=== PATIENT | female | born 1995 | race Caucasian/White ===

== ENCOUNTER 2017-08-22 16:34 | Emergency (ER) | payer BC, MEDICAID, SELFPAY ==
[2017-08-22 16:35] VITALS: BP 136/75; PULSE 138; RESP 18; TEMP 36.4; O2SAT 97; BMI 27.9
[2017-08-22] MEDS: Acetaminophen 500 MG Tablet 1000 MG PO (17:24)
[2017-08-22] MEDS: Lactated Ringers 1,000 ML 1000 ML IV (17:24)
--- NOTE | 2017-08-22 17:31 | EKG12_ITS ---
Test Reason : PALPS Blood Pressure : / mmHG Vent. Rate : 097 BPM Atrial Rate : 097 BPM P-R Int : 162 ms QRS Dur : 092 ms QT Int : 328 ms P-R-T Axes : 045 071 028 degrees QTc Int : 416 ms Normal sinus rhythm Normal ECG Confirmed by MARCO ANTONIO NAJERA, TEX ([id number]), film editor JENNIFER SAINI ([id number]) on 08/25/2017 1:36:16 PM Referred By: ERIK Confirmed By:TEX BERNARD MD
[2017-08-22 17:33] LABS: Absolute Lymphocyte Count 0.89 X10^3/ul (0.83-4.51); Absolute Neutrophil Count 11.8 X10^3/uL (2.0-7.7); Basophil# 0.03 X10^3/uL; Basophil% 0.2 % (0-1); Eosinophil# 0.26 X10^3/uL; Eosinophils% 1.9 % (0-5); Hematocrit 27.9 % (37-47); Hemoglobin 9.3 g/dl (12.0-15.0); Lymphocyte # 0.89 X10^3/ul (4.0); Lymphocyte % 6.4 % (19-41); Mean Corp Hgb Conc 33.3 g/gl (32-36); Mean Corpuscular Hgb 29.7 pg (27.0-32.0); Mean Corpuscular Volume 89.1 fL (81-99); Monocyte# 0.89 X10^3/uL; Monocyte% 6.4 % (0-10); Neutrophil # 11.78 X10^3/uL (2.7-7.7); Neutrophil % 84.5 % (47-70); Platelet Count 205 K/mm3 (150-450); RBC Distribution Width CV 12.6 % (11.6-14.6); RBC Distribution Width SD 39.5 fl (35.1-43.9); Red Blood Count 3.13 M/mm3 (4.2-5.4); White Blood Count 13.9 K/mm3 (4.4-11.0)
[2017-08-22 17:49] LABS: POSITIVE COUNT NO; POSITIVE DIFFERENTIAL NO; POSITIVE MORPHOLOGY NO
[2017-08-22 17:52] LABS: Anion Gap 9 (5-15); BUN 9 mg/dL (7-18); BUN/Creat Ratio 14.3 RATIO (10-20); Calcium,Total 8.5 mg/dL (8.5-10.1); Chloride 107 mmol/L (98-107); Creatinine, Serum 0.63 mg/dL (0.55-1.02); EST Glomerular Filtration Rate 127 mL/min (>60); Est Glom Filt Rate - Afr Amer 154 mL/min (>60); Estimated Creatinine Clearance 128.17 ml/min; Glucose 93 mg/dL (74-106); Potassium 3.5 mmol/L (3.5-5.1); Sodium Level 137 mmol/L (136-145)
--- NOTE | 2017-08-22 18:43 | ED.VISSUMM ---
- ER Visit Summary Date of Service: 08/22/17 Chief Complaint: Shortness of breath History of Present Illness: The patient is a 21 F presenting for evaluation secondary shortness of breath. Patient is 35 weeks , . Patient states that since yesterday she has been having some shortness of breath associated with fevers as high as 102 cough and generalized myalgias. Patient states that she was seen at urgent care yesterday was told she had an upper respiratory infection but then went today and was told that she was dehydrated. Patient states that she has not had any sort of nausea vomiting diarrhea denies any headache neck stiffness or skin rashes. She denies any vaginal bleeding or loss of fluid or decreased movement. Patient has not taken anything for fever. Physical Examination: Vital signs notable for triage tachycardia heart rate of 138 temperature 99.5. Well-nourished female no acute distress. Head normocephalic. Moist mucous membranes. Neck supple. Heart was tachycardic and regular no murmurs. Lungs sounds showed evidence of mild decreased sounds at the left base, but no rhonchi rales or wheezes. Abdomen was gravid and nontender. No skin rashes. Test Results: EKG shows a sinus rate of [address] segments normal T waves. No evidence of right ventricular strain. Normal intervals. CBC shows leukocytosis of 13.9 and anemia of 9.3. Chemistry within normal limits, normal anion gap. Flu swab was negative Emergency Department Course and Treatment: Patient presented secondary to a fever and shortness of breath. Lung sounds are clear although somewhat diminished at the left base likely secondary to the patient's . Patient was given Tylenol and a liter normal saline and had some symptomatic improvement. Patient's laboratory workup is unremarkable, she has normal oxygenation I do not believe that she requires a chest x-ray at this point. Repeat evaluation at 1920 showed the patient to have symptomatic improvement in improvement of her heart rate. At this point patient likely has a febrile illness. I did consider the possibility of pulmonary embolism, but the patient has normal oxygenation and is not complaining of any sort of chest pain so I do not believe the workup for that is indicated at this point. Also the patient is febrile and has more of an infectious etiology which I believe points more away from PE and more towards infection. Patient likely does not have pneumonia she has clear lung sounds. This point patient will be discharged with conservative management with Tylenol and fluids and rest. She will follow-up with her CLERK TO JUSTICE as needed. Disposition: Discharge Impression: 1. Febrile illness 2. 35 week This note was generated with kidthing dictation software. It may contain incorrect words, spelling, and punctuation that were not noted in review of the chart prior to signing ED Disposition - Plan for ED Patient: Disposition: Home or Assisted Living Chief Complaint: Palpitations Diagnosis: Viral illness Instructions: ED Viral Syndrome Additional Instructions: Followup with your OB as needed
--- NOTE | 2017-08-22 18:46 | ED.DCSUM_ITS ---
- ER Visit Summary Date of Service: 08/22/17 Chief Complaint: Shortness of breath History of Present Illness: The patient is a 21 F presenting for evaluation secondary shortness of breath. Patient is 35 weeks , . Patient states that since yesterday she has been having some shortness of breath associated with fevers as high as 102 cough and generalized myalgias. Patient states that she was seen at urgent care yesterday was told she had an upper respiratory infection but then went today and was told that she was dehydrated. Patient states that she has not had any sort of nausea vomiting diarrhea denies any headache neck stiffness or skin rashes. She denies any vaginal bleeding or loss of fluid or decreased movement. Patient has not taken anything for fever. Physical Examination: Vital signs notable for triage tachycardia heart rate of 138 temperature 99.5. Well-nourished female no acute distress. Head normocephalic. Moist mucous membranes. Neck supple. Heart was tachycardic and regular no murmurs. Lungs sounds showed evidence of mild decreased sounds at the left base, but no rhonchi rales or wheezes. Abdomen was gravid and nontender. No skin rashes. Test Results: EKG shows a sinus rate of [address] segments normal T waves. No evidence of right ventricular strain. Normal intervals. CBC shows leukocytosis of 13.9 and anemia of 9.3. Chemistry within normal limits, normal anion gap. Flu swab was negative Emergency Department Course and Treatment: Patient presented secondary to a fever and shortness of breath. Lung sounds are clear although somewhat diminished at the left base likely secondary to the patient's . Patient was given Tylenol and a liter normal saline and had some symptomatic improvement. Patient's laboratory workup is unremarkable, she has normal oxygenation I do not believe that she requires a chest x-ray at this point. Repeat evaluation at 1920 showed the patient to have symptomatic improvement in improvement of her heart rate. At this point patient likely has a febrile illness. I did consider the possibility of pulmonary embolism, but the patient has normal oxygenation and is not complaining of any sort of chest pain so I do not believe the workup for that is indicated at this point. Also the patient is febrile and has more of an infectious etiology which I believe points more away from PE and more towards infection. Patient likely does not have pneumonia she has clear lung sounds. This point patient will be discharged with conservative management with Tylenol and fluids and rest. She will follow- up with her ENAMEL BURNER as needed. Disposition: Discharge Impression: 1. Febrile illness 2. 35 week This note was generated with Feed[employer] dictation software. It may contain incorrect words, spelling, and punctuation that were not noted in review of the chart prior to signing ED Disposition - Plan for ED Patient: Disposition: Home or Assisted Living Chief Complaint: Palpitations Diagnosis: Viral illness Instructions: ED Viral Syndrome Additional Instructions: Followup with your OB as needed
[2017-08-22 18:57] VITALS: PULSE 107
[2017-08-22 19:31] VITALS: BP 122/60; PULSE 102; RESP 20; O2SAT 95
== END 2017-08-22 19:32 | disposition home or self-care (01) ==
PROVIDERS: Emergency Provider Emergency Medicine
DX: O99.89 Other specified diseases and conditions complicating pregnancy, childbirth and the puerperium (principal); R50.9 Fever, unspecified; R06.02 Shortness of breath; Z3A.35 35 weeks gestation of pregnancy
CPT/HCPCS: 80048; 85025; 87804; 93005; 99284; J7120; A4216

== ENCOUNTER 2017-09-30 09:50 | Inpatient (IN) | payer BC, MEDICAID, SELFPAY ==
[2017-09-30] VITALS (12 sets, daily range): BP systolic 105–138; BP diastolic 46–71; PULSE 63–83; RESP 16–17; TEMP 36.1–37.2; O2SAT 99–100; BMI 29.9
[2017-09-30] MEDS: Lactated Ringers 1,000 ML 50 ML IV (10:45)
[2017-09-30 10:56] LABS: Hematocrit 32.5 % (37-47); Hemoglobin 10.8 g/dl (12.0-15.0); Mean Corp Hgb Conc 33.2 g/gl (32-36); Mean Corpuscular Hgb 29.3 pg (27.0-32.0); Mean Corpuscular Volume 88.1 fL (81-99); Mean Platelet Vol. 10.2 fl (6.2-12.0); Platelet Count 224 K/mm3 (150-450); RBC Distribution Width CV 13.2 % (11.6-14.6); RBC Distribution Width SD 42.5 fl (35.1-43.9); Red Blood Count 3.69 M/mm3 (4.2-5.4); Scan Indicated on CBC? Y/N NO; White Blood Count 15.3 K/mm3 (4.4-11.0)
--- NOTE | 2017-09-30 11:22 | PCM.HP.OB ---
History Date of Admission: 09/30/17 Final SHANNON: 09/25/17 Final SHANNON Source: US <20 weeks Gestational age: 40 Weeks and 5 Days History of this : 22yo @ 40.5 wks in early labor. pt was monitored made cervical change from 1cm to 3cm. pt requesting epidural for pain mgmt. pt is dated by her First trimester u/s not c/w LMP. Allergies No Known Allergies Allergy (Verified 09/30/17 04:57) Current Medications Acetaminophen (Tylenol) 325 - 650 mg PO Q4H PRN PRN PRN Reason: PAIN OR FEVER >100.4F Al Hydroxide/Mg Hydroxide (Mylanta Ii) 15 - 30 ml PO Q4H PRN PRN PRN Reason: INDIGESTION Citric Acid/Sodium Citrate (Bicitra) 30 ml PO UD PRN Lactated Ringer's () 1,000 mls @ 50 mls/hr IV .Q20H BECKY Oxytocin/Sodium Chloride () 30 units in 500 mls @ 1 mls/hr IV .Q500H BECKY Nalbuphine HCl (Nubain) 5 - 10 mg IV Q3H PRN PRN PRN Reason: PAIN (4-10/10) Ondansetron HCl (Zofran) 4 mg IV Q8H PRN PRN PRN Reason: NAUSEA Promethazine HCl (Phenergan) 6.25 - 12.5 mg IV Q4H PRN PRN; Protocol PRN Reason: IF NAUSEA PERSISTS Sodium Chloride () 5 - 15 ml IV UD BECKY Smoking Status: Former smoker - quit 12/2016 Alcohol: None Drug Use: none Number of Fetus(es): 1 Review of Systems Gastrointestinal: Reports: Abdominal Pain - from contractions Physical Exam General: Alert, Oriented x3 Abdomen: Soft, Non Tender, Gravid Extremities:: No clubbing Estimated gestational size: Appropriate for gestational size Presentation: Cephalic Cervix Dilation (cm): 3 Station: -1 Effacement (%): 80 Assessment/Plan 22yo @ 40.5 wks in early labor 1) admit to L&D 2) monitor fhr/toco 3) AROM clear fluid IUPC and IFM placed. pt reports negative HEPC prior to placement. 4) Pitocin for augmentation 5) Epidural for pain mgmt 6) PNL labs reviewed- A+, HIV neg, RPR NR, Rub imm, GBS neg, HEP C pending
[2017-09-30] MEDS: Oxytocin 30 units/NS 500 ml 30 UNITS/500 ML IV.SOLN IV (12:00)
[2017-09-30] MEDS: Oxytocin 30 units/NS 500 ml 30 UNITS/500 ML IV.SOLN 167 UNITS IV (14:37)
--- NOTE | 2017-09-30 14:52 | CASEMGMT ---
Social Work Note Patient/mother of baby (MOB) taken back to the OR quickly due to change in heart tones. MOB's maternal grandmother and MOB's 19 year old sister in the room. Both tearful. Introduced self and updated family as able. Supportive listening and encouragement offered. MOB's mother, Gillian, arrived to the unit and wanting an update. Updated given and after calling back to OR for such. Supportive listening offered. Nursing came out to get Gillian as decision made to perform Caesarian section. Family calm and appropriate. location worker remains available as needed or indicated. -SONIA Chapin, BURR GRINDER
[2017-09-30] MEDS: Lactated Ringers 1,000 ML 100 ML IV ×2 (15:00→22:55)
--- NOTE | 2017-09-30 15:11 | OP.PCM_ITS ---
Delivery Classification: Stat Final SHANNON: 09/25/17 Gestational age: 40 Weeks and 5 Days Indications: in active labor with recurrent decelerations and prolonged decelerations- Category 2 FHR remote from delivery. Indications for : Nonreassuring Status Description of Procedure: Surgeon: Dr. Anayeli Ashraf Wax Pourer: JIM Cook after school program assistant: Krystal Redd MS3 Preoperative diagnosis: non reassuring status, Category 2 FHR tracing in active phase of labor Postoperative diagnosis: same Findings:Live female infant born without complication- Apgars 8/9, delayed cord clamping performed as baby was vigorous at time of delivery. Anesthesia: Epidural Complications: None Estimated blood loss:800 Implantable devices: None Drains: park Operative note: After informed consent was obtained the patient was taken the operating room she was given spinal anesthesia. She was then placed in the supine position. She was prepped and draped in the normal sterile fashion. Anesthesia was found to be adequate. At this time a Pfannenstiel skin incision was made with a knife was carried down to the underlying layer of the fascia. The fascial incision was then extended laterally using curved Munoz scissor. Tensions was then turned to the superior aspect of the fascial edge was grasped with 2 straight Krzysztof clamps tented up and the rectus muscle dissected off sharply using curved Munoz scissor. Attention was then turned to the inferior aspect where again [place] clamps were placed in the rectus muscles were tented up and the fascia was dissected off sharply using the curved Munoz scissor. Rectus muscles were then in the midline bluntly and peritoneum was entered bluntly. Gentle opposing traction was placed. At this time the vesicouterine peritoneum was identified. Scalpel was used to make a uterine incision in a low transverse fashion. The uterus was then entered bluntly gentle opposing traction was placed to extend this incision. Membranes were ruptured clear. Infant's head was brought to the uterine incision was delivered atraumatically. Cord was clamped and cut infant was handed to the waiting nursery team. The Placenta was removed from the uterus. The uterus was then removed from the abdominal cavity. The uterus was cleared of all clots and debris using a lap. At this time the uterine incision was reapproximated using #1 Vicryl in a running locked fashion followed by a second imbricating layer with #1 vicryl. Hemostasis was appreciated. Posterior cul-de-sac was then cleared of all clots and debris. Uterus was placed back in the abdominal cavity. Gutters were cleared of all clots and debris. Uterine incision was reevaluated and noted to be of excellent hemostasis. At this time the peritoneum was grasped with Kellys reapproximated using #2 Vicryl suture in a running fashion. Muscles then reapproximated using #2 Vicryl in a interrupted mattress suture fashion. Fascia was then reapproximated using #1 Vicryl in a running fashion. Subcu layer was reapproximated with #2 0 plain gut suture in an interrupted fashion. Subcu layer was closed using 4-0 Monocryl in a subcutaneous fashion. Dry sterile dressing was applied. Instrument lap needle count correct ?2. Anticipated normal postoperative course. Amniotic Membrane Rupture Type: Artificial Amniotic Fluid Description: Clear Placenta Disposition: [facility] Drain: Park to straight drain Cord Entanglement: None Cord Vessel Description: 3 Vessels Esitmated Blood Loss (ml): 800 Infant Gender: Female (1 minute): 8 (5 minute): 9 Delayed cord clamping: Yes Pre-op Antibiotic Given: - - zithromax 500mg Pt instructed on risks of surgery: Bleeding, Anesthesia Risks, Infection, Injury to surrounding structure(s) including bowel and bladder Complications: None - Admit VTE Documentation VTE Present on Admission: Yes VTE Mechan Device Prophylaxis: SCD's VTE Pharm Prophylaxis ordered?: No
[2017-09-30] MEDS: Ketorolac 30 MG/ML Syringe IV ×2 (17:23→22:53)
[2017-09-30] MEDS: oxyCODONE 5 MG Tablet PO (20:07)
[2017-10-01] VITALS: BP 111/46; PULSE 77; RESP 17; TEMP 36.7
[2017-10-01 04:00] VITALS: BP 111/57; PULSE 78; RESP 15; TEMP 37.2
[2017-10-01] MEDS: oxyCODONE 5 MG Tablet PO ×3 (04:46→16:29)
[2017-10-01] MEDS: Ketorolac 30 MG/ML Syringe IV ×2 (04:46→12:21)
[2017-10-01] MEDS: 0.9% Saline Lock 10 ML Syringe IV ×2 (04:46→12:21)
[2017-10-01 05:17] LABS: Hematocrit 26.7 % (37-47); Hemoglobin 8.8 g/dl (12.0-15.0); Mean Corpuscular Hgb 29.4 pg (27.0-32.0); Mean Corpuscular Volume 89.3 fL (81-99); Platelet Count 178 K/mm3 (150-450); RBC Distribution Width SD 40.5 fl (35.1-43.9); Red Blood Count 2.99 M/mm3 (4.2-5.4); White Blood Count 12.9 K/mm3 (4.4-11.0)
[2017-10-01 05:18] LABS: Scan Indicated on CBC? Y/N NO
--- NOTE | 2017-10-01 07:58 | PCM.PN.OB ---
Subjective: pt seen at bedside, doing well .pt reports good pain control. lochia mild. Voiding w/o difficulty. breast feeding. - Physical Exam General: Alert, Oriented x3 Abdomen: Soft, Non-Distended, - - incision site dry and intact. fundus firm Extremities: No Calf Tenderness Vital Signs Temp Pulse Resp BP Pulse Ox 98.9 F 78 15 111/57 L 100 10/01/17 04:00 10/01/17 04:00 10/01/17 04:00 10/01/17 04:00 09/30/17 20:00 Oxygen Delivery Method Room Air Weight: 81.8 kg Body Mass Index (BMI) 29.9 Intake and Output for Last 24 Hours 09/29/17 09/30/17 10/01/17 23:59 23:59 23:59 Intake Total 1600 / 1600 Output Total 1400 / 1400 800 / 800 Balance 200 / 200 -800 / -800 Laboratory Tests Past 24 Hrs 09/30/17 09/30/17 09/30/17 10:45 10:45 10:45 WBC 15.3 H RBC 3.69 L Hgb 10.8 L Hct 32.5 L MCV 88.1 MCH 29.3 MCHC 33.2 RDW 13.2 RDW Differential 42.5 Plt Count 224 MPV 10.2 Hepatitis C Ab (EIA) Pending Hepatitis C Comment Pending Blood Type A POSITIVE Antibody Screen NEGATIVE 10/01/17 05:00 WBC 12.9 H RBC 2.99 L Hgb 8.8 L Hct 26.7 L MCV 89.3 MCH 29.4 MCHC 33.0 RDW 13.0 RDW Differential 40.5 Plt Count 178 MPV 10.0 Hepatitis C Ab (EIA) Hepatitis C Comment Blood Type Antibody Screen Medical Necessity - Tobacco Use Smoking Status: Current every day smoker Assessment/Plan POD#1, doing well routine care pain mgmt ambulation
--- NOTE | 2017-10-01 08:05 | DCINST_ITS ---
Discharge Diet: No Restrictions Discharge Activity: Return to Normal Activity, May Not Drive - for 2 weeks, May not drive while taking narcotic pain medications., May Shower, May Take a Tub Bath - in 7 days. May resume sexual activity in: 4-6 weeks Lifting Restrictions: 20 pounds Additional Activity Instructions:: Nothing in the vagina for 4-6 weeks. You may return to work/school in 6 weeks. Call your doctor if your incision/area has: Continuous Slow Oozing, Sudden Increased Bleeding, Increased Pain/ Swelling, Increased Redness, Foul Smelling Discharge Call your doctor if you observe: Fever of 101 or Higher, Using more than one pad per hour - for 2 hours Suture Line Care: Avoid Pulling/Pushing, Avoid Pinching/Bending Cleanse incision/area with: Keep Dressing Clean & Dry Additional Instructions: If you experience any of the following, contact your healthcare provider. * Bleeding that soaks a pad every hour for 2 hours * Fever 100.4 or higher * Unrelieved incision or abdominal pain * Swelling, redness, discharge or bleeding from your incision or episiotomy site * Your incision begins to separate * Problems urinating (including inability to urinate or burning while urinating) . * Visual changes * Severe headache * Flu-like symptoms * Pain or redness in one of both of your breasts * Pain, warmth, tenderness or swelling in your legs, especially the calf area * Frequent nausea and vomiting * Symptoms of depression or anxiety If you experience any of the following, call 911 or go to the nearest Emergency Room. * Chest pain * Problems breathing * Seizure activity * Partial or complete paralysis of a body part, slurred speech, weakness or drooping of the face, or a sudden inability to walk or hold your balance Allergies/Adverse Reactions: Allergies No Known Allergies Allergy (Verified 09/30/17 04:57) Medications to take at Discharge Vit No.130/Iron/FA [ Vitamins] 1 each PO DAILY 02/11/17 Naproxen [Naprosyn] 250 - 500 mg PO Q8H PRN PRN #30 tab 10/01/17 Oxycodone HCl/Acetaminophen [Percocet 5/325] 1 tablet PO Q6H PRN PRN 7 Days #28 tablet 10/01/17 Senna/Docusate Sodium [Senokot-S] 1 - 2 tab PO DAILY PRN #30 tab 10/01/17 SimETHICONE [Mylicon] 80 mg PO PCHS PRN #30 tab 10/01/17 The following prescriptions were given: Oxycodone HCl/Acetaminophen [Percocet 5/325] 1 tablet PO Q6H PRN PRN 7 Days #28 tablet PRN Reason: Pain Naproxen [Naprosyn] 250 - 500 mg PO Q8H PRN PRN #30 tab PRN Reason: Mild Pain (-08/02) Senna/Docusate Sodium [Senokot-S] 1 - 2 tab PO DAILY PRN #30 tab PRN Reason: Constipation SimETHICONE [Mylicon] 80 mg PO PCHS PRN #30 tab PRN Reason: Indigestion/stomach pain Follow-Up: Call to make an appointment with your doctor for an incision check in 1-2 weeks. You will also need a 6 week post- follow up appointment. Please Follow Up With: Anayeli Ashraf MD - Call to make an appointment for an incision check in 1-2 [phone] When: You will need a post- check in 6 weeks. Primary Care Physician: Care Physician,No Primary [Primary Care Provider] -
[2017-10-01 08:08] VITALS: BP 105/59; PULSE 63; RESP 16; TEMP 36.7; O2SAT 97
[2017-10-01] MEDS: Senna/Docusate Sodium 1 Tablet PO (10:02)
[2017-10-01 12:00] VITALS: BP 109/54; PULSE 88; RESP 18; TEMP 36.6; O2SAT 98
[2017-10-01 16:04] VITALS: BP 95/51; PULSE 75; RESP 16; TEMP 36.5; O2SAT 98
[2017-10-01] MEDS: Naproxen 250 MG Tablet PO (19:44)
[2017-10-01 20:00] VITALS: BP 110/53; PULSE 92; RESP 17; TEMP 37
[2017-10-02] VITALS: PULSE 95; RESP 17; TEMP 37.2
[2017-10-02] MEDS: Naproxen 250 MG Tablet PO (05:52)
--- NOTE | 2017-10-02 07:21 | PCM.PN.OB ---
Subjective: Patient sitting up in bed at this time. Reports is going well, baby latching well. Patient denies no issues overnight, reports that she was able to get more restful sleep than her first night . Patient denies TOBIN, scotoma or dizziness. Patient reports no issues with urination or ambulation. Incisional pain well-controlled. Patient reports slight itching and a possible rash above incisional dressing. Objective: Nipples without cracks or blisters Abdomen NT x 4 quadrants, incisional dressing dry and intact Scant rubra lochia noted - Physical Exam General: Alert, Oriented x3, Cooperative HEENT: Atraumatic, Normocephalic Neck: Supple Lungs: Clear to auscultation, Normal air movement Cardiovascular: Regular rate, Regular Rhythm, No murmurs Abdomen: Soft, Non Tender, Passing Flatus Extremities: No edema, Capillary Refill Less than 3 Seconds, No Calf Tenderness Skin: No rashes, No breakdown Musculoskeletal: No Tenderness to Palpation of Joints or Extremities Neurological: Cranial nerves II-XII grossly intact, Coordination normal Psych/Mental Status: Normal Affect, Appropriate, Alert and oriented to time, place, person, mood and affect Vital Signs Temp Pulse Resp BP Pulse Ox 98.9 F 95 17 110/53 L 98 10/02/17 00:00 10/02/17 00:00 10/02/17 00:00 10/01/17 20:00 10/01/17 16:04 Oxygen Delivery Method Room Air Weight: 180 lb 5.41 oz Body Mass Index (BMI) 29.9 Intake and Output for Last 24 Hours 09/30/17 10/01/17 10/02/17 23:59 23:59 23:59 Intake Total 1600 / 1600 Output Total 1400 / 1400 800 / 800 Balance 200 / 200 -800 / -800 Laboratory Tests Past 24 Hrs 09/30/17 10:45 Hepatitis C Ab (EIA) TNP Hepatitis C Comment Not Reportable Medical Necessity - Tobacco Use Smoking Status: Current every day smoker Assessment/Plan A: 22 y/o s/p LTCS, POD #2, Normal Course P: 1) Continue PP orders, continue 2) Anticipate discharge to home tomrrow pending discharge 3) Follow-up in office for incision check at 2 weeks PP Elena Luque CNM
[2017-10-02 08:15] VITALS: BP 111/58; PULSE 76; RESP 16; TEMP 36.9
[2017-10-02 13:49] VITALS: BP 110/54; PULSE 77; RESP 18; TEMP 36.8; O2SAT 97
--- NOTE | 2017-10-02 15:31 | CASEMGMT ---
Social Work Note Labor and Delivery Unit. Consult received from oil paint shader due to maternal history of substance use, probation and living situation. Chart reviewed. Attempted to meet with mother of baby (MOB) today. First attempt MOB was just getting lunch and was about to eat. Second attempt there were many visitors in the room. Introduced to self and role, that often sees first time mothers (not getting into details of other reasons for consult with so many visitors present). Offered to do consult now and have visitors leave or to come back in the morning. MOB preferred to meet tomorrow morning if okay with high school social studies teacher. Agreed to come back. Plan: Will meet with MOB on 10-03-17 in the morning. -SONIA Chapin, AIRCRAFT MAINTENANCE TECHNICIAN
[2017-10-02 20:20] VITALS: BP 132/72; PULSE 99; RESP 16; TEMP 36.8
[2017-10-03 02:20] VITALS: BP 100/48; PULSE 60; RESP 16; TEMP 36.6
--- NOTE | 2017-10-03 07:15 | PCM.PN.OB ---
Subjective: pt seen at bedside, doing well. pt reports good pain control. lochia mild. passing flatus- tolerating regular diet. Breast feeding. - Physical Exam General: Alert, Oriented x3 Abdomen: Soft, Non-Distended, - - funuds firm. incision site dry and intact. Extremities: No Calf Tenderness Vital Signs Temp Pulse Resp BP Pulse Ox 97.8 F 60 16 100/48 L 97 10/03/17 02:20 10/03/17 02:20 10/03/17 02:20 10/03/17 02:20 10/02/17 13:49 Oxygen Delivery Method Room Air Weight: 81.8 kg Body Mass Index (BMI) 29.9 Intake and Output for Last 24 Hours 10/01/17 10/02/17 10/03/17 23:59 23:59 23:59 Output Total 800 / 800 Balance -800 / -800 Medical Necessity - Tobacco Use Smoking Status: Current every day smoker Assessment/Plan POD#3, doing well routine care pain mgmt dc home today
--- NOTE | 2017-10-03 07:17 | PCM.DC.BLA ---
Discharge Summary Date of Admission: 09/30/17 Date of Discharge: 10/03/17 Summary: pt admitted for labor- pt progressed but was having recurrent decelerations and prolonged decelerations- decision for c/s was performed as she was remote from delivery. pt underwent primary low transverse cs without complications. Pt discharged home on POD#3 in stable condition.
[2017-10-03 08:11] VITALS: BP 120/69; PULSE 75; RESP 16; TEMP 36.6
--- NOTE | 2017-10-03 09:45 | CASEMGMT ---
Social Work Note Labor and Delivery Unit Social Work Assessment completed after referral from the veneer sawyer. Refer to documentation below for further details. Date of Referral: 09/30/2017 Time of Referral: 1842 Referred By: Dr. Lezama Date of Intervention: 10/03/2017 Time of Intervention: 944 Reason for Referral: substance abuse, living situation and probation in mother of baby (MOB) History obtained from: medical record, patient/MOB Polly Jimenez Household composition: MOB currently lives with paternal grandmother Princess Jimenez. MOB reports home situation is safe and adequate, reports has lived with Princess for most of MOBs life. MOB reports moved back in with Princess during this , just to be able to give MOB more support with baby and also save money for own place eventually. Patient's parent/guardian status: MOB (age 22) and reported father of baby (FOB) are not currently together. FOB is identified as Cody Wolfe (age 27). FOB is reported to have several other children. MOB reports MOB and FOB broke up around the time of finding out about . MOB denies any safety concerns from FOB. MOB reports currently in relationship with a man named Timoteo for the last 7 months. MOB denies any form of abuse, control, or intimidation by Timoteo. MOB reports Timoteo is more supportive of the and the baby than biological father has been. Medical History: MOB is G1, P0 to 1 after delivering baby girl Amarii. MOB with care starting at 8 weeks gestation. Baby born via STAT caesarian section. Amariis weight is 7 pounds 1 ounce, Apgars 8 and 9. Educational Status: MOB reports ability to read and write, denies any issues with learning or comprehension. Financial Status: MOB does not currently work, has been working two jobs at one point. MOB reports Princess is willing to help out financially as is Timoteo, until MOB is able to get back to work. Supplies: MOB reports to have needed baby supplies including bassinet, car seat, crib, breast pump, clothing, diapers, wipes, bottles. Childcare/Caregiver(s): MOB. Transportation: MBO reports to have own car and a drivers license. Programs/Agencies Involved: MOB reports to have medical and food assistance through S. MOB reports plan to apply for WIC. MOB reports agreement for a [facility] referral. MOB reports to be on probation with [facility]; no new or pending charges for this MOB. Behavioral Health Issues: Mental Health: MOB reports history of Bipolar disorder, PTSD, and anger management as a teenager. MOB reportedly diagnosed at the age of 14. MOB reports as a teen had a couple of psychiatric hospitalization, suicidal ideation at that time, but none since the age of 15. MOB denies any thoughts, plans, intent for suicide since adulthood or in the . MOB denies thoughts of harm to others. MOB reports history of counseling with Edel at [facility]. Substance Use History: MOB reports history of marijuana use early in , but denies continued use once knew of . Denies alcohol use during or outside of. Denies other illicit drug use. Endorses tobacco smoking in . Drug Screens: No testing identified for MOB. Baby with negative urine drug screen and meconium pending at this time. Family/Social Stressors: MOB is a first time single mother, FOB is not currently involved. MOB with history of mental health, on probation, and admits to some marijuana use early in . MOB had change in living situation, was living on own and now back with family, though MOB reports the move with family is a positive change as will give MOB added support. Support Systems: MOBs paternal grandmother Princess, MOBs mother Estuardo are MOBs identified primary supports. MOB reports to have other family and friends who are supportive however. MOB reports Timoteo would be the person to provide emotional support to MOB. Depression/Shaken Baby/Safe Sleeping: MOB educated to depression, anxiety, and shaken baby. MOB able to give appropriate responses to topics discuss. MOB reports thought that may call and get self-back into [facility], just for added support in the period. MOB also verbally agrees to let the doctor know if mood or anxiety disorders arise. ASSESSMENT: MOB pleasant, cooperative, appropriate eye contact and speech. MOB with bright affect and level appearing mood. MOBs affect brighter when talking about Amarii, looked at Amarii and smiled. MOB reported to feel a positive jay with the baby, and desire to keep and parent baby. MOB reports to have support from family, to have needed supplies, and reports understanding that may be at risk for depression. MOB reports understanding of need to call for help and to let support system know if symptoms arise. MOB reports to feel happy at this time, denies significant anxiety, and denies any thoughts of harm to self or others. MOB educated to marijuana passing through breast milk and encouraged cessation of this substance, especially while . Educated MOB to need for children services referral should babys drug screen come back positive. MOB expressed understanding and denies questions about this. MOB reports early use only. MOB reports agreement to a [facility] referral. Provided MOB with list of [facility] resources, [facility] pamphlet, MOMs support group, shaken baby/tips to soothe baby, and safe sleeping handouts. Provided [facility] applications and educated to weekly walk in hours at the clinic. Provided packet on mood and anxiety disorders, including supports locally and online. PLAN: MOB and baby to home. Resources in place, and [facility] referral being made. Will monitor for babys meconium drug screen results, otherwise no additional services requested or indicated. -KALYANI Chapin, SUPERVISOR [employer]
--- NOTE | 2017-10-06 11:04 | CASEMGMT ---
Social Work [facility] referral submitted today via the [facility]'s secure web based referral system. Meconium drug screen is back and negative for any substances. No further referrals are indicated. -SONIA Chapin, SERVICE DESK DIRECTOR
== END 2017-10-03 10:55 | disposition home or self-care (01) | DRG 766 ==
LOC: WPOUT 09:58
PROVIDERS: Admitting Provider Obstetrics & Gynecology; Visit Provider Obstetrics & Gynecology
DX: O76 Abnormality in fetal heart rate and rhythm complicating labor and delivery (principal); O99.333 Smoking (tobacco) complicating pregnancy, third trimester; Z3A.40 40 weeks gestation of pregnancy; Z37.0 Single live birth
CPT/HCPCS: 59025; 59050; 85027; 86803; 86850; 86900; 99218; J7120; A4216; G0378

== ENCOUNTER 2017-10-04 11:49 | Emergency (ER) | payer BC, MEDICAID, SELFPAY ==
[2017-10-04 11:50] VITALS: BP 136/73; PULSE 106; RESP 14; TEMP 36.9; O2SAT 98; BMI 26.6
[2017-10-04 12:18] VITALS: BP 126/86; PULSE 88; RESP 16; O2SAT 98
--- NOTE | 2017-10-04 13:31 | ED.VISSUMM ---
- ER Visit Summary Date of Service: 10/04/17 Chief Complaint: Allergic reaction History of Present Illness: The patient is a 22 F presenting with concern for allergic reaction. Patient had a 4 days ago. She was discharged from the hospital yesterday. She was sent home with Percocet. She was also sent home with stool softeners but states the only medication she was sent home with that she has taken has been Percocet. She has a rash to her forehead, upper extremities and trunk. She complains of diffuse itching. She denies fever. No difficulty swallowing or breathing. She is breast-feeding. No other complaints. Physical Examination: Vitals are stable. Patient is afebrile. Alert no acute distress. HEENT exam is unremarkable. No mucous membrane involvement Neck is supple. Lungs are clear and equal bilaterally. Heart is regular rate and rhythm. Abdomen is soft nontender nondistended. Incision clean dry and intact Extremities are unremarkable. Skin is maculopapular rash forehead, upper extremities, trunk. No areas of fluctuance or signs of infection. No petechia or purpura. No focal neurologic deficit. Remainder of exam is unremarkable. Emergency Department Course and Treatment: Discussed with on-call for Dr. Shirley. Patient will be given Benadryl and prednisone. She is given a prescription for [place] and advised to discontinue Percocet. She states she has had [place] in the past without difficulty. Advised to follow-up with TELEGRAPH INSTALLER. Advised return ED if worsening complaints. Disposition: Discharge home Impression: Allergic reaction This note was generated with [employer] dictation software. It may contain incorrect words, spelling, and punctuation that were not noted in review of the chart prior to signing ED Disposition - Plan for ED Patient: Chief Complaint: Allergic Reaction Referrals: Care Physician,No Primary [Primary Care Provider] -
--- NOTE | 2017-10-04 13:34 | ED.DCSUM_ITS ---
- ER Visit Summary Date of Service: 10/04/17 Chief Complaint: Allergic reaction History of Present Illness: The patient is a 22 F presenting with concern for allergic reaction. Patient had a 4 days ago. She was discharged from the hospital yesterday. She was sent home with Percocet. She was also sent home with stool softeners but states the only medication she was sent home with that she has taken has been Percocet. She has a rash to her forehead, upper extremities and trunk. She complains of diffuse itching. She denies fever. No difficulty swallowing or breathing. She is breast-feeding. No other complaints. Physical Examination: Vitals are stable. Patient is afebrile. Alert no acute distress. HEENT exam is unremarkable. No mucous membrane involvement Neck is supple. Lungs are clear and equal bilaterally. Heart is regular rate and rhythm. Abdomen is soft nontender nondistended. Incision clean dry and intact Extremities are unremarkable. Skin is maculopapular rash forehead, upper extremities, trunk. No areas of fluctuance or signs of infection. No petechia or purpura. No focal neurologic deficit. Remainder of exam is unremarkable. Emergency Department Course and Treatment: Discussed with on-call for Dr. Shirley. Patient will be given Benadryl and prednisone. She is given a prescription for [place] and advised to discontinue Percocet. She states she has had [place] in the past without difficulty. Advised to follow-up with APPRENTICE PHOTOGRAPHER. Advised return ED if worsening complaints. Disposition: Discharge home Impression: Allergic reaction This note was generated with [employer] dictation software. It may contain incorrect words, spelling, and punctuation that were not noted in review of the chart prior to signing ED Disposition - Plan for ED Patient: Chief Complaint: Allergic Reaction Referrals: Care Physician,No Primary [Primary Care Provider] -
--- NOTE | 2017-10-04 13:34 | ED.DEP ---
ED Disposition - Plan for ED Patient: Chief Complaint: Allergic Reaction Instructions: ED Drug React Allergic Prescriptions: Hydrocodone Bitart/Apap 5-325 [[place] 5MG-325MG] 1 tablet PO Q6H PRN PRN 2 Days #8 tablet PRN Reason: Pain Prednisone [Deltasone] 20 mg PO DAILY #4 tablet Referrals: Care Physician,No Primary [Primary Care Provider] - Joellen Dietrich [STAFF PHYSICIAN] -
--- NOTE | 2017-10-04 13:36 | DCINST.ED_ITS ---
ED Disposition - Plan for ED Patient: Chief Complaint: Allergic Reaction Instructions: ED Drug React Allergic Prescriptions: Hydrocodone Bitart/Apap 5-325 [[place] 5MG-325MG] 1 tablet PO Q6H PRN PRN 2 Days # 8 tablet PRN Reason: Pain Prednisone [Deltasone] 20 mg PO DAILY #4 tablet Referrals: Care Physician,No Primary [Primary Care Provider] - Joellen Dietrich [STAFF PHYSICIAN] -
[2017-10-04] MEDS: predniSONE 20 MG Tablet 40 MG PO (13:44)
[2017-10-04] MEDS: DiphenhydrAMINE 12.5 MG/5 ML UDC 25 MG PO (13:44)
[2017-10-04 13:47] VITALS: BP 125/72; PULSE 77; RESP 16; O2SAT 98
== END 2017-10-04 13:45 | disposition home or self-care (01) ==
PROVIDERS: Emergency Provider Emergency Medicine
DX: L27.1 Localized skin eruption due to drugs and medicaments taken internally (principal); L29.9 Pruritus, unspecified; T40.2X5A Adverse effect of other opioids, initial encounter; Z72.0 Tobacco use
CPT/HCPCS: 99283

== ENCOUNTER 2018-10-31 07:16 | Emergency (ER) | payer BC, MEDICAID, SELFPAY ==
[2018-10-31 07:17] VITALS: BP 145/84; PULSE 114; RESP 18; TEMP 36.2; O2SAT 100; BMI 26.6
--- NOTE | 2018-10-31 07:30 | ED.DCSUM_ITS ---
- ER Visit Summary Date of Service: 10/31/18 Chief Complaint: Cough and congestion History of Present Illness: The patient is a 23 F with cough and congestion for the past 2+ weeks. She had symptoms of fever and chills. She reports white, yellow, and green sputum. She has rare occasional wheezing. She states that head congestion is worse in any chest congestion. Physical Examination: Vital signs significant only for heart rate of 114. Pulse ox is 100% on room air. Patient sitting upright in bed no acute distress. Head and neck examination was TMs to be clear bilaterally. She has mild posterior pharyngeal drainage. Uvula midline. She has mild tenderness of the frontal and maxillary sinuses bilaterally. Heart is regular rate and rhythm. Lung sounds are clear. Abdomen is soft and nontender. Test Results: [] Emergency Department Course and Treatment: The patient has had 2+ weeks of congestion and sinus symptoms. She will be given a course of Augmentin, first dose given here. I do not feel chest x-ray imaging is warranted as it would not change our treatment. This was discussed with the patient and she is in agreement. Treatment Plan: [] Disposition: Discharge Impression: Sinusitis This note was generated with [employer] dictation software. It may contain incorrect words, spelling, and punctuation that were not noted in review of the chart prior to signing ED Disposition - Plan for ED Patient: Disposition: Home or Assisted Living Instructions: ED Sinusitis Abx Tx Prescriptions: Amox/Clavulanate Tablet [Augmentin Tablet] 875 mg PO Q12H #20 tablet Referrals: Everardo Abarca DO [STAFF PHYSICIAN] - As Needed
[2018-10-31] MEDS: Amox/Clavulanate 875 MG Tablet PO (07:38)
[2018-10-31 07:41] VITALS: RESP 20
== END 2018-10-31 07:41 | disposition home or self-care (01) ==
LOC: ED 07:37
PROVIDERS: Emergency Provider Emergency Medicine; Family Provider Family Medicine; PCP Family Medicine
DX: J32.9 Chronic sinusitis, unspecified (principal); Z72.0 Tobacco use
CPT/HCPCS: 99283

== ENCOUNTER 2019-05-28 22:28 | Emergency (ER) | payer BC, MEDICAID, SELFPAY ==
[2019-05-28 22:29] VITALS: BP 123/74; PULSE 110; RESP 15; TEMP 36.8; O2SAT 98; BMI 23.5
[2019-05-28 23:02] LABS: Absolute Lymphocyte Count 1.78 X10^3/uL (0.83-4.51); Absolute Neutrophil Count 9.4 X10^3/uL (2.0-7.7); Basophil# 0.07 X10^3/uL; Basophil% 0.6 % (0-1); Eosinophil# 0.27 X10^3/uL; Eosinophils% 2.2 % (0-5); Hematocrit 40.1 % (37-47); Hemoglobin 12.9 g/dL (12.0-15.0); Lymphocyte # 1.78 X10^3/ul (4.0); Lymphocyte % 14.3 % (19-41); Mean Corp Hgb Conc 32.2 g/dL (32-36); Mean Corpuscular Hgb 28.5 pg (27.0-32.0); Mean Corpuscular Volume 88.5 fL (81-99); Mean Platelet Vol. 10.4 fl (6.2-12.0); Monocyte# 0.81 X10^3/uL; Monocyte% 6.5 % (0-10); NRBC Flagged by Analyzer 0 % (0-5); Neutrophil # 9.44 X10^3/uL (2.7-7.7); Neutrophil % 76.1 % (47-70); Platelet Count 259 K/mm3 (150-450); RBC Distribution Width CV 14.2 % (11.6-14.6); RBC Distribution Width SD 45.6 fl (35.1-43.9); Red Blood Count 4.53 M/mm3 (4.2-5.4); White Blood Count 12.4 K/mm3 (4.4-11.0)
[2019-05-28 23:11] LABS: Color, Urine Yellow (Yellow); Glucose, Dipstick Normal (Normal); Ketone-Dipstick 50 mg/dl (Negative); Leukocyte Esterase-Dipstick 500 /ul (Negative); Nitrite-Dipstick Negative (Negative); Occult Blood-Urine 10 /ul (Negative); Protein-Dipstick Negative (Negative); Specific Gravity, Urine 1.015 (1.002-1.030); Urine Bilirubin Dipstick Negative (Negative); Urine Clarity Cloudy (Clear); Urine Urobilinogen 1 mg/dl (Normal)
[2019-05-28 23:13] LABS: Mucous, Urine 2+ /hpf (<or=2+); White Blood Cells 50-100 SEEN /hpf (0-5)
[2019-05-28 23:14] LABS: Anion Gap 5 (5-15); BUN 13 mg/dL (7-18); BUN/Creat Ratio 13.7 RATIO (10-20); Calcium,Total 9.6 mg/dL (8.5-10.1); Chloride 108 mmol/L (98-107); Creatinine, Serum 0.95 mg/dL (0.55-1.02); EST Glomerular Filtration Rate 78 mL/min (>60); Est Glom Filt Rate - Afr Amer 94 mL/min (>60); Estimated Creatinine Clearance 83.58 ml/min; Glucose 96 mg/dL (74-106); Sodium Level 139 mmol/L (136-145)
[2019-05-28 23:14] LABS: Squamous Epithelial Cells - UA 0-5 SEEN /hpf (5-10)
[2019-05-28 23:15] LABS: Red Blood Cells-Urine 0-5 SEEN /hpf (0-5)
[2019-05-28 23:16] LABS: Bacteria RARE /hpf (None Seen)
[2019-05-28 23:18] LABS: Internal QC Validated? YES +Cl - CLEAR BKGD; Pregnancy, Serum, hCG Quali. NEGATIVE Negative
--- NOTE | 2019-05-28 23:45 | ED.DCSUM_ITS ---
- ER Visit Summary Date of Service: 05/28/19 Chief Complaint: Dehydration History of Present Illness: The patient is a 23 F who presents with possible dehydration. Patient states she began feeling lightheaded today. Patient states she has not been able to eat or drink anything for the past several days. Patient admits to nausea and vomiting. Patient does admit to some dysuria. Patient admits to a fever of 102 at home today. Patient admits to pain in her neck and back. Patient admits to a 35 pound weight loss over the past 2 months. Patient states she also feels like her glands are swollen. Physical Examination: Vital signs are stable except for mild tachycardia of 110. Patient is afebrile here. Patient is in no acute distress. Oral mucosa is pink and moist. Neck is supple. Trachea is midline. There is some mild anterior cervical lymphadenopathy noted. Heart was regular rate and rhythm. Lungs are clear and equal bilaterally. Abdomen is soft. Bowel sounds are normal. There is mild diffuse tenderness. There is no rebound or guarding noted. Cranial nerves II through XII are intact. There are no focal motor or sensory deficits noted. Test Results: CBC shows a mild leukocytosis of 12.4. Basic metabolic profile was within normal limits. Serum hCG was negative. Urinalysis shows evidence of urinary tract infection with leukocyte esterase of 550-100 white blood cells. Emergency Department Course and Treatment: Patient was given IV fluids here. Patient was given Zofran and Bactrim. Patient was instructed to drink plenty of fluids. Patient was instructed to follow-up with her primary care physician for further evaluation. Patient was given prescriptions for Zofran and Bactrim. Patient understood and was agreeable with the plan. All questions were answered. Disposition: Discharge home Impression: 1. Urinary tract infection This note was generated with [employer] dictation software. It may contain incorrect words, spelling, and punctuation that were not noted in review of the chart prior to signing ED Disposition - Plan for ED Patient: Disposition: Home or Assisted Living Diagnosis: Urinary tract infection Instructions: Bladder Infection, Female (Adult) Prescriptions: Smz/Tmp Ds [Bactrim Ds] 1 tab PO BID #6 tab Prescription Printed Ondansetron [Zofran Odt] 4 mg PO Q8H PRN PRN #10 tab PRN Reason: Nausea Prescription Printed Referrals: Aldo Aponte III, MD [Primary Care Provider] - 3-5 Days
[2019-05-29] MEDS: 0.9% Normal Saline 1,000 ML 1000 ML IV
[2019-05-29] MEDS: Ondansetron 4 MG/2 ML Vial IV
[2019-05-29] MEDS: Smz/Tmp Ds Tablet 1 TABLET PO
[2019-05-29 00:58] VITALS: RESP 14
== END 2019-05-29 00:58 | disposition home or self-care (01) ==
PROVIDERS: Emergency Provider Emergency Medicine; Family Provider Family Medicine; PCP Family Medicine
DX: N39.0 Urinary tract infection, site not specified (principal); R11.2 Nausea with vomiting, unspecified; R63.4 Abnormal weight loss; M54.2 Cervicalgia; M54.9 Dorsalgia, unspecified; Z72.0 Tobacco use
CPT/HCPCS: 80048; 81001; 84703; 85025; 96361; 96374; 99284; J7030; A4216; J2405

== ENCOUNTER 2020-01-09 12:00 | Emergency (ER) | payer BC, MEDICAID, SELFPAY ==
[2020-01-09 12:01] VITALS: BP 132/90; PULSE 92; RESP 17; TEMP 36.8; O2SAT 98; BMI 23.8
[2020-01-09 12:08] VITALS: BP 132/90; PULSE 94; RESP 16; TEMP 36.8; O2SAT 99
--- NOTE | 2020-01-09 12:16 | RAD_ITS ---
STUDY: X-RAY CHEST REASON FOR EXAM: Female, 24 years old. fever last night, nausea x 1 week -- cough, nasal congestion -- exposure to COVID-19 TECHNIQUE: AP COMPARISON: 04/16/2013 FINDINGS: EKG leads project over the chest. The lungs are clear and expanded. There is no demonstrated pleural abnormality. Normal size heart. Normal mediastinum and rito. Normal visualized pulmonary arteries. Normal visualized aortic arch and descending thoracic aorta. Normal visualized thoracic spine. Normal visualized ribs, clavicles, and shoulders. There is no demonstrated abnormality of the visualized soft tissue structures of the upper abdomen. RAD/Chest 1 View (Portable) IMPRESSION: Stable, nonacute portable x-ray examination of the chest. Electronically Signed: Rajiv Barboza MD ([place]) at 14:08 EDT , Service support ,
--- NOTE | 2020-01-09 12:17 | ED.VIS.GEN ---
History of Present Illness Chief Complaint: General Illness Detail of Chief Complaint: Respiratory symptoms with loss of taste Onset: Days - Has had respiratory symptoms for a couple of days. She lost her ability to taste last evening. Context: Sudden Onset Timing: Continuous Quality: Upper respiratory infectious symptoms Location: Upper respiratory Current Severity: Mild Maximum Severity: Mild Worsened by: Nothing Relieved by: Nothing Associated Symptoms: Upper respiratory and loss of taste Narrative: Patient is a 24-year-old female who does smoke. She presents with upper respiratory symptoms started several days ago. She had exposure to person who tested positive for Kopit 1 week ago. Exposure time approximate 30 minutes. Neither person was wearing a mask. She states she lives with her elderly grandmother who has pulmonary disease had her daughter. She does report subjective fever with sweats. She denies ocular, visual or auditory symptoms. She denies trouble swallowing or change in voice. Cough is nonproductive. She denies chest discomfort. She does report nausea and vomiting yesterday and diarrhea today. She denies rash. She denies myalgias arthralgias. Denies joint swelling. She denies orthostatic symptoms. Prior similar symptoms: No Recent Illness/Hospitalization: No - Past Medical History (1) No significant past medical history Status: Acute Past Medical History - Allergies and Home Meds Allergies/Adverse Reactions: Allergies oxycodone [From Percocet] Allergy (Verified 01/09/20 12:01) Rash Primary Care Physician: Aldo Aponte III, MD [Primary Care Provider] - Prior records reviewed: Yes Past Medical History: None Surgical History: noncontributory Lives: With Family Smoking Status: Heavy Smoker (>10/day) Alcohol: Rare Drugs: None Review of Systems General: Reports: Chills, Fever, Malaise, Subjective. Denies: Sweats, Weight loss Eyes: Denies: Visual changes - bilaterally, Blurred Vision - bilaterally ENT: Reports: Rhinorrhea. Denies: Bilateral ear pain, Sore throat Cardiovascular: Denies: Chest pain, Palpitations Respiratory: Reports: Dyspnea, Cough. Denies: Sputum, Dyspnea on exertion, Orthopnea, Paroxysmal nocturnal dyspnea Gastrointestinal: Reports: Abdominal pain, Nausea, Vomiting, Diarrhea. Denies: Constipation, Melena, Hematochezia Genitourinary: Denies: Dysuria, Hematuria, Frequency Musculoskeletal: Denies: Myalgias, Arthralgias, Neck pain, Back pain, Swelling, Extremity Pain Skin: Denies: Rash, Wounds Neurological: Reports: Headache. Denies: Weakness, Parasthesia Endocrine: Denies: Polyuria, Polydipsia Hematologic: Denies: Easy bruising, Easy bleeding Allergy: Denies: Uticaria, Swelling of the mouth Physical Exam Vital Signs/Narrative: Vital Signs Temp Pulse Resp BP Pulse Ox 01/09/20 12:08 98.2 F 94 16 132/90 H 99 01/09/20 12:01 98.2 F 92 17 132/90 H 98 Inital Vital Signs reviewed: Yes General: Well nourished, Well developed, No Acute Distress Head: Normocephalic, Atraumatic Eyes: Perrl, EOMI ENT: Nasal congestion Neck: Supple, Nontender Cardiovascular: Regular rate, Regular rhythm, No murmurs, Normal S1, Normal S2 Respiratory: No distress, CTA bilaterally, Chest nontender Abdomen: Soft, Nontender, Nondistended, Normal bowel sounds Back: Nontender, Normal Inspection Extremities: Nontender, No edema Skin: Normal color, No rash, No Trauma. Negative for: Cyanosis, Diaphoresis, Jaundice Neurological: Alert, Oriented x3, Cranial nerves II-XII grossly intact, Normal Strength, Normal Sensation Psychological: Normal affect, Normal Mood Diagnostic/Tx/Re-eval Chest X-Ray - ED: 1 View, Read by ED Physician, Normal, Heart, Lungs, Mediastinum, Bony Structures, No Acute Disease 01/09/20 12:16 Chest 1 View (Portable) [RAD] Stat Laboratory Results 01/09/20 01/09/20 01/09/20 12:30 12:30 12:30 WBC 5.9 RBC 4.27 Hgb 12.4 Hct 38.5 MCV 90.2 MCH 29.0 MCHC 32.2 RDW Std Deviation 42.8 RDW Coeff of Ever 13.1 Plt Count 243 MPV 10.5 Immature Gran % (Auto) 0.200 Neut % (Auto) 53.8 Lymph % (Auto) 31.5 [place] % (Auto) 7.0 Eos % (Auto) 6.8 H Baso % (Auto) 0.7 Absolute Neuts (auto) 3.2 Absolute Lymphs (auto) 1.85 Nucleated RBC % 0 Sodium 140 Potassium 4.0 Chloride 109 H Carbon Dioxide 25.0 Anion Gap 6 BUN 12 Creatinine 0.83 Estim Creat Clear Calc 94.86 Est GFR (MDRD) Af Amer 109 Est GFR (MDRD) Non-Af 90 BUN/Creatinine Ratio 14.4 Glucose 84 Lactic Acid 0.7 Calcium 8.9 Total Bilirubin 0.40 AST 9 L ALT 13 Alkaline Phosphatase 56 Total Protein 7.3 Albumin 3.9 Globulin 3.4 Albumin/Globulin Ratio 1.1 blood work is normal. Kopit test is pending. Patient was informed that based on her constellation of symptoms and exposure she does have COVID. She needs to self quarantine. - Medical Decision Making Diagnosis includes viral upper respiratory infection, COVID-19 infection, pneumonia. Appropriate blood work including swab for Kopit test and chest x-ray were ordered. With respiratory and GI symptoms and loss of taste patient was told that she has COVID. ED Disposition - Plan for ED Patient: Disposition: Home or Assisted Living Diagnosis: COVID-19 virus infection Instructions: ED Upper Resp Infec No Abx Tx Referrals: Aldo Aponte III, MD [Primary Care Provider] - Additional Instructions: Need to self quarantine. You should not be in the same room with your grandmother who has pulmonary disease. You should wear a mask at all times. If you develop difficulty breathing do not hesitate to return to the emergency department.
[2020-01-09 12:43] LABS: Absolute Lymphocyte Count 1.85 X10^3/uL (0.83-4.51); Absolute Neutrophil Count 3.2 X10^3/uL (2.0-7.7); Basophil# 0.04 X10^3/uL; Basophil% 0.7 % (0-1); Eosinophils% 6.8 % (0-5); Hematocrit 38.5 % (37-47); Hemoglobin 12.4 g/dL (12.0-15.0); Lymphocyte # 1.85 X10^3/ul (4.0); Lymphocyte % 31.5 % (19-41); Mean Corp Hgb Conc 32.2 g/dL (32-36); Mean Corpuscular Volume 90.2 fL (81-99); Mean Platelet Vol. 10.5 fl (6.2-12.0); Monocyte# 0.41 X10^3/uL; NRBC Flagged by Analyzer 0 % (0-5); Neutrophil # 3.16 X10^3/uL (2.7-7.7); Neutrophil % 53.8 % (47-70); Platelet Count 243 K/mm3 (150-450); RBC Distribution Width CV 13.1 % (11.6-14.6); RBC Distribution Width SD 42.8 fl (35.1-43.9); Red Blood Count 4.27 M/mm3 (4.2-5.4); White Blood Count 5.9 K/mm3 (4.4-11.0)
[2020-01-09 12:58] LABS: ALB/GLOB Ratio 1.1 RATIO (0.9-2.4); AST(SGOT) 9 U/L (15-37); Alanine Aminotransfer ALT/SGPT 13 U/L (13-56); Albumin, Serum 3.9 g/dL (3.2-5.0); Alkaline Phosphatase 56 U/L (45-117); Anion Gap 6 (5-15); BUN 12 mg/dL (7-18); BUN/Creat Ratio 14.4 RATIO (10-20); Calcium,Total 8.9 mg/dL (8.5-10.1); Chloride 109 mmol/L (98-107); Creatinine, Serum 0.83 mg/dL (0.55-1.02); EST Glomerular Filtration Rate 90 mL/min (>60); Est Glom Filt Rate - Afr Amer 109 mL/min (>60); Estimated Creatinine Clearance 94.86 ml/min; Globulin 3.4 g/dL (2.2-4.2); Glucose 84 mg/dL (74-106); Protein, Total 7.3 g/dL (6.4-8.2); Sodium Level 140 mmol/L (136-145)
[2020-01-09 13:08] LABS: Lactic Acid 0.7 mmol/L (0.4-1.9)
[2020-01-09 13:33] VITALS: BP 117/66; PULSE 55; RESP 16; O2SAT 98
== END 2020-01-09 13:45 | disposition home or self-care (01) ==
PROVIDERS: Emergency Provider Emergency Medicine; PCP Family Medicine
DX: U07.1 COVID-19 (principal)
CPT/HCPCS: 71045; 80053; 83605; 85025; 87635; 94799; 99284; A4216; U0003

== ENCOUNTER 2020-02-28 14:52 | Emergency (ER) | payer BC, MEDICAID, SELFPAY ==
[2020-02-28 14:53] VITALS: BP 127/79; PULSE 73; RESP 18; TEMP 36.2; O2SAT 100; BMI 24.3
[2020-02-28 16:29] LABS: Absolute Lymphocyte Count 2.32 X10^3/uL (0.83-4.51); Absolute Neutrophil Count 5.6 X10^3/uL (2.0-7.7); Basophil# 0.08 X10^3/uL; Basophil% 0.9 % (0-1); Eosinophil# 0.46 X10^3/uL; Eosinophils% 5.2 % (0-5); Hematocrit 42.9 % (37-47); Hemoglobin 13.9 g/dL (12.0-15.0); Lymphocyte # 2.32 X10^3/ul (4.0); Mean Corp Hgb Conc 32.4 g/dL (32-36); Mean Corpuscular Hgb 28.7 pg (27.0-32.0); Mean Corpuscular Volume 88.6 fL (81-99); Mean Platelet Vol. 10.2 fl (6.2-12.0); Monocyte# 0.44 X10^3/uL; Monocyte% 4.9 % (0-10); NRBC Flagged by Analyzer 0 % (0-5); Neutrophil % 62.8 % (47-70); Platelet Count 248 K/mm3 (150-450); RBC Distribution Width CV 13.1 % (11.6-14.6); RBC Distribution Width SD 42.6 fl (35.1-43.9); Red Blood Count 4.84 M/mm3 (4.2-5.4); White Blood Count 8.9 K/mm3 (4.4-11.0)
[2020-02-28 16:50] LABS: Anion Gap 4 (5-15); BUN 11 mg/dL (7-18); BUN/Creat Ratio 12.9 RATIO (10-20); Calcium,Total 9.5 mg/dL (8.5-10.1); Chloride 109 mmol/L (98-107); Creatinine, Serum 0.86 mg/dL (0.55-1.02); EST Glomerular Filtration Rate 87 mL/min (>60); Est Glom Filt Rate - Afr Amer 105 mL/min (>60); Estimated Creatinine Clearance 91.55 ml/min; Glucose 84 mg/dL (74-106); Potassium 3.7 mmol/L (3.5-5.1); Sodium Level 140 mmol/L (136-145)
[2020-02-28 17:40] LABS: Internal QC Validated? YES +Cl - CLEAR BKGD; Pregnancy, Serum, hCG Quali. NEGATIVE Negative
[2020-02-28 17:48] LABS: AST(SGOT) 10 U/L (15-37); Alanine Aminotransfer ALT/SGPT 17 U/L (13-56); Albumin, Serum 4.3 g/dL (3.2-5.0); Alkaline Phosphatase 66 U/L (45-117); Bilirubin, Direct 0.16 mg/dL (0.00-0.30); Globulin 4.4 g/dL (2.2-4.2); Lipase 111 U/L (73-393); Protein, Total 8.7 g/dL (6.4-8.2)
--- NOTE | 2020-02-28 18:08 | ED.DCSUM_ITS ---
- ER Visit Summary Date of Service: 02/28/20 Chief Complaint: Abdominal pain History of Present Illness: The patient is a [address] Aldo Aponte. [facility] COUNSEL[facility]. She is a G1, P1. She reports that she has upper abdominal pain began 2 weeks ago. Is intermittent pain that lasts minutes at a time. Is 10 on 10 at worst and 6 out of 10 currently. Is worsened by movement and spicy foods. Is relieved by sleep. She had nausea without vomiting. Denies any diarrhea. Her last bowel was today. No melena medic easy. No dysuria or frequency. No vaginal bleeding or discharge. Patient reports her last menstrual period was January 15. Physical Examination: Vitals: Stable. Afebrile. General: Well-nourished and well-developed. Head: Normocephalic atraumatic. Neck: Supple, no lymphadenopathy. No JVD. Nontender. Cardiovascular: Regular rate and rhythm. No murmurs. Respiratory: No respiratory distress. Clear to auscultation bilaterally. Abdominal: Soft, mild epigastric tenderness to palpation, nondistended, normal bowel sounds. No guarding, rebound, or peritoneal signs. Back: Nontender. Extremities: Nontender, no edema. Skin: Normal color, no rash. Neurologic: Alert and oriented ?3. Cranial nerves II through XII are intact. Normal strength and sensation. Psych: Normal affect. Test Results: CBC is normal. Chem-7 shows a chloride of 109. LFTs show total protein of 8.7 globulin of 4.4. AST is 10. UA shows leukocytes. test is negative. Lipase was 111. Emergency Department Course and Treatment: Patient was given GI cocktail and Zofran. She has had significant relief. Treatment Plan: Patient be discharged on Prilosec and Zofran. Instructed to follow-up with her primary care physician 1 week if not improving. Return to the emergency department for any worsening symptoms. Disposition: To home in improved and stable condition. Impression: 1. Epigastric pain. This note was generated with [employer]ation software. It may contain incorrect words, spelling, and punctuation that were not noted in review of the chart prior to signing ED Disposition - Plan for ED Patient: Disposition: Home or Assisted Living Instructions: ED Abdominal Pain Unkn Cause Fem Prescriptions: Omeprazole [Prilosec] 20 mg PO DAILY #30 cap Prescription Printed Ondansetron [Zofran Odt] 4 mg PO Q8H PRN PRN #10 tab PRN Reason: Nausea Prescription Printed Referrals: Aldo Aponte III, MD [Primary Care Provider] - 1 Week if not improving
[2020-02-28 18:22] LABS: Red Blood Cells-Urine 0 SEEN /hpf (0-5)
[2020-02-28 18:23] LABS: Color, Urine Yellow (Yellow); Glucose, Dipstick Normal (Normal); Ketone-Dipstick 15 mg/dl (Negative); Leukocyte Esterase-Dipstick 25 /ul (Negative); Nitrite-Dipstick Negative (Negative); Occult Blood-Urine Negative /ul (Negative); Protein-Dipstick 15 mg/dl (Negative); Specific Gravity, Urine 1.025 (1.002-1.030); Urine Bilirubin Dipstick Negative (Negative); Urine Clarity Sl. Cloudy (Clear); Urine Urobilinogen Normal (Normal)
[2020-02-28] MEDS: Ondansetron 4 MG/2 ML Vial IV (18:23)
[2020-02-28] MEDS: Mag Hydrox/Al Hydrox/Simeth 30 ML UDC PO (18:23)
[2020-02-28 18:30] LABS: Bacteria 1+ /hpf (None Seen); Mucous, Urine 1+ /hpf (<or=2+); Squamous Epithelial Cells - UA 0-5 SEEN /hpf (5-10); White Blood Cells 0-5 SEEN /hpf (0-5)
[2020-02-28 18:49] VITALS: BP 127/81; PULSE 68; RESP 17
== END 2020-02-28 18:50 | disposition home or self-care (01) ==
LOC: ED 17:02
PROVIDERS: Emergency Provider Emergency Medicine; PCP Family Medicine
DX: R10.13 Epigastric pain (principal)
CPT/HCPCS: 80048; 80076; 81001; 83690; 84703; 85025; 96374; 99284; A4216; J2405

== ENCOUNTER 2020-03-07 15:48 | Emergency (ER) | payer BC, MEDICAID, SELFPAY ==
[2020-03-07 15:50] VITALS: BP 120/85; PULSE 76; PULSE 92; RESP 17; RESP 18; TEMP 36.5; O2SAT 100; BMI 24.0
--- NOTE | 2020-03-07 15:54 | ED.VIS.GEN ---
History of Present Illness Chief Complaint: Overdose Informant: Patient Onset: Today, Hours Context: Sudden Onset Timing: Intermittent Quality: Sponsor after snorting what she believed was [place] Location: Significant others residents Current Severity: Pt is awake after Narcan Maximum Severity: Severe Worsened by: Believes she snorted fentanyl Relieved by: Narcan Associated Symptoms: Altered sensorium, visual change Narrative: Patient is a 24-year-old woman who states she has difficulty getting to her doctors visits. She has scoliosis, spinal stenosis, degenerative disc disease. She started snorting oxycodone 2-1/2 weeks ago. This the first time she required Narcan. She does not believe she needs inpatient therapy. She states she will stop. She states her child is with her fianc?'s family. She denies IV drug use. She states she is HIV and hepatitis negative. Prior similar symptoms: No Recent Illness/Hospitalization: No - Past Medical History (1) Spinal stenosis Status: Acute (2) Aphthous ulcer of mouth Status: Acute Past Medical History - Allergies and Home Meds Allergies/Adverse Reactions: Allergies oxycodone [From Percocet] Allergy (Verified 03/07/20 15:50) Rash Primary Care Physician: Aldo Aponte III, MD [Primary Care Provider] - Prior records reviewed: Yes Surgical History: noncontributory Lives: With Family Smoking Status: Never smoker Alcohol: Rare Drugs: - - Oxycodone Review of Systems General: Reports: Malaise. Denies: Chills, Fever, Subjective, Sweats Eyes: Reports: Visual changes - bilaterally - The visual change has resolved after Narcan. Denies: Blurred Vision - bilaterally, Diplopia ENT: Denies: Bilateral ear pain, Rhinorrhea, Sore throat Cardiovascular: Reports: - - No history rheumatic fever, heart murmur, SBE.. Denies: Chest pain, Palpitations Respiratory: Denies: Dyspnea, Cough, Dyspnea on exertion Gastrointestinal: Denies: Abdominal pain, Nausea, Vomiting, Diarrhea Musculoskeletal: Denies: Myalgias, Arthralgias, Neck pain, Swelling, Extremity Pain Skin: Denies: Rash, Wounds Neurological: Denies: Headache, Parasthesia Endocrine: Denies: Polyuria, Polydipsia Hematologic: Denies: Easy bruising, Easy bleeding Physical Exam Vital Signs/Narrative: Vital Signs Temp Pulse Resp BP Pulse Ox 03/07/20 15:50 97.7 F L 76 18 120/85 H 100 Inital Vital Signs reviewed: Yes General: Well nourished, Well developed, No Acute Distress Head: Normocephalic, Atraumatic Eyes: Perrl, EOMI ENT: Moist mucous membranes, No rhinorrhea Neck: Supple, Nontender Cardiovascular: Regular rate, Regular rhythm, No murmurs, Normal S1, Normal S2 Respiratory: No distress, CTA bilaterally, Chest nontender Abdomen: Soft, Nontender, Nondistended, Normal bowel sounds Back: Nontender, Normal Inspection Extremities: Nontender, No edema Skin: Normal color, No rash Neurological: Alert, Oriented x3, Cranial nerves II-XII grossly intact, Normal Strength, Normal Sensation Psychological: Normal affect, Normal Mood Diagnostic/Tx/Re-eval - Medical Decision Making Will observe for 30 to 60 minutes. Case management was contacted since she would like information and referral to outpatient treatment center. Patient was observed for 1 hour. Plan is to discharge to home. Case management has seen her. ED Disposition - Plan for ED Patient: Disposition: Home or Assisted Living Diagnosis: Opiate overdose Instructions: ED Abuse Narcotic, ED Overdose Opiate Referrals: Aldo Aponte III, MD [Primary Care Provider] - [facility] [STAFF PHYSICIAN] - As soon as possible
[2020-03-07 17:30] VITALS: BP 107/64; PULSE 72; RESP 16; O2SAT 97
--- NOTE | 2020-03-07 17:32 | CM.ED ---
Social Work Consult: Substance Abuse Informant: Dr. Carvalho This social media director completing chart review. Per chart review patient with a 2 year old daughter, Joy Jimenez. Met with patient in room. Introduced self and social media director role. Patient agreeable to speak with this social media director but not welcoming. Patient Martín mcmahan present. Patient providing verbal permission for this social media director to speak openly with patient marj present. Patient appearing frustrated and agitated to be speaking with this social media director. Patient confirms to have used Fentanyl today and to have overdosed. Patient confirms to have a daughter, Joy. Patient states I didn't use with her around, I don't need help, I am going to not use again. Patient denies resources. This social media director broached topic of current location of [place]. Patient reports with my other. Patient reports patient mother as Estuardo [place]. Patient is refusing to provide this social media director with address and contact number for [place]/current location of [place]. Patient aware that children services will need to be called due to overdose and concerns for putting patient daughter at risk as unable to confirm that [place] is currently safe. Patient states I care about my daughter. Patient states I need to get out of here to check on my daughter, I am worried about her. Patient declining substance abuse resources. Patient reports to have transportation to home today. Patient declining to speak with this social media director further. Patient states I know you will need to call children services. Telephone call to On-call [facility] Children Services worker, Yulisa Powers. Updated Yulisa on inability to confirm [place] current location and if [place] is safe. Yulisa updated on patients report of substance abuse. Narcan was used to assist in patient responding, Yulisa updated on this. Yulisa provided with [address] [place] [address] as the location were EMS picked patient up today. Yulisa to call this social media director back with any questions. Matthew PARKER, SONIA
== END 2020-03-07 17:30 | disposition home or self-care (01) ==
PROVIDERS: Emergency Provider Emergency Medicine; PCP Family Medicine
DX: T40.601A Poisoning by unspecified narcotics, accidental (unintentional), initial encounter (principal)
CPT/HCPCS: 99283

== ENCOUNTER 2021-08-14 08:31 | Emergency (ER) | payer BC, MEDICAID, SELFPAY ==
[2021-08-14 08:32] VITALS: BP 102/69; PULSE 97; RESP 18; TEMP 36.6; O2SAT 99; BMI 22.4
--- NOTE | 2021-08-14 09:07 | EDS_ITS ---
HPI HPI - GI History of Present Illness Chief Complaint: Nausea/Vomiting Narrative Narrative: Patient is a G2, P1 at approximately 7 weeks gestation by dates. She presents with 2 days of nausea and vomiting. She states she has vomited multiple times, with a small amount of blood in her last emesis/blood-tinged. She denies any chest pain or shortness of breath. No lightheadedness. She had diarrhea 2 days ago but has not had a bowel movement since. She denies any dysuria or hematuria. She states that she was seen by Dafne Camargo CMP last week but declined antinausea medications. With her first she did experience hyperemesis gravidarum. She denies any abdominal pain or cramping. No vaginal pain or vaginal bleeding. She states she is supposed to have an ultrasound next week. The last time during her she had Zofran ODT's. She presents because of the continued nausea and vomiting. She states she has vomited multiple times/is experiencing dry heaving over the last 24 hours. PFSH PFSH Medical History no medical history Home Medications metoclopramide HCl [Reglan] 10 mg PO Q6H PRN #20 tab 08/14/21 [Rx Last Taken Unknown] Allergy/AdvReac Type Severity Reaction Status Date / Time oxycodone [From Percocet] Allergy Rash Verified 08/14/21 08:34 Social History Smoking Status: Never smoker ROS ROS ED ROS Narrative Constitutional: No fever, no chills. HEENT: No sore throat. No neck pain. No loss of vision. No rhinorrhea. Cardiovascular: No chest pain. No palpitations. No pedal edema. Respiratory: No cough, no shortness of breath. Abdominal: No abdominal pain. Positive nausea. Multiple episodes of vomiting/dry heaving. Genitourinary: No dysuria. No hematuria. Musculoskeletal: No myalgias. No arthralgias. Neurologic: No headaches. No dizziness. No lightheadedness. Skin: No rash. No change in color. Psychiatric: No depression. No anxiety. EXAM Physical Exam Narrative Exam Narrative: Afebrile. Vital signs noted. HEENT: Normocephalic. Atraumatic. PERRL, EOMI. Neck soft and supple. No point tenderness or step off. Cardiovascular: Regular rate and rhythm. No murmurs, rubs, or gallops appreciated. Respiratory: No tachypnea. Lungs clear to auscultation bilaterally. Gastrointestinal: Abdomen soft, nontender, with normoactive bowel sounds. No rebound or guarding. Neurological: Awake. Alert. Nonfocal, nonlateralizing. Skin: No rash. Normal color. No pallor. Musculoskeletal: No pedal edema. Full range of motion extremities. Const Vital Signs: 08/14/21 08:32 Temperature 97.8 F Temperature Source Oral Pulse Rate 97 Respiratory Rate 18 Blood Pressure 102/69 Blood Pressure Mean 80 Pulse Ox 99 Oxygen Delivery Method Room Air MDM MDM MDM Narrative Medical decision making narrative: Patient was bolused IV fluids and administered intravenous Zofran. I will check a UA to check for ketones/asymptomatic bacteriuria. I will write her prescription for Zofran. I will discuss the patient with her provider. Her urinalysis shows 150 ketones. While there is 1+ bacteria, there are 0-5 WBCs and there are squamous epithelial cells, hence I do think that this is a contaminated specimen. I do not feel antibiotics are indicated. This was discussed with Armando Camargo, her provider. Additionally, she states that she prefers Reglan prior to 12 weeks. I wrote her prescription for 20 Reglan tablets to take for her nausea and vomiting. She will follow-up with DIRECTOR OF SURGERY. She has an appointment next week. She is to call the office as needed. I feel she can be discharged safely home with follow-up. Return instructions to the emergency department were reviewed. Disposition is discharged home in stable condition. Lab Data Labs: Laboratory Results - last 24 hr 08/14/21 09:50 Urine Color Yellow Urine Clarity Clear Urine pH 6.0 Ur Specific [place] 1.025 Urine Protein 15 H Urine Glucose (UA) Normal Urine Ketones 150 A* Urine Occult Blood Negative Urine Nitrite Negative Urine Bilirubin Negative Urine Urobilinogen Normal Ur Leukocyte Esterase 100 H Urine RBC 0 SEEN Urine WBC 0-5 SEEN Ur Squamous Epith Cells 5-10 SEEN Urine Bacteria 1+ Urine Mucus 0 SEEN Discharge Plan Triage Chief Complaint: Nausea/Vomiting ED Provider: Chris Cagle Dx/Rx/DC Orders Clinical Impression: Nausea and vomiting during , First trimester Prescriptions: New metoclopramide HCl [Reglan] 10 mg tablet 10 mg PO Q6H PRN (Reason: nausea and vomiting) Qty: 20 RF: 0 Primary Care Provider: Care Physician,No Primary Referrals: Care Physician,No Primary [Primary Care Provider] - Activity Restrictions/Additional Instructions: Follow-up with Armando Camargo with [facility] obstetrics/gynecology as scheduled. Call the office sooner as needed. Disposition Disposition: Home, Self Care
[2021-08-14] MEDS: 0.9% Normal Saline 1,000 ML 1000 ML IV (09:36)
[2021-08-14] MEDS: Ondansetron 4 MG/2 ML Vial IV (09:37)
[2021-08-14 09:58] LABS: Mucous, Urine 0 SEEN /hpf (<or=2+); Red Blood Cells-Urine 0 SEEN /hpf (0-5)
[2021-08-14 09:59] LABS: Color, Urine Yellow (Yellow); Glucose, Dipstick Normal (Normal); Leukocyte Esterase-Dipstick 100 /ul (Negative); Nitrite-Dipstick Negative (Negative); Occult Blood-Urine Negative /ul (Negative); Protein-Dipstick 15 mg/dl (Negative); Specific Gravity, Urine 1.025 (1.002-1.030); Urine Bilirubin Dipstick Negative (Negative); Urine Clarity Clear (Clear); Urine Urobilinogen Normal (Normal)
[2021-08-14 10:04] LABS: Ketone-Dipstick 150 mg/dl (Negative)
[2021-08-14 10:05] LABS: Bacteria 1+ /hpf (None Seen); Squamous Epithelial Cells - UA 5-10 SEEN /hpf (5-10); White Blood Cells 0-5 SEEN /hpf (0-5)
[2021-08-14 11:11] VITALS: RESP 16
== END 2021-08-14 11:12 | disposition home or self-care (01) ==
PROVIDERS: Emergency Provider Emergency Medicine; Visit Provider Emergency Medicine
DX: O21.0 Mild hyperemesis gravidarum (principal); Z3A.01 Less than 8 weeks gestation of pregnancy
CPT/HCPCS: 81001; 96361; 96374; 99283; J7030; J2405

== ENCOUNTER 2021-08-25 16:06 | Emergency (ER) | payer BC, MEDICAID, SELFPAY ==
[2021-08-25 16:07] VITALS: BP 120/69; PULSE 95; RESP 18; TEMP 36.3; O2SAT 100; BMI 22.3
--- NOTE | 2021-08-25 16:25 | EDS_ITS ---
HPI History of Present Illness Chief Complaint: Abd Pain Informant: patient Onset/Context/Timing Onset: Days Context: Gradual Onset Current Severity: Mild Maximum Severity: Moderate Narrative Narrative: Patient presents secondary to generalized abdominal pain. She states has been having symptoms for about a week and a half along with nausea and vomiting. She is currently 8 weeks . She was seen in the ER recently and given Zofran. She states she felt well in regards to her vomiting for about 2 days but then started vomiting again. She reports not having a bowel movement for the past 3 days. She has passed gas. She reports a history of IBS. Patient denies dysuria but does report her urine is concentrated. [facility] Medical History IBS (irritable bowel syndrome) Medical History no medical history Home Medications cephalexin 500 mg PO Q6 #12 cap 08/25/21 [Rx Last Taken Unknown] ondansetron HCl 4 mg PO Q8 PRN 08/25/21 [History Last Taken Unknown] promethazine 25 mg PO TID PRN #14 tab 08/25/21 [Rx Last Taken Unknown] Allergy/AdvReac Type Severity Reaction Status Date / Time oxycodone [From Percocet] Allergy Rash Verified 08/25/21 16:06 Social History Smoking Status: Never smoker ROS ROS ED Constitutional Constitutional ED: Denies chills or fever(s) Eyes Eyes: Denies change in vision ENT ENT ED: Denies sore throat Cardiovascular Cardiovascular: Denies chest pain Respiratory/Chest Respiratory/Chest: Denies cough or dyspnea Gastrointestinal Gastrointestinal: Reports abdominal pain, constipation, nausea and vomiting; Denies diarrhea Genitourinary Genitourinary ED: Denies dysuria Musculoskeletal Musculoskeletal: Denies back pain Integumentary Denies rash Neurologic Neurologic: Denies headache(s) or weakness Allergic/Immunologic Allergic/Immunologic ED: Denies urticaria EXAM Physical Exam Const Vital Signs: 08/25/21 16:07 Temperature 97.4 F L Temperature Source Temporal Pulse Rate 95 Respiratory Rate 18 Blood Pressure 120/69 Blood Pressure Mean 86 Pulse Ox 100 Oxygen Delivery Method Room Air Positive well nourished and well developed General Appearance ED: well developed HEENT Reports dry mucous membranes Mouth ED: Yes dry mucous membranes Mouth: dry mucous membranes Eyes PERRL and EOMs intact bilaterally Neck supple Chest Wall inspection of chest normal and palpation of chest normal Resp normal respiratory effort and clear to auscultation bilaterally Cardio regular rate and regular rhythm GI non-tender Auscultation: hypoactive bowel sounds Palpation: soft Extremity normal to inspection Neuro oriented x3 Sensorium / Orientation: alert Psych mental status grossly normal Skin no rashes or lesions noted MDM MDM MDM Narrative Medical decision making narrative: Patient given Tylenol and Zofran along with IV fluids. Lab work and urinalysis ordered. Lab Data Attestation: I reviewed the patient's lab results. Labs: Laboratory Results - last 24 hr 08/25/21 08/25/21 08/25/21 16:15 16:15 16:40 WBC 13.2 H RBC 4.50 Hgb 13.2 Hct 39.7 MCV 88.2 MCH 29.3 MCHC 33.2 RDW Std Deviation 43.1 RDW Coeff of Ever 13.2 Plt Count 277 MPV 10.5 Immature Gran % (Auto) 0.400 Neut % (Auto) 74.4 H Lymph % (Auto) 18.7 L [place] % (Auto) 5.1 Eos % (Auto) 0.9 Baso % (Auto) 0.5 Absolute Neuts (auto) 9.8 H Absolute Lymphs (auto) 2.48 Nucleated RBC % 0 Sodium 135 L Potassium 3.7 Chloride 104 Carbon Dioxide 23.0 Anion Gap 8 BUN 15 Creatinine 0.88 Estim Creat Clear Calc 88.70 Est GFR (MDRD) Af Amer 101 Est GFR (MDRD) Non-Af 84 BUN/Creatinine Ratio 17.1 Glucose 85 Calcium 9.5 Total Bilirubin 0.40 Direct Bilirubin 0.11 AST 10 L ALT 19 Alkaline Phosphatase 49 Total Protein 8.1 Albumin 4.0 Globulin 4.1 Urine Color Yellow Urine Clarity Clear Urine pH 6.0 Ur Specific [place] 1.025 Urine Protein 15 H Urine Glucose (UA) Normal Urine Ketones 15 H Urine Occult Blood Negative Urine Nitrite Negative Urine Bilirubin Negative Urine Urobilinogen Normal Ur Leukocyte Esterase 25 H Urine RBC 0 SEEN Urine WBC 5-10 SEEN Ur Squamous Epith Cells 0-5 SEEN Urine Bacteria 1+ Urine Mucus 0 SEEN Treatment and Re-Evaluation Narrative: Lab work reveals mildly elevated white count at 13.2 with 74% neutrophils. Chemistry studies/LFTs unremarkable. Urinalysis does show 5-10 white cells with 1+ bacteria. In light of this she will be treated with Keflex. On repeat exam patient appears nontoxic. She continues to complain of abdominal pain but examination is not consistent with acute inflammatory condition such as cholecystitis or appendicitis. I do believe she likely has some constipation as she has not been tolerating p.o. well recently. She has Zofran at home but will be given a prescription for Phenergan today. She underwent a pelvic ultrasound in the past week to confirm intrauterine . I do not believe repeat imaging is needed at this time. Return instructions are provided. Discharge Plan Triage Chief Complaint: Abd Pain ED Provider: Giulia Hawkins Dx/Rx/DC Orders Clinical Impression: Abdominal pain, First trimester , UTI (urinary tract infection), Constipation Instructions: ED Abdominal Pain, Early , ED CYSTITIS Female Adult Prescriptions: New promethazine 25 mg tablet 25 mg PO TID PRN (Reason: nausea and vomiting) Qty: 14 RF: 0 cephalexin 500 mg capsule 500 mg PO Q6 Qty: 12 RF: 0 No Action ondansetron HCl 4 mg tablet 4 mg PO Q8 PRN (Reason: Nausea) RF: 0 Primary Care Provider: Sarah Dick Referrals: Joellen Dietrich MD [STAFF PHYSICIAN] - 5-7 Days Sarah Dick MD [Primary Care Provider] - Disposition Disposition: Home, Self Care
[2021-08-25] MEDS: Acetaminophen 500 MG Tablet 1000 MG PO (16:39)
[2021-08-25] MEDS: Ondansetron 4 MG/2 ML Vial IV (16:40)
[2021-08-25 16:41] LABS: Absolute Lymphocyte Count 2.48 X10^3/uL (0.83-4.51); Absolute Neutrophil Count 9.8 X10^3/uL (2.0-7.7); Basophil# 0.06 X10^3/uL; Basophil% 0.5 % (0-1); Eosinophil# 0.12 X10^3/uL; Eosinophils% 0.9 % (0-5); Hematocrit 39.7 % (37-47); Hemoglobin 13.2 g/dL (12.0-15.0); Lymphocyte # 2.48 X10^3/ul (0.83-4.51); Lymphocyte % 18.7 % (19-41); Mean Corp Hgb Conc 33.2 g/dL (32-36); Mean Corpuscular Hgb 29.3 pg (27.0-32.0); Mean Corpuscular Volume 88.2 fL (81-99); Mean Platelet Vol. 10.5 fl (6.2-12.0); Monocyte# 0.68 X10^3/uL; Monocyte% 5.1 % (0-10); NRBC Flagged by Analyzer 0 % (0-5); Neutrophil # 9.84 X10^3/uL (2.7-7.7); Neutrophil % 74.4 % (47-70); Platelet Count 277 K/mm3 (150-450); RBC Distribution Width CV 13.2 % (11.6-14.6); RBC Distribution Width SD 43.1 fl (35.1-43.9); White Blood Count 13.2 K/mm3 (4.4-11.0)
[2021-08-25] MEDS: 0.9% Normal Saline 1,000 ML 1000 ML IV (16:41)
[2021-08-25 16:45] LABS: Mucous, Urine 0 SEEN /hpf (<or=2+); Red Blood Cells-Urine 0 SEEN /hpf (0-5)
[2021-08-25 16:50] LABS: Color, Urine Yellow (Yellow); Glucose, Dipstick Normal (Normal); Ketone-Dipstick 15 mg/dl (Negative); Leukocyte Esterase-Dipstick 25 /ul (Negative); Nitrite-Dipstick Negative (Negative); Occult Blood-Urine Negative /ul (Negative); Protein-Dipstick 15 mg/dl (Negative); Specific Gravity, Urine 1.025 (1.002-1.030); Urine Bilirubin Dipstick Negative (Negative); Urine Clarity Clear (Clear); Urine Urobilinogen Normal (Normal)
[2021-08-25 16:56] LABS: AST(SGOT) 10 U/L (15-37); Alanine Aminotransfer ALT/SGPT 19 U/L (13-56); Alkaline Phosphatase 49 U/L (45-117); Anion Gap 8 (5-15); BUN 15 mg/dL (7-18); BUN/Creat Ratio 17.1 RATIO (10-20); Bilirubin, Direct 0.11 mg/dL (0.00-0.30); Calcium,Total 9.5 mg/dL (8.5-10.1); Chloride 104 mmol/L (98-107); Creatinine, Serum 0.88 mg/dL (0.55-1.02); EST Glomerular Filtration Rate 84 mL/min (>60); Est Glom Filt Rate - Afr Amer 101 mL/min (>60); Globulin 4.1 g/dL (2.2-4.2); Glucose 85 mg/dL (74-106); Potassium 3.7 mmol/L (3.5-5.1); Protein, Total 8.1 g/dL (6.4-8.2); Sodium Level 135 mmol/L (136-145)
[2021-08-25 16:58] LABS: Bacteria 1+ /hpf (None Seen); Squamous Epithelial Cells - UA 0-5 SEEN /hpf (5-10); White Blood Cells 5-10 SEEN /hpf (0-5)
[2021-08-25] MEDS: Cephalexin 250 MG Capsule 500 MG PO (17:45)
[2021-08-25 17:51] VITALS: BP 135/69; PULSE 74; RESP 15; O2SAT 99
== END 2021-08-25 17:51 | disposition home or self-care (01) ==
PROVIDERS: Emergency Provider Emergency Medicine; PCP Pediatrics; Visit Provider Emergency Medicine
DX: O26.891 Other specified pregnancy related conditions, first trimester (principal); O23.41 Unspecified infection of urinary tract in pregnancy, first trimester; O99.611 Diseases of the digestive system complicating pregnancy, first trimester; K59.00 Constipation, unspecified; R10.9 Unspecified abdominal pain; Z3A.08 8 weeks gestation of pregnancy
CPT/HCPCS: 80048; 80076; 81001; 85025; 96374; 99283; J7030; A4216; J2405

== ENCOUNTER 2021-10-14 15:39 | Emergency (ER) | payer BC, MEDICAID, SELFPAY ==
[2021-10-14 15:40] VITALS: BP 123/87; PULSE 124; RESP 16; TEMP 36.6; O2SAT 97; BMI 22.1
--- NOTE | 2021-10-14 16:15 | EKG12_ITS ---
Test Reason : ASTHMA Blood Pressure : / mmHG Vent. Rate : 082 BPM Atrial Rate : 082 BPM P-R Int : 158 ms QRS Dur : 094 ms QT Int : 346 ms P-R-T Axes : 040 074 044 degrees QTc Int : 404 ms Normal sinus rhythm with sinus arrhythmia Normal ECG Confirmed by MARCO ANTONIO NAJERA, TEX ([id number]), senior technical editor ETTA RAYGOZA ([id number]) on 10/15/2021 11:44:53 AM Referred By: NAIMA Confirmed By:TEX BERNARD MD
--- NOTE | 2021-10-14 16:22 | EDS_ITS ---
HPI History of Present Illness Chief Complaint: Syncope Narrative Narrative: Patient presents with lightheadedness, she tells me she had a few syncopal episodes but when I talked to her they seem more like presyncope, she feels lightheaded and feels she has to sit down if she remembers everything and has not had any loss of memory. She is also complaining about cough congestion and wheezing in her chest, it started with an upper respiratory infection about a week ago and progressed. She had upper airway congestion rhinorrhea and then she developed chest congestion. She has no leg pain or calf pain. She has no pleuritic component. [facility] Medical History IBS (irritable bowel syndrome) Home Medications cephalexin 500 mg PO Q6 #12 cap 08/25/21 [Rx Last Taken Unknown] ondansetron HCl 4 mg PO Q8 PRN 08/25/21 [History Last Taken Unknown] promethazine 25 mg PO TID PRN #14 tab 08/25/21 [Rx Last Taken Unknown] azithromycin 250 mg PO DAILY 4 Days #4 tab 10/14/21 [Rx Last Taken Unknown] Allergy/AdvReac Type Severity Reaction Status Date / Time oxycodone [From Percocet] Allergy Rash Verified 10/14/21 15:43 Social History Smoking Status: Never smoker ROS ROS ED ROS Narrative Past medical history: Reviewed Medications: Reviewed Social history: Noncontributory Review of systems: All systems negative except as indicated General: No fever Eyes: No visual changes ENT: Upper airway congestion and rhinorrhea Neck: No neck pain Cardiovascular: No chest pain Respiratory: Cough and wheezing Gastrointestinal: No abdominal pain. No recent nausea, she has had some nausea and vomiting early in her but this seems to have improved, she is now 14 weeks . Genitourinary: No dysuria. No vaginal bleeding. Musculoskeletal: Denies myalgias no difficulty with ambulation Skin: No rash Neurological: No memory loss, confusion or any focal weakness Psych: No recent behavioral changes Hematologic: No easy bleeding or easy bruising EXAM Physical Exam Narrative Exam Narrative: Physical exam General: Well nourished, Well developed, No Acute Distress Head: Normocephalic, Atraumatic Eyes: Conjunctiva not pale ENT: Slightly dry mucous membranes. There is rhinorrhea, swollen nasal turbinates. There is postnasal drip but no pharyngitis. Neck: Supple, Nontender, No lymphadenopathy Cardiovascular: Regular rate, Regular rhythm Respiratory: She does not appear in respiratory distress. She is speaking in full sentences, however there is bilateral end expiratory wheezing. Abdomen: Soft, Nontender, Nondistended Back: Nontender, Normal Inspection. Negative for: CVA tenderness Extremities: Nontender, No edema Skin: Normal color, No rash Neurological: Alert, Normal Strength, Normal Sensation Psychological: Normal affect Const Vital Signs: 10/14/21 15:40 10/14/21 16:09 Temperature 97.8 F Temperature Source Temporal Pulse Rate 124 H Respiratory Rate 16 Respiratory Effort Normal Non-Labored Respiratory Depth Normal Respiratory Pattern Normal Blood Pressure 123/87 H Blood Pressure Mean 99 Pulse Ox 97 Oxygen Delivery Method Room Air Room Air MDM MDM MDM Narrative Medical decision making narrative: Patient signs and symptoms point towards an infectious etiology with a reactive component in her lungs, she had an upper respiratory infection which I objectively can see signs of, she has wheezing and a cough. She is 14 weeks but I doubt this is thromboembolic in nature, I do not believe a work-up is needed at this time. She is given nebulizer and IV fluids she significantly improved. I will discharge her with an inhaler for home, I do not believe she needs steroids at this time. She has bronchitis with productive cough I will give her antibiotics also. If anything changes she is to return. Lab Data Labs: Laboratory Results - last 24 hr 10/14/21 10/14/21 16:22 16:22 WBC 12.2 H RBC 4.02 L Hgb 11.9 L Hct 35.1 L MCV 87.3 MCH 29.6 MCHC 33.9 RDW Std Deviation 44.5 H RDW Coeff of Ever 13.8 Plt Count 265 MPV 10.3 Immature Gran % (Auto) 0.700 Neut % (Auto) 75.9 H Lymph % (Auto) 13.8 L [place] % (Auto) 5.2 Eos % (Auto) 4.0 Baso % (Auto) 0.4 Absolute Neuts (auto) 9.3 H Absolute Lymphs (auto) 1.69 Nucleated RBC % 0 Sodium 136 Potassium 3.8 Chloride 107 Carbon Dioxide 20.0 L Anion Gap 9 BUN 9 Creatinine 0.69 Estim Creat Clear Calc 112.15 Est GFR (MDRD) Af Amer 133 Est GFR (MDRD) Non-Af 110 BUN/Creatinine Ratio 13.0 Glucose 79 Calcium 9.2 Total Bilirubin 0.40 AST 13 L ALT 17 Alkaline Phosphatase 51 Total Protein 7.5 Albumin 3.2 Globulin 4.3 H Albumin/Globulin Ratio 0.7 L Discharge Plan Triage Chief Complaint: Syncope ED Provider: Romeo Garcia Dx/Rx/DC Orders Clinical Impression: Bilateral wheezing, Acute dehydration Instructions: Dehydration, ED Bronchitis with Wheezing (Adult) Prescriptions: New azithromycin 250 mg tablet 250 mg PO DAILY 4 Days Qty: 4 RF: 0 No Action ondansetron HCl 4 mg tablet 4 mg PO Q8 PRN (Reason: Nausea) RF: 0 promethazine 25 mg tablet 25 mg PO TID PRN (Reason: nausea and vomiting) Qty: 14 RF: 0 cephalexin 500 mg capsule 500 mg PO Q6 Qty: 12 RF: 0 Primary Care Provider: Sarah Dick Referrals: Sarah Dick MD [Primary Care Provider] - 2 Days Disposition Disposition: Home, Self Care
[2021-10-14 16:33] LABS: Absolute Lymphocyte Count 1.69 X10^3/uL (0.83-4.51); Absolute Neutrophil Count 9.3 X10^3/uL (2.0-7.7); Basophil# 0.05 X10^3/uL; Basophil% 0.4 % (0-1); Eosinophil# 0.49 X10^3/uL; Hematocrit 35.1 % (37-47); Hemoglobin 11.9 g/dL (12.0-15.0); Lymphocyte # 1.69 X10^3/ul (0.83-4.51); Lymphocyte % 13.8 % (19-41); Mean Corp Hgb Conc 33.9 g/dL (32-36); Mean Corpuscular Hgb 29.6 pg (27.0-32.0); Mean Corpuscular Volume 87.3 fL (81-99); Mean Platelet Vol. 10.3 fl (6.2-12.0); Monocyte# 0.63 X10^3/uL; Monocyte% 5.2 % (0-10); NRBC Flagged by Analyzer 0 % (0-5); Neutrophil # 9.26 X10^3/uL (2.7-7.7); Neutrophil % 75.9 % (47-70); Platelet Count 265 K/mm3 (150-450); RBC Distribution Width CV 13.8 % (11.6-14.6); RBC Distribution Width SD 44.5 fl (35.1-43.9); Red Blood Count 4.02 M/mm3 (4.2-5.4); White Blood Count 12.2 K/mm3 (4.4-11.0)
[2021-10-14] MEDS: Azithromycin 250 MG Tablet 500 MG PO (16:47)
[2021-10-14] MEDS: 0.9% Normal Saline 1,000 ML 999 ML IV (16:48)
[2021-10-14 16:58] LABS: ALB/GLOB Ratio 0.7 RATIO (0.9-2.4); AST(SGOT) 13 U/L (15-37); Alanine Aminotransfer ALT/SGPT 17 U/L (13-56); Albumin, Serum 3.2 g/dL (3.2-5.0); Alkaline Phosphatase 51 U/L (45-117); Anion Gap 9 (5-15); BUN 9 mg/dL (7-18); Calcium,Total 9.2 mg/dL (8.5-10.1); Chloride 107 mmol/L (98-107); Creatinine, Serum 0.69 mg/dL (0.55-1.02); EST Glomerular Filtration Rate 110 mL/min (>60); Est Glom Filt Rate - Afr Amer 133 mL/min (>60); Estimated Creatinine Clearance 112.15 ml/min; Globulin 4.3 g/dL (2.2-4.2); Glucose 79 mg/dL (74-106); Potassium 3.8 mmol/L (3.5-5.1); Protein, Total 7.5 g/dL (6.4-8.2); Sodium Level 136 mmol/L (136-145)
[2021-10-14] MEDS: Ipratropium/Albuterol Sulfate 3 ML AMPUL.NEB INHALATION (17:00)
== END 2021-10-14 17:37 | disposition home or self-care (01) ==
PROVIDERS: Emergency Provider Emergency Medicine; PCP Pediatrics; Visit Provider Emergency Medicine
DX: O99.512 Diseases of the respiratory system complicating pregnancy, second trimester (principal); E86.0 Dehydration; J40 Bronchitis, not specified as acute or chronic; R55 Syncope and collapse; O99.282 Endocrine, nutritional and metabolic diseases complicating pregnancy, second trimester; Z3A.14 14 weeks gestation of pregnancy; R06.2 Wheezing
CPT/HCPCS: 80053; 85025; 87428; 93005; 96360; 99284; J7030; A4216

== ENCOUNTER 2022-01-08 14:25 | Emergency (ER) | payer BC, MEDICAID, SELFPAY ==
[2022-01-08 14:25] VITALS: BP 118/65; PULSE 91; RESP 16; TEMP 37; O2SAT 99; BMI 23.6
== END 2022-01-08 14:30 | disposition left against medical advice (07) ==
LOC: ED 14:42
PROVIDERS: PCP Pediatrics
DX: S02.2XXA Fracture of nasal bones, initial encounter for closed fracture (principal); X58.XXXA Exposure to other specified factors, initial encounter; Z53.21 Procedure and treatment not carried out due to patient leaving prior to being seen by health care provider

== ENCOUNTER 2023-12-14 21:36 | Emergency (ER) | payer MEDICAID, SELFPAY ==
[2023-12-14 21:37] VITALS: BP 126/90; PULSE 110; RESP 18; TEMP 36.6; O2SAT 100; BMI 20.9
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
[2023-12-15] MEDS: Lidocaine 1% (20 ml mdv) 20 ML Vial INFILT (00:03)
[2023-12-15] MEDS: Diphth,Pertuss(Acell),Tet Vac 0.5 ML Vial IM (00:03)
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
== END 2023-12-15 01:52 | disposition left against medical advice (07) ==
PROVIDERS: Emergency Provider Emergency Medicine; PCP Pediatrics; Visit Provider Emergency Medicine
DX: S01.01XA Laceration without foreign body of scalp, initial encounter (principal); S40.811A Abrasion of right upper arm, initial encounter; F12.90 Cannabis use, unspecified, uncomplicated; Y04.8XXA Assault by other bodily force, initial encounter
CPT/HCPCS: 70450; 90715; 99282

== ENCOUNTER 2025-01-06 20:24 | Outpatient (CLI) | payer MEDICAID, SELFPAY ==
[2025-01-06 20:31] VITALS: BMI 28.8
[2025-01-06 20:38] VITALS: BP 139/74; PULSE 89; RESP 14; TEMP 36.2
--- OUTSIDE RECORDS SUMMARY | 2025-01-06 20:38 | XMS RPT_ITS | CCD ---
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 Name Role Phone Fadi JOHNSON MD, Aldo A Primary Care Provider Mara vailable Unavailable Primary Care Provider Unavailjeannette Nagy RN, Dilma Unavailable Unavailjeannette Aponte III, MD, Frank A Primary Care Provider Mara vailable Unavailable Primary Care Provider Unavailjeannette e Unavailable Primary Care Provider Unavailjeannette Aponte III, MD, Aldo A Primary Care Provider Mara vailable PHYSICIAN, NONE Primary Care Physician Unavailab Fátima Sheikh Attending Unavailable Fátima Espino Admitting Unavailable SeSarah peres Primary Care Unavailable DAFNE MATHEW Attending Unav ailable PHYSICIAN, NONE Primary Care Unavailable PHYSICIAN, NONE Primary Care Unavailable RICARDO CAMPBELL DO Attending Unavailable PHYSICIAN, NONE Primary Care Unavailable RICARDO CAMPBELL DO Attending Unavailable DAFNE CAMARGO Attending Unavailable DAFNE CAMARGO Referring Unavailable WALLACE ANDINO Referring Unavailable FÁTIMA ESPINO Attending Unavailable DAFNE CAMARGO Referring Unavailable GREGORY JENKINS Attending Unavailable Allergies Allergy Classification Reported Allergen(s) Allergy Type Date of Onset Reaction(s) Facility (3 sources) oxyCODONE Drug Allergy 2 Rash [facility] Work Phone: (20 sources) Acetaminophen / oxyCODONE; Translations: [acetaminophen-ox ycodone] Drug Allergy 8 Rash, Itching [facility] (20 sources) Dust; Translations: [DUST] Propensity to adverse reactions 7 Itching [facility] Work Phone: (20 sources) Tree; Translations: [TREES] Propensity to adverse reactions 7 Itching [facility] Work Phone: (20 sources) animals [Other] Propensity to adverse reactions 7 Itching [facility] Work Phone: (20 sources) molds [Other] Propensity to adverse reactions 7 Itching [facility] Work Phone: (1 source) oxyCODONE Drug Allergy 4 [facility] Repository Medications Current Medications Medication Drug Class(es) Dates Sig (Normalized) Sig (Original) [id number] 200 actuat albuterol 0.09 mg/actuat metered dose inhaler (20 sources) beta2-Adrenergic Agonist Start: 12-12-2021 take 2 puff(s) by inhalation every four hours as needed for wheezing albuterol HFA (PROAIR HFA) 90 mcg/actuation inhaler Inhale 2 Puffs as instructed every 4 hours as needed for wheezing/shortness of breath. 2 Inhaler 2 12/12/2021 Active Comment on above: Inhale 2 Puffs as in structed every 4 hours as needed for wheezing/shortness of breath. albuterol MDI (90 mcg/inh) CFC free inhalation aerosol (3 sources) Start: 08-25-2019 take 2 puff(s) by inhalation every six hours as needed for wheezing albuterol MDI (90 mcg/inh) CFC free inhalation aerosol 2 puff(s), Inhalation, q6h, PRN as needed for wheezing, # 18 gram(s), 0 Refill(s), URTI - Viral upper respiratory tract infection STI - sexually transmitted infection Start Date: 08/25/19 Status: Ordered Quantity: 18.0 Unit: g Repeat number: 1 Indications: Acute upper respiratory infection, unspecified; Other specified predominantly sexually transmitted diseases; ascorbic acid 500 mg oral tablet (2 sources) Vitamin C Start: 12-27-2024 take 1 tablet by mouth every other day ascorbic acid, vitamin C, (VITAMIN C) 500 mg tablet Take 1 tablet by mouth every other day. 30 tablet 3 12/27/2024 Active azithromycin 500 mg oral tablet (3 sources) Macrolide Antimicrobial Start: 12-27-2024 End: 12-27-2024 take 2 tablets by mouth once azithromycin (ZITHROMAX) 500 mg tablet Take 2 tablets by mouth one time only for 1 dose. 2 tablet 12/27/2024 12/27/2024 Active Start: 10-14-2021 Azithromycin A ctive 250 MG PO DAILY 4 October 14, 2021 5:29pm start on day 2 of therapy betamethasone 3 mg/ml / betamethasone acetate 3 mg/ml injectable suspension (2 sources) Corticosteroid Start: 02-28-2022 End: 03-01-2022 betamethasone acetate-betamethasone sodium phosphate 12 mg injection (CELESTONE) cephalexin 500 mg oral capsule (2 sources) Cephalosporin Antibacterial Start: 08-25-2021 take 500 mg by mouth every six hours Cephalexin Active 500 MG PO EVERY 6 HOURS August 25, 2021 5:34pm ferrous sulfate 325 mg oral tablet (20 sources) Start: 12-27-2024 take 1 tablet by mouth every other day ferrous sulfate 325 mg (65 mg iron) tablet Take 1 tablet by mouth every other day. 30 tablet 3 12/27/2024 Active Start: 01-18-2022 take 1 tablet by navarro every other day ferrous sulfate 325 mg (65 mg iron) tablet Indications: Antepartum anemia Take 1 tablet by mouth every other day. 15 tablet 1 01/18/2022 Active Comment on above: Take 1 tablet by navarro every other day. metoclopramide 10 mg oral tablet (1 source) Dopamine-2 Receptor Antagonist Start: take 1 tablet by mouth every six hours Metoclopramide Hcl (Reglan) 10 mg tablet Active 10 MG PO EVERY 6 HOURS August 14, 2021 10:58am metroNIDAZOLE 500 mg oral tablet (9 sources) Nitroimidazole Antimicrobial Start: 025 End: 025 take 1 tablet by mouth twice daily metroNIDAZOLE (FLAGYL) 500 mg tablet Indications: Trichomonas vaginitis Take 1 tablet by mouth two times a day for 7 days. 14 tablet 12/29/2024 01/05/2025 Active Start: 11-30-2024 End: 12-07-2024 take 1 tablet by mouth twice daily metroNIDAZOLE (FLAGYL) 500 mg tablet Take 1 tablet by mouth two times a day for 7 days. 14 tablet 11/30/2024 12/07/2024 Active Start: 09-20-2023 End: 09-27-2023 take 1 tablet by mouth twice daily metroNIDAZOLE (FLAGYL) 500 mg tablet Take 1 tablet by mouth two times a day for 7 days. 14 tablet 0 09/20/2023 09/27/2023 Active Start: 01-20-2022 End: 01-25-2022 metroNIDAZOLE (METROGEL) 0.7 5 % (37.5mg/5 gram) Vaginal Gel Use 1 Applicatorful vaginally daily at bedtime for 5 days. 70 g 1 01/20/2022 01/25/2022 Active Comment on above: Use 1 Applicatorful vaginally daily at bedtime for 5 days. miconazole nitrate 40 mg/ml vaginal cream (3 sources) Azole Antifungal Start: 09-20-2023 End: 09-23-2023 Miconazole Nitrate (MONISTAT 3) 200 mg/5 gram (4 %) crea Use 1 Applicator vaginally once daily for 3 days. 25 g 0 09/20/2023 09/23/2023 Active Start: 01-20-2022 End: 01-27-2022 miconazole (MONISTAT 7) 2 % vaginal cream Use 1 Applicator vaginally daily at bedtime for 7 days. 30 g 0 01/20/2022 01/27/2022 Active Comment on above: Use 1 Applicator vag inally daily at bedtime for 7 days. [id number] ( PLUS DHA) 18 mg iron-800 mcg-290 mg cppt (4 sources) Start: 11-28-2021 End: 01-01-2022 take 1 tablet by mouth once daily [id number]-fm ega3-dha ( PLUS DHA) 18 mg iron-800 mcg-290 mg cppt Take 1 tablet by mouth once daily. 30 Each 11/28/2021 01/01/2022 Discontinued Start: 11-28-2021 take 1 tablet by navarro th once daily [id number]-[id number] ( PLUS DHA) 18 mg iron-800 mcg-290 mg cppt Take 1 tablet by mouth once daily. 30 Each 11 11/28/2021 Active Comment on above: Take 1 tablet by navarro th once daily. [id number]-sabt-EP-t0-dzt -epa-fish 27 mg-800 mcg- 250 mg-200 mg cap (20 sources) Start: 2 take 1 capsule by mouth once daily [id number]-hyte-II-g6-zia -epa-fish 27 mg-800 mcg- 250 mg-200 mg cap Take 1 capsule by mouth once daily. vitamin as available and covered on her plan w/ DHA with or separate capsule 30 capsule 12 01/01/2022 Active Comment on above: Take 1 capsule by mo [facility] once daily. vitamin as available and covered on her plan w/ DHA with or separate capsule multivitamin (CLASSIC ) 28 mg iron- 800 mcg tab(s) (17 sources) Start: 2 take 1 tablet by mouth once daily in the evening multivitamin (CLASSIC ) 28 mg iron- 800 mcg tab(s) Take 1 tablet by mouth once daily. 30 tablet 5 03/09/2022 4:15 PM EDT 03/09/2022 Active Start: 03-09-2022 take 1 tablet by navarro th once daily multivitamin (CLASSIC ) 28 mg iron- 800 mcg tab(s) Take 1 tablet by mouth once daily. 30 tablet 5 03/09/2022 Active Start: 03-09-2022 End: 09-05-2022 take 1 tablet by mouth once daily multivitamin (CLASSIC ) 28 mg iron- 800 mcg tab(s) Take 1 tablet by mouth once daily. 30 tablet 5 03/09/2022 09/05/2022 Active Comment on above: Take 1 tablet by navarro once daily. promethazine hydrochloride 25 mg oral tablet (2 sources) Phenothiazine Start: 08-26-19 22 take 25 mg by mouth three times daily Promethazine Active 25 MG PO THREE TIMES A DAY August 25, 2021 5:34pm Completed/Discontinued Medications Medication Drug Class(es) Dates Sig (Normalized) Sig (Original) acetaminophen 325 mg / HYDROcodone bitartrate 5 mg oral tablet (19 sources) Opioid Agonist Start: 03-09-2022 End: 12-27-2024 take 1 tablet by mouth every six hours as needed HYDROcodone-acetam inophen (NORCO) 5-325 mg per tablet Indications: care following delivery (HCC) Take 1 tablet by mouth every 6 hours as needed. 28 tablet 03/09/2022 4:15 PM EDT 03/09/2022 12/27/2024 Discontinued Comment on above: [facility] as [facility]. amoxicillin 500 mg oral capsule (11 sources) Penicillin-class Antibacterial Start: 11-28-2024 End: 12-27-2024 take 1 capsule by mouth twice daily amoxicillin (AMOXIL) 500 mg capsule Take 500 mg by mouth two times a day. 11/28/2024 12/27/2024 Discontinued Start: 05-29-2022 End: 06-08-2022 take 1 capsule by mouth twice daily amoxicillin (POLYMOX, AMOXIL) 500 mg capsule Take 1 capsule by mouth twice daily for 10 days. 20 capsule 0 05/29/2022 06/08/2022 Active Comment on above: Take 1 capsule by mo [facility] twice daily for 10 days. Ethinyl Estradiol / Norethindrone (1 source) Estrogen Start: 10-04-19 End: 08-08-19 take 1 tablet by mouth once daily Norethindrone Acet-Ethinyl Est (JUNEL ,) 1.5-30 mg-mcg Take 1 tablet by mouth once daily. 1 Package 11 10/03/2020 08/07/2021 Discontinued (Course of therapy completed) ibuprofen 800 mg oral tablet (2 sources) Nonsteroidal Anti-inflammatory Drug Start: 10-04-19 End: 08-08-19 take 1 tablet by mouth every eight hours as needed ibuprofen (MOTRIN) 800 mg tablet Take 1 tablet by mouth every 8 hours as needed. FOR PAIN. 60 tablet 1 10/03/2020 08/07/2021 Discontinued (Course of therapy completed) End: 08-07-2021 ibuprofen (MOTRIN) 400 mg ta blet Take 400 mg by mouth as needed. 08/07/2021 Discontinued (Course of therapy completed) ondansetron 4 mg disintegrating oral tablet (20 sources) Serotonin-3 Receptor Antagonist Start: 08-02-2023 End: 12-27-2024 take 1 tablet by mouth every six hours as needed for nausea ondansetron orally disintegrating (ZOFRAN ODT) 4 mg disintegrating tablet Indications: Nausea and vomiting, unspecified vomiting type Take 1 tablet by mouth every 6 hours as needed for nausea/vomiting. 12 tablet 08/02/2023 12/27/2024 Discontinued Start: 08-20-2021 End: 01-22-2022 take 1 tablet by mouth every eight hours as needed ondansetron (ZOFRAN) 4 mg tablet Take 1 tablet by mouth every 8 hours as needed for nausea/vomiting. 15 tablet 0 01/22/2022 Active Comment on above: Take 1 tablet by navarro th every 8 hours as needed for nausea/vomiting. Take 1 tablet by navarro th every 6 hours as needed for nausea/vomiting. vit 41-uuie-jchbo-dha (PRENATE MINI, FERR ASP GLYCIN,) 18-1-350 mg cap (8 sources) Start: take 1 capsule by mouth once daily vit 17-myqw-pjffu-dha (PRENATE MINI, FERR ASP GLYCIN,) 18-1-350 mg cap Take 1 capsule by mouth once daily. 30 capsule 11 10/24/2021 Active Start: 08-07-2021 End: 10-24-2021 take 1 capsule by mouth once daily vit 15-pnhj-btdpk-dha (PRENATE MINI, FERR ASP GLYCIN,) 18-1-350 mg cap Take 1 capsule by mouth once daily. 30 capsule 11 08/07/2021 10/24/2021 Discontinued Start: 08-07-2021 take 1 capsule by mo uth once daily vit 26-gazp-zmimu-dha (PRENATE MINI, FERR ASP GLYCIN,) 18-1-350 mg cap Take 1 capsule by mouth once daily. 30 capsule 11 08/07/2021 Active Comment on above: Take 1 capsule by mo uth once daily. terconazole 4 mg/ml vaginal cream (6 sources) Azole Antifungal Start: 11-30-2024 End: 12-27-2024 terconazole (TERAZOL 7) 0.4 % vaginal cream Use 1 applicator vaginally daily at bedtime. 45 g 11/30/2024 12/27/2024 Discontinued Problems Active Problems Problem Classification Problem Date Documented Da te Episodic/Chronic Abdominal pain (4 sources) Abdominal pain; Translations: [Unspecified abdominal pain] Episodic Administrative/social admission (20 sources) Support system deficit; Translations: [Other specified problems related to psychosocial circumstances] Onset: 02-06-2017 Resolved: 04-08-2018 04-08-2018 Episodic Attention-deficit, conduct, and disruptive behavior disorders (1 source) Attention deficit hyperactivity disorder, combined type; Translations: [Attention-deficit hyperactivity disorder, combined type] 12-05-2024 Chronic Attention-deficit, conduct, and disruptive behavior disorders (7 sources) Attention deficit hyperactivity disorder; Translations: [Attention-deficit hyperactivity disorder, unspecified type] 12-05-2024 Chronic Diseases of mouth; excluding dental (3 sources) Aphthous ulceration of skin and/or mucous membrane; Translations: [Recurrent oral aphthae] Episodic Disorders of teeth and jaw (5 sources) Disorder of teeth AND/OR supporting structures; Translations: [Other specified disorders of teeth and supporting structures] Onset: 11-28-2024 Episodic Epilepsy; convulsions (20 sources) Seizure; Translations: [Unspecified convulsions] Onset: 12-27-2024 08-07-2021 Episodic Fluid and electrolyte disorders (2 sources) Dehydration; Translations: [Dehydration] Episodic Headache; including migraine (2 sources) Headache; Translations: [Nonintractable headache, unspecified chronicity pattern, unspecified headache type] Episodic Immunizations and screening for infectious disease (20 sources) False-positive serological test for syphilis; Translations: [Other specified abnormal immunological findings in serum] Onset: 05-13-2017 08-13-2021 Episodic Other complications of ; puerperium affecting management of mother (3 sources) Disorder of structure; Translations: [Maternal care for (suspected) abnormality and damage, unspecified, not applicable or unspecified] Episodic Other complications of ; puerperium affecting management of mother (1 source) Suspected abnormality affecting management of mother; Translations: [Maternal care for (suspected) abnormality and damage, unspecified, not applicable or unspecified] Episodic Other complications of ; puerperium affecting management of mother (1 source) delivery - delivered; Translations: [Encounter for delivery without indication] Onset: 03-06-2022 03-06-2022 Episodic Other complications of (1 source) Anemia in mother complicating , childbirth AND/OR puerperium; Translations: [Anemia complicating , third trimester] Chronic Other complications of (1 source) Anemia during - baby not yet delivered; Translations: [Anemia complicating , unspecified trimester] Chronic Other complications of (4 sources) Anemia of ; Translations: [Anemia complicating , third trimester] Onset: 12-27-2024 12-27-2024 Chronic Other complications of (1 source) Anemia complicating , third trimester; Translations: [Anemia during in third trimester (HCC)] Onset: 12-27-2024 Chronic Other complications of (1 source) ultrasound scan abnormal; Translations: [Abnormal ultrasonic finding on screening of mother] Episodic Other complications of (7 sources) Poor growth affecting management; Translations: [Maternal care for other known or suspected poor growth, third trimester, fetus 1] Episodic Other complications of (20 sources) High risk ; Translations: [Supervision of high risk , unspecified, second trimester] Onset: 01-22-2022 Resolved: 12-05-2024 Episodic Other complications of (1 source) Vaginal discharge; Translations: [Other specified related conditions, third trimester] Episodic Other complications of (1 source) ultrasound scan abnormal; Translations: [Abnormal ultrasonic finding on screening of mother] Episodic Other complications of (7 sources) Supervision of with other poor reproductive or obstetric history, third trimester; Translations: [ with other poor obstetric history] Onset: 12-01-2024 12-01-2024 Episodic Other complications of (11 sources) Late entry into care; Translations: [Supervision of with insufficient care, unspecified trimester] Onset: 12-05-2024 12-05-2024 Episodic Other complications of (2 sources) Gestational age unknown 12-05-2024 Episodic Other complications of (2 sources) Rubella non-immune; Translations: [Supervision of other high risk pregnancies, unspecified trimester] Onset: 01-03-2025 01-03-2025 Episodic Other complications of (1 source) Supervision of with insufficient care, unspecified trimester; Translations: [Late care (HCC)] Onset: 12-05-2024 Episodic Other complications of (1 source) Supervision of high risk , unspecified, third trimester; Translations: [Supervision of high risk in third trimester (HCC)] Onset: 12-27-2024 Episodic Other connective tissue disease (1 source) Pain in right arm; Translations: [Pain in right arm] 10-06-2020 Episodic Other female genital disorders (8 sources) H/O: premature delivery; Translations: [Personal history of pre-term labor] Onset: 12-05-2024 12-05-2024 Episodic Other female genital disorders (1 source) Other specified noninflammatory disorders of vagina; Translations: [Vaginal discharge] Onset: 12-27-2024 Episodic Other gastrointestinal disorders (2 sources) Constipation; Translations: [Constipation, unspecified] Episodic Other gastrointestinal disorders (1 source) Diarrhea; Translations: [Diarrhea, unspecified] 09-19-2023 Episodic Other infections; including parasitic (13 sources) Trichomonal vaginitis; Translations: [Trichomonal vulvovaginitis] Onset: 11-30-2024 11-30-2024 Episodic Other infections; including parasitic (1 source) Trichomonal vulvovaginitis; Translations: [Trichomonas vaginitis] Onset: 12-27-2024 Episodic Other lower respiratory disease (2 sources) Wheezing; Translations: [Wheezing] Episodic Other non-traumatic joint disorders (1 source) Pain of right wrist; Translations: [Pain in right wrist] 10-06-2020 Episodic Other and delivery including normal (20 sources) First trimester ; Translations: [Encounter for supervision of normal , unspecified, first trimester] Onset: 03-06-2022 Resolved: 12-17-2024 Episodic Comment on above: System added from do cumentation. Status documented as Yes on Admission Other screening for suspected conditions (not mental disorders or infectious disease) (5 sources) Finding of menstrual bleeding; Translations: [Encounter for screening for uncertain dates] Onset: 11-29-2024 Episodic Other upper respiratory infections (3 sources) Viral upper respiratory tract infection; Translations: [Acute upper respiratory infection, unspecified] Episodic Poisoning by other medications and drugs (3 sources) Overdose of opiate; Translations: [Poisoning by unspecified narcotics, accidental (unintentional), initial encounter] Episodic Residual codes; unclassified (1 source) Gestation period, 16 weeks; Translations: [16 weeks gestation of ] Episodic Residual codes; unclassified (2 sources) Gestation period, 19 weeks; Translations: [19 weeks gestation of ] Episodic Residual codes; unclassified (1 source) Gestation period, 23 weeks; Translations: [23 weeks gestation of ] Episodic Residual codes; unclassified (1 source) Gestation period, 26 weeks; Translations: [26 weeks gestation of ] Episodic Residual codes; unclassified (2 sources) Gestation period, 28 weeks; Translations: [28 weeks gestation of ] Episodic Residual codes; unclassified (2 sources) Gestation period, 30 weeks; Translations: [30 weeks gestation of ] Episodic Residual codes; unclassified (2 sources) Gestation period, 32 weeks; Translations: [32 weeks gestation of ] Episodic Residual codes; unclassified (3 sources) Gestation period, 33 weeks; Translations: [33 weeks gestation of ] Episodic Residual codes; unclassified (3 sources) Gestation period, 34 weeks; Translations: [34 weeks gestation of ] Episodic Residual codes; unclassified (1 source) Unprotected sexual intercourse; Translations: [High risk heterosexual behavior] 09-19-2023 Episodic Residual codes; unclassified (9 sources) History of previous intrauterine growth restricted ; Translations: [Personal history of other complications of , childbirth and the puerperium] Onset: 12-05-2024 12-01-2024 Episodic Residual codes; unclassified (1 source) Gestation period, 36 weeks; Translations: [36 weeks gestation of ] 12-27-2024 Episodic Residual codes; unclassified (1 source) 37 weeks gestation of ; Translations: [37 weeks gestation of (HCC)] Onset: 01-04-2025 Episodic Residual codes; unclassified (1 source) 36 weeks gestation of ; Translations: [36 weeks gestation of (HCC)] Onset: 12-27-2024 Episodic Residual codes; unclassified (1 source) History of uterine scar from previous surgery; Translations: [History of section] Onset: 12-05-2024 Episodic Residual codes; unclassified (1 source) 34 weeks gestation of ; Translations: [34 weeks gestation of (HCC)] Onset: 12-17-2024 Episodic Residual codes; unclassified (1 source) Personal history of other complications of , childbirth and the puerperium; Translations: [History of prior with IUGR ] Onset: 12-01-2024 Episodic Residual codes; unclassified (1 source) 32 weeks gestation of ; Translations: [32 weeks gestation of (HCC)] Onset: 12-01-2024 Episodic Screening and history of mental health and substance abuse codes (20 sources) H/O: depression; Translations: [Personal history of other mental and behavioral disorders] Onset: 02-06-2017 Resolved: 04-08-2018 08-06-2021 Episodic Sexually transmitted infections (not HIV or hepatitis) (2 sources) Syphilis test finding; Translations: [Latent syphilis, unspecified as early or late] Onset: 01-03-2025 01-03-2025 Chronic Substance-related disorders (20 sources) History of clinical finding in subject; Translations: [History of marijuana use] Onset: 02-06-2017 08-06-2021 Chronic Syncope (3 sources) Vasovagal syncope; Translations: [Syncope and collapse] Episodic Unclassified (3 sources) No history of clinical finding in subject; Translations: [No significant past medical history] Unclassified (10 sources) [facility] - [facility]ON Onset: 11-29-2024 11-29-2024 Unclassified (10 sources) Education - [place] Onset: 11-29-2024 11-29-2024 Unclassified (1 source) History of anomaly in prior , currently , third trimester ([facility]) 12-01-2024 Unclassified (1 source) History of drug use; Translations: [History of drug use] Onset: 12-27-2024 Urinary tract infections (5 sources) Urinary tract infectious disease; Translations: [Urinary tract infection, site not specified] Episodic Viral infection (7 sources) Disease caused by 2019-nCoV; Translations: [COVID-19] Episodic Past or Other Problems Problem Classification Problem Date Documented Da te Episodic/Chronic Asthma (17 sources) Uncomplicated asthma; Translations: [Unspecified asthma, uncomplicated] Resolved: 04-08-2018 04-08-2018 Chronic Bacterial infection; unspecified site (17 sources) Chlamydial infection; Translations: [Chlamydial infection, unspecified] Onset: 11-05-2013 Resolved: 12-27-2024 09-16-2017 Episodic Blindness and vision defects (20 sources) Visual disturbance; Translations: [Unspecified visual disturbance] Onset: 01-08-2022 Resolved: 12-27-2024 01-08-2022 Episodic Contraceptive and procreative management (20 sources) Patient encounter status; Translations: [Encounter for other general counseling and advice on contraception] Onset: 09-25-2017 Resolved: 12-05-2024 09-25-2017 Episodic Deficiency and other anemia (20 sources) Anemia; Translations: [Anemia, unspecified] Resolved: 12-05-2024 07-04-2017 Episodic Other complications of ; puerperium affecting management of mother (20 sources) abdominal wall defect; Translations: [Maternal care for other (suspected) abnormality and damage, not applicable or unspecified] Onset: 11-14-2021 Resolved: 12-27-2024 11-14-2021 Episodic Other complications of ; puerperium affecting management of mother (11 sources) Deliveries by ; Translations: [Encounter for delivery without indication] Onset: 03-06-2022 03-06-2022 Episodic Other complications of (20 sources) Nausea and vomiting; Translations: [Vomiting of , unspecified] Onset: 02-06-2017 08-06-2021 Episodic Other complications of (20 sources) pericardial effusion; Translations: [Maternal care for other specified problems, unspecified trimester, not applicable or unspecified] Onset: 01-22-2022 Resolved: 12-05-2024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 HYDROcodone-acetamin ophen (NORCO) 5-325 mg per tablet Take 1 tablet by mouth every 6 hours as needed. - multivitamin (CLASSIC ) 28 mg iron- 800 mcg tab(s) Take 1 tablet by mouth once daily. - [id number] a-epa-fish 27 mg-800 mcg- 250 mg-200 mg cap Take 1 capsule by mouth once daily. vitamin as available and covered on her plan w/ [employer] with or separate capsule - albuterol HFA (PROAIR HFA) 90 mcg/actuation inhaler Inhale 2 Puffs as instructed every 4 hours as needed for wheezing/shortness of breath. Meds Comments as of 02/05/2023: Problem List As Of Date 06/16/2024 Noted Resolved Lumbago without sciatica [M54.50] 2013 IBS (irritable bowel syndrome) [K58.9] 11/02/2013 Chlamydia [A74.9] 11/05/2013 09/16/2017 Lumbago [M54.50] 11/15/2013 Cervicalgia [M54.2] 11/15/2013 Support system deficit [Z65.8] 02/06/2017 04/08/2018 Quit smoking [Z87.891] 02/06/2017 04/08/2018 History of marijuana use [F12.91] 02/06/2017 History of depression [Z86.59] 02/06/2017 Patient request for diagnostic testing [Z01.89] 02/06/2017 Nausea and vomiting during [O21.9] 02/06/2017 Anemia [D64.9] Unspecified asthma, uncomplicated [J45.909] 04/08/2018 Seizure (HCC) [R56.9] 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] 05/13/2017 Trichomonal vaginitis during [O23.599*06/06/2017 04/08/2018 control counseling [Z30.09] 09/25/2017 with history of section, ant*08/06/2021 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] 11/14/2021 Visual disturbances [H53.9] 01/08/2022 Head injury [S09.90XA] 01/08/2022 care [O09.93] 01/22/2022 pericardial effusion affecting management* Patient is scheduled for surgical procedure [Z7*03/05/2022 delivery delivered [O82] 03/06/2022 care following delivery [Z3*03/06/2022 Encounter Status:Closed by CHEL PITTS on 06/16/24 [facility] 05-24-2024 LINDSEYN Telephone (OBGYWM) ZULLY JOINER ([id number]) 1995 F Date Time Provider Department 05/24/24 LYNNE JENSEN OBGYW During your visit today, we recorded the following information about you: Yajaira Meade RN 05/24/2024 9:09 AM Signed Patient calling with complaints of nausea and vomiting in early . Patient is approximately 5 weeks , New OB appointment is scheduled for 06/21/24. Patient states she is throwing up 1-2 times per day, she is able to keep foods and fluid down. Denies any pain/cramping. Patient requesting medication for nausea. D4P message sent to patient with recommendation along with Vitamin B6/Unisom regimen. Do you want to prescribed patient any medication? SARAH Waterman Courtney, APRN.CNM 05/24/2024 9:33 AM Signed Patient can try Vitamin B6/ Unisom at this time. Will discuss further at NOB> Lynne Jensen APRN.Chel Santiago RN 05/24/2024 9:41 AM Signed Call did not go through on main # listed. Called Pt's grandmother, Princess, and she states Pt is not with her right now and she will have Pt call the office. SARAH Carter Lindsey, RN 05/24/2024 10:37 AM Signed Patient notified and voiced understanding. Yajaira Meade RN Allergies As of Date: 05/24/2024 Noted Allergy Reaction DUST 07/21/2006 9 - Itching PERCOCET (OXYCODONE-ACETAMINO PHEN)10/06/2017 2 - Rash 9 - Itching Comments: Tylenol is fine TREES 07/21/2006 9 - Itching Date Reviewed: 09/19/2023 Reviewed by: Latricia Berman LPN - Fully Assessed Reason for Visit: Nausea AND Vomiting [237] Prescriptions as of 05/24/2024 - ondansetron orally disintegrating (ZOFRAN ODT) 4 mg disintegrating tablet Take 1 tablet by mouth every 6 hours as needed for nausea/vomiting. - HYDROcodone-acetamin ophen (NORCO) 5-325 mg per tablet Take 1 tablet by mouth every 6 hours as needed. - multivitamin (CLASSIC ) 28 mg iron- 800 mcg tab(s) Take 1 tablet by mouth once daily. - [id number] a-epa-fish 27 mg-800 mcg- 250 mg-200 mg cap Take 1 capsule by mouth once daily. vitamin as available and covered on her plan w/ [employer] with or separate capsule - albuterol HFA (PROAIR HFA) 90 mcg/actuation inhaler Inhale 2 Puffs as instructed every 4 hours as needed for wheezing/shortness of breath. Meds Comments as of 02/05/2023: Problem List As Of Date 05/24/2024 Noted Resolved Lumbago without sciatica [M54.50] 2013 IBS (irritable bowel syndrome) [K58.9] 11/02/2013 Chlamydia [A74.9] 11/05/2013 09/16/2017 Lumbago [M54.50] 11/15/2013 Cervicalgia [M54.2] 11/15/2013 Support system deficit [Z65.8] 02/06/2017 04/08/2018 Quit smoking [Z87.891] 02/06/2017 04/08/2018 History of marijuana use [F12.91] 02/06/2017 History of depression [Z86.59] 02/06/2017 Patient request for diagnostic testing [Z01.89] 02/06/2017 Nausea and vomiting during [O21.9] 02/06/2017 Anemia [D64.9] Unspecified asthma, uncomplicated [J45.909] 04/08/2018 Seizure (HCC) [R56.9] 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] 05/13/2017 Trichomonal vaginitis during [O23.599*06/06/2017 04/08/2018 control counseling [Z30.09] 09/25/2017 with history of section, ant*08/06/2021 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 CLARITY UA (POCT) Clear [facility] COLOR UA (POCT) Yellow [facility] GLUCOSE UA (POCT) Negative Negative mg/dL [facility] Hemoglobin Ql (U) Negative Negative [facility] KETONE UA (POCT) 15 mg/dL Abnormal Negative mg/dL [facility] LEUKOCYTES UA (POCT) Negative Negative [facility] NITRITE UA (POCT) Negative Negative [facility] PH UA (POCT) 7.5 4.5 - 8.0 [facility] Protein Ql (U) Negative Negative mg/dL [facility] SPECIFIC GRAVITY UA (POCT) 1.020 1.005 - 1.030 [facility] UROBILINOGEN UA (POCT) 0.2 E.U./dL Normal E.U./ dL [facility] Influenza virus A and B RNA and SARS-CoV-2 (COVID-19) N gene panel SANDY+probe (Resp)on 05-29-2022 FLUAV RNA SANDY+probe Ql (Unsp spec) Negative Negative for Influenza A by RT-PCR [facility] FLUBV RNA SANDY+probe Ql (Unsp spec) Negative Negative for Influenza B by RT-PCR [facility] SARS-CoV-2 (COVID-19) RNA SANDY+probe Ql (Resp) SARS-CoV-2 (Agent of COVID-19) Not Detected by RT-PCR or equivalent method. Not Detected [facility] STREP A MOLECULAR (POC)on Procedural Control Valid [facility] Strep A (POCT) Positive Abnormal Negative [facility] BIOPHYSICAL PROFILE [facility] 02-28-2022 [facility] URINE OB DIP B/Oon 2 Glucose Ql (U) Negative Neg mg/dL [facility] Protein.monoclonal (U) [Mass/Vol] Negative Neg mg/dL [facility] BIOPHYSICAL PROFILE [facility] 02-20-2022 [facility] URINE OB DIP B/Oon 2 Glucose Ql (U) Negative Neg mg/dL [facility] Protein.monoclonal (U) [Mass/Vol] Negative Neg mg/dL [facility] BIOPHYSICAL PROFILE [facility] 02-05-2022 [facility] URINE OB DIP B/Oon 2 Glucose Ql (U) Negative Neg mg/dL [facility] Protein.monoclonal (U) [Mass/Vol] Negative Neg mg/dL [facility] BIOPHYSICAL PROFILE [facility] 01-17-2022 [facility] OBSTETRIC ULTRASOUND [facility] 0 01-01-2022 [facility] URINE OB DIP B/Oon 2 Glucose Ql (U) Negative Neg mg/dL [facility] Protein.monoclonal (U) [Mass/Vol] Negative Neg mg/dL [facility] UA DIP, URINE (POC)on 2021 BILIRUBIN UA (POCT) Small Abnormal Negative [facility] CLARITY UA (POCT) Slightly Cloudy Cl [facility] COLOR UA (POCT) [facility] GLUCOSE UA (POCT) Negative Negative mg/dL [facility] HEMOGLOBIN/BLOOD UA (POCT) Negative Negative [facility] KETONE UA (POCT) >=160 Abnormal Negative mg/dL [facility] LEUKOCYTES UA (POCT) Trace Abnormal Negative [facility] NITRITE UA (POCT) Negative Negative [facility] PH UA (POCT) 7.0 4.5 - 8.0 [facility] Protein Ql (U) 30 mg/dL Abnormal Negative mg/dL [facility] SPECIFIC GRAVITY UA (POCT) 1.025 1.005 - 1.030 [facility] UROBILINOGEN UA (POCT) 1.0 E.U./dL Normal E.U./ dL [facility] Absolute lymphocyte counton 10-14-2021 Lymphocytes Auto (Unsp spec) [#/Vol] 1.69 10*3/uL 0.83-4.51 [facility] Work Phone: Basophil percentageon 2021 Basophils/100 WBC (Bld) 0.4 % 0-1 [facility] Work Phone: Bilirubin [Mass/Vol] 0.40 mg/dL 0.20-1.00 [facility] Work Phone: Comment on above: For patients on eltr ombopag therapy, use of Dimension [place] TBIL is not recommended. Chloride [Moles/Vol] 107 mmol/L 98-107 [facility] Work Phone: Eosinophils/100 WBC (Bld) 4.0 % 0-5 [facility] Work Phone: Glucose [Mass/Vol] 79 mg/dL 74-106 [facility] Work Phone: Neutrophils (Bld) [#/Vol] 9.3 10*3/uL 2.0-7.7 [facility] Work Phone: Neutrophils/100 WBC (Bld) 75.9 % 47-70 [facility] Work Phone: Potassium [Moles/Vol] 3.8 mmol/L 3.5-5.1 [facility] Work Phone: Protein [Mass/Vol] 7.5 g/dL 6.4-8.2 [facility] Work Phone: Sodium [Moles/Vol] 136 mmol/L 136-145 [facility] Work Phone: WBC (Bld) [#/Vol] 12.2 10*3/uL 4.4-11.0 [facility] Work Phone: Blood erythrocytes count (nu mber/volume)on 10-14-2021 RBC (Bld) [#/Vol] 4.02 10*6/uL 4.2-5.4 [facility] Work Phone: Blood hemoglobin measurement (mass/volume)on 10-14-2021 Hemoglobin (Bld) [Mass/Vol] 11.9 g/dL 12.0-15.0 [facility] Work Phone: Blood lymphocytes/100 leukoc yteson 10-14-2021 Lymphocytes/100 WBC (Bld) 13.8 % 19-41 [facility] Work Phone: Blood monocytes/100 leukocyt eson 10-14-2021 Monocytes/100 WBC (Bld) 5.2 % 0-10 [facility] Work Phone: Blood platelet mean volumeon 10-14-2021 Platelet mean volume (Bld) [Entitic vol] 10.3 fL 6.2-12.0 [facility] Work Phone: Determination of erythrocyte mean corpuscular volume (MCV)on 10-14-2021 MCV (RBC) [Entitic vol] 87.3 fL 81-99 [facility] Work Phone: Hematocrit Auto (Bld) [Volum e fraction]on 10-14-2021 Hematocrit (Bld) [Volume fraction] 35.1 % 37-47 [facility] Work Phone: Laboratory - Chemistry and C hemistry - challengeon 10-14-2021 ALP [Catalytic activity/Vol] 51 U/L 45-117 [facility] Work Phone: ALT [Catalytic activity/Vol] 17 U/L 13-56 [facility] Work Phone: CO2 [Moles/Vol] 20.0 mmol/L 21.0-32.0 [facility] Work Phone: Globulin (S) [Mass/Vol] 4.3 g/dL 2.2-4.2 [facility] Work Phone: Urea nitrogen/Creatinine [Mass ratio] 13.0 mg/mg 10-20 [facility] Work Phone: Laboratory - Hematology and Cell countson 10-14-2021 Erythrocyte distribution width (RBC) [Entitic vol] 44.5 fL 35.1-43.9 [facility] Work Phone: Erythrocyte distribution width (RBC) [Ratio] 13.8 % 11.6-14.6 [facility] Work Phone: Immature granulocytes/100 WBC (Bld) 0.700 % 0.0-0.9 [facility] Work Phone: Comment on above: IG% - Immature Granu locytes (promyelocytes, myelocytes and metamyelocytes) > 1% indicates that a LEFT SHIFT is Present. MCH (RBC) [Entitic mass] 29.6 pg 27.0-32.0 [facility] Work Phone: Nucleated RBC/100 WBC (Bld) [Ratio] 0 % 0-5 [facility] Work Phone: MCHC Auto (RBC) [Mass/Vol]on 10-14-2021 MCHC (RBC) [Mass/Vol] 33.9 g/dL 32-36 [facility] Work Phone: No Panel Informationon 10-14 SARS-CoV-2 & FLU Antigen (Rapid) [facility] Work Phone: Estimated Creatinine Clearance Calc 112.15 ml/min [facility] Work Phone: Estimated GFR (MDRD) Amer 133 mL/min >60 [facility] Work Phone: Comment on above: GFR Calc Estimated GFR (MDRD) Non-Af Amer 110 mL/min >60 [facility] Work Phone: Comment on above: Non- GFR Calc Platelets bldon 10-14-2021 Platelets (Bld) [#/Vol] 265 10*3/uL 150-450 [facility] Work Phone: Serum or plasma albumin rachele urement (mass/volume)on 10-14-2021 Albumin [Mass/Vol] 3.2 g/dL 3.2-5.0 [facility] Work Phone: Serum or plasma albumin/glob ulin mass ratioon 10-14-2021 Albumin/Globulin [Mass ratio] 0.7 {ratio} 0.9-2.4 [facility] Work Phone: Serum or plasma calcium rachele urement (mass/volume)on 10-14-2021 Calcium [Mass/Vol] 9.2 mg/dL 8.5-10.1 [facility] Work Phone: Serum or plasma creatinine m easurement (mass/volume)on 10-14-2021 Creatinine [Mass/Vol] 0.69 mg/dL 0.55-1.02 [facility] Work Phone: Comment on above: The validity of the calculated GFR & GFRAA in patients over 70 years has not been determined. Clinical correlation is essential. Serum or plasma urea nitroge n measurement (mass/volume)on 10-14-2021 Urea nitrogen [Mass/Vol] 9 mg/dL 7-18 [facility] Work Phone: Thin prep Papanicolaou smear with manual screeningon 10-14-2021 Thin prep Papanicolaou smear with manual screening 13 U/L 15-37 [facility] Work Phone: Thin prep Papanicolaou smear with manual screening 9 5-15 [facility] Work Phone: Absolute lymphocyte counton 08-25-2021 Lymphocytes Auto (Unsp spec) [#/Vol] 2.48 10*3/uL 0.83-4.51 [facility] Work Phone: Basophil percentageon 2021 Basophil percentage 5-10 SEEN /hpf W [facility] Work Phone: Basophils/100 WBC (Bld) 0.5 % 0-1 [facility] Work Phone: Bilirubin [Mass/Vol] 0.40 mg/dL 0.20-1.00 [facility] Work Phone: Comment on above: For patients on eltr ombopag therapy, use of Dim[employer] [place] TBIL is not recommended. Chloride [Moles/Vol] 104 mmol/L 98-107 [facility] Work Phone: Eosinophils/100 WBC (Bld) 0.9 % 0-5 [facility] Work Phone: [phone] Glucose [Mass/Vol] 85 mg/dL 74-106 [facility] Work Phone: [phone] Neutrophils (Bld) [#/Vol] 9.8 10*3/uL 2.0-7.7 [facility] Work Phone: [phone] Neutrophils/100 WBC (Bld) 74.4 % 47-70 [facility] Work Phone: [phone] Potassium [Moles/Vol] 3.7 mmol/L 3.5-5.1 [facility] Work Phone: Protein [Mass/Vol] 8.1 g/dL 6.4-8.2 [facility] Work Phone: [phone] Sodium [Moles/Vol] 135 mmol/L 136-145 [facility] Work Phone: WBC (Bld) [#/Vol] 13.2 10*3/uL 4.4-11.0 [facility] Work Phone: Bilirubin Test strip Ql (U)o n 08-25-2021 Bilirubin Ql (U) Negative Negative [facility] Work Phone: Blood erythrocytes count (nu mber/volume)on 08-25-2021 RBC (Bld) [#/Vol] 4.50 10*6/uL 4.2-5.4 [facility] Work Phone: Blood hemoglobin measurement (mass/volume)on 08-25-2021 Hemoglobin (Bld) [Mass/Vol] 13.2 g/dL 12.0-15.0 [facility] Work Phone: Blood lymphocytes/100 leukoc yteson 08-25-2021 Lymphocytes/100 WBC (Bld) 18.7 % 19-41 [facility] Work Phone: Blood monocytes/100 leukocyt eson 08-25-2021 Monocytes/100 WBC (Bld) 5.1 % 0-10 [facility] Work Phone: Blood platelet mean volumeon 08-25-2021 Platelet mean volume (Bld) [Entitic vol] 10.5 fL 6.2-12.0 [facility] Work Phone: Determination of erythrocyte mean corpuscular volume (MCV)on 08-25-2021 MCV (RBC) [Entitic vol] 88.2 fL 81-99 [facility] Work Phone: Direct bilirubinon 2 Bilirubin.direct [Mass/Vol] 0.11 mg/dL 0.00-0.30 [facility] Work Phone: Hematocrit Auto (Bld) [Volum e fraction]on 08-25-2021 Hematocrit (Bld) [Volume fraction] 39.7 % 37-47 [facility] Work Phone: Ketones Test strip Ql (U)on 08-25-2021 Ketones Ql (U) 15 mg/dl Negative [facility] Work Phone: Laboratory - Chemistry and C hemistry - challengeon 08-25-2021 ALP [Catalytic activity/Vol] 49 U/L 45-117 [facility] Work Phone: ALT [Catalytic activity/Vol] 19 U/L 13-56 [facility] Work Phone: CO2 [Moles/Vol] 23.0 mmol/L 21.0-32.0 [facility] Work Phone: Globulin (S) [Mass/Vol] 4.1 g/dL 2.2-4.2 [facility] Work Phone: Urea nitrogen/Creatinine [Mass ratio] 17.1 mg/mg 10-20 [facility] Work Phone: Laboratory - Hematology and Cell countson 08-25-2021 Erythrocyte distribution width (RBC) [Entitic vol] 43.1 fL 35.1-43.9 [facility] Work Phone: Erythrocyte distribution width (RBC) [Ratio] 13.2 % 11.6-14.6 [facility] Work Phone: Immature granulocytes/100 WBC (Bld) 0.400 % 0.0-0.9 [facility] Work Phone: Comment on above: IG% - Immature Granu locytes (promyelocytes, myelocytes and metamyelocytes) > 1% indicates that a LEFT SHIFT is Present. MCH (RBC) [Entitic mass] 29.3 pg 27.0-32.0 [facility] Work Phone: Nucleated RBC/100 WBC (Bld) [Ratio] 0 % 0-5 [facility] Work Phone: MCHC Auto (RBC) [Mass/Vol]on 08-25-2021 MCHC (RBC) [Mass/Vol] 33.2 g/dL 32-36 [facility] Work Phone: Mucus LM Ql (Urine sed)on Mucus Ql (Urine sed) 0 SEEN /hpf [facility] Work Phone: Nitrite Test strip Ql (U)on 08-25-2021 Nitrite Ql (U) Negative Negative [facility] Work Phone: No Panel Informationon 08-25 Estimated Creatinine Clearance Calc 88.70 ml/min [facility] Work Phone: Estimated GFR (MDRD) Amer 101 mL/min >60 [facility] Work Phone: Comment on above: GFR Calc Estimated GFR (MDRD) Non-Af Amer 84 mL/min >60 [facility] Work Phone: Comment on above: Non- GFR Calc Platelets bldon 08-25-2021 Platelets (Bld) [#/Vol] 277 10*3/uL 150-450 [facility] Work Phone: Protein Test strip Ql (U)on 08-25-2021 Protein Ql (U) 15 mg/dl Negative [facility] Work Phone: Serum or plasma albumin rachele urement (mass/volume)on 08-25-2021 Albumin [Mass/Vol] 4.0 g/dL 3.2-5.0 [facility] Work Phone: Serum or plasma calcium rachele urement (mass/volume)on 08-25-2021 Calcium [Mass/Vol] 9.5 mg/dL 8.5-10.1 [facility] Work Phone: Serum or plasma creatinine m easurement (mass/volume)on 08-25-2021 Creatinine [Mass/Vol] 0.88 mg/dL 0.55-1.02 [facility] Work Phone: Comment on above: The validity of the calculated GFR & GFRAA in patients over 70 years has not been determined. Clinical correlation is essential. Serum or plasma urea nitroge n measurement (mass/volume)on 08-25-2021 Urea nitrogen [Mass/Vol] 15 mg/dL 7-18 [facility] Work Phone: Squamous epithelial cells de tection in urine sediment by light microscopyon 08-25-2021 Epithelial cells.squamous LM Ql (Urine sed) 0-5 SEEN /hpf [facility] Work Phone: Thin prep Papanicolaou smear with manual screeningon 08-25-2021 Thin prep Papanicolaou smear with manual screening 10 U/L 15-37 [facility] Work Phone: Thin prep Papanicolaou smear with manual screening 8 5-15 [facility] Work Phone: Urine blood detectionon RBC Ql (U) Negative Negative [facility] Work Phone: RBC Ql (U) 0 SEEN /hpf [facility] Work Phone: Urine clarityon 08-25-2021 Clarity (U) Clear Clear [facility] Work Phone: Urine color determinationon 08-25-2021 Color (U) Yellow Yellow [facility] Work Phone: Urine glucose detectionon Glucose Ql (U) Normal mg/dl Normal [facility] Work Phone: Urine leukocyte esterase det ection by dipstickon 08-25-2021 Leukocyte esterase Test strip Ql (U) 25 /ul Negative [facility] Work Phone: Urine pHon 08-25-2021 pH (U) 6.0 [pH] [facility] Work Phone: Urine sediment bacteria coun t by microscopy (number/high power field)on 08-25-2021 Bacteria LM.HPF (Urine sed) [#/Area] 1 /[HPF] None Seen [facility] Work Phone: Urine specific gravity measu rementon 08-25-2021 Specific gravity (U) [Rel density] 1.025 [facility] Work Phone: Urobilinogen Auto test strip Ql (U)on 08-25-2021 Urobilinogen Ql (U) Normal mg/dl Normal [facility] Work Phone: TSH BLDon 08-21-2021 TSH Qn 0.707 m[IU]/L 0.270 - 4.200 mIU/L [facility] Comprehensive metabolic 2000 panelon 08-20-2021 Albumin [Mass/Vol] 4.3 g/dL 3.9 - 4.9 g/dL Cl [facility] ALP [Catalytic activity/Vol] 50 U/L 34 - 123 U/L [facility] ALT [Catalytic activity/Vol] 6 U/L Low 7 - 38 U/L [facility] Anion gap [Moles/Vol] 6 mmol/L Low 9 - 18 mmol/L [facility] AST [Catalytic activity/Vol] 11 U/L Low 13 - 35 U/L [facility] Bilirubin [Mass/Vol] mg/dL Low 0.2 - 1.3 mg/dL [facility] Calcium [Mass/Vol] 9.3 mg/dL 8.5 - 10. 2 mg/dL [facility] Chloride [Moles/Vol] 103 mmol/L 97 - 105 mmol/L [facility] CO2 [Moles/Vol] 25 mmol/L 22 - 30 mmol/L [facility] Creatinine [Mass/Vol] 0.64 mg/dL 0.58 - 0.96 mg/dL [facility] Estimated Glomerular Filtration Rate 127 mL/min/1.73m >=60 mL/min/1.73m [facility] Glucose [Mass/Vol] 85 mg/dL 74 - 99 mg/dL [facility] Potassium [Moles/Vol] 4.1 mmol/L 3.7 - 5.1 mmol/L [facility] Protein [Mass/Vol] 6.9 g/dL 6.3 - 8.0 g/dL [facility] Sodium [Moles/Vol] 134 mmol/L Low 136 - 144 mmol/L [facility] Urea nitrogen [Mass/Vol] 10 mg/dL 7 - 21 mg/dL [facility] URINE OB DIP B/Oon 2 Glucose Ql (U) Negative Neg mg/dL [facility] Protein.monoclonal (U) [Mass/Vol] Negative Neg mg/dL [facility] Basophil percentageon 2021 Basophil percentage 0-5 SEEN /hpf [facility] Work Phone: Bilirubin Test strip Ql (U)o n 08-14-2021 Bilirubin Ql (U) Negative Negative [facility] Work Phone: Ketones Test strip Ql (U)on 08-14-2021 Ketones Ql (U) 150 mg/dl Negative [facility] Work Phone: Comment on above: CRITICAL VALUE VERIF IED. CALLED TO [id number] Nyla Abrams.RESULTS READ BACK BY SAME . CRITICAL VALUE *H Mucus LM Ql (Urine sed)on Mucus Ql (Urine sed) 0 SEEN /hpf [facility] Work Phone: Nitrite Test strip Ql (U)on 08-14-2021 Nitrite Ql (U) Negative Negative [facility] Work Phone: Protein Test strip Ql (U)on 08-14-2021 Protein Ql (U) 15 mg/dl Negative [facility] Work Phone: Squamous epithelial cells de tection in urine sediment by light microscopyon 08-14-2021 Epithelial cells.squamous LM Ql (Urine sed) 5-10 SEEN /hpf [facility] Work Phone: Urine blood detectionon 07-25 RBC Ql (U) Negative Negative [facility] Work Phone: RBC Ql (U) 0 SEEN /hpf [facility] Work Phone: Urine clarityon 08-14-2021 Clarity (U) Clear Clear [facility] Work Phone: Urine color determinationon 08-14-2021 Color (U) Yellow Yellow [facility] Work Phone: Urine glucose detectionon Glucose Ql (U) Normal mg/dl Normal [facility] Work Phone: Urine leukocyte esterase det ection by dipstickon 08-14-2021 Leukocyte esterase Test strip Ql (U) 100 /ul Negative [facility] Work Phone: Urine pHon 08-14-2021 pH (U) 6.0 [pH] [facility] Work Phone: Urine sediment bacteria coun t by microscopy (number/high power field)on 08-14-2021 Bacteria LM.HPF (Urine sed) [#/Area] 1 /[HPF] None Seen [facility] Work Phone: Urine specific gravity measu rementon 08-14-2021 Specific gravity (U) [Rel density] 1.025 [facility] Work Phone: Urobilinogen Auto test strip Ql (U)on 08-14-2021 Urobilinogen Ql (U) Normal mg/dl Normal [facility] Work Phone: No Panel Informationon 10-06 IMPRESSION: Negative [employer] Worker: PSCB Transcribe Date/Time: Oct 06 2020 2:27P Dictated by : GREGORY GRIMES MD This examination was interpreted and the report reviewed and electronically signed by: GREGORY GRIMES MD on Oct 06 2020 2:28PM EST DIVISION OF RADIOLOGY Radiology Study observation (narrative) [facility] No Panel InformationOrdered By: [facility] Provider on 10-06-2020 [facility] XR Hand - right PA and Later al and Obliqueon 10-06-2020 * * *Final Report* * * DATE OF EXAM: Oct 06 2020 12:02PM WOX 5346 - XR HAND 3V PA/LAT/OBL RT / PROCEDURE REASON: Right wrist pain * * * * Physician Interpretation * * * * PROCEDURE: Right forearm and hand INDICATION: Right arm pain .pt states slammed her right arm in a door 2 days ago pain in right 5th MC and along lateral side of right forearm TECHNIQUE: XR FOREARM 2V AP/LAT RT, XR HAND 3V PA/LAT/OBL RT COMPARISON: None FINDINGS: No fractures or dislocations are seen. The bones, joint spaces and soft tissues are unremarkable. DIVISION OF RADIOLOGY Provider, [facility] [place] - 10/06/2020 * * *Final Report* * * DATE OF EXAM: Oct 06 2020 12:02PM WOX 5346 - XR HAND 3V PA/LAT/OBL RT / PROCEDURE REASON: Right wrist pain * * * * Physician Interpretation * * * * PROCEDURE: Right forearm and hand INDICATION: Right arm pain .pt states slammed her right arm in a door 2 days ago pain in right 5th MC and along lateral side of right forearm TECHNIQUE: XR FOREARM 2V AP/LAT RT, XR HAND 3V PA/LAT/OBL RT COMPARISON: None FINDINGS: No fractures or dislocations are seen. The bones, joint spaces and soft tissues are unremarkable. IMPRESSION IMPRESSION: Negative [employer] Worker: ISI Transcribe Date/Time: Oct 06 2020 2:27P Dictated by : GREGORY GRIMES MD This examination was interpreted and the report reviewed and electronically signed by: GREGORY GRIMES MD on Oct 06 2020 2:28PM EST [facility] XR Radius and Ulna - right A P and Lateralon 05-14-2021 * * *Final Report* * * DATE OF EXAM: Oct 06 2020 12:02PM WOX 5342 - XR FOREARM 2V AP/LAT RT / PROCEDURE REASON: Right arm pain * * * * Physician Interpretation * * * * PROCEDURE: Right forearm and hand INDICATION: Right arm pain .pt states slammed her right arm in a door 2 days ago pain in right 5th MC and along lateral side of right forearm TECHNIQUE: XR FOREARM 2V AP/LAT RT, XR HAND 3V PA/LAT/OBL RT COMPARISON: None FINDINGS: No fractures or dislocations are seen. The bones, joint spaces and soft tissues are unremarkable. DIVISION OF RADIOLOGY Provider, [facility] [place] - 10/06/2020 * * *Final Report* * * DATE OF EXAM: Oct 06 2020 12:02PM WOX 5342 - XR FOREARM 2V AP/LAT RT / PROCEDURE REASON: Right arm pain * * * * Physician Interpretation * * * * PROCEDURE: Right forearm and hand INDICATION: Right arm pain .pt states slammed her right arm in a door 2 days ago pain in right 5th MC and along lateral side of right forearm TECHNIQUE: XR FOREARM 2V AP/LAT RT, XR HAND 3V PA/LAT/OBL RT COMPARISON: None FINDINGS: No fractures or dislocations are seen. The bones, joint spaces and soft tissues are unremarkable. IMPRESSION IMPRESSION: Negative [employer] Worker: ISI Transcribe Date/Time: Oct 06 2020 2:27P Dictated by : GREGORY GRIMSE MD This examination was interpreted and the report reviewed and electronically signed by: GREGORY GRIMES MD on Oct 06 2020 2:28PM [facility] CTPCRon 08-27-2019 C. trachomatis Interp Normal See CT Interp N [facility] [place] Comment on above: Result Comment: C. t rachomatis DNA not detected. Specimen is presumptive negative for C. trachomatis. A negative result does not preclude C. trachomatis infection because results depend on adequate specimen collection, absence of inhibitors, and sufficient DNA to be detected. See CT Interp N Performed By: #### C BC, ADIFF, ANEU #### [place] [address] #### BMP, GFR, TROP #### [address] [address] C.trachomatis PCR Negative Normal Negative [facility] ([place] Comment on above: Result Comment: Angelo sport tube received with two swabs. Review collection procedure. Inappropriate collection may cause aberrant results. Molecular (PCR) assay performed on the Kristine Lionel 4800 system. Performed By: #### C BC, ADIFF, ANEU #### [address] [address] #### BMP, GFR, TROP #### [address] [address] Chlam Source Genital Female Normal [facility] ([place] Comment on above: Performed By: #### C BC, ADIFF, ANEU #### [address] [address] #### BMP, GFR, TROP #### [address] [address] NGPCRon 08-27-2019 GC PCR Source Genital Female Normal [facility] ([place] Comment on above: Performed By: #### C BC, ADIFF, ANEU #### [address] [address] #### BMP, GFR, TROP #### [address] [address] N. gonorrhoeae (PCR) Negative Normal Negative [facility] ([place] Comment on above: Result Comment: Angelo sport tube received with two swabs. Review collection procedure. Inappropriate collection may cause aberrant results. Molecular (PCR) assay performed on the Kristine Lionel 4800 System. Performed By: #### C BC, ADIFF, ANEU #### [address] [address] #### BMP, GFR, TROP #### [address] [address] N. gonorrhoeae Interp Normal See NG Interp N [facility] ([place] Comment on above: Result Comment: N. g onorrhoeae DNA not detected. Specimen is presumptive negative for N. gonorrhoeae. A negative result does not preclude Neisseria gonorrhoeae infection because results depend on adequate specimen collection, absence of inhibitors, and sufficient DNA to be detected. See NG Interp N Performed By: #### C BC, ADIFF, ANEU #### [place] [address] #### BMP, GFR, TROP #### [place] [address] .Urinalysis Microscopic (AO) on 08-26-2019 RBC (U) [#/Vol] 0-5 Abnormal None Seen [facility] ([place] Comment on above: Performed By: #### P REGU #### [place] [address] #### UA, UAMICAO #### [place] [address] UA Bacteria 4+ /hpf Abnormal [facility] ([place] Comment on above: Performed By: #### P REGU #### [place] [address] #### UA, UAMICAO #### [place] [address] UA Squam Epithelial 5-10 Abnormal None Seen [facility] ([place] Comment on above: Performed By: #### P REGU #### [place] [address] #### UA, UAMICAO #### [place] [address] UA WBC 10-15 Abnormal None Seen [facility] ([place] Comment on above: Performed By: #### P REGU #### [place] [address] #### UA, UAMICAO #### [place] [address] UAon 08-26-2019 Color (U) Yellow Normal [facility] ([place] Comment on above: Performed By: #### P REGU #### [place] [address] #### UA, UAMICAO #### [place] [address] Glucose (U) [Mass/Vol] Negative Normal Negative [facility] ([place] Comment on above: Performed By: #### P REGU #### [place] [address] #### UA, UAMICAO #### [facility] [address] [place] [address] Ketones Ql (U) Negative Normal Negative [facility] ([place] Comment on above: Performed By: #### P REGU #### [place] [address] #### UA, UAMICAO #### [facility] [address] [place] [address] UA Appear Slightly Cloudy Abnormal Clear [facility] ([place] Comment on above: Performed By: #### P REGU #### [place] [address] #### UA, UAMICAO #### [place] [address] UA Blood Trace Abnormal Negative [facility] ([place] Comment on above: Performed By: #### P REGU #### [place] [address] #### UA, UAMICAO #### [facility] [address] [place] [address] UA Leuk Est Negative Normal Negative [facility] ([place] Comment on above: Performed By: #### P REGU #### [place] [address] #### UA, UAMICAO #### [facility] [address] [place] [address] UA Nitrite Negative Normal Negative [facility] ([place] Comment on above: Performed By: #### P REGU #### [place] [address] #### UA, UAMICAO #### [facility] [address] [place] [address] UA pH 5.5 Normal 5.0 - 8.0 [facility] ([place] Comment on above: Performed By: #### P REGU #### [place] [address] #### UA, UAMICAO #### [place] [address] UA Protein Negative Normal Negative [facility] ([place] Comment on above: Performed By: #### P REGU #### [place] [address] #### UA, UAMICAO #### [place] [address] UA Spec Grav 1.020 Normal 1.015-1.025 [facility] ([place] Comment on above: Performed By: #### P REGU #### [place] [address] #### UA, UAMICAO #### [place] [address] UA Specimen Type Clean Catch Normal [facility] ([place] Comment on above: Performed By: #### P REGU #### [place] [address] #### UA, UAMICAO #### [place] [address] UA Urobilinogen 0.2 E.U./dL Normal 0.2-1.0 [facility] ([place] Comment on above: Performed By: #### P REGU #### [place] [address] #### UA, UAMICAO #### [place] [address] Urobilinogen Qn (U) Negative Normal Negative [facility] [place] Comment on above: Performed By: #### P REGU #### [place] [address] #### UA, UAMICAO #### [place] [address] XR CHEST 1 VIEWon 08-26-2019 XR CHEST 1 VIEW ORIGINAL CLINICAL HISTORY: chest pain COMPARISON: None available FINDINGS: Single AP view of the chest was obtained. Lung volumes are adequate. Pulmonary parenchyma is without acute airspace consolidation, pneumothorax, pleural effusion, or adenopathy. The cardiac silhouette is within normal limits. Osseous structures are unremarkable. IMPRESSION: No acute cardiopulmonary disease. Interpreted By: Jeronimo Holland Preliminary Report By: Jeronimo Holland Electronically Signed By: Jeronimo Holland Dictated Date: 08/25/2019 9:59:49 PM Prelim Date: 08/25/2019 9:59:49 PM Sign Date: 08/25/2019 10:00:31 PM Ordering Provider:Escobar Dunn [facility] [place] .Auto Diffon 08-25-2019 Ammonia (P) [Mass/Vol] 1.00 10 3/mcL Normal 0.15-1.00 [facility] ([place] Comment on above: Performed By: #### C CATHERINE CAMPA ANEU #### [address] [address] #### BMP, GFR, TROP #### [address] [address] Basophils (Bld) [#/Vol] 0.10 10 3/mcL Normal 0.00-0.19 [facility] ([place] Comment on above: Performed By: #### C CATHERINE CAMPA ANEU #### [place] [address] #### BMP, GFR, TROP #### [address] [address] Basophils/100 WBC (Bld) 0.6 % Normal 0.0-2.5 [facility] [place] Comment on above: Performed By: #### C BCCATHERINE, ANEU #### [address] [address] #### BMP, GFR, TROP #### [address] [address] Eosinophils (Bld) [#/Vol] 0.80 10 3/mcL High 0.00-0.40 [facility] ([place] Comment on above: Performed By: #### C CATHERINE CAPMA ANEU #### [address] [place] [address] #### BMP, GFR, TROP #### [address] [address] Eosinophils/100 WBC (Bld) 7.9 % High 0.0-7.0 [facility] ([place]) Comment on above: Performed By: #### C BC, ADIFF, ANEU #### [address] [address] #### BMP, GFR, TROP #### [address] [address] Lymphocytes (Bld) [#/Vol] 2.20 10 3/mcL Normal 0.77-3.85 [facility] ([place]) Comment on above: Performed By: #### C BC, ADIFF, ANEU #### [place] [address] #### BMP, GFR, TROP #### [address] [address] Lymphocytes/100 WBC (Bld) 20.8 % Normal 10.0-50.0 [facility] ([place]) Comment on above: Performed By: #### C BC, ADIFF, ANEU #### [place] [address] #### BMP, GFR, TROP #### [address] [address] Monocytes/100 WBC (Bld) 9.1 % Normal 1.7-13.0 [facility] ([place] Comment on above: Performed By: #### C BC, ADIFF, ANEU #### [place] [id number] #### BMP, GFR, TROP #### [address] [address] Neutrophils/100 WBC (Bld) 61.6 % Normal 37.0-80.0 [facility] ([place] Comment on above: Performed By: #### C BC, ADIFF, ANEU #### [place] [address] #### BMP, GFR, TROP #### [address] [address] .GFRon 08-25-2019 GFR 99 ml/min/1.73sqm Normal [facility] ([place] Comment on above: Result Comment: GFR Population mean for , Non- Americans Ages 20-29 = 116 mL/min/1.73 sq.m. Ages 30-39 = 107 mL/min/1.73 sq.m. Ages 40-49 = 99 mL/min/1.73 sq.m. Ages 50-59 = 93 mL/min/1.73 sq.m. Ages 60-69 = 85 mL/min/1.73 sq.m. Ages 70+ = 75 mL/min/1.73 sq.m. Chronic Kidney Disease: Less than 60 mL/min/1.73 square meters End Stage Renal Disease: Less than 15 mL/min/1.73 square meters Performed By: #### C BC, CALOSIFF, ANEU #### [address] [address] #### BMP, GFR, TROP #### [address] [address] GFR Non- 81 ml/min/1.73sqm Normal [facility] ([place] Comment on above: Result Comment: GFR Population mean for , Non- Americans Ages 20-29 = 116 mL/min/1.73 sq.m. Ages 30-39 = 107 mL/min/1.73 sq.m. Ages 40-49 = 99 mL/min/1.73 sq.m. Ages 50-59 = 93 mL/min/1.73 sq.m. Ages 60-69 = 85 mL/min/1.73 sq.m. Ages 70+ = 75 mL/min/1.73 sq.m. Chronic Kidney Disease: Less than 60 mL/min/1.73 square meters End Stage Renal Disease: Less than 15 mL/min/1.73 square meters Performed By: #### C BC, ADIFF, ANEU #### [address] [address] #### BMP, GFR, TROP #### [address] [address] .NEUABSon 08-25-2019 Neutrophils (Bld) [#/Vol] 6.50 10 3/mcL High 2.85-6.16 [facility] ([place] Comment on above: Performed By: #### C BC, ADIFF, ANEU #### [address] [address] #### BMP, GFR, TROP #### [place] [address] BMPon 08-25-2019 Calcium [Mass/Vol] 8.8 mg/dL Normal 8.4-10.2 [facility] ([place] Comment on above: Performed By: #### C CALOS CAMPAIFF, ANEU #### [place] [address] #### BMP, GFR, TROP #### [place] [address] Chloride [Moles/Vol] 103 mmol/L Normal 98-107 [facility] ([place] Comment on above: Performed By: #### C BC, ADIFF, ANEU #### [place] [address] #### BMP, GFR, TROP #### [place] [address] CO2 [Moles/Vol] 25 mmol/L Normal 22-29 [facility] ([place] Comment on above: Performed By: #### C LOKESH ADIFF, ANEU #### [place] [address] #### BMP, GFR, TROP #### [place] [address] Creatinine [Mass/Vol] 0.87 mg/dL Normal 0.55-1.02 On license of [facility] ([place] Comment on above: Performed By: #### C BC, ADIFF, ANEU #### [place] [address] #### BMP, GFR, TROP #### [place] [address] Electrolyte Balance 10.0 mEq/L Normal [facility] [place] Comment on above: Performed By: #### C BC, ADIFF, ANEU #### [address] [address] #### BMP, GFR, TROP #### [address] [address] Glucose [Mass/Vol] 90 mg/dL Normal 70-105 [facility] ([place] Comment on above: Performed By: #### C BC, ADIFF, ANEU #### [address] [address] #### BMP, GFR, TROP #### [address] [address] Potassium [Moles/Vol] 3.9 mmol/L Normal 3.5-5.1 On license of [facility] ([place] Comment on above: Performed By: #### C BC, ADIFF, ANEU #### [address] [address] #### BMP, GFR, TROP #### [address] [address] Sodium [Moles/Vol] 138 mmol/L Normal 136-145 [facility] ([place] Comment on above: Performed By: #### C BC, ADIFF, ANEU #### [address] [address] #### BMP, GFR, TROP #### [address] [address] Urea nitrogen [Mass/Vol] 13 mg/dL Normal 7-18 [facility] ([place] Comment on above: Performed By: #### C BC, ADIFF, ANEU #### [address] [address] #### BMP, GFR, TROP #### [address] [address] Urea nitrogen/Creatinine [Mass ratio] 15 ratio Normal 7-27 [facility] ([place] Comment on above: Performed By: #### C BC, ADIFF, ANEU #### [address] [address] #### BMP, GFR, TROP #### [address] [address] CBCon 08-25-2019 Erythrocyte distribution width (RBC) [Ratio] 14.3 % Normal 11.5-14.5 [facility] ([place]) Comment on above: Performed By: #### C BC, ADIFF, ANEU #### [place] [address] #### BMP, GFR, TROP #### [place] [address] Hematocrit (Bld) [Volume fraction] 41.7 % Normal 37.0-47.0 [facility] ([place]) Comment on above: Performed By: #### C BC, ADIFF, ANEU #### [place] [address] #### BMP, GFR, TROP #### [place] [address] Hemoglobin (Bld) [Mass/Vol] 13.8 G/dL Normal 12.0-16.0 [facility] ([place]) Comment on above: Performed By: #### C BC, ADIFF, ANEU #### [place] [address] #### BMP, GFR, TROP #### [place] [address] MCH (RBC) [Entitic mass] 29.2 pg Normal 27.0-31.2 [facility] ([place]) Comment on above: Performed By: #### C BC, ADIFF, ANEU #### [place] [address] #### BMP, GFR, TROP #### [place] [id number] MCHC (RBC) [Mass/Vol] 33.1 G/dL Normal 33.0-37.0 On license of [facility] ([place]) Comment on above: Performed By: #### C BC, ADIFF, ANEU #### [place] [address] #### BMP, GFR, TROP #### [address] [address] MCV (RBC) [Entitic vol] 88.2 fL Normal 80.0-94.0 [facility] ([place] Comment on above: Performed By: #### C BC, ADIFF, ANEU #### [address] [address] #### BMP, GFR, TROP #### [address] [address] Platelet mean volume (Bld) [Entitic vol] 10.4 fL Normal 7.4-10.4 [facility] ([place] Comment on above: Performed By: #### C BC, ADIFF, ANEU #### [place] [address] #### BMP, GFR, TROP #### [address] [address] Platelets (Bld) [#/Vol] 174 10 3/mcL Normal 130-400 [facility] ([place] Comment on above: Performed By: #### C BC, ADIFF, ANEU #### [place] [address] #### BMP, GFR, TROP #### [address] [address] RBC (Bld) [#/Vol] 4.73 10 6/mcL Normal 4.20-5.40 [facility] ([place]) Comment on above: Performed By: #### C BC, ADIFF, ANEU #### [place] [address] #### BMP, GFR, TROP #### [address] [address] WBC (Bld) [#/Vol] 10.60 10 3/mcL Normal 4.60-10.80 On license of [facility] ([place]) Comment on above: Performed By: #### C BC, ADIFF, ANEU #### [place] [address] #### BMP, GFR, TROP #### [place] [address] PREGUon 08-25-2019 HCG ( test) Ql (U) Negative Normal [facility] ([place] Comment on above: Performed By: #### P REGU #### [place] [address] #### UA, UAMICAO #### [place] [address] test (u) int HCG not detected. [facility] ([place] Comment on above: Performed By: #### P REGU #### [place] [address] #### UA, UAMICAO #### [place] [address] TROPon 08-25-2019 Troponin I.cardiac [Mass/Vol] ng/mL Normal 0.000-0.040 [facility] ([place] Comment on above: Result Comment: Trop onin I reference range: 0.00-0.040 ng/mL Negative and non-diagnostic. >0.040 ng/mL Consistent with cardiac damage, increased clinical risk and possibility of myocardial infarction. Serial measurements, a rise & fall in test results, clinical history, appropriate symptoms and/or ECG changes may help assess possibility of [place]. *Other non-acute coronary syndrome conditions such as CHF, myocarditis, pulmonary emboli, sepsis and cardiac surgery could result in myocardial damage and increased troponin levels. Performed By: #### C BC, ADIFF, ANEU #### [place] [address] #### BMP, GFR, TROP #### [place] [address] No Panel Information SARS-CoV-2 & FLU Antigen (Rapid) [facility] Work Phone: Vital Signs Date Time Vital Sign Value Performing Clinician Facility 01-04-2025 15:27-0400 Body mass index (BMI) [Ratio] 28.52 kg/m2 Gregory Jenkins MD Work Phone: [facility] 01-04-2025 15:27-0400 Body weight 77.75 kg Gregory Jenkins MD Work Phone: [facility] 01-04-2025 15:27-0400 Diastolic blood pressure 70 mm[Hg] Gregory Jenkins MD Work Phone: [facility] 01-04-2025 15:27-0400 Systolic blood pressure 110 mm[Hg] Gregory Jenkins MD Work Phone: [facility] 12-27-2024 10:56-0400 Body mass index (BMI) [Ratio] 27.79 kg/m2 Fátima Espino MD Work Phone: [facility] 12-27-2024 10:56-0400 Body weight 75.75 kg Fátima Espino MD Work Phone: [facility] 12-27-2024 10:56-0400 Diastolic blood pressure 68 mm[Hg] Fátima Espino MD Work Phone: [facility] 12-27-2024 10:56-0400 Systolic blood pressure 110 mm[Hg] Fátima Espino MD Work Phone: [facility] 12-17-2024 09:02-0400 Diastolic blood pressure 74 mm[Hg] [facility] Work Phone: [facility] 12-17-2024 09:02-0400 Heart rate 89 /min [facility] Work Phone: [facility] 12-17-2024 09:02-0400 SaO2% (BldA) [Mass fraction] 99 % [facility] Work Phone: [facility] 12-17-2024 09:02-0400 Systolic blood pressure 120 mm[Hg] [facility] Work Phone: [facility] 12-01-2024 13:32-0400 Diastolic blood pressure 64 mm[Hg] [facility] 12-01-2024 13:32-0400 Heart rate 105 /min [facility] 12-01-2024 13:32-0400 SaO2% (BldA) [Mass fraction] 100 % [facility] 12-01-2024 13:32-0400 Systolic blood pressure 104 mm[Hg] i [facility] 11-29-2024 08:57-0400 Body height 165.1 cm Dafne Camargo CRM DYNAMICS DEVELOPER.CNM Work Phone: [facility] 11-29-2024 08:57-0400 Body mass index (BMI) [Ratio] 27.29 kg/m2 Dafne Camargo CRM DYNAMICS DEVELOPER.CNM Work Phone: [facility] 11-29-2024 08:57-0400 Body weight 74.39 kg Dafne Camargo CRM DYNAMICS DEVELOPER.CNM Work Phone: [facility] 11-29-2024 08:57-0400 Diastolic blood pressure 70 mm[Hg] Dafne Camargo CRM DYNAMICS DEVELOPER.CNM Work Phone: [facility] 11-29-2024 08:57-0400 Systolic blood pressure 114 mm[Hg] Dafne Camargo CRM DYNAMICS DEVELOPER.CNM Work Phone: [facility] 08-09-2024 15:34-0400 Body mass index (BMI) [Ratio] 23.84 kg/m2 Adriana Moomaw CRM DYNAMICS DEVELOPER.COMPETENCY EVALUATED NURSE AIDE Work Phone: [facility] 08-09-2024 15:34-0400 Body temperature 97.9 [degF] Adriana Moomaw CRM DYNAMICS DEVELOPER.COMPETENCY EVALUATED NURSE AIDE Work Phone: [facility] 08-09-2024 15:34-0400 Body weight 66 kg Adriana Moomaw CRM DYNAMICS DEVELOPER.COMPETENCY EVALUATED NURSE AIDE Work Phone: [facility] 08-09-2024 15:34-0400 Diastolic blood pressure 60 mm[Hg] Adriana Moomaw CRM DYNAMICS DEVELOPER.COMPETENCY EVALUATED NURSE AIDE Work Phone: [facility] 08-09-2024 15:34-0400 Heart rate 104 /min Adriana Moomaw CRM DYNAMICS DEVELOPER.COMPETENCY EVALUATED NURSE AIDE Work Phone: [facility] 08-09-2024 15:34-0400 Respiratory rate 18 /min Adriana Moomaw CRM DYNAMICS DEVELOPER.COMPETENCY EVALUATED NURSE AIDE Work Phone: [facility] 08-09-2024 15:34-0400 SaO2% (BldA) [Mass fraction] 99 % Adriana Ocasioomaw CRM DYNAMICS DEVELOPER.COMPETENCY EVALUATED NURSE AIDE Work Phone: [facility] 08-09-2024 15:34-0400 Systolic blood pressure 126 mm[Hg] Adriana Ocasioomawillian CRM DYNAMICS DEVELOPER.COMPETENCY EVALUATED NURSE AIDE Work Phone: [facility] 09-19-2023 09:27-0400 Body mass index (BMI) [Ratio] 23.11 kg/m2 Karen Jenkins APRN.COMPETENCY EVALUATED NURSE AIDE Work Phone: [facility] 09-19-2023 09:27-0400 Body temperature 97.39 [degF] Karen Jenkins APRN.COMPETENCY EVALUATED NURSE AIDE Work Phone: [facility] 09-19-2023 09:27-0400 Body weight 64 kg Karen Jenkins APRN.COMPETENCY EVALUATED NURSE AIDE Work Phone: [facility] 09-19-2023 09:27-0400 Diastolic blood pressure 70 mm[Hg] Karen Jenkins APRN.COMPETENCY EVALUATED NURSE AIDE Work Phone: [facility] 09-19-2023 09:27-0400 Heart rate 90 /min Karen Jenkins APRN.COMPETENCY EVALUATED NURSE AIDE Work Phone: [facility] 09-19-2023 09:27-0400 Respiratory rate 20 /min Karen Jenkins APRN.COMPETENCY EVALUATED NURSE AIDE Work Phone: [facility] 09-19-2023 09:27-0400 SaO2% (BldA) [Mass fraction] 100 % Karen Jenkins APRN.COMPETENCY EVALUATED NURSE AIDE Work Phone: [facility] 09-19-2023 09:27-0400 Systolic blood pressure 107 mm[Hg] Karen Jenkins APRN.COMPETENCY EVALUATED NURSE AIDE Work Phone: [facility] 08-02-2023 09:11-0500 Body temperature 97.7 [degF] Amanda Crain APRN.COMPETENCY EVALUATED NURSE AIDE Work Phone: [facility] 08-02-2023 09:11-0500 Body weight 71.5 kg Amanda Crain APRN.COMPETENCY EVALUATED NURSE AIDE Work Phone: [facility] 08-02-2023 09:11-0500 Diastolic blood pressure 79 mm[Hg] Amanda Praisler-Wood CRM DYNAMICS DEVELOPER.COMPETENCY EVALUATED NURSE AIDE Work Phone: [facility] 08-02-2023 09:11-0500 Heart rate 80 /min Amanda Praisler-Wood CRM DYNAMICS DEVELOPER.COMPETENCY EVALUATED NURSE AIDE Work Phone: [facility] 08-02-2023 09:11-0500 Respiratory rate 18 /min Amanda Praisler-Wood CRM DYNAMICS DEVELOPER.COMPETENCY EVALUATED NURSE AIDE Work Phone: [facility] 08-02-2023 09:11-0500 SaO2% (BldA) [Mass fraction] 98 % Amanda Praisler-Wood CRM DYNAMICS DEVELOPER.COMPETENCY EVALUATED NURSE AIDE Work Phone: [facility] 08-02-2023 09:11-0500 Systolic blood pressure 135 mm[Hg] Amanda Praisler-Wood CRM DYNAMICS DEVELOPER.COMPETENCY EVALUATED NURSE AIDE Work Phone: [facility] 02-05-2023 12:29-0400 Body temperature 99.1 [degF] Dwight Benito MD Work Phone: [facility] 02-05-2023 12:29-0400 Body weight 75.48 kg Dwight Benito MD Work Phone: [facility] 02-05-2023 12:29-0400 Diastolic blood pressure 76 mm[Hg] Dwight Benito MD Work Phone: [facility] 02-05-2023 12:29-0400 Heart rate 121 /min Dwight Benito MD Work Phone: [facility] 02-05-2023 12:29-0400 Respiratory rate 18 /min Dwight Benito MD Work Phone: [facility] 02-05-2023 12:29-0400 SaO2% (BldA) [Mass fraction] 100 % Dwight Benito MD Work Phone: [facility] 02-05-2023 12:29-0400 Systolic blood pressure 115 mm[Hg] Dwight Benito MD Work Phone: [facility] 05-29-2022 10:02-0500 Body temperature 101.61 [degF] [facility] CRM DYNAMICS DEVELOPER.COMPETENCY EVALUATED NURSE AIDE Work Phone: [facility] 05-29-2022 10:02-0500 Body weight 77.02 kg [facility] CRM DYNAMICS DEVELOPER.COMPETENCY EVALUATED NURSE AIDE Work Phone: [facility] 05-29-2022 10:02-0500 Diastolic blood pressure 54 mm[Hg] [facility] CRM DYNAMICS DEVELOPER.COMPETENCY EVALUATED NURSE AIDE Work Phone: [facility] 05-29-2022 10:02-0500 Heart rate 114 /min [facility] CRM DYNAMICS DEVELOPER.COMPETENCY EVALUATED NURSE AIDE Work Phone: [facility] 05-29-2022 10:02-0500 Respiratory rate 21 /min [facility] CRM DYNAMICS DEVELOPER.COMPETENCY EVALUATED NURSE AIDE Work Phone: [facility] 05-29-2022 10:02-0500 SaO2% (BldA) [Mass fraction] 99 % [facility] CRM DYNAMICS DEVELOPER.COMPETENCY EVALUATED NURSE AIDE Work Phone: [facility] 05-29-2022 10:02-0500 Systolic blood pressure 112 mm[Hg] [facility] CRM DYNAMICS DEVELOPER.COMPETENCY EVALUATED NURSE AIDE Work Phone: [facility] 02-28-2022 11:11-0400 Body weight 67.22 kg Fara Kelly MD Work Phone: [facility] 02-28-2022 11:11-0400 Diastolic blood pressure 70 mm[Hg] Fara Kelly MD Work Phone: [facility] 02-28-2022 11:11-0400 Systolic blood pressure 100 mm[Hg] Fara Kelly MD Work Phone: [facility] 02-20-2022 13:28-0400 Body weight 68.13 kg Michelle Montelongo MD Work Phone: [facility] 02-20-2022 13:28-0400 Diastolic blood pressure 63 mm[Hg] Michelle Montelongo MD Work Phone: [facility] 02-20-2022 13:28-0400 Systolic blood pressure 118 mm[Hg] Michelle Montelongo MD Work Phone: [facility] 02-19-2022 07:59-0400 Body temperature 98.1 [degF] Jennie Athy PA-C Work Phone: [facility] 02-19-2022 07:59-0400 Body weight 67.13 kg Jennie Athy PA-C Work Phone: [facility] 02-19-2022 07:59-0400 Diastolic blood pressure 62 mm[Hg] Jennie Athy PA-C Work Phone: [facility] 02-19-2022 07:59-0400 Heart rate 88 /min Jennie Athy PA-C Work Phone: [facility] 02-19-2022 07:59-0400 Respiratory rate 18 /min Jennie Athy PA-C Work Phone: [facility] 02-19-2022 07:59-0400 SaO2% (BldA) [Mass fraction] 98 % Jennie Athy PA-C Work Phone: [facility] 02-19-2022 07:59-0400 Systolic blood pressure 110 mm[Hg] Jennie Athy PA-C Work Phone: [facility] 02-15-2022 13:17-0400 Body weight 67.13 kg Lynne Jensen CRM DYNAMICS DEVELOPER.CNM Work Phone: [facility] 02-15-2022 13:17-0400 Diastolic blood pressure 60 mm[Hg] Lynne Plotts CRM DYNAMICS DEVELOPER.CNM Work Phone: [facility] 02-15-2022 13:17-0400 Systolic blood pressure 104 mm[Hg] Lynne Plotts CRM DYNAMICS DEVELOPER.CNM Work Phone: [facility] 02-05-2022 12:52-0400 Body weight 65.86 kg Cuauhtemoc Natarajan MD Work Phone: [facility] 02-05-2022 12:52-0400 Diastolic blood pressure 54 mm[Hg] Cuauhtemoc Natarajan MD Work Phone: [facility] 02-05-2022 12:52-0400 Systolic blood pressure 100 mm[Hg] Cuauhtemoc Natarajan MD Work Phone: [facility] 01-29-2022 11:41-0400 Diastolic blood pressure 60 mm[Hg] Michelle Montelongo MD Work Phone: [facility] 01-29-2022 11:41-0400 Systolic blood pressure 98 mm[Hg] Michelle Montelongo MD Work Phone: [facility] 01-22-2022 09:22-0400 Body weight 64.59 kg Cuauhtemoc Natarajan MD Work Phone: [facility] 01-22-2022 09:22-0400 Diastolic blood pressure 56 mm[Hg] Cuauhtemoc Natarajan MD Work Phone: [facility] 01-22-2022 09:22-0400 Systolic blood pressure 108 mm[Hg] Cuauhtemoc Natarajan MD Work Phone: [facility] 01-18-2022 16:07-0400 Body weight 63.96 kg Fátima Espino MD Work Phone: [facility] 01-18-2022 16:07-0400 Diastolic blood pressure 60 mm[Hg] Fátima Espino MD Work Phone: [facility] 01-18-2022 16:07-0400 Systolic blood pressure 122 mm[Hg] Fátima Espino MD Work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 are drawn after the ultrasound and again later in the between 15 and 21 weeks gestational age. Please let your physician know if you are interested in this testing. It will require an appointment with our cooling tower technician. This is not an ultrasound performed by a physician in our office during a routine visit. SIGNS AND SYMPTOMS OF LABOR 1. Contractions every 10 minutes or more often 2. Clear, pink, or brownish fluid (water) leaking from vagina 3. Feeling that baby is pushing down, pressure 4. Low, dull backache 5. Cramps that feel like a period 6. Cramps with or without diarrhea If you notice any of the above symptoms, contact our office at [phone] and ask to speak with a nurse. After hours, you can call doctors registry at [phone] OR call [facility] at [phone] and ask to have the doctor national dedicated truck driver paged. If you consider this an emergency, dial 3--8 or go to your nearest emergency department. NEED HELP? Are you dealing with a violent or abusive relationship? Are you a victim of rape or sexual assult? Call [facility] ([place]) 24 hour Crisis Hotline: 684.261.8596 or 085-524-0068. MANUAL Your Guide to a Healthy manual is now on-line. Visit [email or web address] to download your free copy documented in this encounter [facility] 12-27-2024 Progress note Formatting of t his note might be different from the original. RR- VB No. LOF No. CTXS No. Movement: present. Other c/o: No. Medication list reviewed. SENSITIVE EXAM: The sensitive examination was discussed with the Patient or Patient's Authorized Race Steward. As applicable, any other physician, advance practice provider, medical student, or other health professional student that will be observing or involved in the sensitive examination for educational or training purposes was discussed with the Patient or Authorized Race Steward. The Patient or Authorized Race Steward has agreed to proceed with the sensitive examination. (Sensitive examination includes inspection and/or palpation of the breasts, pelvis, prostate and anorectal regions). Physical Exam See Flow Sheet Abd: soft, nontender, gravid : external genitalia: normal Ext: edema: 1+ A/P 36w0d Estimated Date of Delivery: 01/24/25 ASSESSMENT/PLAN: 1. Supervision of high risk in third trimester ([facility]) - ICD9: V23.9, ICD10: O09.93 (primary diagnosis) - TOXICOLOGY SCREEN, ROUTINE URINE - GONORRHEA/CHLAMYDIA NAAT - BACTERIAL VAGINOSIS NAAT - COLE/TRICHOMONAS NAAT - GLUCOSE RANDOM BLOOD 2. 36 weeks gestation of ([facility]) - ICD9: V22.2, ICD10: Z3A.36 - URINE OB DIP B/O - ROUTINE, GROUP B STREPTOCOCCUS BY PCR - COMPLETE BLOOD COUNT - TOXICOLOGY SCREEN, ROUTINE URINE - GLUCOSE RANDOM BLOOD 3. Late care ([facility]) - ICD9: V23.7, ICD10: O09.30 - URINE OB DIP B/O - ROUTINE, GROUP B STREPTOCOCCUS BY PCR - COMPLETE BLOOD COUNT - TOXICOLOGY SCREEN, ROUTINE URINE - GLUCOSE RANDOM BLOOD 4. Trichomonas vaginitis - ICD9: 131.01, ICD10: A59.01 - TRICHOMONAS VAGINALIS NAAT - TOXICOLOGY SCREEN, ROUTINE URINE - COLE/TRICHOMONAS NAAT - GLUCOSE RANDOM BLOOD 5. Need for vaccination - ICD9: V05.9, ICD10: Z23 - TOXICOLOGY SCREEN, ROUTINE URINE - GLUCOSE RANDOM BLOOD 6. History of drug use - ICD9: 305.93, ICD10: F19.91 verbal consent for this today - TOXICOLOGY SCREEN, ROUTINE URINE - GLUCOSE RANDOM BLOOD 7. H/o seizures, never on meds. Hasn't follow up w/ neurology. No issues in several years. Didn't get neuro appt scheduled. F/u after prengnacy or prn 11. Supervision of with other poor reproductive or obstetric history, third trimester ([facility]) - ICD9: [id number], ICD10: O09.293 treat trich and partner to be treated. contraceptive management: declines larc at delivery, might want sydney Espino M.D. [facility] 12-27-2024 Miscellaneous Notes RR- VB No. LOF No. CTXS No. Movement: present. Other c/o: No. Medication list reviewed. SENSITIVE EXAM: The sensitive examination was discussed with the Patient or Patient's Authorized Race Steward. As applicable, any other physician, advance practice provider, medical student, or other health professional student that will be observing or involved in the sensitive examination for educational or training purposes was discussed with the Patient or Authorized Race Steward. The Patient or Authorized Race Steward has agreed to proceed with the sensitive examination. (Sensitive examination includes inspection and/or palpation of the breasts, pelvis, prostate and anorectal regions). Physical Exam See Flow Sheet Abd: soft, nontender, gravid : external genitalia: normal Ext: edema: 1+ A/P 36w0d Estimated Date of Delivery: 01/24/25 ASSESSMENT/PLAN: 1. Supervision of high risk in third trimester ([facility]) - ICD9: V23.9, ICD10: O09.93 (primary diagnosis) - TOXICOLOGY SCREEN, ROUTINE URINE - GONORRHEA/CHLAMYDIA NAAT - BACTERIAL VAGINOSIS NAAT - COLE/TRICHOMONAS NAAT - GLUCOSE RANDOM BLOOD 2. 36 weeks gestation of ([facility]) - ICD9: V22.2, ICD10: Z3A.36 - URINE OB DIP B/O - ROUTINE, GROUP B STREPTOCOCCUS BY PCR - COMPLETE BLOOD COUNT - TOXICOLOGY SCREEN, ROUTINE URINE - GLUCOSE RANDOM BLOOD 3. Late care ([facility]) - ICD9: V23.7, ICD10: O09.30 - URINE OB DIP B/O - ROUTINE, GROUP B STREPTOCOCCUS BY PCR - COMPLETE BLOOD COUNT - TOXICOLOGY SCREEN, ROUTINE URINE - GLUCOSE RANDOM BLOOD 4. Trichomonas vaginitis - ICD9: 131.01, ICD10: A59.01 - TRICHOMONAS VAGINALIS NAAT - TOXICOLOGY SCREEN, ROUTINE URINE - COLE/TRICHOMONAS NAAT - GLUCOSE RANDOM BLOOD 5. Need for vaccination - ICD9: V05.9, ICD10: Z23 - TOXICOLOGY SCREEN, ROUTINE URINE - GLUCOSE RANDOM BLOOD 6. History of drug use - ICD9: 305.93, ICD10: F19.91 verbal consent for this today - TOXICOLOGY SCREEN, ROUTINE URINE - GLUCOSE RANDOM BLOOD 7. H/o seizures, never on meds. Hasn't follow up w/ neurology. No issues in several years. Didn't get neuro appt scheduled. F/u after prengnacy or prn 11. Supervision of with other poor reproductive or obstetric history, third trimester ([facility]) - ICD9: [id number], ICD10: O09.293 treat trich and partner to be treated. contraceptive management: declines larc at delivery, might want depo Fátima Espino M.D. documented in this encounter [facility] 12-27-2024 Note HNO ID: [id number] Author: KRYSTAL GILMAN MA Service: ? Author Type: Sock Liner Type: Progress Notes Filed: 12/27/2024 13:18 Note Text: Patient identified by name and date of . Zully Joiner presents today for a vaccination of Tdap. Patient denies an allergy to latex: yes Patient denies a severe (life-threatening) allergy to a previous dose of Tdap, DTP, DTaP, DT or Td vaccine. Yes Patient denies history of epilepsy or neurological problems: No Patient is afebrile and denies being moderately or severely ill: Yes Patient denies history of Guillain-[place] Syndrome (a severe paralytic illness): Yes Tdap Adacel injection was given without incident. See immunizations for details of immunizations administered today. VIS sheet provided: Yes Provider Fátima Espino MD was present in office at time of injection. Krystal Gilman MA [facility] 12-27-2024 History of Present illness Narrative Patient identified by name and date of . Zully Joiner presents today for a vaccination of Tdap. Patient denies an allergy to latex: yes Patient denies a severe (life-threatening) allergy to a previous dose of Tdap, DTP, DTaP, DT or Td vaccine. Yes Patient denies history of epilepsy or neurological problems: No Patient is afebrile and denies being moderately or severely ill: Yes Patient denies history of Guillain-[place] Syndrome (a severe paralytic illness): Yes Tdap Adacel injection was given without incident. See immunizations for details of immunizations administered today. VIS sheet provided: Yes Provider Fátima Espino MD was present in office at time of injection. Krystal Gilman MA documented in this encounter [facility] 12-27-2024 Instructions Krystal Gilman MA - 12/27/2024 10:49 AM EDT SEQUENTIAL SCREENINGS The [facility] offers sequential screenings for women who are interested in screenings for chromosomal abnormalities and certain defects during a . The sequential screen combines ultrasound and blood tests to determine the risk of chromosomal abnormalities, including Down's Syndrome (Trisomy 21) and Trisomy 18, as well as open neural tube defects including spina bifida. Ultrasound examination is performed between 11 weeks and 13 weeks gestational age. Blood tests are drawn after the ultrasound and again later in the between 15 and 21 weeks gestational age. Please let your physician know if you are interested in this testing. It will require an appointment with our cooling tower technician. This is not an ultrasound performed by a physician in our office during a routine visit. SIGNS AND SYMPTOMS OF LABOR 1. Contractions every 10 minutes or more often 2. Clear, pink, or brownish fluid (water) leaking from vagina 3. Feeling that baby is pushing down, pressure 4. Low, dull backache 5. Cramps that feel like a period 6. Cramps with or without diarrhea If you notice any of the above symptoms, contact our office at [phone] and ask to speak with a nurse. After hours, you can call doctors registry at [phone] OR call [facility] at [phone] and ask to have the doctor national dedicated truck driver paged. If you consider this an emergency, dial [phone] or go to your nearest emergency department. NEED HELP? Are you dealing with a violent or abusive relationship? Are you a victim of rape or sexual assult? Call [facility] ([facility] 24 hour Crisis Hotline: 255.265.5893 or 705-935-0784. MANUAL Your Guide to a Healthy manual is now on-line. Visit [email or web address] to download your free copy documented in this encounter [facility] 12-25-2024 Hospital Discharge instructions Patient Education 12/25/2024 15:45:15 [facility] Outpatient Instructions ([facility]) [facility] OUTPATIENT HOME-GOING INSTRUCTIONS _X_ You are to follow up with your physician on 12/27/2024 ACTIVITY ___ Bedrest _X__Activity as tolerated ___ No work/school for ___ days. ___Other PRESCRIPTION GIVEN ___Yes NAUSEA/VOMITING ___ Take small, frequent amounts of clear liquids. Avoid fruit juices and milk. ___ Increase fluid intake to a minimum of 8 ounces of fluid every hour while awake. ___ Soft diet. Rice, crackers, bananas, Jell-O, cooked carrots, applesauce. ___ [place] diet. Avoid caffeine, chocolate, alcohol, spiced/greasy foods. URINARY TRACT INFECTION ___ Drink 8-12 glasses of water every day. ___ Urinate frequently; do not limit fluids to reduce frequency of urination. ___ Call your physician if burning and frequency with urination returns after taking all your medication. ___ Call your physician if you have a temperature of 100.4 degrees Fahrenheit or higher. ___ Wipe from front to back. SIGNS OF PRE-ECLAMPSIA ___ Severe heartburn. ___ Persistent headache not relieved by Tylenol. ___ Increased in swelling of face, hands and feet. ___ Blurred vision, double vision, or spots in the eyes. ___ Persistent vomiting. ___ *Convulsions or seizures. LABOR ___ Restrict activity. ___ Drink 8-12 glasses of water every day. ___ Urinate frequently ___ Pelvic rest. No sexual intercourse/ Call your physician if you experience: ___ Increase in vaginal discharge, leaking fluid, or vaginal bleeding. ___ More than 4, 5, or 6 contractions in one hour. ___ Burning and frequency with urination. DECREASED MOVEMENT ___ Lie down on your left side, drink some fluids and relax. Count the movements. You need to have 10 movements in 2 hours. ___ If you do not feel the 10 movements, call your physician. OTHER X___ After an exam you may experience some spotting or discharge. As long as it is not bright red and heavy like a period or continues to leak as if your water broke, it is to be expected. ___ LABOR Call your physician if you experience: _X__ Painful uterine contractions every _5__ minutes for __1_ hours. _X__A gush or continuous trickle of watery discharge. COME TO THE HOSPITAL AND CALL PHYSICIAN IF: _X__ Your abdomen feels continually firm. _X__ *Bleeding is bright red and enough to saturate a pad in one hour or less. *Call 911 or go to the nearest Emergency Room for assistance. Form [id number] D: 05/03 Follow Up Care 12/25/2024 14:27:35 With:DAFNE CAMARGO Address: [facility] [address] [place] [address]- When:12/27/2024 Comments:Follow-up as scheduled [facility] 12-17-2024 Note Indication Follow-up evaluation to complete anatomic survey, History of child with gastroschisis, history of growth restriction. History of section Impression The patient is referred for completion of the anatomic survey. - Single, live, intrauterine . - No malformations were visualized on a follow-up anatomic survey. - Other than face and feet images, anatomic survey was completed today. - The amniotic fluid volume is normal amount. - The placenta is posterior. - Not all structural malformations can be detected by ultrasound examination. Recommendations Additional follow-up as clinically indicated. Maternal Assessment Height 168 cm Height (ft) 5 ft Height (in) 6 in Physical Exam Initial weight (lb) 167 lb Initial BMI 26.97 kg/m Growth Overview Exam date GA BPD (mm) HC (mm) AC (mm) FL (mm) HL (mm) EFW (g) 12/01/2024 32w 2d 82.4 67% 305.4 66% 285.6 58% 64 84% 58.1 88% 2085 61% Method Transabdominal ultrasound examination. View: Suboptimal view: limited by late gestational age West . Number of fetuses: 1 Dating LMP on: 04/19/2024 GA by LMP 34 w + 4 d SHANNON by LMP: 01/24/2025 GA by prior assessment 34 w + 4 d SHANNON by prior assessment: 01/24/2025 Assigned: based on the LMP, selected on 12/01/2024 Assigned GA 34 w + 4 d Assigned SHANNON: 01/24/2025 General Evaluation Cardiac activity present. FHR 125 bpm. movements: present. Presentation: cephalic Placenta: Placental site: posterior Umbilical cord: Cord vessels: 3 vessel cord Amniotic fluid: Amount of AF: normal amount. MVP 3.9 cm. CAROL 13.2 cm. Q1 3.8 cm, Q2 3.9 cm, Q3 2.8 cm, Q4 2.7 cm Anatomy Lateral ventricles: normal Cerebellum: normal Cisterna magna: normal Face Maxilla: suboptimally visualized Mandible: suboptimally visualized 4-chamber view: normal RVOT view: normal LVOT view: normal [id number] view: normal Heart / Thorax Diaphragm: normal Stomach: normal Kidneys: normal Bladder: normal Cervical spine: normal Arms: normal Rt upper arm: normal Rt forearm: normal Lt upper arm: normal Lt forearm: normal Lt hand: normal Lt fingers: normal Rt foot: suboptimally visualized Lt foot: suboptimally visualized Wants to know sex: yes Performed By: Kandi Burnett RDMS Read By: Nandini Chavez M.D. [facility] 12-13-2024 Telephone encounter Note Contacted [place] [facility] who state that they have not been able to contact patient. Will try to schedule her when she comes in to the office tomorrow for OB appointment. [facility] 12-13-2024 Miscellaneous Notes Contacted [place] nursing who state that they have not been able to contact patient. Will try to schedule her when she comes in to the office tomorrow for OB appointment. documented in this encounter [facility] 12-08-2024 Telephone encounter Note Attempted to call patient and phone just states the number is unreachable. Was attempting to change appt time tomorrow. Canceled appt with KJ tomorrow and will await phone call back. Jackie Valle RN [facility] 12-08-2024 Miscellaneous Notes Attempted to call patient and phone just states the number is unreachable. Was attempting to change appt time tomorrow. Canceled appt with KJ tomorrow and will await phone call back. Jackie Valle RN documented in this encounter [facility] 12-05-2024 Progress note Formatting of t his note might be different from the original. GENNY-NOB, see progress note. Late to PN care. 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 Desires repeat C/S. 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 MFM referral placed. Dafne Camargo APRN.CNM [facility] 12-05-2024 Miscellaneous Notes GENNY-NOB, see progress note. Late to PN care. 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 Desires repeat C/S. 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 MFM referral placed. Dafne Camargo APRN.CNM documented in this encounter [facility] 12-03-2024 Miscellaneous Notes Patient viewed both [employer] messages on 12/01/24. Jackie Valle RN Pt. In office for US, advised to call OB office to go over lab results. Pt. Verbalized understanding and said she will reach out. Brina Stanley RN Mychart message sent to Pt from provider re: Trichomonas as well as: Pt tested + for yeast. GENNY recommends treating this after Pt completes the treatment for trichomonas.Rx sent in vaginal cream to be used for 7 nights.--Pt has not read both [employer] messages from GENNY at this time. Tried reaching Pt at # listed in chart. Message states You are trying to call is not reachable. Tried reaching emergency contact listed on patients chart; However, personal message was not name listed as listed in Pt's chart; Therefore, did not leave message. Appointment note made for US that Pt has today for US in [place], [place] for contact info to be updated as well as to have Pt check [employer] messages and contact our office. Chel Pitts RN Images from the original note were not included. Dafne Camargo APRN.CNM to [facility] Ob-Relations Specialist Pool 11/30/24 5:33 PM Result Note Positive for trichomonas. Will send prescription for Flagyl 500mg PO BID x 7days. No sex during and for one week after treatment. Partner treatment and notification. I can send EPT if given information. Thank you, Dafne Camargo APRN.CNM BACTERIAL VAGINOSIS NAAT; COLE/TRICHOMONAS NAAT; GONORRHEA/CHLAMYDIA NAAT documented in this encounter [facility] 12-03-2024 Telephone encounter Note Patient viewed both [employer] messages on 12/01/24. Jackie Valle RN [facility] 12-01-2024 Telephone encounter Note Pt. In office for US, advised to call OB office to go over lab results. Pt. Verbalized understanding and said she will reach out. Brina Stanley RN [facility] 12-01-2024 Telephone encounter Note [employer] message sent to Pt from provider re: Trichomonas as well as: Pt tested + for yeast. GENNY recommends treating this after Pt completes the treatment for trichomonas.Rx sent in vaginal cream to be used for 7 nights.--Pt has not read both [employer] messages from GENNY at this time. Tried reaching Pt at # listed in chart. Message states You are trying to call is not reachable. Tried reaching emergency contact listed on patients chart; However, personal message was not name listed as listed in Pt's chart; Therefore, did not leave message. Appointment note made for US that Pt has today for US in [place], [place] for contact info to be updated as well as to have Pt check [employer] messages and contact our office. Chel Pitts RN [facility] 12-01-2024 Telephone encounter Note Images from the original note were not included. Dafne Camargo APRN.CNM to [facility] Ob-Relations Specialist Pool 11/30/24 5:33 PM Result Note Positive for trichomonas. Will send prescription for Flagyl 500mg PO BID x 7days. No sex during and for one week after treatment. Partner treatment and notification. I can send EPT if given information. Thank you, Dafne Camargo APRN.CNM BACTERIAL VAGINOSIS NAAT; COLE/TRICHOMONAS NAAT; GONORRHEA/CHLAMYDIA NAAT [facility] 11-30-2024 Telephone encounter Note 1st risk assessment form submitted 11/30/2024. Misael Tellez RN [facility] 11-30-2024 Miscellaneous Notes 1st risk assessment form submitted 11/30/2024. Misael Tellez RN documented in this encounter [facility] 11-29-2024 Note HNO ID: [id number] Author: DAFNE CAMARGO APRN.CNM Service: ? Author Type: Energy Sales Consultant Type: Progress Notes Filed: 12/05/2024 06:15 Note Text: INITIAL OB ASSESSMENT HPI: Zully is a 29 year old /Multicultural Female here to establish Obstetrical Care. Patient's last menstrual period was 04/19/2024. from OB Dating Form. was unplanned but accepted. Complaints: No OB History Gravida3 Para2 Term1 Preterm1 AB0 Living2 SAB0 IAB0 Ectopic0 Multiple0 Live Births2 Previous history: Prior : yes x 1 History of 4th degree laceration: No History of shoulder dystocia: No History of Hypertensive disorders including pre-eclampsia or gestational hypertension: No History of gestational diabetes: No Patient's Risk Screening for delivery: Have you had a prior west between 20w and 36w6d? yes Did you present in active spontaneous labor or have ruptured membranes, or advanced cervical dilation (greater than or equal to 4 cm) or effacement? No section due to FGR How many pregnancies have you had before? 2 Did you have a previous baby with a GBS Infection? No Please select all that apply for any prior : N/A MEDICAL/PSYCHOSOCIAL HISTORY: History of hemorrhage or bleeding concerns: No Thyroid Disease: No History of chronic hypertension: No History of pre-existing diabetes: No ABO/RH(D) Date Value Ref Range Status 02/14/2017 A POSITIVE Final BMI 27.29 kg/(m2) Last Pap: 08/16/2021 History of abnormal pap: Yes, ASCUS in 2018 Prior treatment for cervical dysplasia: none. Last HPV: 04/08/2018 - negative History of STDs: chlamydia and GC Partner History of STDs: None Did you have a partner with Herpes? 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 I don't have enough money to pay my bills: Never Within the past 12 months, have you worried that your food would run out before you had money to buy more? Never In the past 12 months, has lack of reliable transportation kept you from going to medical appointments or work, or from getting things needed for daily living? Never In the past 12 months, have you had any concerns about having a place to live, or about the condition or quality of your housing? Never Would you like more information on any of the following (please check all that apply)? Not interested Social History: Do you have any history of depression, anxiety, PTSD, or other mood problems? No Do you have a history of abuse or trauma that may impact your experience? No Are you currently employed? No Depression/Anxiety Screening: denies symptoms of depression. OB Depression and Anxiety Screening- This Encounter Feeling down, depressed, or hopeless: Not at all Little interest or pleasure in doing things: Not at all Feeling nervous, anxious, or on edge Not at all Not being able to stop or control worrying Not at all Anxiety Pre-Screening Total (If >/= 3 additional questions will be reviewed) 0 Genetic Screening: Partner present: Yes Patient verbalized knowledge of partner family health history: No Do you or your partner have any personal or family history of defects not previously discussed: No Do you have history of a complicated by anomaly, genetic condition, or demise: No Preeclampsia Risk Screening: Screening for prevention of preeclampsia: High risk factors: None Moderate risk ractors: Sociodemographic characteristics ( race, low socioeconomic status) and Personal history factors (e.g., low birthweight or small for gestational age, previous adverse outcome, more than 10-year interval) OB Risk Screening: Completed, positive findings include: Patient answered 'Yes' they had a prior west between 20w and 36w6d. Marital Status:Co-habitating Partner: Name: Dell Age: 22 Occupation: Vendor Gender: Male PAST MEDICAL HISTORY Diagnosis Date ADHD (attention deficit hyperactivity disorder) age 11 or 12 - diagnosed in [place] Anemia Asthma ([facility]) exercise induced asthma Chlamydia Gonorrhea 2017 IBS (irritable bowel syndrome) 11/02/2013 depression Seizure ([facility]) 2018, seen in [facility] since 2018 Trichomoniasis PAST SURGICAL HISTORY Procedure Laterality Date DELIVERY ONLY 09/30/2017 NEXPLANON INSERTION 01/20/2015 removed PAST SURGICAL HISTORY OF pencil lead removed from eardrum Current Outpatient Medications Medication Sig Dispense Refill amoxicillin (AMOXIL) 500 mg capsule Take 500 mg by mouth two times a day. [id number] 27 mg-800 mcg- 250 mg-200 (more content not included)... [facility] 11-29-2024 History of Present illness Narrative INITIAL OB ASSESSMENT HPI: Zully is a 29 year old /Multicultural Female here to establish Obstetrical Care. Patient's last menstrual period was 04/19/2024. from OB Dating Form. was unplanned but accepted. Complaints: No OB History Gravida3 Para2 Term1 Preterm1 AB0 Living2 SAB0 IAB0 Ectopic0 Multiple0 Live Births2 Previous history: Prior : yes x 1 History of 4th degree laceration: No History of shoulder dystocia: No History of Hypertensive disorders including pre-eclampsia or gestational hypertension: No History of gestational diabetes: No Patient's Risk Screening for delivery: Have you had a prior west between 20w and 36w6d? yes Did you present in active spontaneous labor or have ruptured membranes, or advanced cervical dilation (greater than or equal to 4 cm) or effacement? No section due to FGR How many pregnancies have you had before? 2 Did you have a previous baby with a GBS Infection? No Please select all that apply for any prior : N/A MEDICAL/PSYCHOSOCIAL HISTORY: History of hemorrhage or bleeding concerns: No Thyroid Disease: No History of chronic hypertension: No History of pre-existing diabetes: No ABO/RH(D) Date Value Ref Range Status 02/14/2017 A POSITIVE Final BMI 27.29 kg/(m^2) Last Pap: 08/16/2021 History of abnormal pap: Yes, ASCUS in 2018 Prior treatment for cervical dysplasia: none. Last HPV: 04/08/2018 - negative History of STDs: chlamydia and GC Partner History of STDs: None Did you have a partner with Herpes? 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 I don't have enough money to pay my bills: Never Within the past 12 months, have you worried that your food would run out before you had money to buy more? Never In the past 12 months, has lack of reliable transportation kept you from going to medical appointments or work, or from getting things needed for daily living? Never In the past 12 months, have you had any concerns about having a place to live, or about the condition or quality of your housing? Never Would you like more information on any of the following (please check all that apply)? Not interested Social History: Do you have any history of depression, anxiety, PTSD, or other mood problems? No Do you have a history of abuse or trauma that may impact your experience? No Are you currently employed? No Depression/Anxiety Screening: denies symptoms of depression. OB Depression and Anxiety Screening- This Encounter Feeling down, depressed, or hopeless: Not at all Little interest or pleasure in doing things: Not at all Feeling nervous, anxious, or on edge Not at all Not being able to stop or control worrying Not at all Anxiety Pre-Screening Total (If >/= 3 additional questions will be reviewed) 0 Genetic Screening: Partner present: Yes Patient verbalized knowledge of partner family health history: No Do you or your partner have any personal or family history of defects not previously discussed: No Do you have history of a complicated by anomaly, genetic condition, or demise: No Preeclampsia Risk Screening: Screening for prevention of preeclampsia: High risk factors: None Moderate risk ractors: Sociodemographic characteristics ( race, low socioeconomic status) and Personal history factors (e.g., low birthweight or small for gestational age, previous adverse outcome, more than 10-year interval) OB Risk Screening: Completed, positive findings include: Patient answered 'Yes' they had a prior west between 20w and 36w6d. Marital Status:Co-habitating Partner: Name: Dell Age: 22 Occupation: Vendor Gender: Male PAST MEDICAL HISTORY Diagnosis Date ADHD (attention deficit hyperactivity disorder) age 11 or 12 - diagnosed in [place] Anemia Asthma ([facility]) exercise induced asthma Chlamydia Gonorrhea 2017 IBS (irritable bowel syndrome) 11/02/2013 depression Seizure ([facility]) 2018, seen in [facility]none since 2018 Trichomoniasis PAST SURGICAL HISTORY Procedure Laterality Date DELIVERY ONLY 09/30/2017 NEXPLANON INSERTION 01/20/2015 removed PAST SURGICAL HISTORY OF pencil lead removed from eardrum Current Outpatient Medications Medication Sig Dispense Refill amoxicillin (AMOXIL) 500 mg capsule Take 500 mg by mouth two times a day. [id number] 27 mg-800 mcg- 250 mg-200 mg cap Take 1 capsule by mouth once daily. vitamin as available and covered on her plan w/ [employer] with or separate capsule 30 capsule 12 albuterol HFA (PROAIR HFA) 90 mcg/actuation inhaler Inhale 2 Puffs as instructed every 4 hours as needed for wheezing/shortness of breath. 2 Inhaler 2 ondansetron orally disintegrating (ZOFRAN ODT) 4 mg disintegrating tablet Take 1 tablet by mouth every 6 hours as needed for nausea/vomiting. (Patient not taking: Reported on 09/19/2023) 12 tablet 0 HYDROcodone-acetaminophen (NORCO) 5-325 mg per tablet Take 1 tablet by mouth every 6 hours as needed. (Patient not taking: Reported on 05/29/2022) 28 tablet 0 multivitamin (CLASSIC ) 28 mg iron- 800 mcg tab(s) Take 1 tablet by mouth once daily. 30 tablet 5 No current facility-administered medications for this visit. Allergies As of Date: 11/29/2024 Allergen Noted Reaction DUST 07/21/2006 Itching PERCOCET [OXYCODONE-ACETAMINOPHEN]10/07/19 18 Rash and Itching TREES 07/21/2006 Itching Fully Assessed 11/29/2024 Does patient have penicillin allergy: No REVIEW OF SYSTEMS: GENERAL: Negative for: Fever or Chills HEENT: Negative for: Headache, Impaired Vision, Ringing in Ears, Nosebleeds NECK: Negative for: Swelling, Pain, Stiffness RESPIRATORY: Negative for: Cough, Shortness of breath, Wheezing GASTROINTESTINAL: Negative for: Heartburn, Constipation, Diarrhea, Blood in stool, Vomiting MUSCULOSKELETAL: Negative for: Muscle or joint pain, stiffness, Joint swelling NEUROLOGIC/PSYCHIATRIC: Negative for: Weakness, Paralysis, Numbness, Tingling, Tremor, Anxiety, Depression, Memory loss SKIN: Negative for: Rash, Itching GENITOURINARY: Negative for: vaginal itching, vaginal discharge, hematuria or dysuria 11/29/24-Last Seizure she thinks was about in 2021. No medications at this time and did not follow up with neurology after son's delivery. States she has blackout spells and sees white and black, pupils go pin point, fuzzy through body, sweaty. Getting this about a few times a week and feels very tired after for several hours. Dafne Camargo APRN.[facility] SENSITIVE EXAM: The sensitive examination was discussed with the Patient or Patient's Authorized Race Steward. As applicable, any other physician, advance practice provider, medical student, or other health professional student that will be observing or involved in the sensitive examination for educational or training purposes was discussed with the Patient or Authorized Race Steward. The Patient or Authorized Race Steward has agreed to proceed with the sensitive examination. (Sensitive examination includes inspection and/or palpation of the breasts, pelvis, prostate and anorectal regions). PHYSICAL EXAM: BP 114/70 Ht 5' 5 (1.65m) Wt 164 lb (74.4kg) LMP 04/19/2024 BMI 27.29 kg/(m^2). GENERAL: pleasant in no apparent distress DERMATOLOGY: Normal, without lesions, non-icteric, and non-hirsute NECK: Supple, full range of motion, no adenopathy, and thyroid normal CHEST: Normal inspiratory effort BREAST: soft, non-tender, symmetric, no dominant mass, normal nipple-areolar complex, no lymphadenopathy, and no nipple discharge ABDOMEN: soft, non-tender, and no masses. Measuring 32 weeks NEURO: alert and oriented x3,exam grossly non-focal PELVIS: External genitalia normal without lesions. Perineal body intact. No vaginal or cervical lesions. Cervix closed. No adnexal masses or tenderness. Clinical Pelvimetry: Pelvimetry clinically assessed as adequate Limited OB ultrasound exam: not performed ASSESSMENT: 29 year old at 32w0d wks gestational age PLAN: 1) Patient oriented to practice. Patient given new OB orientation folder. Discussed nutrition, folic acid supplementation, dietary guidelines, exercise, smoking, alcohol, caffeine, and drug use. Discussed gestational weight gain guidelines. Discussed routine OB labs including STD/HIV. Discussed hemoglobin electrophoresis. Patient: Accepts 2) Screening: Hemoglobin A1C: ordered Baby Aspirin: The patient has been counseled about the potential benefits of low dose aspirin in and our recommendation that this be offered to all patients, regardless of whether they meet the high risk criteria specified above. Too late to initiate at 32 weeks Aneuploidy Screening: Discussed aneuploidy screening, nuchal translucency/first trimester early anatomy ultrasound and NIPT. The risks/benefits and limitations of NIPT/aneuploidy screening were reviewed including the potential for false negative and false positive results. The availability of genetic counseling was reviewed. Information on aneuploidy screening was provided. The patient chooses to proceed with First trimester early anatomy ultrasound (12-13w6d) and NIPT (10 weeks) Myriad Carrier Screening: Discussed myriad carrier screening. We discussed the availability of professional-society guided carrier screening and reviewed the conditions screened and limitations of screening. The availability of genetic counseling was reviewed. Information on carrier screening was provided. The patient Accepts 3) Patient offered option of Virtual Visits. Patient prefers in person visits. 4) MFM referral due to history of FGR, meth use, seizures, and history of child born with gastroschisis. Follow up in 2 weeks or sooner prn. Dafne Camargo APRN.CNM documented in this encounter [facility] 11-29-2024 Instructions Anselmo Hurtado MA - 11/29/2024 8:40 AM EDT Please select the following link to access the [facility] Your Guide to a Healthy . [email or web address] documented in this encounter [facility] 11-28-2024 Hospital Discharge instructions Patient Education 11/28/2024 21:46:13 Dental Pain Dental Pain A crack or cavity in a tooth can cause tooth pain. This is because the crack or cavity exposes the sensitive inner area of the tooth. An infection in the gum or the root of the tooth can cause pain and swelling. The pain is often made worse when you drink hot or cold beverages. It can also be worse when you bite on hard foods. Pain may spread from the tooth to your ear or the area of the jaw on the same side. Home care Follow these tips when caring for yourself at home: Don't have hot and cold foods and drinks. Your tooth may be sensitive to changes in temperature. Use toothpaste made for sensitive teeth. [place] gently up and down instead of sideways. Brushing sideways can wear away root surfaces if they are exposed. If your tooth is chipped or cracked, or if there is a large open cavity, put oil of cloves directly on the tooth to relieve pain. You can buy oil of cloves at drugstores. Some pharmacies carry an ifms-hup-vsuehem toothache kit. This contains a paste that you can put on the exposed tooth to make it less sensitive. Put a cold pack on your jaw over the sore area to help reduce pain. You may use bquk-nta-rlatyyn medicine to ease pain, unless your doctor prescribed another medicine. If you have chronic liver or kidney disease, talk with your healthcare provider before using acetaminophen or ibuprofen. Also talk with your provider if you ve had a stomach ulcer or GI bleeding. If you have signs of an infection, you will be given an antibiotic. Take it as directed. Follow-up care Follow up with your dentist, or as advised. Your pain may go away with the treatment given today. But only a dentist can fully look at and treat the cause of your pain. This will keep the pain from coming back. Call 911 Call 911 if any of these occur: Unusual drowsiness Headache or stiff neck Weakness or fainting Difficulty swallowing or breathing When to seek medical advice Call your health care provider right away if any of these occur: Your face becomes swollen or red Pain gets worse or spreads to your neck Fever of 100.4 F (38.0 C) or higher, or as directed by your healthcare provider Pus drains from the tooth [id number] [employer]. [address] [place] [address], [place] [address]. All rights reserved. This information is not intended as a substitute for professional medical care. Always follow your healthcare professional's instructions. Follow Up Care 11/28/2024 21:28:32 With:Go to emergency room if symptoms worsen Address:Unknown When:2-4 days With:Dental Referral List Address: [facility]:2-[facility] Note Discharge Instructions Thank you for allowing [facility] to assist you with your healthcare needs. The following is important discharge information regarding your hospital visit. Diagnosis from Today's Visit Dental infection Odontalgia What to Do Next Instructions from Your Care Team Please continue taking antibiotics as prescribed. Take Tylenol, can use ice pack over the area of swelling. If you notice worsening swelling, warmth, redness, fevers or chills while on the antibiotics please follow-up with your doctor or return to the emergency department as you may require different antibiotic administration. Call dentist for Chavez in the morning for close outpatient follow-up for further management and care. No qualifying data available. Post Acute Orders No qualifying data available. You Need to Schedule the Following Appointments Follow Up with Go to emergency room if symptoms worsen When:Within 2-4 days Follow Up with Dental Referral List When:Within 2-4 days Allergies Percocet 7.5/325 Medications Please ask your primary doctor or pharmacist before taking any other medication not listed, including over the counter drugs, herbal medications, vitamins and or supplements as they may interact with your home medications. Please take this list to your next doctor s visit. Bring all medications you take, including over the counter medications, herbals and other supplements with you to your doctor s visit. Patients and families are reminded to discard old lists and to update any records with all medication providers or retail pharmacies. Education Materials Dental Pain A crack or cavity in a tooth can cause tooth pain. This is because the crack or cavity exposes the sensitive inner area of the tooth. An infection in the gum or the root of the tooth can cause pain and swelling. The pain is often made worse when you drink hot or cold beverages. It can also be worse when you bite on hard foods. Pain may spread from the tooth to your ear or the area of the jaw on the same side. Home care Follow these tips when caring for yourself at home: Don't have hot and cold foods and drinks. Your tooth may be sensitive to changes in temperature. Use toothpaste made for sensitive teeth. [place] gently up and down instead of sideways. Brushing sideways can wear away root surfaces if they are exposed. If your tooth is chipped or cracked, or if there is a large open cavity, put oil of cloves directly on the tooth to relieve pain. You can buy oil of cloves at drugstores. Some pharmacies carry an vruq-obf-vnmwjwl toothache kit. This contains a paste that you can put on the exposed tooth to make it less sensitive. Put a cold pack on your jaw over the sore area to help reduce pain. You may use qgev-zvy-hxxlwgr medicine to ease pain, unless your doctor prescribed another medicine. If you have chronic liver or kidney disease, talk with your healthcare provider before using acetaminophen or ibuprofen. Also talk with your provider if you ve had a stomach ulcer or GI bleeding. If you have signs of an infection, you will be given an antibiotic. Take it as directed. Follow-up care Follow up with your dentist, or as advised. Your pain may go away with the treatment given today. But only a dentist can fully look at and treat the cause of your pain. This will keep the pain from coming back. Call 911 Call 911 if any of these occur: Unusual drowsiness Headache or stiff neck Weakness or fainting Difficulty swallowing or breathing When to seek medical advice Call your health care provider right away if any of these occur: Your face becomes swollen or red Pain gets worse or spreads to your neck Fever of 100.4 F (38.0 C) or higher, or as directed by your healthcare provider Pus drains from the tooth [phone] [employer]. [address] [place] [address]. All rights reserved. This information is not intended as a substitute for professional medical care. Always follow your healthcare professional's instructions. Additional Information VACCINATE! IT SAVES LIVES! Members of the community who have not yet received the COVID-19 vaccine and would like to receive it can visit one of [facility] vaccine clinics. There are many vaccine clinic locations within the [facility]. For locations and available times, please visit [email or web address] It is important to note that some COVID mobile vaccine clinics are held outdoors and may be canceled in rainy or stormy conditions. To learn more about pediatric vaccinations (ages 5-11), we invite you to visit the [facility] webpage. [email or web address] To learn more about the COVID-19 vaccine, we invite you to visit the CDC website for a list of frequently asked questions. https://www.cdc.gov/coronavirus/2 019-ncov/vaccines/faq.html [facility] Patient Portal Access Instructions: Stay connected with your healthcare team and access your personal medical information anytime with the [facility] Patient Portal. If you would like a full copy of your medical records please contact the [facility] Medical Records Department Friday through Friday between 8a.m. and 4:30p.m. Please follow the directions below to access the portal: 1.Access the email account you provided upon registration to the [facility].2.Look for an invitation email from [facility].3.Open the email and access the invitation link: Accept Invitation to [facility]4.Fill in the required castanon to create your account. Sign into [email or web address] with your username and password that you created in the above steps to stay up to date. You can then view a summary of results, a summary of your visits, and the ability to download your summaries to your computer or send the information securely to a physician. Remember that your healthcare information is confidential, so carefully consider who you will allow to register on the [facility] Patient Portal for access to your information. You can also access the [employer] Patient Portal on the [employer] luisa. Simply click on Health Records under Health Data and then click on the [employer] logo. HOW TO SAFELY DISPOSE OF PRESCRIPTION MEDICATIONS Please use one of the following methods to safely dispose of your unused medications. 1.Use a drug disposal kit: the drug disposal pouch allows you to safely discard your old and unused drugs. Ask your nurse to give you one when you are discharged.2.Visit a local take-back location: Many local pharmacies and police departments have programs that collect old and unwanted prescription drugs. Call your local pharmacy or go to http://Advitech.Iqua/9S7Wc6m to find one close to you.3.Make use of household items: Use cat litter or old coffee grounds to dispose medications if other options are not available. Mix your drugs with these household products, seal them in an airtight container and throw it into the garbage. Call [facility]: [phone] to be sure your drugs can be disposed of in this way. Some medicines may require a different approach.4.Never flush your medications down the toilet. IF YOU HAVE BEEN PRESCRIBED AN OPIOIDS FOR PAIN If you have been prescribed an opioid (such as hydrocodone, oxycodone or morphine), it is critical to understand the possible side effects and risks of opioid pain medications. Even when taken as directed, opioids can have several side effects including: Tolerance, meaning you might need to take more of a medication for the same pain relief. Nausea, vomiting and/or constipation. Sleepiness, dizziness, dry mouth, confusion, depression or itching. Physical dependence, meaning you have withdrawal symptoms when a medication is stopped ? this can develop within a few days. KNOW YOUR RESPONSIBILITIES It is important to know exactly how much and how often to take the opioid pain medications you are prescribed. Never take opioids in higher amounts or more often than prescribed. Do not combine opioids with alcohol or other drugs that cause drowsiness, such as benzodiazepines, also known as benzos, including diazepam and alprazolam, muscle relaxants or sleep aids. Never sell or share prescription opioids. This is illegal. Store opioids in a secure place and out of reach of others (including children, family, friends and visitors). The last page(s) of this document has been signed and retained as a CHART COPY Signatures Patient Education Materials Dental Pain Medication Leaflets My discharge plan and instructions have been reviewed and explained to me and IRHYS JASMINE K understand my current condition and have read and understand these discharge instructions. I have received a written copy of the plan/instructions. If I have questions, I am aware that I should contact my doctor. Patient/Race Steward Signature: Date/Time: Relationship to Patient: ____ Witness Name/Signature: Date/Time: [facility] 11-28-2024 Hospital Discharge instructions Patient Education 11/28/2024 01:52:30 Dental Pain Dental Pain A crack or cavity in a tooth can cause tooth pain. This is because the crack or cavity exposes the sensitive inner area of the tooth. An infection in the gum or the root of the tooth can cause pain and swelling. The pain is often made worse when you drink hot or cold beverages. It can also be worse when you bite on hard foods. Pain may spread from the tooth to your ear or the area of the jaw on the same side. Home care Follow these tips when caring for yourself at home: Don't have hot and cold foods and drinks. Your tooth may be sensitive to changes in temperature. Use toothpaste made for sensitive teeth. [place] gently up and down instead of sideways. Brushing sideways can wear away root surfaces if they are exposed. If your tooth is chipped or cracked, or if there is a large open cavity, put oil of cloves directly on the tooth to relieve pain. You can buy oil of cloves at drugstores. Some pharmacies carry an kexs-kqv-mtqssmz toothache kit. This contains a paste that you can put on the exposed tooth to make it less sensitive. Put a cold pack on your jaw over the sore area to help reduce pain. You may use dlap-beb-uqmsgli medicine to ease pain, unless your doctor prescribed another medicine. If you have chronic liver or kidney disease, talk with your healthcare provider before using acetaminophen or ibuprofen. Also talk with your provider if you ve had a stomach ulcer or GI bleeding. If you have signs of an infection, you will be given an antibiotic. Take it as directed. Follow-up care Follow up with your dentist, or as advised. Your pain may go away with the treatment given today. But only a dentist can fully look at and treat the cause of your pain. This will keep the pain from coming back. Call 911 Call 911 if any of these occur: Unusual drowsiness Headache or stiff neck Weakness or fainting Difficulty swallowing or breathing When to seek medical advice Call your health care provider right away if any of these occur: Your face becomes swollen or red Pain gets worse or spreads to your neck Fever of 100.4 F (38.0 C) or higher, or as directed by your healthcare provider Pus drains from the tooth [phone] [employer]. [address] [place] [address]. All rights reserved. This information is not intended as a substitute for professional medical care. Always follow your healthcare professional's instructions. Follow Up Care 11/28/2024 01:30:23 With:Go to emergency room if symptoms worsen Address:Unknown When:2-4 days With:Dental Referral List Address: When:2-4 days [facility] 11-28-2024 Note Discharge Instructions Thank you for allowing [facility] to assist you with your healthcare needs. The following is important discharge information regarding your hospital visit. Diagnosis from Today's Visit Odontalgia What to Do Next Instructions from Your Care Team please follow up with dentist and take antibiotics as prescribed. you were prescribed a short course of pain medication but please try to only take for severe pain. No qualifying data available. Post Acute Orders No qualifying data available. You Need to Schedule the Following Appointments Follow Up with Go to emergency room if symptoms worsen When:Within 2-4 days Follow Up with Dental Referral List When:Within 2-4 days Allergies Percocet 7.5/325 Medications Please ask your primary doctor or pharmacist before taking any other medication not listed, including over the counter drugs, herbal medications, vitamins and or supplements as they may interact with your home medications. What How Much When Why Instructions Last Dose New acetaminophen-hydrocodone ([place] 325- 5 mg oral tablet) 1 tab(s) by mouth Every 6 hours as needed for for pain Odontalgia Duration: 2 Days Printed Prescription New amoxicillin (amoxicillin 500 mg oral capsule) 1 cap by mouth Every 8 hours Duration: 10 Days Printed Prescription Unchanged albuterol (albuterol MDI (90 mcg/ inh) CFC free inhalation aerosol) 2 puff(s) by inhalation Every 6 hours as needed for as needed for wheezing URTI - Viral upper respiratory tract infection STI - sexually transmitted infection Please take this list to your next doctor s visit. Bring all medications you take, including over the counter medications, herbals and other supplements with you to your doctor s visit. Patients and families are reminded to discard old lists and to update any records with all medication providers or retail pharmacies. Education Materials Dental Pain A crack or cavity in a tooth can cause tooth pain. This is because the crack or cavity exposes the sensitive inner area of the tooth. An infection in the gum or the root of the tooth can cause pain and swelling. The pain is often made worse when you drink hot or cold beverages. It can also be worse when you bite on hard foods. Pain may spread from the tooth to your ear or the area of the jaw on the same side. Home care Follow these tips when caring for yourself at home: Don't have hot and cold foods and drinks. Your tooth may be sensitive to changes in temperature. Use toothpaste made for sensitive teeth. [place] gently up and down instead of sideways. Brushing sideways can wear away root surfaces if they are exposed. If your tooth is chipped or cracked, or if there is a large open cavity, put oil of cloves directly on the tooth to relieve pain. You can buy oil of cloves at drugstores. Some pharmacies carry an ywzd-jtw-xonncbm toothache kit. This contains a paste that you can put on the exposed tooth to make it less sensitive. Put a cold pack on your jaw over the sore area to help reduce pain. You may use rdio-irl-hgdrvjs medicine to ease pain, unless your doctor prescribed another medicine. If you have chronic liver or kidney disease, talk with your healthcare provider before using acetaminophen or ibuprofen. Also talk with your provider if you ve had a stomach ulcer or GI bleeding. If you have signs of an infection, you will be given an antibiotic. Take it as directed. Follow-up care Follow up with your dentist, or as advised. Your pain may go away with the treatment given today. But only a dentist can fully look at and treat the cause of your pain. This will keep the pain from coming back. Call 911 Call 911 if any of these occur: Unusual drowsiness Headache or stiff neck Weakness or fainting Difficulty swallowing or breathing When to seek medical advice Call your health care provider right away if any of these occur: Your face becomes swollen or red Pain gets worse or spreads to your neck Fever of 100.4 F (38.0 C) or higher, or as directed by your healthcare provider Pus drains from the tooth [id number] [employer]. [address] [place] [address], [place] [address]. All rights reserved. This information is not intended as a substitute for professional medical care. Always follow your healthcare professional's instructions. Additional Information VACCINATE! IT SAVES LIVES! Members of the community who have not yet received the COVID-19 vaccine and would like to receive it can visit one of [facility] vaccine clinics. There are many vaccine clinic locations within the [facility]. For locations and available times, please visit [email or web address] It is important to note that some COVID mobile vaccine clinics are held outdoors and may be canceled in rainy or stormy conditions. To learn more about pediatric vaccinations (ages 5-11), we invite you to visit the [facility] webpage. [email or web address] To learn more about the COVID-19 vaccine, we invite you to visit the CDC website for a list of frequently asked questions. https://www.cdc.gov/coronavirus/2 019-ncov/vaccines/faq.html [facility] Patient Portal Access Instructions: Stay connected with your healthcare team and access your personal medical information anytime with the [facility] Patient Portal. If you would like a full copy of your medical records please contact the [facility] Medical Records Department Friday through Friday between 8a.m. and 4:30p.m. Please follow the directions below to access the portal: 1.Access the email account you provided upon registration to the [facility].2.Look for an invitation email from [facility].3.Open the email and access the invitation link: Accept Invitation to [facility]4.Fill in the required castanon to create your account. Sign into [email or web address] with your username and password that you created in the above steps to stay up to date. You can then view a summary of results, a summary of your visits, and the ability to download your summaries to your computer or send the information securely to a physician. Remember that your healthcare information is confidential, so carefully consider who you will allow to register on the [facility] Patient Portal for access to your information. You can also access the [employer] Patient Portal on the MtoV. Simply click on Health Records under Health Data and then click on the [employer] logo. HOW TO SAFELY DISPOSE OF PRESCRIPTION MEDICATIONS Please use one of the following methods to safely dispose of your unused medications. 1.Use a drug disposal kit: the drug disposal pouch allows you to safely discard your old and unused drugs. Ask your nurse to give you one when you are discharged.2.Visit a local take-back location: Many local pharmacies and police departments have programs that collect old and unwanted prescription drugs. Call your local pharmacy or go to http://Advitech.Iqua/8I7Bl3a to find one close to you.3.Make use of household items: Use cat litter or old coffee grounds to dispose medications if other options are not available. Mix your drugs with these household products, seal them in an airtight container and throw it into the garbage. Call [facility]: [phone] to be sure your drugs can be disposed of in this way. Some medicines may require a different approach.4.Never flush your medications down the toilet. IF YOU HAVE BEEN PRESCRIBED AN OPIOIDS FOR PAIN If you have been prescribed an opioid (such as hydrocodone, oxycodone or morphine), it is critical to understand the possible side effects and risks of opioid pain medications. Even when taken as directed, opioids can have several side effects including: Tolerance, meaning you might need to take more of a medication for the same pain relief. Nausea, vomiting and/or constipation. Sleepiness, dizziness, dry mouth, confusion, depression or itching. Physical dependence, meaning you have withdrawal symptoms when a medication is stopped ? this can develop within a few days. KNOW YOUR RESPONSIBILITIES It is important to know exactly how much and how often to take the opioid pain medications you are prescribed. Never take opioids in higher amounts or more often than prescribed. Do not combine opioids with alcohol or other drugs that cause drowsiness, such as benzodiazepines, also known as benzos, including diazepam and alprazolam, muscle relaxants or sleep aids. Never sell or share prescription opioids. This is illegal. Store opioids in a secure place and out of reach of others (including children, family, friends and visitors). The last page(s) of this document has been signed and retained as a CHART COPY Signatures Patient Education Materials Dental Pain Medication Leaflets My discharge plan and instructions have been reviewed and explained to me and I,RHYS ZULLY Yordy understand my current condition and have read and understand these discharge instructions. I have received a written copy of the plan/instructions. If I have questions, I am aware that I should contact my doctor. Patient/Race Steward Signature: Date/Time: Relationship to Patient: ____ Witness Name/Signature: Date/Time: [facility] 11-09-2024 Telephone encounter Note Phone call placed, no answer unable to leave a message. My Chart message sent 11/04/2024 message not read. Anya Pinedo LPN [facility] 11-09-2024 Miscellaneous Notes Phone call placed, no answer unable to leave a message. My Chart message sent 11/04/2024 message not read. Anya Pinedo LPN Attempted to call patient. Could not leave a message. Voicemail is not set up. Patient is scheduled for an appointment on 11/10/2024. Notes mentioned . Patient has not had an initial appointment with a provider. Is patient approx. 28w 3d . LMP 04/19/24 per previous appointment notes. Patient will need a 45 min appointment with a silverware cleaner. AppTapt message sent to patient. documented in this encounter [facility] 11-04-2024 Telephone encounter Note Attempted to call patient. Could not leave a message. Voicemail is not set up. Patient is scheduled for an appointment on 11/10/2024. Notes mentioned . Patient has not had an initial appointment with a provider. Is patient approx. 28w 3d . LMP 04/19/24 per previous appointment notes. Patient will need a 45 min appointment with a silverware cleaner. Fusion Sheep message sent to patient. [facility] 08-09-2024 Note HNO ID: [id number] Author: ADRIANA DICKENS APRN.COMPETENCY EVALUATED NURSE AIDE Service: ? Author Type: Nurse Practitioner Type: Progress Notes Filed: 08/09/2024 15:47 Note Text: This note was created using DUHEMriter. Subjective Zully Joiner is a 28 year old female. HPI Patient presents today complaining of 3 weeks of episodic headache. She states that she has actually had episodic headaches over the last 3 years however this 1 is much worse than her typical headache. Patient is 16 weeks . Just recently sober. She notes some mild vision changes and difficulty concentrating. Review of Systems As above Objective BP 126/60 Pulse 104 Temp 36.6 ?C (97.9 ?F) Resp 18 Wt 66 kg (145 lb 8.1 oz) LMP 09/15/2023 (Approximate) SpO2 99% BMI 23.84 kg/m? Physical Exam Vitals and nursing note reviewed. Constitutional: General: She is not in acute distress. Appearance: Normal appearance. She is not ill-appearing. HENT: Head: Normocephalic. Eyes: Conjunctiva/sclera: Conjunctivae normal. Pulmonary: Effort: Pulmonary effort is normal. Musculoskeletal: General: Normal range of motion. Cervical back: Normal range of motion. Skin: General: Skin is warm and dry. Neurological: General: No focal deficit present. Mental Status: She is alert and oriented to person, place, and time. Psychiatric: Mood and Affect: Mood normal. Behavior: Behavior normal. Assessment and Plan ASSESSMENT/PLAN: 1. Headache, unspecified headache type - ICD9: 784.0, ICD10: R51.9 Patient's blood pressure today is 126/60 and is less than 20 weeks so risk for preeclampsia is minimal. Patient stating that this is the worst headache of her life and with I am concerned with possible venous sinus thrombosis. It is possible that symptoms are more consistent with a migraine with aura as she does have a 3-year history of these however based on her risk factors I felt patient would be better served with a evaluation at the emergency department where they would have the ability to do higher level testing if deemed appropriate. I did review this with patient and family who understands and are agreeable. They will self transport to the nearest emergency department. Patient in no acute distress at this time. Adriana Dickens APRN.[facility] 08-09-2024 History of Present illness Narrative This note was created using Kiwilogic. Subjective Zully Joiner is a 28 year old female. HPI Patient presents today complaining of 3 weeks of episodic headache. She states that she has actually had episodic headaches over the last 3 years however this 1 is much worse than her typical headache. Patient is 16 weeks . Just recently sober. She notes some mild vision changes and difficulty concentrating. Review of Systems As above Objective BP 126/60 Pulse 104 Temp 36.6 C (97.9 F) Resp 18 Wt 66 kg (145 lb 8.1 oz) LMP 09/15/2023 (Approximate) SpO2 99% BMI 23.84 kg/m Physical Exam Vitals and nursing note reviewed. Constitutional: General: She is not in acute distress. Appearance: Normal appearance. She is not ill-appearing. HENT: Head: Normocephalic. Eyes: Conjunctiva/sclera: Conjunctivae normal. Pulmonary: Effort: Pulmonary effort is normal. Musculoskeletal: General: Normal range of motion. Cervical back: Normal range of motion. Skin: General: Skin is warm and dry. Neurological: General: No focal deficit present. Mental Status: She is alert and oriented to person, place, and time. Psychiatric: Mood and Affect: Mood normal. Behavior: Behavior normal. Assessment and Plan ASSESSMENT/PLAN: 1. Headache, unspecified headache type - ICD9: 784.0, ICD10: R51.9 Patient's blood pressure today is 126/60 and is less than 20 weeks so risk for preeclampsia is minimal. Patient stating that this is the worst headache of her life and with I am concerned with possible venous sinus thrombosis. It is possible that symptoms are more consistent with a migraine with aura as she does have a 3-year history of these however based on her risk factors I felt patient would be better served with a evaluation at the emergency department where they would have the ability to do higher level testing if deemed appropriate. I did review this with patient and family who understands and are agreeable. They will self transport to the nearest emergency department. Patient in no acute distress at this time. Adriana Dickens APRN.LINDSEY documented in this encounter [facility] 06-16-2024 Telephone encounter Note Attempted calling Pt at listed # in chart; however, states your call did not go through, please try your call again. Call placed to grandmother listed on Pt's chart to obtain updated phone number for patient. Phone number updated. Call placed to new # and advised Pt to please call and ask to speak to Kip Mahan to review questions for upcoming appt on 06/21/24 and if she is unable to call back today to please arrive 30 minutes prior to her appointment time on Friday. Chel Pitts RN [facility] 06-16-2024 Miscellaneous Notes Attempted calling Pt at listed # in chart; however, states your call did not go through, please try your call again. Call placed to grandmother listed on Pt's chart to obtain updated phone number for patient. Phone number updated. Call placed to new # and advised Pt to please call and ask to speak to Kip or Negrito to review questions for upcoming appt on 06/21/24 and if she is unable to call back today to please arrive 30 minutes prior to her appointment time on Friday. Chel Pitts RN documented in this encounter [facility] 05-24-2024 Telephone encounter Note Patient notified and voiced understanding. Yajaira Meade RN [facility] 05-24-2024 Miscellaneous Notes Patient notified and voiced understanding. Yajaira Meade RN Call did not go through on main # listed. Called Pt's grandmother, Princess, and she states Pt is not with her right now and she will have Pt call the office. Chel Pitts RN Patient can try Vitamin B6/ Unisom at this time. Will discuss further at NOB> Lynne Jensen APRN.CNM Patient calling with complaints of nausea and vomiting in early . Patient is approximately 5 weeks , New OB appointment is scheduled for 06/21/24. Patient states she is throwing up 1-2 times per day, she is able to keep foods and fluid down. Denies any pain/cramping. Patient requesting medication for nausea. D4P message sent to patient with recommendation along with Vitamin B6/Unisom regimen. Do you want to prescribed patient any medication? Yajaira Meade RN documented in this encounter [facility] 05-24-2024 Telephone encounter Note Call did not go through on main # listed. Called Pt's grandmother, Princess, and she states Pt is not with her right now and she will have Pt call the office. Chel Pitts RN [facility] 05-24-2024 Telephone encounter Note Patient can try Vitamin B6/ Unisom at this time. Will discuss further at NOB> Lynne Jensen APRN.CNM [facility] Work Phone: 05-24-2024 Telephone encounter Note Patient calling with complaints of nausea and vomiting in early . Patient is approximately 5 weeks , New OB appointment is scheduled for 06/21/24. Patient states she is throwing up 1-2 times per day, she is able to keep foods and fluid down. Denies any pain/cramping. Patient requesting medication for nausea. D4P message sent to patient with recommendation along with Vitamin B6/Unisom regimen. Do you want to prescribed patient any medication? Yajaira Meade RN [facility] 09-21-2023 Telephone encounter Note Patient given results and verbalized understanding of instructions given. Sarah Prieto MA [facility] 09-21-2023 Miscellaneous Notes Patient given results and verbalized understanding of instructions given. Sarah Prieto MA Left patient a message for patient to call back and ask for a triage nurse for results. Natalie Bailey These call patient let her know she is positive for bacterial vaginosis and yeast. Cream was called in for yeast to use for 3 days and Flagyl twice a day for 7 days was called in for bacterial vaginosis. Patient should not drink alcohol on the medication. Patient's trichomonas, gonorrhea, chlamydia, were all negative. documented in this encounter [facility] 09-20-2023 Telephone encounter Note Left patient a message for patient to call back and ask for a triage nurse for results. Natalie Bailey [facility] 09-20-2023 Telephone encounter Note These call patient let her know she is positive for bacterial vaginosis and yeast. Cream was called in for yeast to use for 3 days and Flagyl twice a day for 7 days was called in for bacterial vaginosis. Patient should not drink alcohol on the medication. Patient's trichomonas, gonorrhea, chlamydia, were all negative. [facility] 09-19-2023 History of Present illness Narrative This note was created using Kiwilogic. Subjective Zully Joiner is a 28 year old female. Patient reports she bought [employer] for her family on Friday. Patient reports multiple family members woke up with diarrhea and vomiting. Patient states I made myself throw up because I dont usually throw up when I get sick but I felt like I needed to. Patient reports 4-5 episodes of diarrhea yesterday. Patient denies any vaginal or urinary symptoms but did have some discomfort on palpation over the pelvic area on exam. Patient reports it has been at least two months since she last had unprotected sex with a new partner. Review of Systems Gastrointestinal: Positive for diarrhea. Objective BP 107/70 Pulse 90 Temp 36.3 C (97.4 F) Resp 20 Wt 64 kg (141 lb 1.5 oz) LMP 09/15/2023 (Approximate) SpO2 100% No BMI 23.11 kg/m Physical Exam Abdominal: General: Abdomen is flat. Bowel sounds are normal. Palpations: Abdomen is soft. Tenderness: There is abdominal tenderness in the suprapubic area. There is no right CVA tenderness or left CVA tenderness. Comments: Patient declined vaginal exam, was willing to self-swab to rule out any vaginal etiologies to suprapubic discomfort. PAST MEDICAL HISTORY Diagnosis Date ADHD (attention deficit hyperactivity disorder) age 11 or 12 - diagnosed in [place] Anemia Asthma exercise induced asthma Chlamydia Gonorrhea 2017 IBS (irritable bowel syndrome) 11/02/2013 depression Seizure (HCC) 2018, seen in [facility]none since 2018 Trichomoniasis PAST SURGICAL HISTORY Procedure Laterality Date DELIVERY ONLY 09/30/2017 NEXPLANON INSERTION 01/20/2015 removed PAST SURGICAL HISTORY OF pencil lead removed from eardrum ALLERGIES Dust, Percocet [Oxycodone-Acetaminophen], and Trees MEDICATIONS albuterol HFA (PROAIR HFA) 90 mcg/actuation inhaler Inhale 2 Puffs as instructed every 4 hours as needed for wheezing/shortness of breath. ondansetron orally disintegrating (ZOFRAN ODT) 4 mg disintegrating tablet Take 1 tablet by mouth every 6 hours as needed for nausea/vomiting. (Patient not taking: Reported on 09/19/2023) HYDROcodone-acetaminophen (NORCO) 5-325 mg per tablet Take 1 tablet by mouth every 6 hours as needed. (Patient not taking: Reported on 05/29/2022) multivitamin (CLASSIC ) 28 mg iron- 800 mcg tab(s) Take 1 tablet by mouth once daily. [id number] 27 mg-800 mcg- 250 mg-200 mg cap Take 1 capsule by mouth once daily. vitamin as available and covered on her plan w/ [employer] with or separate capsule (Patient not taking: Reported on 08/02/2023) FAMILY HISTORY Problem Relation Age of Onset Arthritis Mother other (neuropathy) Mother Schizophrenia Mother Diabetes Father other (Diverticulitis) Father Obstructive Sleep Apnea Father No Known Problems Sister No Known Problems Sister No Known Problems Brother Seizures Brother No Known Problems Brother No Known Problems Brother Diabetes Maternal Grandmother other (breast cyst) Maternal Grandmother No Known Problems Maternal Grandfather Heart Paternal Grandmother [place] Stent <50 Asthma Paternal Grandmother mom, dad, siblings other () Paternal Grandfather < 50 (thinks wa cancer, but now sure) No Known Problems Daughter Social History Tobacco Use Smoking status: Former Years: 4 Types: Cigarettes Quit date: 02/04/2017 Years since quittin.6 Smokeless tobacco: Never Vaping Use Vaping Use: Former Quit date: 07/27/2021 Substance Use Topics Alcohol use: No Drug use: Not Currently Types: Marijuana ASSESSMENT/PLAN: 1. Unprotected sex - ICD9: V69.2, ICD10: Z72.51 (primary diagnosis) - Patient will be notified with results of vaginal swabs - BACTERIAL VAGINOSIS NAAT - COLE/TRICHOMONAS NAAT - GONORRHEA/CHLAMYDIA NAAT 2. Diarrhea, unspecified type - ICD9: 787.91, ICD10: R19.7 - Encouraged supportive care with increased fluid intake and bland diet Potential red flag symptoms discussed with the patient. Reviewed appropriate action plan to take if red flag symptoms occur. Patient agreeable to treatment plan. Sarah Nuñez Supervising provider was present and guided the care of the patient for the entire session on this date. All documentation was reviewed and agreed upon. Karen Jenkins APRN.LINDSEY documented in this encounter [facility] 08-02-2023 History of Present illness Narrative Subjective HPI Zully Joiner is a 27 year old female who presents with vomiting and diarrhea. This started last night [place] [employer] [place]. She was the only one who ate there. She vomited once last night. This morning she has had diarrhea. She has a history of IBS. She has not had a fever or blood in her stool. Review of Systems Constitutional: Negative for chills and fever. Respiratory: Negative. Cardiovascular: Negative. Gastrointestinal: Positive for diarrhea, nausea and vomiting. Negative for blood in stool. Genitourinary: Negative. Musculoskeletal: Negative. BP 135/79 Pulse 80 Temp 36.5 C (97.7 F) Resp 18 Wt 71.5 kg (157 lb 10.1 oz) LMP 07/07/2023 (Within Days) SpO2 98% No BMI 25.82 kg/m PAST MEDICAL HISTORY Diagnosis Date ADHD (attention deficit hyperactivity disorder) age 11 or 12 - diagnosed in [place] Anemia Asthma exercise induced asthma Chlamydia Gonorrhea 2017 IBS (irritable bowel syndrome) 11/02/2013 depression Seizure (HCC) 2018, seen in [facility] since 2018 Trichomoniasis PAST SURGICAL HISTORY Procedure Laterality Date DELIVERY ONLY 09/30/2017 NEXPLANON INSERTION 01/20/2015 removed PAST SURGICAL HISTORY OF pencil lead removed from eardrum ALLERGIES Dust, Percocet [Oxycodone-Acetaminophen], and Trees MEDICATIONS albuterol HFA (PROAIR HFA) 90 mcg/actuation inhaler Inhale 2 Puffs as instructed every 4 hours as needed for wheezing/shortness of breath. ondansetron orally disintegrating (ZOFRAN ODT) 4 mg disintegrating tablet Take 1 tablet by mouth every 6 hours as needed for nausea/vomiting. HYDROcodone-acetaminophen (NORCO) 5-325 mg per tablet Take 1 tablet by mouth every 6 hours as needed. (Patient not taking: Reported on 05/29/2022) multivitamin (CLASSIC ) 28 mg iron- 800 mcg tab(s) Take 1 tablet by mouth once daily. [id number] 27 mg-800 mcg- 250 mg-200 mg cap Take 1 capsule by mouth once daily. vitamin as available and covered on her plan w/ [employer] with or separate capsule (Patient not taking: Reported on 08/02/2023) FAMILY HISTORY Problem Relation Age of Onset Arthritis Mother other (neuropathy) Mother Schizophrenia Mother Diabetes Father other (Diverticulitis) Father Obstructive Sleep Apnea Father No Known Problems Sister No Known Problems Sister No Known Problems Brother Seizures Brother No Known Problems Brother No Known Problems Brother Diabetes Maternal Grandmother other (breast cyst) Maternal Grandmother No Known Problems Maternal Grandfather Heart Paternal Grandmother [place] Stent <50 Asthma Paternal Grandmother mom, dad, siblings other () Paternal Grandfather < 50 (thinks wa cancer, but now sure) No Known Problems Daughter Social History Tobacco Use Smoking status: Former Years: 4 Types: Cigarettes Quit date: 02/04/2017 Years since quittin.4 Smokeless tobacco: Never Vaping Use Vaping Use: Former Quit date: 07/27/2021 Substance Use Topics Alcohol use: No Drug use: Not Currently Types: Marijuana Objective Physical Exam Vitals and nursing note reviewed. Constitutional: Appearance: Normal appearance. Cardiovascular: Rate and Rhythm: Normal rate and regular rhythm. Heart sounds: Normal heart sounds. Pulmonary: Effort: Pulmonary effort is normal. No respiratory distress. Breath sounds: Normal breath sounds. No wheezing or rales. Abdominal: General: Bowel sounds are normal. There is no distension. Palpations: Abdomen is soft. There is no mass. Tenderness: There is abdominal tenderness in the epigastric area. There is no guarding or rebound. Skin: General: Skin is warm and dry. Findings: No erythema or rash. Neurological: Mental Status: She is alert. ASSESSMENT/PLAN: 1. Nausea and vomiting, unspecified vomiting type - ICD9: 787.01, ICD10: R11.2 - suspect viral vs foodborne illness - ONDANSETRON 4 MG DISINTEGRATING TABLET - Follow-up with your PCP in 3-5 days if symptoms have not improved or sooner if symptoms worsen - Discussed red flags and need for immediate medical evaluation if any occur. - Discussed supportive care treatment with fluids, rest and analgesia. - Discussed expected course of illness Amanda Crain APRN.CNP documented in this encounter [facility] 08-02-2023 Instructions Amanda Crain APRN.CNP - 08/02/2023 9:35 AM EST ASSESSMENT/PLAN: 1. Nausea and vomiting, unspecified vomiting type - ICD9: 787.01, ICD10: R11.2 - suspect viral vs foodborne illness - ONDANSETRON 4 MG DISINTEGRATING TABLET - Follow-up with your PCP in 3-5 days if symptoms have not improved or sooner if symptoms worsen - Discussed red flags and need for immediate medical evaluation if any occur. - Discussed supportive care treatment with fluids, rest and analgesia. - Discussed expected course of illness Amanda Crain APRN.CNP BRAT DIET (may eat any of the following as tolerated) Bananas Applesauce Lasara Saltine Crackers Animal Crackers Pretzels Oatmeal Unsweetened Dry Cereal (Rice Krispies, Cheerios) Plain Baked or Boiled Potato Plain White Rice Plain Noodles All clear liquid listed below CLEAR LIQUID DIET (need to drink 2 ounces total every half hour) Puja Avila Pedialyte Gatorade NO Juices NO Milk NO Dairy Products Call if urine output is decreased or she develops dry mucous membranes, or lethargy. documented in this encounter [facility] 02-05-2023 History of Present illness Narrative Patient presents with: Cough: Congestion, inetrmittent fevers x2 days Nausea: Concerns for , nausea and upset stomach HPI: Feeling sick for 3 days, initially nausea and stress. URI symptoms the last day. Her son has a cough also. Positive symptoms: Cough, Chest tightness, Nasal Congestion, Rhinorrhea, Chills, Body Aches, Malaise, Fatigue, Nausea, Diarrhea, abdominal pain (has had issue since ) Negative symptoms: Vomiting, dysuria, frequency, urgency, hematuria, OTC: allergy medicine. LMP 01/13/23. She had a lot of similar symptoms when she found out she was . Negative home COVID and tests this week. MEDICATIONS: Current Outpatient Medications Medication Sig [id number] 27 mg-800 mcg- 250 mg-200 mg cap Take 1 capsule by mouth once daily. vitamin as available and covered on her plan w/ [employer] with or separate capsule albuterol HFA (PROAIR HFA) 90 mcg/actuation inhaler Inhale 2 Puffs as instructed every 4 hours as needed for wheezing/shortness of breath. HYDROcodone-acetaminophen (NORCO) 5-325 mg per tablet Take 1 tablet by mouth every 6 hours as needed. (Patient not taking: Reported on 05/29/2022) multivitamin (CLASSIC ) 28 mg iron- 800 mcg tab(s) Take 1 tablet by mouth once daily. No current facility-administered medications for this visit. ALLERGIES: ALLERGIES Allergen Reactions Animals [Other] Itching Dust Itching Molds [Other] Itching Percocet [Oxycodone* Rash, Itching Tylenol is fine Trees Itching VITALS: BP 115/76 Pulse (!) 121 Temp 37.3 C (99.1 F) Resp 18 Wt 75.5 kg (166 lb 6.4 oz) LMP 01/13/2023 (Within Days) SpO2 100% BMI 27.26 kg/m PHYSICAL EXAM: GEN: mildly ill appearing HEENT: PERRL, EOMI, conjunctiva clear Ears: canals clear. TMs without erythema, bulge, or effusion Sinuses: non-tender frontal sinus, non-tender maxillary sinuses Throat: moist mucous membranes, mild erythema, no exudate Neck: supple, no thyromegaly, no lymphadenopathy HEART: regular rate and rhythm during my exam, no murmurs LUNGS: clear to auscultation, no wheezes or crackles, no increased WOB ABD: Soft, non-distended, general discomfort, no masses ASSESSMENT/PLAN: 1. URI, acute - ICD9: 465.9, ICD10: J06.9 (primary diagnosis) - suspect viral URI, differential includes COVID-19. - Discussed supportive care treatment with rest, cold medicine, and analgesia. - Red flags to seek further treatment include chest pain, shortness of breath, and lethargy; in the ER if severe. 2. Abdominal pain, unspecified abdominal location - ICD9: 789.00, ICD10: R10.9 - UA DIP, URINE (POC) - negative. - HCG QUAL UR B/O - trace ketone only Dwight Benito MD documented in this encounter [facility] 05-29-2022 Instructions Kodi Perez APRN.COMPETENCY EVALUATED NURSE AIDE - 05/29/2022 10:08 AM EST How to Manage Common Symptoms Associated with COVID for Adults Fever- Fever is a temperature over 100.4 F and can occur when the body is fighting an infection. To help treat a fever: Drink plenty of fluids and stay well hydrated. Eat small amounts of easy to digest food. Rest. Your body needs rest to recover, but getting up and moving around the house frequently is a good idea. You should try to continue doing your normal daily activities (bathing, toileting, grooming, cooking), though you will probably feel tired, and need to rest often. Avoid any heavy activity or exercise, as this will increase your body temperature. Dress in light clothing and stay covered in a light sheet. Keep the room temperature cool. Take a slightly warm (not cold or cool) bath, or apply damp washcloths to the forehead and wrists. Cough- Cough is a common symptom associated with COVID and can be bothersome. To help treat a cough: Stay well hydrated. Try warm water or tea with lemon and/or honey to help soothe the cough. Use a humidifier to add moisture to the air. Try a product with menthol, like a cough drop or a rub for your chest such as Vicks, which can help reduce cough. Try cough drops. Avoid smoking and other strong odors or perfumes. Try breathing exercises to keep your lungs open and clear. Take a big deep breath through your nose and hold for 5 seconds before slowly releasing. Repeat frequently, while you are awake. Congestion- Runny nose or nasal congestion can occur with COVID. Treatment can help relieve symptoms: Try OTC nasal saline spray, or nasal saline rinse to relieve mucus congestion. Nasal strips can help keep nasal passages open, to increase airflow. Elevating your head with an extra pillow in bed can help reduce congestion. Using a humidifier can increase moisture in the air, and make breathing easier. Sore Throat- Another common symptom with COVID, can be managed at home by: Stay well hydrated. Gargle with salt water - mix teaspoon salt with 1 cup of warm water and gargle. This helps to loosen mucus in the back of the throat and may reduce discomfort. Try ice chips, popsicles or lozenges to soothe the throat. Nausea/Vomiting/Diarrhea- These are common symptoms, and staying hydrated is most important. If you are nauseous or vomiting, start with small sips of water every 10-15 minutes and increase as tolerated. You can try sucking an ice cube too. If tolerating, you can try pedialyte or Gatorade, or flat sprite or tammi-karon. Start slowly and increase as you are able to. Instead of meals, try smaller, more frequent snacks. Try eating bland foods like crackers, toast, rice, and applesauce. Avoid spicy, greasy or fried foods and dairy containing foods. Even if you aren't feeling hungry due to lack of smell or taste, it is important to try to take in some food when you are able. After drinking and eating, rest in an upright position for up to two hours as needed to help decrease nauseous feelings. Try closing your eyes, avoid moving and watching TV. Avoid strong odors that can make you feel more nauseated. When to seek emergency medical attention Look for emergency warning signs for COVID-19. If having any of these symptoms, seek emergency medical care immediately: Trouble breathing Persistent pain or pressure in the chest New confusion Inability to wake or stay awake Bluish lips or face *This list is not all possible symptoms. Please call your medical provider for any other symptoms that are severe or concerning to you. documented in this encounter [facility] 05-29-2022 History of Present illness Narrative Subjective HPI Nontoxic-appearing female presents to urgent care with a chief complaint of sore throat. Duration of symptoms 1 day. Associated symptoms sore throat, fever, nausea, and headache. Patient states history of strep throat in the past with similar signs of symptoms. Patient states positive sick contacts. Patient denies any trismus, difficulty swallowing, difficulty handling secretions, decreased range of motion of neck, vomiting, abdominal pain, visual changes, acute headache, cough, pleuritic pain, or change in bowel or bladder habits. Denies chance of . Is breast-feeding. Past medical history prescription medication use allergies reviewed. .Patient presents with: Fever: Sore throat, cough x 1 day PAST MEDICAL HISTORY Diagnosis Date ADHD (attention deficit hyperactivity disorder) age 11 or 12 - diagnosed in [place] Anemia Asthma exercise induced asthma Chlamydia Gonorrhea 2017 IBS (irritable bowel syndrome) 11/02/2013 depression Seizure (HCC) 2018, seen in [facility]none since 2018 Trichomoniasis PAST SURGICAL HISTORY Procedure Laterality Date DELIVERY ONLY 09/30/2017 NEXPLANON INSERTION 01/20/2015 removed PAST SURGICAL HISTORY OF pencil lead removed from eardrum ALLERGIES Animals [Other], Dust, Molds [Other], Percocet [Oxycodone-Acetaminophen], and Trees MEDICATIONS multivitamin (CLASSIC ) 28 mg iron- 800 mcg tab(s) Take 1 tablet by mouth once daily. [id number] 27 mg-800 mcg- 250 mg-200 mg cap Take 1 capsule by mouth once daily. vitamin as available and covered on her plan w/ [employer] with or separate capsule albuterol HFA (PROAIR HFA) 90 mcg/actuation inhaler Inhale 2 Puffs as instructed every 4 hours as needed for wheezing/shortness of breath. HYDROcodone-acetaminophen (NORCO) 5-325 mg per tablet Take 1 tablet by mouth every 6 hours as needed. (Patient not taking: Reported on 05/29/2022) FAMILY HISTORY Problem Relation Age of Onset Arthritis Mother other (neuropathy) Mother Schizophrenia Mother Diabetes Father other (Diverticulitis) Father Obstructive Sleep Apnea Father No Known Problems Sister No Known Problems Sister No Known Problems Brother Seizures Brother No Known Problems Brother No Known Problems Brother Diabetes Maternal Grandmother other (breast cyst) Maternal Grandmother No Known Problems Maternal Grandfather Heart Paternal Grandmother [place] Stent <50 Asthma Paternal Grandmother mom, dad, siblings other () Paternal Grandfather < 50 (thinks wa cancer, but now sure) No Known Problems Daughter Social History Tobacco Use Smoking status: Former Years: 4.00 Types: Cigarettes Quit date: 02/04/2017 Years since quittin.3 Smokeless tobacco: Never Vaping Use Vaping Use: Former Quit date: 07/27/2021 Substance Use Topics Alcohol use: No Drug use: Not Currently Types: Marijuana BP 112/54 Pulse 114 Temp (!) 38.7 C (101.6 F) Resp 21 Wt 77 kg (169 lb 12.8 oz) LMP 06/04/2021 (Approximate) SpO2 99% BMI 27.82 kg/m Review of Systems Constitutional: Positive for chills, fever and malaise/fatigue. HENT: Positive for congestion and sore throat. Negative for ear discharge, ear pain and sinus pain. Eyes: Negative for blurred vision, pain, discharge and redness. Respiratory: Negative for cough, hemoptysis, sputum production, shortness of breath, wheezing and stridor. Cardiovascular: Negative for chest pain. Gastrointestinal: Positive for nausea. Negative for abdominal pain, diarrhea and vomiting. Musculoskeletal: Positive for myalgias. Skin: Negative for itching and rash. Neurological: Positive for headaches. Negative for dizziness. Objective Physical Exam Constitutional: General: She is not in acute distress. Appearance: She is not diaphoretic. HENT: Head: Normocephalic. Jaw: No trismus, tenderness, swelling or pain on movement. Mouth/Throat: Lips: [place]. Mouth: Mucous membranes are moist. Pharynx: Oropharynx is clear. Uvula midline. Posterior oropharyngeal erythema present. No pharyngeal swelling, oropharyngeal exudate or uvula swelling. Tonsils: No tonsillar abscesses. Eyes: Conjunctiva/sclera: Conjunctivae normal. Pupils: Pupils are equal, round, and reactive to light. Cardiovascular: Rate and Rhythm: Normal rate and regular rhythm. Heart sounds: Normal heart sounds. Pulmonary: Effort: Pulmonary effort is normal. No tachypnea, accessory muscle usage or respiratory distress. Breath sounds: Normal breath sounds. No stridor. No wheezing, rhonchi or rales. Abdominal: Palpations: Abdomen is soft. Tenderness: There is no abdominal tenderness. Musculoskeletal: Cervical back: Normal range of motion and neck supple. No rigidity, tenderness or crepitus. Normal range of motion. Lymphadenopathy: Cervical: No cervical adenopathy. Skin: General: Skin is warm and dry. Neurological: Mental Status: She is alert and oriented to person, place, and time. ASSESSMENT/PLAN: 1. Viral illness - ICD9: 079.99, ICD10: B34.9 (primary diagnosis) - COVID WITH FLUA+B, ROUTINE 2. Pharyngitis, unspecified etiology - ICD9: 462, ICD10: J02.9 - STREP A MOLECULAR (POC) Strep test is positive. Placed on amoxicillin. Influenza COVID-19 test obtained. Results pending. Patient was educated on supportive therapies. Patient will follow up with primary care provider as needed. Patient was instructed to immediately proceed to emergency room for any new, worsening, or symptoms lasting longer than anticipated. The patient's clinical presentation is otherwise unremarkable at this time. Based on exam and clinical finding, the patient is stable for discharge. Plan of care was discussed with patient. Patient verbalizes understanding and agrees to plan of care. This note was generated using [employer] software. It may contain errors in wording, punctuation, or spelling. Kodi Perez APRN.COMPETENCY EVALUATED NURSE AIDE documented in this encounter [facility] 03-01-2022 History of Present illness Narrative The patient is here for second injection of Betamethasone. Dose: 12mg/2ml Amount wasted: none. Route: Intramuscular Site: left upper quadrant gluteus Public Relations Account Executive: [employer]. Lot #: [id number] Expiration Date: 12/2022 Medication verified by SAARH Waterman RN documented in this encounter [facility] 02-28-2022 Miscellaneous Notes SW- Pt doing well. No ctx, vb, lof. Good FM. PE: Gen- NAD, well appearing Abd- Soft, gravid, NT Ext- No edema See flowsheet A/p 34 wk gestation - BMZ today and tomorrow. BPP today. Scheduled C/S next week - GBS today Fara Kelly DO documented in this encounter [facility] 02-28-2022 Instructions Reilly Pino MA Student - 02/28/2022 10:50 AM EDT SEQUENTIAL SCREENINGS The [facility] offers sequential screenings for women who are interested in screenings for chromosomal abnormalities and certain defects during a . The sequential screen combines ultrasound and blood tests to determine the risk of chromosomal abnormalities, including Down's Syndrome (Trisomy 21) and Trisomy 18, as well as open neural tube defects including spina bifida. Ultrasound examination is performed between 11 weeks and 13 weeks gestational age. Blood tests are drawn after the ultrasound and again later in the between 15 and 21 weeks gestational age. Please let your physician know if you are interested in this testing. It will require an appointment with our cooling tower technician. This is not an ultrasound performed by a physician in our office during a routine visit. SIGNS AND SYMPTOMS OF LABOR 1. Contractions every 10 minutes or more often 2. Clear, pink, or brownish fluid (water) leaking from vagina 3. Feeling that baby is pushing down, pressure 4. Low, dull backache 5. Cramps that feel like a period 6. Cramps with or without diarrhea If you notice any of the above symptoms, contact our office at [phone] and ask to speak with a nurse. After hours, you can call doctors registry at [phone] OR call [facility] at [phone] and ask to have the doctor national dedicated truck driver paged. If you consider this an emergency, dial 9--7 or go to your nearest emergency department. NEED HELP? Are you dealing with a violent or abusive relationship? Are you a victim of rape or sexual assult? Call [facility] ([place]) 24 hour Crisis Hotline: 242.549.2744 or 541-266-9123. MANUAL Your Guide to a Healthy manual is now on-line. Visit [email or web address] to download your free copy documented in this encounter [facility] 02-21-2022 Miscellaneous Notes Call to Zully who is familiar with myself and the Care Center. We discussed she will have a BPP ultrasound next week at our [place] location. She will also received 2 doses of Betamethasone at the [place] office on 02/28 and 03/01. The will be reaching out to her with confirmation of timing. Delivery will be on 03/05 RCS in the SDU at 8am. We discussed having Zully come to [place] late morning on 03/04 for labwork and self Covid testing. She is aware the paperwork and referral was filled out at her request for [place] and she should be receiving the background check forms to fill out for all parties staying with her. Zully is aware she will present to the SDU at 6am the morning of delivery. She is aware she will have nothing by mouth 8 hours piror to her delivery. At this time she has no further questions or concerns and has my contact information to reach out to me if needed. Dilma Nagy RN documented in this encounter [facility] 02-20-2022 History of Present illness Narrative NEONATOLOGY CONSULT SERVICE DATE: 02/20/2022 Admission Date: (Not on file) SERVICE TIME: 2:30pm Date of : 1995 Age: [age] year old Sex: female Primary Care Physician: No primary care provider on file. Consulting Shift Manager: Edel Hernandez APRN.COMPETENCY EVALUATED NURSE AIDE Subjective Consultation for this evaluation was requested by Dr. Montelongo. Reason for consultation: gastroschisis; IUGR; 33 weeks gestation Recommendations will be communicated back to the requesting physician by way of shared medical record or letter. Objective MATERNAL HISTORY: Mother is a 25 year old female, , who is at 33w1d with an SHANNON of 04/09/2022, by Ultrasound dating method. LMP: Patient's last menstrual period was 06/04/2021 (approximate). Maternal Hospital Problems: ACTIVE PROBLEM LIST Lumbago Without Sciatica Ibs (Irritable Bowel Syndrome) Lumbago Cervicalgia History of Marijuana Use History of Depression Patient Request for Diagnostic Testing Nausea and Vomiting During Anemia Seizure (Hcc) False Positive Syphilis Serology Control Counseling With History of Section, Antepartum gastroschisis with FGR Visual Disturbances Head Injury care Pericardial Effusion Affecting Management of Mother Maternal Meds: Current Outpatient Medications on File Prior to Visit Medication Sig ondansetron (ZOFRAN) 4 mg tablet Take 1 tablet by mouth every 8 hours as needed for nausea/vomiting. (Patient not taking: Reported on 02/05/2022) ferrous sulfate 325 mg (65 mg iron) tablet Take 1 tablet by mouth every other day. [id number] 27 mg-800 mcg- 250 mg-200 mg cap Take 1 capsule by mouth once daily. vitamin as available and covered on her plan w/ [employer] with or separate capsule albuterol HFA (PROAIR HFA) 90 mcg/actuation inhaler Inhale 2 Puffs as instructed every 4 hours as needed for wheezing/shortness of breath. No current facility-administered medications on file prior to visit. No current facility-administered medications for this visit. complications: gastroschisis; IUGR; trivial pericardial effusion Maternal h/o seizures, last x2 in 2018 during previous - no meds currently Labs: Blood type A +/Ab neg HIV neg; Hep B neg; Hep C neg; Rubella immune; Syphilis + > RPR neg and T. Pallidum IgG neg; GC/Chlamydia neg cfDNA neg for trisomies and sex chromosome aneuploidies (per verbal report from OSH, results not in Epic) 1-hr glucose screen WNL Imagin08/20/21 viability US confirmed SHANNON 11/14/21 Anatomy US at 19 1/7 weeks showed gastroschisis 12/12/21 rpt Anatomy US at 23 1/7 weeks showed gastroschisis with abdominal wall defect to R of umbilical cord insertion 01/01/22 US at 26 0/7 weeks showed gastroschisis; normal umbilical artery and MCA dopplers 01/17/22 US at 28 2/7 weeks showed new small pericardial effusion of 0.49 cm; normal dopplers, no hydrops 01/22/22 US at 29 0/7 weeks showed growth restriction with AG < 5% but appropriate interval growth; prominent bowel without dilation; and same pericardial effusion 02/12/22 US at 32 0/7 weeks of age without changes; EFW 1,572g (7%) ECHO: 01/31/22 at 30 2/7 weeks showed normal structure and function with mild TR and a trivial anterior pericardial effusion The following was discussed with mother, Zully, and her grandmother, Princess, regarding Zully's son, who has not been named yet GENERAL: Neonatology presence and role at delivery: Yes Possible need for resuscitation: Yes DNR status: Full resuscitation Need for admission to NICU: Yes Offered tour of NICU: Completed after our meeting today Discharge criteria: Yes Survival odds/morbidity & mortality: Yes. We specifically discussed retirement morbidities as being impacted by the size of the gastroschisis at , the timing of repair, and the length of hospitalization. We discussed that baby boy will be followed by Pediatric Surgery and GI (if needed) to monitor for feeding and growth issues, as well as by NICU Clinic, who will assess his milestone attainment and therapy needs as he grows. RESPIRATORY Risk of RDS/breathing problems: Yes. We discussed the likelihood that baby boy will require respiratory support at , especially with planned . If his need is prolonged beyond initial delivery room management or if he requires pre-operative gastroschisis management (a silo at the bedside), then he will be intubated and managed on a ventilator. We would opt for intubation in order to decrease the amount of air delivered to his GI system as well as to maintain a stable airway if he were to be on pain/sedation medications while his bowel is reduced in the silo. We also discussed that even if comfortable in RA after delivery, baby sriram will be intubated for surgery and will return to the NICU intubated afterwards. We will then wean to extubate depending on his progress in terms of pain control/sedation and comfort of breathing (sometimes the increased abdominal pressure after surgery can cause respiratory distress). Even after repair, we will be cautious in using a mode of respiratory support that may introduce excess air into baby boy's gastrointestinal tract (such as CPAP). We also discussed the use of betamethasone injections for lung maturation when given within a few days of delivery. Possible need for respiratory support: Yes. CARDIOVASCULAR Discussed Hypotension, potential medical treatment: Yes. We discussed following baby boy's fluid status, electrolytes, and BP's closely, both prior to and after repair. With insensible water loss from his exposed bowel prior to repair, baby boy's fluid needs will be higher and we can provide extra hydration via IV as well as the less likely, although possible, infusion of pressor medications if he develops hypotension or poor UO refractory to fluid resuscitation. Additionally, we will continue to monitor baby boy closely after surgery, as the increased abdominal pressure from repair can cause changes in BP, fluid status/UO, and electrolytes as well. NEUROLOGIC Risk of Neuro developmental delays: Yes. We discussed that developmental delays in joe bhatia's case would primarily arise from the length of hospital stay or if there was an underlying, though rare, genetic cause for his gastroschisis. FEN - GASTROSCHISIS We discussed the nature of gastroschisis, what to expect at , baby boy's appearance both pre- and post-op, delivery room management, and anticipated NICU course. We discussed timing of surgery being dependent on whether baby boy is able to have a primary closure or needs to be siloed and reduced at the bedside in more of a staged approach (often dependent on the degree of bowel dilation/edema and IUGR in combination with delivery, which appears most likely at this point). In the context of these two potential courses, we discussed differing respiratory status and pain control/sedation needs. We also discussed that in both scenarios Zully will not be able to hold baby boy prior to surgery. We discussed, at length, post-op feeding. We discussed the likelihood of FLAVIO and the possibility that baby boy will need anti-reflux medications; slow progression to full feeds; careful monitoring for any feeding intolerances; and slightly increased risk for other congenital bowel issues that may not be known prior to surgery and eventual feeding. We discussed transition to once we are certain that baby boy can tolerate smaller oral feeds via bottle. We discussed that gastroschisis is a generally isolated issue, but that if there is concern for any other issues, a genetic assessment may be warranted. Mother's Preference: Breast: Yes. Benefits of breast milk: Yes. We discussed that breast milk, including the use of donor, will be most gentle for gut stimulation after baby boy's repair. Bottle: Yes, would provide breast milk in bottles; would prefer not to use formula but it not entirely opposed, if necessary Need for supplemental nutrition and/or IVFs: Yes. We discussed IV nutrition and hydration followed by the possible need for NG/OG feeds if baby boy is unable to take oral feeds (some babies require partial NG feeds as they recover from surgery). INFECTION Risk factors for infection - congenital and nosocomial: Yes Need to start antibiotics: Yes. We discussed that joe bhatia will likely need an antibiotic course initially given his higher risk for infection with exposed bowel. HEME Possible need for blood transfusion: No. Verbal consent obtained: No ACCESS Possible need for PICC/Central Line: Yes. We discussed that umbilical lines are not the IV line of choice for babies with gastroschisis due to their proximity to the exposed bowel, so baby boy will likely begin with PIV's/PICC and then have a Broviac placed during surgery. Verbal consent obtained: Yes MISC. Name if Dedicated Owner Operator, if known: Zully could not remember her name today - is part of the [facility] group Possible need for transfer to outside hospital: No Possible need for subspecialty evaluation: Yes, baby boy will be followed by Peds Surgery, others as needed Additional discussion: Discussed COVID-19 visitation policies in SDU and NICU. Impression/Recommendations Assessment: I met with Zully and her grandmother, Princess, today at 33 1/7 weeks gestation with Zully's son, who has not yet been named. Baby boy has been followed prenatally for gastroschisis with IUGR and a stable, trivial pericardial effusion. Serial US imaging has shown prominent though not-dilated bowel to the R of the umbilical cord insertion site with AC <5% and EFW <10%, though interval growth and umbilical artery/MCA dopplers have been appropriate. Most recent EFW at 32 0/7 weeks was 1,572g (7%). ECHO at 30 2/7 weeks confirmed trivial, stable anterior pericardial effusion with mild TR but otherwise normal structure and function. Zully's screens have been negative, including NIPT for trisomies and sex chromosome aneuploidies. Her Syphilis screen returned positive; however further RPR and T. Pallidum IgG testing are negative. We met today to discuss the delivery of and hospitalization for baby sriram, who is participating in the GOOD study with randomization to be delivered at 35 weeks gestation. PLAN: Delivery in SDU via repeat C/S on 03/05/22 at 35 0/7 weeks gestation NICU will be at delivery; admission to NICU Notify Peds Surgery when close to delivery Non-urgent ECHO to reevaluate TR; consult Cardiology if concerns Consider Genetics consult if concern for further anomalies Zully would like to provide breast milk/breastfeed; support would be appreciated Encouraged family to reach-out with further questions or concerns Physician [id number] total time, including discussion: 60 minutes, more than 50 % of time devoted to coordination of care and/or counseling. SIGNATURE: Edel Hernandez APRN.CNP PATIENT NAME: Zully Joiner DATE: February 20, 2022 TIME: 4:10 PM documented in this encounter [facility] 02-20-2022 History of Present illness Narrative PEDIATRIC/ SURGERY CONSULT SERVICE DATE: 02/20/2022 SERVICE TIME: 2 pm Date of : 1995 Age: [age] year old Sex: female Primary Care Physician: No primary care provider on file. Consulting Surgeon: Maximiliano Castillo MD Subjective Consultation for this evaluation was requested by Dr. Krystal Huerta and colleagues. Reason for consultation: fetus with gastroschisis. Recommendations will be communicated back to the requesting physician by way of shared medical record or letter. Ms. Joiner returns with her mother and reports being at 33w1d carrying a male fetus with gastroschisis. She reports things have gone well. She has provided consent for the GOOD study and has been randomized to early delivery. Plan is for c/section currently. Objective MATERNAL HISTORY: Mother is a 25 year old female, , who is at general anesthesia with an SHANNON of 04/09/2022, by Ultrasound dating method. LMP: Patient's last menstrual period was 06/04/2021 (approximate). Maternal Hospital Problems: ACTIVE PROBLEM LIST Lumbago Without Sciatica Ibs (Irritable Bowel Syndrome) Lumbago Cervicalgia History of Marijuana Use History of Depression Patient Request for Diagnostic Testing Nausea and Vomiting During Anemia Seizure (Hcc) False Positive Syphilis Serology Control Counseling With History of Section, Antepartum gastroschisis with FGR Visual Disturbances Head Injury care Pericardial Effusion Affecting Management of Mother Maternal Meds: Current Outpatient Medications on File Prior to Visit Medication Sig ondansetron (ZOFRAN) 4 mg tablet Take 1 tablet by mouth every 8 hours as needed for nausea/vomiting. (Patient not taking: Reported on 02/05/2022) ferrous sulfate 325 mg (65 mg iron) tablet Take 1 tablet by mouth every other day. [id number] 27 mg-800 mcg- 250 mg-200 mg cap Take 1 capsule by mouth once daily. vitamin as available and covered on her plan w/ [employer] with or separate capsule albuterol HFA (PROAIR HFA) 90 mcg/actuation inhaler Inhale 2 Puffs as instructed every 4 hours as needed for wheezing/shortness of breath. No current facility-administered medications on file prior to visit. No current facility-administered medications for this visit. complications: None The following was discussed with mother and grandparent Assessment: 33w1d male fetus with gastroschisis. There is no sign of significant bowel dilation or complications. The family will meet with neonatology, and get a tour of the NICU today. Plan: Planned c/section around 35 weeks Admit to NICU following Pediatric surgery consultation at [facility], iv access, prophylactic abx Physician [id number] total time, including discussion: 40 minutes, more than 50 % of time devoted to coordination of care and/or counseling. SIGNATURE: Maximiliano Castillo MD PATIENT NAME: Zully Joiner DATE: February 20, 2022 TIME: 1:01 PM documented in this encounter [facility] 02-20-2022 Miscellaneous Notes Pt was notified of the results. Pt verbalized understanding. Isidra Tracey MA Negative for flu and COVID please notify thank you documented in this encounter [facility] 02-19-2022 History of Present illness Narrative This note was created using DUHEMriter. Subjective Zully Joiner is a 26 year old female. HPI Patient presents with cough, sore throat chest congestion for 1 day. She denies fever. No vomiting. She is 33 weeks . No abdominal pain or vaginal drainage or leaking. No bleeding. She did not take any gmay-xgh-vbmwmbx medications. Denies history of asthma. Review of Systems Constitutional: Positive for fatigue. HENT: Positive for congestion and sore throat. Negative for ear pain. Respiratory: Positive for cough. Negative for shortness of breath and wheezing. Cardiovascular: Negative. Gastrointestinal: Negative. Genitourinary: Negative. Musculoskeletal: Positive for myalgias. Neurological: Positive for headaches. All other systems reviewed and are negative. PAST MEDICAL HISTORY Diagnosis Date ADHD (attention deficit hyperactivity disorder) age 11 or 12 - diagnosed in [place] Anemia Asthma exercise induced asthma Chlamydia Gonorrhea 2017 IBS (irritable bowel syndrome) 11/02/2013 depression Seizure (HCC) 2018, seen in [facility] since 2018 Trichomoniasis Current Outpatient Medications Medication Sig Dispense Refill ferrous sulfate 325 mg (65 mg iron) tablet Take 1 tablet by mouth every other day. 15 tablet 1 [id number] 27 mg-800 mcg- 250 mg-200 mg cap Take 1 capsule by mouth once daily. vitamin as available and covered on her plan w/ [employer] with or separate capsule 30 capsule 12 albuterol HFA (PROAIR HFA) 90 mcg/actuation inhaler Inhale 2 Puffs as instructed every 4 hours as needed for wheezing/shortness of breath. 2 Inhaler 2 ondansetron (ZOFRAN) 4 mg tablet Take 1 tablet by mouth every 8 hours as needed for nausea/vomiting. (Patient not taking: Reported on 02/05/2022) 15 tablet 0 No current facility-administered medications for this visit. PAST SURGICAL HISTORY Procedure Laterality Date DELIVERY ONLY 09/30/2017 NEXPLANON INSERTION 01/20/2015 removed PAST SURGICAL HISTORY OF pencil lead removed from eardrum FAMILY HISTORY Problem Relation Age of Onset Arthritis Mother other (neuropathy) Mother Schizophrenia Mother Diabetes Father other (Diverticulitis) Father Obstructive Sleep Apnea Father No Known Problems Sister No Known Problems Sister No Known Problems Brother Seizures Brother No Known Problems Brother No Known Problems Brother Diabetes Maternal Grandmother other (breast cyst) Maternal Grandmother No Known Problems Maternal Grandfather Heart Paternal Grandmother [place] Stent <50 Asthma Paternal Grandmother mom, dad, siblings other () Paternal Grandfather < 50 (thinks wa cancer, but now sure) No Known Problems Daughter Social History Tobacco Use Smoking status: Former Years: 4.00 Types: Cigarettes Quit date: 02/04/2017 Years since quittin.0 Smokeless tobacco: Never Vaping Use Vaping Use: Former Quit date: 07/27/2021 Substance Use Topics Alcohol use: No Drug use: Not Currently Types: Marijuana Objective BP 110/62 Pulse 88 Temp 36.7 C (98.1 F) Resp 18 Wt 67.1 kg (148 lb) LMP 06/04/2021 (Approximate) SpO2 98% BMI 24.25 kg/m Physical Exam Vitals reviewed. Constitutional: Appearance: Normal appearance. HENT: Head: Normocephalic and atraumatic. Right Ear: Tympanic membrane, ear canal and external ear normal. Left Ear: Tympanic membrane, ear canal and external ear normal. Nose: Congestion present. Mouth/Throat: Mouth: Mucous membranes are moist. Pharynx: Oropharynx is clear. Cardiovascular: Rate and Rhythm: Normal rate and regular rhythm. Heart sounds: Normal heart sounds. Pulmonary: Effort: Pulmonary effort is normal. Breath sounds: Normal breath sounds. Musculoskeletal: Cervical back: Neck supple. Lymphadenopathy: Cervical: No cervical adenopathy. Skin: General: Skin is warm and dry. Findings: No rash. Neurological: Mental Status: She is alert. Assessment and Plan ASSESSMENT/PLAN: 1. Viral URI with cough - ICD9: 465.9, ICD10: J06.9 - Discussed viral etiology and rationale for treatment. - Symptomatic treatment with prn analgesia - Supportive care with fluids and rest - Follow up in 3-5 days if symptoms persist or sooner if worsening of symptoms - COVID WITH FLUA+B, ROUTINE Jennie Go PA-C documented in this encounter [facility] 02-15-2022 Miscellaneous Notes Zully Joiner is a 26 year old female who presents as an add on visit for headache. She stated headache was worse yesterday and felt like a migraine. She took Tylenol and got minimal relief. Able to sleep last night and still having dull headache today. Rates pain 4/10. No visual changes. No RUQ pain or swelling in lower extremities. Good movement. Denies chest pain, shortness of breath, vaginal bleeding, leakage of fluid, or dysuria. ASSESSMENT/PLAN: 1. 32 weeks gestation of - ICD9: V22.2, ICD10: Z3A.32 (primary diagnosis) - URINE OB DIP B/O 2. Nonintractable headache, unspecified chronicity pattern, unspecified headache type - ICD9: 784.0, ICD10: R51.9 - BP within normal limits - No S/S of preeclampsia - Headache possibly related to allergies- reviewed appropriate medications to take - Pre E precautions reviewed RTO- if headache worsens or develops visual changes Lynne Jensen APRN.CNM documented in this encounter [facility] 02-15-2022 Instructions Lynne Jensen APRN.CNM - 02/15/2022 1:16 PM EDT Zyrtec 10 mg PO daily Benadryl 25 mg PO every 6-8 hours Tylenol Extra Strength 1000 mg PO every 6 hours as needed SEQUENTIAL SCREENINGS The [facility] offers sequential screenings for women who are interested in screenings for chromosomal abnormalities and certain defects during a . The sequential screen combines ultrasound and blood tests to determine the risk of chromosomal abnormalities, including Down's Syndrome (Trisomy 21) and Trisomy 18, as well as open neural tube defects including spina bifida. Ultrasound examination is performed between 11 weeks and 13 weeks gestational age. Blood tests are drawn after the ultrasound and again later in the between 15 and 21 weeks gestational age. Please let your physician know if you are interested in this testing. It will require an appointment with our cooling tower technician. This is not an ultrasound performed by a physician in our office during a routine visit. SIGNS AND SYMPTOMS OF LABOR 1. Contractions every 10 minutes or more often 2. Clear, pink, or brownish fluid (water) leaking from vagina 3. Feeling that baby is pushing down, pressure 4. Low, dull backache 5. Cramps that feel like a period 6. Cramps with or without diarrhea If you notice any of the above symptoms, contact our office at [phone] and ask to speak with a nurse. After hours, you can call doctors registry at [phone] OR call [facility] at [phone] and ask to have the doctor national dedicated truck driver paged. If you consider this an emergency, dial 9-1-1 or go to your nearest emergency department. NEED HELP? Are you dealing with a violent or abusive relationship? Are you a victim of rape or sexual assult? Call [facility] ([facility] 24 hour Crisis Hotline: 429.923.4228 or 414-874-0914. MANUAL Your Guide to a Healthy manual is now on-line. [email or web address] to download your free copy documented in this encounter [facility] 01-31-2022 History of Present illness Narrative No primary care provider on file. Referring Provider: Cuauhtemoc Natarajan MD NAME: Zully Joiner CLINIC Number.: [id number] Date of : 1995 Date of Visit: January 31, [address] Natarajan: Ms. Zully Joiner was seen for echocardiogram and pediatric cardiology consultation on January 31, 2022. She is a 26 year old woman, referred due to a pericardial effusion noted on her recent ultrasound. The fetus carried a diagnosis of gastroschisis. She herself has no significant past medical history. There is no family history of congenital heart disease. echocardiogram on January 31, 2022 at 30 weeks gestation shows atrial situs solitus with levocardia. SVC and IVC return normally to the right atrium. The os of the coronary sinus opens normally to the right atrium. One right and one left pulmonary vein were seen returning normally into the left atrium. The atria were normal in size and there was normal right to left shunting at the atrial level. The left and right ventricles were normal in size and shortening. No ventricular hypertrophy. The ventricular septum appeared intact. Normal mitral and tricuspid valves without significant mitral regurgitation. There was mild tricuspid regurgitation. The left and right ventricular outflow tracts were widely patent. The aortic and ductal arches were widely patent. heart rate and rhythm were regular. There was a trivial anterior pericardial effusion. Normal Doppler of umbilical artery, hepatic vein, ductus venosus. In summary, the echocardiogram today showed normal intracardiac anatomy with normal ventricular function and normal heart rate and rhythm. There was mild tricuspid regurgitation with normal appearing tricuspid valve. There was a trivial anterior pericardial effusion. We discussed these findings with Ms. Zully Joiner. In addition, the limitations of the echocardiogram and echocardiography in general, including the inability to exclude ASDs, some VSDs, minor valvar abnormalities, partial anomalous pulmonary venous return, persistent patent ductus arteriosus, and coarctation of the aorta, were explained. Based on these data we did not recommend any specific further cardiac follow up. I do recommend a non urgent echocardiogram to evaluate the tricuspid regurgitation. We would be happy to see her back should new concerns arise. Thank you for allowing me to participate in the care of your patient and please do not hesitate to contact me if I can be any further assistance. During this patient visit I have reviewed prior notes and imaging including from referring maternal medicine specialists, devoted time to counseling/coordination of care regarding results of the echocardiogram, clincal manifestations of the identified disease, prognosis, test results and treatment options, formulated and provided my recommendations to other caregivers by verbal and written communication as appropriate and assisted in coordination of care as needed. During this patient visit I have spent 40 minutes with more than 50% of the time devoted to counseling/coordination of care regarding results of the echocardiogram, clincal manifestations of the identified issues and recommendations, as detailed in my Assessment/Plan. Sincerely, Lanette Nuñez MD documented in this encounter [facility] 01-29-2022 History of Present illness Narrative NST SUMMARY PROVIDER ASSESSMENT AND INTERPRETATION Zully Joiner is a 26 year old female, , who is at 30w0d with an SHANNON of 04/09/2022, by Ultrasound dating method. Indications for NST: IUGR and Other: gastroschisis BPP today 6/8 -off for breathing Baseline: 145 Variability: Moderate Accelerations: Present 10 X 10 Decelerations: None Contractions: TOCO: None Interpretation: Reactive SIGNATURE: Lynne Jensen APRN.CNM documented in this encounter [facility] 01-22-2022 Miscellaneous Notes Feeling well today, no subjective sx. Reports normal FM and denies VB, LOF, contractions, abdominal pain or any sx Pre-E. ROS otherwise negative. BP 108/56 Wt 142 lb 6.4 oz (64.6 kg) LMP 06/04/2021 (Approximate) BMI 23.34 kg/m General: Alert, oriented x 3, NAD. HEENT: Normocephalic, atraumatic, mucous membranes moist, sclerae anicteric. Abdominal: Soft, non-tender, non-distended without rebound or guarding. Uterus non-tender. Extremities: Non-tender, no erythema or edema. Skin: no rash or skin changes. Psych: normal mood and affect OB: US today - FGR with normal interval growth; BPP 8/10 (-2 breathing), normal UA/MCA Dopplers; gastroschisis with stable appearance, isolated pericardial effusion (stable compared to prior US) - see report for details Labs/data since last visit - reviewed in EMR - Normal midtrimester labs, GTT, syphilis testing, negative GC/chlamydia/trichomonas Office NST: Indication: FGR, BPP 6/8 Interpretation: Baseline: 130, moderate variability, + accelerations (10 x 10), no decelerations. Tocometer: no regular uterine activity Impression: AGA NST Impression/Plan: Return OB visit at 29w0d with the following issues addressed today: gastroschisis with FGR US today notes FGR with appropriate interval growth and reassuring surveillance (BPP 8/10, normal multivessel Doppler assessment). Weekly surveillance and serial assessment of growth are scheduled. Patient established with our [facility]disciplinary [facility] team and has follow-up in [place] in January. Delivery timing to be addressed with advancing gestational age and she may be a candidate for the [facility] GOOD study. Pre-E sx and precautions were reviewed. with history of section, antepartum Patient planning repeat CD with delivery in SDU. care Recent midtrimester labs/GTT normal (including repeat syphilis testing). Recommend TDAP and COVID vaccination - maternal/ benefits of vaccination and risks of non-vaccination reviewed. Continue co-management with [employer] provider team. Third trimester counseling provided. pericardial effusion affecting management of mother Isolated pericardial effusion noted on US last week, stable this week. No e/o hydrops and normal MCA PSV today. No recent viral prodrome or sx to suggest viral etiology (including parvovirus). The implications of isolated pericardial effusions were reviewed. echocardiography recommended and order placed in Epic. OB precautions and FM expectations/kick counts reviewed. Continue weekly surveillance and comanagement with [facility] for office visit in ~4 weeks. All questions answered. Ms. Joiner expressed understanding and agreement with the plan of care. Cuauhtemoc NAJERA I spent a total of 30 minutes on the date of the service which included preparing to see the patient, fdxa-[id number] patient care, completing clinical documentation, obtaining and/or reviewing separately obtained history, performing a medically appropriate examination, counseling and educating the patient/family/caregiver, ordering medications, tests, or procedures, and communicating results to the patient/family/caregiver. documented in this encounter [facility] 01-22-2022 Miscellaneous Notes Pt seen today by MFM. requesting refill of Zofran. States she doesn't use it often, just likes to have it on hand. States she takes it once or twice a week. COIP documented in this encounter [facility] 01-18-2022 Miscellaneous Notes RR- VB No. LOF No. CTXS No. Movement: present. Other c/o: No. Medication list reviewed. Physical Exam See Flow Sheet Abd: soft, nontender, gravid : external genitalia: normal, vagina: pink, ruggated, discharge: yellow, yellow to green, adherent, and blood: absent, cervix: closed and smooth Ext: edema: no A/P 28w3d Estimated Date of Delivery: 04/09/22 Labs: sterile spec exam done, neg pool, neg fern GC/CT trich/BV and yeast swabs sent f/u next week as scheduled add fe for anemia. Fátima Espino M.D. documented in this encounter [facility] 01-18-2022 Kanika Chisholm Ma - 01/18/2022 4:08 PM EDT SEQUENTIAL SCREENINGS The [facility] offers sequential screenings for women who are interested in screenings for chromosomal abnormalities and certain defects during a . The sequential screen combines ultrasound and blood tests to determine the risk of chromosomal abnormalities, including Down's Syndrome (Trisomy 21) and Trisomy 18, as well as open neural tube defects including spina bifida. Ultrasound examination is performed between 11 weeks and 13 weeks gestational age. Blood tests are drawn after the ultrasound and again later in the between 15 and 21 weeks gestational age. Please let your physician know if you are interested in this testing. It will require an appointment with our cooling tower technician. This is not an ultrasound performed by a physician in our office during a routine visit. SIGNS AND SYMPTOMS OF LABOR 1. Contractions every 10 minutes or more often 2. Clear, pink, or brownish fluid (water) leaking from vagina 3. Feeling that baby is pushing down, pressure 4. Low, dull backache 5. Cramps that feel like a period 6. Cramps with or without diarrhea If you notice any of the above symptoms, contact our office at [phone] and ask to speak with a nurse. After hours, you can call doctors registry at [phone] OR call [facility] at [phone] and ask to have the doctor national dedicated truck driver paged. If you consider this an emergency, dial [phone]--[phone] or go to your nearest emergency department. NEED HELP? Are you dealing with a violent or abusive relationship? Are you a victim of rape or sexual assult? Call [facility] ([place]) 24 hour Crisis Hotline: 803.966.7274 or 632-025-7763. MANUAL Your Guide to a Healthy manual is now on-line. Visit [email or web address] ncyGuide to download your free copy documented in this encounter [facility] [facility] Miscellaneous Notes Patient notified. Voiced understanding. Will call if symptoms worsen. Giulia Angeles RN Would recommend small frequent sips of gatorade and water. Can try sprite or tammi karon too. With only 4 episodes of Vomiting I think she can wait to get fluids- if it persists throughout the day then that may be necessary. Will order zofran. 24w6d Patient calling with c/o vomiting that began yesterday. Vomited twice yesterday and twice today. Reports that she hasn't been able to keep any food/fluids down in the last 24 hours. Denies recent sick contacts. No cramping, VB, LOF, fever, chills or diarrhea. Uses Marijuana daily for the last 10 years. Last used 3 days ago. Believes the Marijuana helps with her nausea. Asking for antiemetic RX. Would you prefer patient go to ER or Outpatient Infusion Center at [facility] for IV hydration? Giulia Angeles RN documented in this encounter [facility] 12-12-2021 History of Present illness Narrative MATERNAL MEDICINE CONSULTATION Dear Dr. Espino, I had the pleasure of seeing your patient, Zully Joiner, regarding her gastroschisis. As you know, she is a 26 year old, at 23w1d with gastroschisis. Reviewed the risk for stillbirth and need for increased surveillance. Timing of delivery reviewed, will likely recommend 37 weeks but it could be sooner based on testing and US findings. Reports allergy to percocet after last . She has tolerated vicodin in the past. Reports asthma with recent pneumonia (not covid) and she was started on steroid inhaler but she does not use this regularly. Also not using albuterol rescue inhaler. She had covid 1 time but has not been vaccinated. Recommendations for this : 1. Serial ultrasounds for growth every 4 weeks 2. Weekly BPPs after 30 weeks or potentially sooner for EFW < 5 centile. 3. Recommend covid vaccines. 4. Rx for albuterol. 5. She plans to continue her care with you in [place] with delivery in the SDU. Thank you for the opportunity to participate in the care of this patient. I would be happy to see Zully Joiner again for follow up if she desires further testing. Please feel free to contact me if you have any questions. This consultation was requested by MD Vamsi and a copy of my recommendations will be sent via letter or shared medical record. We spent 45 minutes together face to face with >50% of the time in consultation and coordination of care as outlined in the assessment and plan above. Krystal Huerta MD documented in this encounter [facility] 12-12-2021 History of Present illness Narrative PEDIATRIC/ SURGERY CONSULT SERVICE DATE: 12/12/2021 SERVICE TIME: 2pm Date of : 1995 Age: [age] year old Sex: female Primary Care Physician: Aldo Aponte III, MD (Inactive) Consulting Surgeon: Maximiliano Castillo MD Subjective Consultation for this evaluation was requested by Dr. Michelle Montelongo Reason for consultation: Fetus with gastroschisis Recommendations will be communicated back to the requesting physician by way of shared medical record or letter. Mom reports being at 23 weeks carrying a male fetus with abdominal abnormality. She denies other preg concerns. Dx made about 2 weeks ago on routine anatomy scan. No fam hx of defects. She was getting care in [place]. Objective MATERNAL HISTORY: Mother is a 25 year old female, , who is at general anesthesia with an SHANNON of 04/09/2022, by Ultrasound dating method. LMP: Patient's last menstrual period was 06/04/2021 (approximate). Maternal Hospital Problems: ACTIVE PROBLEM LIST Lumbago Without Sciatica Ibs (Irritable Bowel Syndrome) Lumbago Cervicalgia History of Marijuana Use History of Depression Patient Request for Diagnostic Testing Nausea and Vomiting During Anemia Seizure (Hcc) False Positive Syphilis Serology Control Counseling With History of Section, Antepartum Gastroschisis in , Antepartum Maternal Meds: Current Outpatient Medications on File Prior to Visit Medication Sig [id number] ( PLUS DHA) 18 mg iron-800 mcg-290 mg cppt Take 1 tablet by mouth once daily. No current facility-administered medications on file prior to visit. No current facility-administered medications for this visit. complications: None The following was discussed with mother Results-Findings Indication anatomy survey, Gastroschisis, previous Impression The patient presents for an anatomic survey. 1. Single, live, intrauterine . 2. biometry is consistent with the established gestational age except for the abdominal circumference which is <5th centile. 3. gastroschisis. There is an abdominal wall defect to the right of the umbilical cord insertion. 4. No other malformations are identified. No markers for aneuploidy are noted. 5. Normal amniotic fluid. 6. The placenta is anterior without evidence of a previa. 7. Unremarkable adnexa bilaterally. 8. Normal transabdominal cervical length without evidence of funneling or dynamic changes. 9. Reassuring umbilical and middle cerebral artery dopplers. Recommendations Follow up growth/dopplers every 3-4 weeks Weekly BPP/dopplers after 30 weeks or potentially sooner for EFW <5th centile. Maternal Assessment Height 168 cm Height (ft) 5 ft Height (in) 6 in Weight 64 kg Weight (lb) 140 lb BMI 22.61 kg/m Physical Exam Initial weight (lb) 138 lb Initial BMI 22.28 kg/m Method Transabdominal ultrasound examination [place] . Number of fetuses: 1 Dating GA by prior assessment 23 w + 1 d SHANNON by prior assessment: 04/09/2022 Ultrasound examination on: 12/12/2021 GA by U/S based upon: AC, BPD, Femur, HC GA by U/S 22 w + 1 d SHANNON by U/S: 04/16/2022 Assigned: based on stated SHANNON, selected on 11/14/2021 Assigned GA 23 w + 1 d Assigned SHANNON: 04/09/2022 General Evaluation Cardiac activity present. FHR 141 bpm. movements: present. Presentation: breech Placenta: Placental site: anterior Umbilical cord: normal insertion, 3 vessel cord Amniotic fluid: Amount of AF: normal amount Growth Overview Exam date GA BPD (mm) HC (mm) AC (mm) FL (mm) HL (mm) EFW (g) 11/14/2021 19w 1d 42.6 39% 160.2 28% 134.9 39% 28.2 25% 28.0 45% 259 27% 12/12/2021 23w 1d 52.7 10% 201.4 9% 161.6 3% 40.5 37% 38.1 47% 476 8% Biometry Standard BPD 52.7 mm 22w 0d 10% Hadlock OFD 73.3 mm 22w 4d 47% Nicolaides HC 201.4 mm 22w 2d 9% Hadlock Cerebellum tr 26.0 mm 23w 3d 86% Hill Nuchal fold 5.5 mm AC 161.6 mm 21w 2d 3% Hadlock Femur 40.5 mm 23w 1d 37% Hadlock Humerus 38.1 mm 23w 3d 47% Vaishali EFW 476 g 22w 0d 8% Hadlock EFW (lb) 1 lb EFW (oz) 1 oz EFW by: Hadlock ([id number]) Extended Trapeze Artist 4.6 mm CM 4.0 mm 6% Nicolaides Extremities / Bony Struc FL / HC 0.20 Other Structures FHR 141 bpm Anatomy Cranium: normal Lateral ventricles: normal Choroid plexus: normal Midline falx: normal Cavum septi pellucidi: normal Cerebellum: normal Cisterna magna: normal Head / Neck Vermis: normal Neck: normal Nuchal fold: normal Lips: normal Profile: normal Nose: normal Face Maxilla: normal Mandible: normal Orbits: normal Lens: normal 4-chamber view: normal RVOT view: normal LVOT view: normal 3-vessel view: normal [id number] view: normal Heart / Thorax Situs: situs solitus (normal) Aortic arch view: normal Ductal arch view: normal SVC: normal IVC: normal Cardiac axis: normal Rt lung: normal Lt lung: normal Diaphragm: normal Cord insertion: normal Stomach: normal Kidneys: normal Bladder: normal Genitals: normal Abdomen Abdom. wall: abnormal Abdom. wall: Right sided gastroschisis containing bowel Cervical spine: suboptimal Thoracic spine: suboptimal Lumbar spine: suboptimal Sacral spine: suboptimal Arms: normal Legs: normal Rt upper arm: normal Rt forearm: normal Rt hand: normal Rt fingers: normal Lt upper arm: normal Lt forearm: normal Lt hand: normal Lt fingers: normal Rt upper leg: normal Rt lower leg: normal Rt foot: normal Lt upper leg: normal Lt lower leg: normal Lt foot: normal sex: male Wants to know sex: yes Doppler Arterial Umbilical A PI 1.41 67% Valdemar Umbilical A S / D 4.51 83% Shante MCA PI 1.93 MCA PS 35.28 cm/s MoM 1.20 CPR PI 1.37 21% Ebbing Maternal Structures Uterus / Cervix Uterus: Visualized Cervix: Visualized Approach: Transabdominal Cervical length 37.6 mm Ovaries / Tubes / Adnexa Rt ovary: Normal Lt ovary: Normal Performed By: Kristin Swanson RDMS Assessment: 23 week male fetus with gastroschisis. No signs of bowel complications thus far by ultrasound. No significant IUGR thus far. We discussed the nature of this condition, the monitoring with US, average timing of and treatment approach. We discussed the anticipated outcome, and need for surgical repair and possible use of silo. We discussed small risk for atresia or other GI complications. I answered some questions. Plan: continued care with MFM and US surveillance F/up consultation with me in about 10 weeks to review course, further counseling and to help with management. Neonatology consultation Planned delivery in SDU with admission to NICU following . Physician [id number] total time, including discussion: 60 minutes, more than 50 % of time devoted to coordination of care and/or counseling. Maximiliano Castillo MD Pediatric General and Thoracic Surgeon Director of Surgery; Director, Care Center SIGNATURE: Maximiliano Castillo MD PATIENT NAME: Zully Joiner DATE: December 12, 2021 TIME: 5:49 PM documented in this encounter [facility] 12-12-2021 History of Present illness Narrative REPRODUCTIVE GENETIC COUNSELING INITIAL VISIT Zully Joiner : 1995 Above identifiers confirmed by Gladis San MS, [facility] Consultation requested by: Dr. 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 Krystal Huerta for genetic counseling to discuss her abnormal ultrasound. PRESENTING PROBLEM: Zully Joiner is currently 23w1d gestation (by US). Anatomy ultrasound on 11/14/2021 noted 'Abdominal wall defect likely gastroschisis, no other congenital anomalies noted.' She has had negative cfDNA screening for trisomies 13, 18, 21 and sex chromosome aneuploidies. Ms. Joiner presents for genetic counseling to discuss this finding and to make a plan for next steps. REPRODUCTIVE HISTORY: Currently : Yes / 23w1d (by US) LMP: 06/04/2021 SHANNON: 04/09/2022 history: 1. 2018, FT, female, CS ( distress) 2. Current Parental Screens: CF: No Hemoglobinopathies: No Scientology Diseases: No Spinal Muscular Atrophy: No Other: No exposures: - vitamins or other folate supplementation: Yes - Prescription medicines: No - OTC medicines, herbal medicines, other supplements: No - Tobacco, alcohol, or illicit drugs: No - Maternal infections or fevers: No - Other known/suspected human teratogens: No Aneuploidy screening: [id number]: Negative CVS: No Amniocentesis: No SIGNIFICANT PAST MEDICAL/SURGICAL HISTORIES: Negative FOB, currently age 33: Negative FAMILY HISTORY: A 3-generation pedigree was obtained for the patient and her partner and will be scanned into patient's EMR. Of note: - Genetic and/or Inherited Disease: No - Common Disorders: Yes / Ms. Eldridges father and materna grandmother both have DM. - Defects: No - Seizures: No - Recurrent Loss/Infertility: No - MR/DD/Autism: No - : No - Other:No - Patient's ethnicity: Not asked - Partner's ethnicity: Not asked - Patient and/or partner did not report -Nicaraguan, , Mediterranean, Ashkenazi Scientology and/or Icelandic-[place]/Cajun ancestries unless noted above. - Patient and partner are NOT consanguineous The remainder of the known family history is negative for infertility, recurrent loss, stillbirth, unexplained , defects, malformation syndromes, chromosomal abnormalities, metabolic disorders, developmental delay, mental retardation, known or suspected genetic diseases, and consanguinity except as noted above and on the formal pedigree. GENETIC COUNSELING/DISCUSSION: We reviewed Ms. Joiner's ultrasound finding of abdominal wall defect, likely gastroschisis. Reviewed this diagnosis. Reviewed this finding and epidemiology of 1:4000 births. The cause is heterogeneous/multifactorial. There are rare familiar recurrences but typically gastroschisis is isolated. Reviewed that gastroschisis has been associated with first time mothers, young maternal age, maternal smoking and drug use. Ms. Garcia denies smoking and drug use during the . Next reviewed her negative cfDNA screen for Trisomies 13, 18, 21 and sex chromosome aneuploidy. Amniocentseis offered to patient although risk for genetic etiology in setting of gastroschisis is low. After review of risks, benefits, limitations, etc., of amniocentsis, patient declines. Finally we reviewed carrier screening options based on standard of care and ethnicity. Reviewed Cystic Fibrosis (CF), hemoglobinopathies and Spinal Muscular Atrophy (SMA). Reviewed the clinical features of each and inheritance pattern. Offered these carrier screens; encouraged patient to check with her health insurance for coverage. SUGGESTIONS/PLAN: Zully Joiner is a 26 year old, 23w1d, female with gastroschisis on ultrasound, multifactorial inheritance with negative cfDNA screening for Trisomies 13, 18, 21 and sex chromosome aneuploidy. Patient declines amniocentesis Ms. Joiner declines routine CF, SMA and hemoglobinopathy carrier screening. Follow-up as clinically indicated. Thank you for allowing me to participate in Zully Joiner's care. Please feel free to contact me if either you or the family has questions, or concerns. The patient was seen for a total of 35 minutes, greater than 50% of which was spent [id number] counseling. This plan is being carried out under the oversight of Dr. Soraya Barry. This note will also be sent to the referring provider via the electronic medical record. Gladis San MS, [facility] Licensed, Certified Genetic Counselor documented in this encounter [facility] 11-14-2021 Miscellaneous Notes GENNY-S: Zully Joiner is a 26 year old female who presents at 19w1d with SHANNON:04/09/2022, by Ultrasound for a routine visit. Good FM. Had headache for 6hrs, resolved after eating, hydration, tylenol and rest. Denies visual changes, chest pain, shortness of breath, vaginal bleeding, leakage of fluid, or dysuria. Improved diet, trying to increase hydration. Attempted to make neurology appointment but was having difficulty. Called and left message and got return call while at appointment. She has the number and calling today for appointment. O: See flow sheet Gen: No apparent distress Abd: Gravid, nontender S=D, -2lb TWG, increased weight since 16 weeks ASSESSMENT/PLAN: 1. 19 weeks gestation of P: 1) PTL precautions reviewed and when to call 2) RTO in 2 weeks for follow up and plan of care due to abnormal US. 3) Making appointment with neurology today. She has not had seizure since 2018 and not on medications. Reviewed importance of making appointment for future management and plan. 4) Using [address] for housing, trying to get metro housing. Previous child father caused domestic violence. Feels safe at this time with current FOB and he is supportive. 5) Reviewed abnormal anatomy US but awaiting official results. Discussed will consult MFM and visit once plan discussed. Emotional support provided. Dafne Camargo APRN.CNM documented in this encounter [facility] 11-14-2021 Instructions Haylie Max MA - 11/14/2021 8:46 AM EDT Neurology Appointment: [phone] SIGNS AND SYMPTOMS OF LABOR 1. Contractions every 10 minutes or more often 2. Clear, pink, or brownish fluid (water) leaking from vagina 3. Feeling that baby is pushing down, pressure 4. Low, dull backache 5. Cramps that feel like a period 6. Cramps with or without diarrhea If you notice any of the above symptoms, contact our office at [phone] and ask to speak with a nurse. After hours, you can call doctors registry at [phone] OR call [facility] at [phone] and ask to have the doctor national dedicated truck driver paged. If you consider this an emergency, dial 9-1-1 or go to your nearest emergency department. NEED HELP? Are you dealing with a violent or abusive relationship? Are you a victim of rape or sexual assult? Call [facility] ([place]) 24 hour Crisis Hotline: 286.747.1503 or 642-807-6132. MANUAL Your Guide to a Healthy manual is now on-line. Visit [email or web address] ncyGuide to download your free copy documented in this encounter [facility] 10-24-2021 Miscellaneous Notes Zully Joiner is a 26 year old female who presents at 16w1d as an add on visit for lower pelvic pressure and cramping. Patient reports feeling constant crampiness for the past couple of days. She recently completed oral antibiotic for bronchitis. She denies any loss of fluid, vaginal bleeding , vaginal discharge, itching or odor. Recent intercourse last night. Positive movement. Reports urine is very dark and she is not eating or drinking much due to loss of appetite. Hx of nausea but reports resolved completely and no longer taking any medications. Stopped using marijuana a couple of weeks ago and has noticed a decrease in appetite. S=D TWG -9 lbs ASSESSMENT/PLAN: 1. 16 weeks gestation of - ICD9: V22.2, ICD10: Z3A.16 (primary diagnosis) - Anatomy US order placed for next visit 2. Pelvic pain in female - ICD9: 625.9, ICD10: R10.2 - URINE OB DIP B/O- Positive for Ketones and trace leukocytes - URINE CULTURE- sent - Reviewed results with patient- patient to increase fluid and food intake and report back if not feeling better RTO- 3 weeks for CHARLIE with anatomy US or sooner if needed Lynne Jensen APRN.CNM documented in this encounter [facility] 10-24-2021 Instructions Haylie Max MA - 10/24/2021 10:56 AM EDT SEQUENTIAL SCREENINGS [facility] offers sequential screenings for women who are interested in screenings for chromosomal abnormalities and certain defects during a . The sequential screen combines ultrasound and blood tests to determine the risk of chromosomal abnormalities, including Down's Syndrome (Trisomy 21) and Trisomy 18, as well as open neural tube defects including spina bifida. Ultrasound examination is performed between 11 weeks and 13 weeks gestational age. Blood tests are drawn after the ultrasound and again later in the between 15 and 21 weeks gestational age. Please let your physician know if you are interested in this testing. It will require an appointment with our cooling tower technician. This is not an ultrasound performed by a physician in our office during a routine visit. SIGNS AND SYMPTOMS OF LABOR 1. Contractions every 10 minutes or more often 2. Clear, pink, or brownish fluid (water) leaking from vagina 3. Feeling that baby is pushing down, pressure 4. Low, dull backache 5. Cramps that feel like a period 6. Cramps with or without diarrhea If you notice any of the above symptoms, contact our office at [phone] and ask to speak with a nurse. After hours, you can call doctors registry at [phone] OR call [facility] at [phone] and ask to have the doctor national dedicated truck driver paged. If you consider this an emergency, dial 9--9 or go to your nearest emergency department. NEED HELP? Are you dealing with a violent or abusive relationship? Are you a victim of rape or sexual assult? Call [facility] ([place]) 24 hour Crisis Hotline: 631.984.1413 or 487-440-3839. MANUAL Your Guide to a Healthy manual is now on-line. Visit [email or web address] ncyGuide to download your free copy documented in this encounter [facility] 08-27-2021 Miscellaneous Notes 7w6d Patient did go to ER 08/25/21 and got rx for promethazine. She stated that it has been helping her more and she is feeling better now. She is going to maintain bland diet and will notify office if she is unable to keep anything down again. Jackie Valle RN Patient called over the weekend with complaint of N/V. Advised to go to ED because was unable to keep solids down for 2 days and limited fluids. Reglan and zofran PO have not been effective. Please see how she is feeling and may need additional medication. If desires, I can see her for a virtual visit to discuss further. Thank you, Dafne Camargo APRN.CNM documented in this encounter [facility] 08-20-2021 Miscellaneous Notes GENNYJosieS: Zully Joiner is a 25 year old female who presents for dating US and follow up. Dating US was not scheduled. Denies headache, visual changes, chest pain, shortness of breath, vaginal bleeding, leakage of fluid, or dysuria. Emesis every 1-2 hr for 1.5 weeks. Feeling good today though. Able to eat smoothie. Was taking reglan and not helping. Went to ED on 08/14/21. Having abdominal pain/cramping.No bleeding. Constipation, no diarrhea. Has history of IBS. Cramping improved after bowel movement and does not feel this is new for her, had prior to . O: See flow sheet Gen: No apparent distress Abd: nontender ASSESSMENT/PLAN: 1. Unsure of LMP (last menstrual period) as reason for ultrasound scan 2. Encounter for supervision of other normal in first trimester 3. Nausea and vomiting in P: 1) PTL precautions reviewed and when to call 2) Will get dating US today later in afternoon, can update SHANNON after US and follow up plan of care 3) Will send prescription for zofran since Reglan not effective. Reviewed risks and benefits and us in first trimester, handout given. 4) Will get TSH and CMP for N/V 5) Reviewed labs. Treat Yeast infection after 12 weeks. 6) RPR positive, TP negative, False positive result 7) Did not make neurology appt, she will get consult with neurology. Declines assistance with scheduling at this time. Dafne Camargo APRN.CNM documented in this encounter [facility] 08-20-2021 Instructions Haylie Max MA - 08/20/2021 1:13 PM EDT Ondansetron (Zofran ) December 25, 2019 This sheet talks about exposure to ondansetron in a and while . This information should not take the place of medical care and advice from your healthcare provider. What is ondansetron? Ondansetron is a medication used to treat nausea and vomiting that may be caused by surgery, chemotherapy, or radiation therapy. Ondansetron has also been prescribed during to help with symptoms of nausea and vomiting in (NVP). NVP is also referred to as morning sickness . Ondansetron is taken by mouth, infused into a vein (by IV) or given by injection into a muscle (IM). Ondansetron is sold under the brand name Zofran . What can I do to help control my nausea and vomiting? [employer] has a helpful fact sheet on nausea in with recommendations. You can review it here: [email or web address]/fact-she ets/zuihal-eacbhgmz-nhsjjhlts-nvp /pdf/. Also, eating small meals often, drinking plenty of clear fluids, and avoiding triggers (such as odors, heat, and spicy or high fat foods) can help. Talk to your healthcare provider about which NVP treatments are right for you. I take ondansetron. Can it make it harder for me to become ? There are no studies that have looked to see if ondansetron could make it harder for a person to get . Studies in animals did not find that ondansetron would affect the ability to get . Does taking ondansetron increase the chance for miscarriage? Miscarriage can occur in any . One study did not find that miscarriage happened more often for those who reported that they used ondansetron in the first trimester of . Does taking ondansetron increase the chance of defects? Every starts out with a 3-5% chance of having a defect. This is called the background risk. Most studies have found no increased chance for defects among thousands of people who used ondansetron in the first trimester of . A few studies reported a very small (less than 1%) increase in the chance for a cleft palate (an opening in the roof of the mouth that may be repaired with surgery) or a heart defect. Because of other factors that could affect the pregnancies exposed to ondansetron, it is not known if ondansetron actually increases the chance of defects. Could taking ondansetron cause other complications? Studies did not find a higher chance of loss, delivery (delivery before 37 weeks of ), or low weight when ondansetron was used during . At higher doses, there have been reports that ondansetron use might cause a heart rhythm problem (called QT interval prolongation) in the person taking ondansetron. In severe cases, this could become an abnormal heart rhythm known as Torsades de Pointes. If you are taking ondansetron, you can talk to your healthcare provider about how to watch for changes in your heart rhythm. Does taking ondansetron in cause long-term problems in behavior or learning for the baby? One study looked at 78 infants who were exposed to ondansetron at any time during . The infants were looked at between 7 days to 2 months of age and did not show any signs of unusual behaviors. A single follow-up survey for about 25 of these children was sent in by the parents. The children were between 1 to 5 years old. The survey asked about behavior. The surveys did not report behavior differences in these children compared to children who were not exposed ondansetron during . There are no other studies looking at the use of ondansetron in and long-term effects for the baby. Can I breastfeed while taking ondansetron? There have been no studies in humans looking at the use of ondansetron during . Studies in animals suggest that ondansetron enters breast milk, but the effects of ondansetron on a infant are not known. If ondansetron use is necessary, it is not usually a reason to stop . A different drug may be considered, especially while a or . Be sure to talk to your healthcare provider about all your questions. I take ondansetron. Can it make it harder for me to get my partner or increase the chance of defects? There are no human studies looking at male use of ondansetron. Animal studies have not shown any effect on male fertility. In general, exposures that fathers and sperm donor have are unlikely to increase risks to a . For more information, please see the MotherToBaby fact sheet Paternal Exposures at https://mothertobaby.org/fact-she ets/ocdcmgrv-odurjctgq-ujdgakyzc/ pdf/. SIGNS AND SYMPTOMS OF LABOR 1. Contractions every 10 minutes or more often 2. Clear, pink, or brownish fluid (water) leaking from vagina 3. Feeling that baby is pushing down, pressure 4. Low, dull backache 5. Cramps that feel like a period 6. Cramps with or without diarrhea If you notice any of the above symptoms, contact our office at [phone] and ask to speak with a nurse. After hours, you can call doctors registry at [phone] OR call [facility] at [phone] and ask to have the doctor national dedicated truck driver paged. If you consider this an emergency, dial 9-6 or go to your nearest emergency department. NEED HELP? Are you dealing with a violent or abusive relationship? Are you a victim of rape or sexual assult? Call [facility] ([place]) 24 hour Crisis Hotline: 345.482.4140 or 760-182-5113. MANUAL Your Guide to a Healthy manual is now on-line. Visit [email or web address] [email or web address] to download your free copy documented in this encounter [facility] 10-06-2020 History of Present illness Narrative Radiology Service Progress Note PATIENT NAME: Zully Joiner DATE OF SERVICE: October 06, 2020 TIME: 12:03 PM PATIENT IDENTITY VERIFICATION COMPLETED USING TWO (2) IDENTIFIERS: Name and Date of confirmed by patient verbally. FALL SCREENING: Has the patient had 2 falls in the last year or 1 fall with injury or currently using an Ambulatory Assistive Device (Walker, Cane, Wheelchair, Crutches, etc.)? No PATIENT GENDER DATA: Female. status: : No status: NO. PATIENT RELEVANT IMPLANT DATA REVIEWED: Not Applicable RADIOLOGY DEPARTMENT: General X-ray: Exam(s) Completed: Upper Extremity X-Ray(s): Forearm, right and Hand, right PERIPHERAL IV DATA: Not applicable SIGNED BY: RT Adebayo(R) October 06, 2020 12:03 PM documented in this encounter [facility] 06-06-2017 History of Past i llness Narrative Problem Noted Date Resolved Date Trichomonal vaginitis during 8 04/08/2018 Overview: 06/06/17 - patient may not have been treated - KJ 06/12/17- Was unable to tolerate dose and did not complete treatment. Treated today and notifying partner for treatment. Dafne Camargo CNM 08/26/17 - Trich negative. Kristin Hobbs APRN.[facility] Support system deficit 02/06/2017 8 Overview: 02/06/2017 Patient states FOB is aware she is but does not want to be involved. She plans on keeping the baby. TKRN 02/13/17 FOB planning to be involved at this time. SHYAM ROYAL Quit smoking 02/06/2017 04/08/2018 Overview: 02/06/2017Pt recently quit smoking 02/04/2017. Discussed risks of smoking during and advised pt to continue not smoking. TKRN Chlamydia 11/05/2013 09/16/2017 Unspecified asthma, uncomplicated 04/08/2018 Overview: around age 11 years. Last episode was 2 years ago. documented as of this encounter (statuses as of 08/20/2021) [facility] History of Past illness Narrative* Problem Noted Date Resolved Date Trichomonal vaginitis during 8 04/08/2018 Overview: 06/06/17 - patient may not have been treated - 06/12/17- Was unable to tolerate dose and did not complete treatment. Treated today and notifying partner for treatment. Dafne Camargo CNM 08/26/17 - Trich negative. Kristin Hobbs APRN.[facility] Support system deficit 02/06/2017 8 Overview: 02/06/2017 Patient states FOB is aware she is but does not want to be involved. She plans on keeping the baby. TKRN 02/13/17 FOB planning to be involved at this time. SHYAM ROYAL Quit smoking 02/06/2017 04/08/2018 Overview: 02/06/2017Pt recently quit smoking 02/04/2017. Discussed risks of smoking during and advised pt to continue not smoking. TKRN Chlamydia 11/05/2013 09/16/2017 Unspecified asthma, uncomplicated 04/08/2018 Overview: around age 11 years. Last episode was 2 years ago. documented as of this encounter (statuses as of 08/26/2021) [facility] History of Past illness Narrative* Problem Noted Date Resolved Date Trichomonal vaginitis during 8 04/08/2018 Overview: 06/06/17 - patient may not have been treated - KJ 06/12/17- Was unable to tolerate dose and did not complete treatment. Treated today and notifying partner for treatment. Dafne Camargo CNM 08/26/17 - Trich negative. Kristin Hobbs APRN.[facility] Support system deficit 02/06/2017 8 Overview: 02/06/2017 Patient states FOB is aware she is but does not want to be involved. She plans on keeping the baby. TKRN 02/13/17 FOB planning to be involved at this time. SHYAM ROYAL Quit smoking 02/06/2017 04/08/2018 Overview: 02/06/2017Pt recently quit smoking 02/04/2017. Discussed risks of smoking during and advised pt to continue not smoking. TKRN Chlamydia 11/05/2013 09/16/2017 Unspecified asthma, uncomplicated 04/08/2018 Overview: around age 11 years. Last episode was 2 years ago. documented as of this encounter (statuses as of 08/27/2021) [facility] History of Past illness Narrative* Problem Noted Date Resolved Date Trichomonal vaginitis during 8 04/08/2018 Overview: 06/06/17 - patient may not have been treated - KJ 06/12/17- Was unable to tolerate dose and did not complete treatment. Treated today and notifying partner for treatment. Dafne Camargo CNM 08/26/17 - Trich negative. Kristin Hobbs APRN.[facility] Support system deficit 02/06/2017 8 Overview: 02/06/2017 Patient states FOB is aware she is but does not want to be involved. She plans on keeping the baby. TKRN 02/13/17 FOB planning to be involved at this time. SHYAM ROYAL Quit smoking 02/06/2017 04/08/2018 Overview: 02/06/2017Pt recently quit smoking 02/04/2017. Discussed risks of smoking during and advised pt to continue not smoking. TKRN Chlamydia 11/05/2013 09/16/2017 Unspecified asthma, uncomplicated 04/08/2018 Overview: around age 11 years. Last episode was 2 years ago. documented as of this encounter (statuses as of 10/24/2021) [facility] History of Past illness Narrative* Problem Noted Date Resolved Date Trichomonal vaginitis during 8 04/08/2018 Overview: 06/06/17 - patient may not have been treated - KJ 06/12/17- Was unable to tolerate dose and did not complete treatment. Treated today and notifying partner for treatment. Dafne Camargo CNM 08/26/17 - Trich negative. Kristin Hobbs APRN.[facility] Support system deficit 02/06/2017 8 Overview: 02/06/2017 Patient states FOB is aware she is but does not want to be involved. She plans on keeping the baby. TKRN 02/13/17 FOB planning to be involved at this time. SHYAM ROYAL Quit smoking 02/06/2017 04/08/2018 Overview: 02/06/2017Pt recently quit smoking 02/04/2017. Discussed risks of smoking during and advised pt to continue not smoking. TKRN Chlamydia 11/05/2013 09/16/2017 Unspecified asthma, uncomplicated 04/08/2018 Overview: around age 11 years. Last episode was 2 years ago. documented as of this encounter (statuses as of 11/14/2021) [facility] History of Past illness Narrative* Problem Noted Date Resolved Date Trichomonal vaginitis during 8 04/08/2018 Overview: 06/06/17 - patient may not have been treated - KJ 06/12/17- Was unable to tolerate dose and did not complete treatment. Treated today and notifying partner for treatment. Dafne Camargo CNM 08/26/17 - Trich negative. Kristin Hobbs APRN.[employer] Support system deficit 02/06/2017 8 Overview: 02/06/2017 Patient states FOB is aware she is but does not want to be involved. She plans on keeping the baby. TKRN 02/13/17 FOB planning to be involved at this time. SHYAM ROYAL Quit smoking 02/06/2017 04/08/2018 Overview: 02/06/2017Pt recently quit smoking 02/04/2017. Discussed risks of smoking during and advised pt to continue not smoking. TKRN Chlamydia 11/05/2013 09/16/2017 Unspecified asthma, uncomplicated 04/08/2018 Overview: around age 11 years. Last episode was 2 years ago. documented as of this encounter (statuses as of 11/14/2021) [facility] History of Past illness Narrative* Problem Noted Date Resolved Date Trichomonal vaginitis during 8 04/08/2018 Overview: 06/06/17 - patient may not have been treated - KJ 06/12/17- Was unable to tolerate dose and did not complete treatment. Treated today and notifying partner for treatment. Dafne Camargo CNM 08/26/17 - Trich negative. Kristin Hobbs APRN.[employer]SE [employer] Support system deficit 02/06/2017 8 Overview: 02/06/2017 Patient states FOB is aware she is but does not want to be involved. She plans on keeping the baby. TKRN 02/13/17 FOB planning to be involved at this time. SHYAM ROYAL Quit smoking 02/06/2017 04/08/2018 Overview: 02/06/2017Pt recently quit smoking 02/04/2017. Discussed risks of smoking during and advised pt to continue not smoking. TKRN Chlamydia 11/05/2013 09/16/2017 Unspecified asthma, uncomplicated 04/08/2018 Overview: around age 11 years. Last episode was 2 years ago. documented as of this encounter (statuses as of 11/15/2021) [facility] History of Past illness Narrative* Problem Noted Date Resolved Date Trichomonal vaginitis during 8 04/08/2018 Overview: 06/06/17 - patient may not have been treated - KJ 06/12/17- Was unable to tolerate dose and did not complete treatment. Treated today and notifying partner for treatment. Dafne Camargo CNM 08/26/17 - Trich negative. Kristin Hobbs, BHUMIKA.[employer] EV[employer]UATED NURSE AIDE Support system deficit 02/06/2017 8 Overview: 02/06/2017 Patient states FOB is aware she is but does not want to be involved. She plans on keeping the baby. TKRN 02/13/17 FOB planning to be involved at this time. SHYAM ROYAL Quit smoking 02/06/2017 04/08/2018 Overview: 02/06/2017Pt recently quit smoking 02/04/2017. Discussed risks of smoking during and advised pt to continue not smoking. TKRN Chlamydia 11/05/2013 09/16/2017 Unspecified asthma, uncomplicated 04/08/2018 Overview: around age 11 years. Last episode was 2 years ago. documented as of this encounter (statuses as of 12/13/2021) [facility] History of Past illness Narrative* Problem Noted Date Resolved Date Trichomonal vaginitis during 8 04/08/2018 Overview: 06/06/17 - patient may not have been treated - KJ 06/12/17- Was unable to tolerate dose and did not complete treatment. Treated today and notifying partner for treatment. Dafne Camargo CNM 08/26/17 - Trich negative. Kristin Hobbs APRN.[employer]URSE AIDE Support system deficit 02/06/2017 8 Overview: 02/06/2017 Patient states FOB is aware she is but does not want to be involved. She plans on keeping the baby. TKRN 02/13/17 FOB planning to be involved at this time. SHYAM ROYAL Quit smoking 02/06/2017 04/08/2018 Overview: 02/06/2017Pt recently quit smoking 02/04/2017. Discussed risks of smoking during and advised pt to continue not smoking. TKRN Chlamydia 11/05/2013 09/16/2017 Unspecified asthma, uncomplicated 04/08/2018 Overview: around age 11 years. Last episode was 2 years ago. documented as of this encounter (statuses as of 12/20/2021) [facility] History of Past illness Narrative* Problem Noted Date Resolved Date Trichomonal vaginitis during 8 04/08/2018 Overview: 06/06/17 - patient may not have been treated - KJ 06/12/17- Was unable to tolerate dose and did not complete treatment. Treated today and notifying partner for treatment. Dafne Camargo CNM 08/26/17 - Trich negative. Kristin Hobbs APRN.[employer] EV[employer] NURSE AIDE Support system deficit 02/06/2017 8 Overview: 02/06/2017 Patient states FOB is aware she is but does not want to be involved. She plans on keeping the baby. TKRN 02/13/17 FOB planning to be involved at this time. SHYAM ROYAL Quit smoking 02/06/2017 04/08/2018 Overview: 02/06/2017Pt recently quit smoking 02/04/2017. Discussed risks of smoking during and advised pt to continue not smoking. TKRN Chlamydia 11/05/2013 09/16/2017 Unspecified asthma, uncomplicated 04/08/2018 Overview: around age 11 years. Last episode was 2 years ago. documented as of this encounter (statuses as of 12/24/2021) [facility] History of Past illness Narrative* Problem Noted Date Resolved Date Trichomonal vaginitis during 8 04/08/2018 Overview: 06/06/17 - patient may not have been treated - KJ 06/12/17- Was unable to tolerate dose and did not complete treatment. Treated today and notifying partner for treatment. Dafne Camargo CNM 08/26/17 - Trich negative. Kristin Hobbs APRN.[employer]URSE AIDE Support system deficit 02/06/2017 8 Overview: 02/06/2017 Patient states FOB is aware she is but does not want to be involved. She plans on keeping the baby. TKRN 02/13/17 FOB planning to be involved at this time. SHYAM ROYAL Quit smoking 02/06/2017 04/08/2018 Overview: 02/06/2017Pt recently quit smoking 02/04/2017. Discussed risks of smoking during and advised pt to continue not smoking. TKRN Chlamydia 11/05/2013 09/16/2017 Unspecified asthma, uncomplicated 04/08/2018 Overview: around age 11 years. Last episode was 2 years ago. documented as of this encounter (statuses as of 01/01/2022) [facility] History of Past illness Narrative* Problem Noted Date Resolved Date Trichomonal vaginitis during 8 04/08/2018 Overview: 06/06/17 - patient may not have been treated - KJ 06/12/17- Was unable to tolerate dose and did not complete treatment. Treated today and notifying partner for treatment. Dafne Camargo CNM 08/26/17 - Trich negative. Kristin Hobbs APRN.[facility] Support system deficit 02/06/2017 8 Overview: 02/06/2017 Patient states FOB is aware she is but does not want to be involved. She plans on keeping the baby. TKRN 02/13/17 FOB planning to be involved at this time. SHYAM ROYAL Quit smoking 02/06/2017 04/08/2018 Overview: 02/06/2017Pt recently quit smoking 02/04/2017. Discussed risks of smoking during and advised pt to continue not smoking. TKRN Chlamydia 11/05/2013 09/16/2017 Unspecified asthma, uncomplicated 04/08/2018 Overview: around age 11 years. Last episode was 2 years ago. documented as of this encounter (statuses as of 01/01/2022) [facility] History of Past illness Narrative* Problem Noted Date Resolved Date Trichomonal vaginitis during 8 04/08/2018 Overview: 06/06/17 - patient may not have been treated - KJ 06/12/17- Was unable to tolerate dose and did not complete treatment. Treated today and notifying partner for treatment. Dafne Camargo CNM 08/26/17 - Trich negative. Kristin Hobbs APRN.[facility] Support system deficit 02/06/2017 8 Overview: 02/06/2017 Patient states FOB is aware she is but does not want to be involved. She plans on keeping the baby. TKRN 02/13/17 FOB planning to be involved at this time. SHYAM ROYAL Quit smoking 02/06/2017 04/08/2018 Overview: 02/06/2017Pt recently quit smoking 02/04/2017. Discussed risks of smoking during and advised pt to continue not smoking. TKRN Chlamydia 11/05/2013 09/16/2017 Unspecified asthma, uncomplicated 04/08/2018 Overview: around age 11 years. Last episode was 2 years ago. documented as of this encounter (statuses as of 01/11/2022) [facility] of Past illness Narrative* Problem Noted Date Resolved Date Trichomonal vaginitis during 8 04/08/2018 Overview: 06/06/17 - patient may not have been treated - KJ 06/12/17- Was unable to tolerate dose and did not complete treatment. Treated today and notifying partner for treatment. Dafne Camargo CNM 08/26/17 - Trich negative. Kristin Hobbs APRN.[facility] Support system deficit 02/06/2017 8 Overview: 02/06/2017 Patient states FOB is aware she is but does not want to be involved. She plans on keeping the baby. TKRN 02/13/17 FOB planning to be involved at this time. SHYAM ROYAL Quit smoking 02/06/2017 04/08/2018 Overview: 02/06/2017Pt recently quit smoking 02/04/2017. Discussed risks of smoking during and advised pt to continue not smoking. TKRN Chlamydia 11/05/2013 09/16/2017 Unspecified asthma, uncomplicated 04/08/2018 Overview: around age 11 years. Last episode was 2 years ago. documented as of this encounter (statuses as of 01/14/2022) [facility] History of Past illness Narrative* Problem Noted Date Resolved Date Trichomonal vaginitis during 8 04/08/2018 Overview: 06/06/17 - patient may not have been treated - KJ 06/12/17- Was unable to tolerate dose and did not complete treatment. Treated today and notifying partner for treatment. Dafne Camargo CNM 08/26/17 - Trich negative. Kristin Hobbs APRN.[employer]URSE AIDE Support system deficit 02/06/2017 8 Overview: 02/06/2017 Patient states FOB is aware she is but does not want to be involved. She plans on keeping the baby. TKRN 02/13/17 FOB planning to be involved at this time. SHYAM ROYAL Quit smoking 02/06/2017 04/08/2018 Overview: 02/06/2017Pt recently quit smoking 02/04/2017. Discussed risks of smoking during and advised pt to continue not smoking. TKRN Chlamydia 11/05/2013 09/16/2017 Unspecified asthma, uncomplicated 04/08/2018 Overview: around age 11 years. Last episode was 2 years ago. documented as of this encounter (statuses as of 01/17/2022) [facility] of Past illness Narrative* Problem Noted Date Resolved Date Trichomonal vaginitis during 8 04/08/2018 Overview: 06/06/17 - patient may not have been treated - KJ 06/12/17- Was unable to tolerate dose and did not complete treatment. Treated today and notifying partner for treatment. Dafne Camargo CNM 08/26/17 - Trich negative. Kristin Hobbs APRN.[facility] Support system deficit 02/06/2017 8 Overview: 02/06/2017 Patient states FOB is aware she is but does not want to be involved. She plans on keeping the baby. TKRN 02/13/17 FOB planning to be involved at this time. SHYAM ROYAL Quit smoking 02/06/2017 04/08/2018 Overview: 02/06/2017Pt recently quit smoking 02/04/2017. Discussed risks of smoking during and advised pt to continue not smoking. TKRN Chlamydia 11/05/2013 09/16/2017 Unspecified asthma, uncomplicated 04/08/2018 Overview: around age 11 years. Last episode was 2 years ago. documented as of this encounter (statuses as of 01/18/2022) [facility] of [facility] illness Narrative* Problem Noted Date Resolved Date Trichomonal vaginitis during 8 04/08/2018 Overview: 06/06/17 - patient may not have been treated - KJ 06/12/17- Was unable to tolerate dose and did not complete treatment. Treated today and notifying partner for treatment. Dafne Camargo CNM 08/26/17 - Trich negative. Kristin Hobbs APRN.[employer] NURSE AIDE Support system deficit 02/06/2017 8 Overview: 02/06/2017 Patient states FOB is aware she is but does not want to be involved. She plans on keeping the baby. TKRN 02/13/17 FOB planning to be involved at this time. SHYAM ROYAL Quit smoking 02/06/2017 04/08/2018 Overview: 02/06/2017Pt recently quit smoking 02/04/2017. Discussed risks of smoking during and advised pt to continue not smoking. TKRN Chlamydia 11/05/2013 09/16/2017 Unspecified asthma, uncomplicated 04/08/2018 Overview: around age 11 years. Last episode was 2 years ago. documented as of this encounter (statuses as of 01/22/2022) [facility] of Past illness Narrative* Problem Noted Date Resolved Date Trichomonal vaginitis during 8 04/08/2018 Overview: 06/06/17 - patient may not have been treated - KJ 06/12/17- Was unable to tolerate dose and did not complete treatment. Treated today and notifying partner for treatment. Dafne Camargo CNM 08/26/17 - Trich negative. Kristin Hobbs APRN.[employer] EV[employer] NURSE AIDE Support system deficit 02/06/2017 8 Overview: 02/06/2017 Patient states FOB is aware she is but does not want to be involved. She plans on keeping the baby. TKRN 02/13/17 FOB planning to be involved at this time. SHYAM ROYAL Quit smoking 02/06/2017 04/08/2018 Overview: 02/06/2017Pt recently quit smoking 02/04/2017. Discussed risks of smoking during and advised pt to continue not smoking. TKRN Chlamydia 11/05/2013 09/16/2017 Unspecified asthma, uncomplicated 04/08/2018 Overview: around age 11 years. Last episode was 2 years ago. documented as of this encounter (statuses as of 01/22/2022) [facility] of Past illness Narrative* Problem Noted Date Resolved Date Trichomonal vaginitis during 8 04/08/2018 Overview: 06/06/17 - patient may not have been treated - KJ 06/12/17- Was unable to tolerate dose and did not complete treatment. Treated today and notifying partner for treatment. Dafne Camargo CNM 08/26/17 - Trich negative. Kristin Hobbs, BHUMIKA.[facility] Support system deficit 02/06/2017 8 Overview: 02/06/2017 Patient states FOB is aware she is but does not want to be involved. She plans on keeping the baby. TKRN 02/13/17 FOB planning to be involved at this time. SHYAM ROYAL Quit smoking 02/06/2017 04/08/2018 Overview: 02/06/2017Pt recently quit smoking 02/04/2017. Discussed risks of smoking during and advised pt to continue not smoking. TKRN Chlamydia 11/05/2013 09/16/2017 Unspecified asthma, uncomplicated 04/08/2018 Overview: around age 11 years. Last episode was 2 years ago. documented as of this encounter (statuses as of 01/24/2022) [facility] Narrative* Problem Noted Date Resolved Date Trichomonal vaginitis during 8 04/08/2018 Overview: 06/06/17 - patient may not have been treated - KJ 06/12/17- Was unable to tolerate dose and did not complete treatment. Treated today and notifying partner for treatment. Dafne Camargo CNM 08/26/17 - Trich negative. Kristin Hobbs APRN.[employer] NURSE AIDE Support system deficit 02/06/2017 8 Overview: 02/06/2017 Patient states FOB is aware she is but does not want to be involved. She plans on keeping the baby. TKRN 02/13/17 FOB planning to be involved at this time. SHYAM ROYAL Quit smoking 02/06/2017 04/08/2018 Overview: 02/06/2017Pt recently quit smoking 02/04/2017. Discussed risks of smoking during and advised pt to continue not smoking. TKRN Chlamydia 11/05/2013 09/16/2017 Unspecified asthma, uncomplicated 04/08/2018 Overview: around age 11 years. Last episode was 2 years ago. documented as of this encounter (statuses as of 01/29/2022) [facility] History of Past illness Narrative* Problem Noted Date Resolved Date Trichomonal vaginitis during 8 04/08/2018 Overview: 06/06/17 - patient may not have been treated - KJ 06/12/17- Was unable to tolerate dose and did not complete treatment. Treated today and notifying partner for treatment. Dafne Camargo CNM 08/26/17 - Trich negative. Kristin Hobbs APRN.[employer] Support system deficit 02/06/2017 8 Overview: 02/06/2017 Patient states FOB is aware she is but does not want to be involved. She plans on keeping the baby. TKRN 02/13/17 FOB planning to be involved at this time. SHYAM ROYAL Quit smoking 02/06/2017 04/08/2018 Overview: 02/06/2017Pt recently quit smoking 02/04/2017. Discussed risks of smoking during and advised pt to continue not smoking. TKRN Chlamydia 11/05/2013 09/16/2017 Unspecified asthma, uncomplicated 04/08/2018 Overview: around age 11 years. Last episode was 2 years ago. documented as of this encounter (statuses as of 01/29/2022) [facility] History of Past illness Narrative* Problem Noted Date Resolved Date Trichomonal vaginitis during 8 04/08/2018 Overview: 06/06/17 - patient may not have been treated - KJ 06/12/17- Was unable to tolerate dose and did not complete treatment. Treated today and notifying partner for treatment. Dafne Camargo CNM 08/26/17 - Trich negative. Kristin Hobbs APRN.[employer] EV[employer] NURSE AIDE Support system deficit 02/06/2017 8 Overview: 02/06/2017 Patient states FOB is aware she is but does not want to be involved. She plans on keeping the baby. TKRN 02/13/17 FOB planning to be involved at this time. SHYAM ROYAL Quit smoking 02/06/2017 04/08/2018 Overview: 02/06/2017Pt recently quit smoking 02/04/2017. Discussed risks of smoking during and advised pt to continue not smoking. TKRN Chlamydia 11/05/2013 09/16/2017 Unspecified asthma, uncomplicated 04/08/2018 Overview: around age 11 years. Last episode was 2 years ago. documented as of this encounter (statuses as of 01/31/2022) [facility] History of Past illness Narrative* Problem Noted Date Resolved Date Trichomonal vaginitis during 8 04/08/2018 Overview: 06/06/17 - patient may not have been treated - KJ 06/12/17- Was unable to tolerate dose and did not complete treatment. Treated today and notifying partner for treatment. Dafne Camargo CNM 08/26/17 - Trich negative. Kristin Hobbs APRN.[facility] Support system deficit 02/06/2017 8 Overview: 02/06/2017 Patient states FOB is aware she is but does not want to be involved. She plans on keeping the baby. TKRN 02/13/17 FOB planning to be involved at this time. SHYAM ROYAL Quit smoking 02/06/2017 04/08/2018 Overview: 02/06/2017Pt recently quit smoking 02/04/2017. Discussed risks of smoking during and advised pt to continue not smoking. TKRN Chlamydia 11/05/2013 09/16/2017 Unspecified asthma, uncomplicated 04/08/2018 Overview: around age 11 years. Last episode was 2 years ago. documented as of this encounter (statuses as of 02/05/2022) [facility] History of Past illness Narrative* Problem Noted Date Resolved Date Trichomonal vaginitis during 8 04/08/2018 Overview: 06/06/17 - patient may not have been treated - KJ 06/12/17- Was unable to tolerate dose and did not complete treatment. Treated today and notifying partner for treatment. Dafne Camargo CNM 08/26/17 - Trich negative. Kristin Hobbs APRN.[facility] Support system deficit 02/06/2017 8 Overview: 02/06/2017 Patient states FOB is aware she is but does not want to be involved. She plans on keeping the baby. TKRN 02/13/17 FOB planning to be involved at this time. SHYAM ROYAL Quit smoking 02/06/2017 04/08/2018 Overview: 02/06/2017Pt recently quit smoking 02/04/2017. Discussed risks of smoking during and advised pt to continue not smoking. TKRN Chlamydia 11/05/2013 09/16/2017 Unspecified asthma, uncomplicated 04/08/2018 Overview: around age 11 years. Last episode was 2 years ago. documented as of this encounter (statuses as of 02/15/2022) [facility] History of Past illness Narrative* Problem Noted Date Resolved Date Trichomonal vaginitis during 8 04/08/2018 Overview: 06/06/17 - patient may not have been treated - KJ 06/12/17- Was unable to tolerate dose and did not complete treatment. Treated today and notifying partner for treatment. Dafne Camargo CNM 08/26/17 - Trich negative. Kristin Hobbs APRN.[facility] Support system deficit 02/06/2017 8 Overview: 02/06/2017 Patient states FOB is aware she is but does not want to be involved. She plans on keeping the baby. TKRN 02/13/17 FOB planning to be involved at this time. SHYAM ROYAL Quit smoking 02/06/2017 04/08/2018 Overview: 02/06/2017Pt recently quit smoking 02/04/2017. Discussed risks of smoking during and advised pt to continue not smoking. TKRN Chlamydia 11/05/2013 09/16/2017 Unspecified asthma, uncomplicated 04/08/2018 Overview: around age 11 years. Last episode was 2 years ago. documented as of this encounter (statuses as of 02/19/2022) [facility] History of Past illness Narrative* Problem Noted Date Resolved Date Trichomonal vaginitis during 8 04/08/2018 Overview: 06/06/17 - patient may not have been treated - KJ 06/12/17- Was unable to tolerate dose and did not complete treatment. Treated today and notifying partner for treatment. Dafne Camargo CNM 08/26/17 - Trich negative. Kristin Hobbs APRN.[facility] Support system deficit 02/06/2017 8 Overview: 02/06/2017 Patient states FOB is aware she is but does not want to be involved. She plans on keeping the baby. TKRN 02/13/17 FOB planning to be involved at this time. SHYAM ROYAL Quit smoking 02/06/2017 04/08/2018 Overview: 02/06/2017Pt recently quit smoking 02/04/2017. Discussed risks of smoking during and advised pt to continue not smoking. TKRN Chlamydia 11/05/2013 09/16/2017 Unspecified asthma, uncomplicated 04/08/2018 Overview: around age 11 years. Last episode was 2 years ago. documented as of this encounter (statuses as of 02/20/2022) [facility] History of Past illness Narrative* Problem Noted Date Resolved Date Trichomonal vaginitis during 8 04/08/2018 Overview: 06/06/17 - patient may not have been treated - KJ 06/12/17- Was unable to tolerate dose and did not complete treatment. Treated today and notifying partner for treatment. Dafne Camargo CNM 08/26/17 - Trich negative. Kristin Hobbs APRN.[facility] Support system deficit 02/06/2017 8 Overview: 02/06/2017 Patient states FOB is aware she is but does not want to be involved. She plans on keeping the baby. TKRN 02/13/17 FOB planning to be involved at this time. SHYAM ROYAL Quit smoking 02/06/2017 04/08/2018 Overview: 02/06/2017Pt recently quit smoking 02/04/2017. Discussed risks of smoking during and advised pt to continue not smoking. TKRN Chlamydia 11/05/2013 09/16/2017 Unspecified asthma, uncomplicated 04/08/2018 Overview: around age 11 years. Last episode was 2 years ago. documented as of this encounter (statuses as of 02/20/2022) [facility] History of Past illness Narrative* Problem Noted Date Resolved Date Trichomonal vaginitis during 8 04/08/2018 Overview: 06/06/17 - patient may not have been treated - KJ 06/12/17- Was unable to tolerate dose and did not complete treatment. Treated today and notifying partner for treatment. Dafne Camargo CNM 08/26/17 - Trich negative. Kristin Hobbs APRN.[employer] EV[employer] NURSE AIDE Support system deficit 02/06/2017 8 Overview: 02/06/2017 Patient states FOB is aware she is but does not want to be involved. She plans on keeping the baby. TKRN 02/13/17 FOB planning to be involved at this time. SHYAM ROYAL Quit smoking 02/06/2017 04/08/2018 Overview: 02/06/2017Pt recently quit smoking 02/04/2017. Discussed risks of smoking during and advised pt to continue not smoking. TKRN Chlamydia 11/05/2013 09/16/2017 Unspecified asthma, uncomplicated 04/08/2018 Overview: around age 11 years. Last episode was 2 years ago. documented as of this encounter (statuses as of 02/20/2022) [facility] History of Past illness Narrative* Problem Noted Date Resolved Date Trichomonal vaginitis during 8 04/08/2018 Overview: 06/06/17 - patient may not have been treated - KJ 06/12/17- Was unable to tolerate dose and did not complete treatment. Treated today and notifying partner for treatment. Dafne Camargo CNM 08/26/17 - Trich negative. Kristin Hobbs APRN.[employer]URSE A[employer] Support system deficit 02/06/2017 8 Overview: 02/06/2017 Patient states FOB is aware she is but does not want to be involved. She plans on keeping the baby. TKRN 02/13/17 FOB planning to be involved at this time. SHYAM ROYAL Quit smoking 02/06/2017 04/08/2018 Overview: 02/06/2017Pt recently quit smoking 02/04/2017. Discussed risks of smoking during and advised pt to continue not smoking. TKRN Chlamydia 11/05/2013 09/16/2017 Unspecified asthma, uncomplicated 04/08/2018 Overview: around age 11 years. Last episode was 2 years ago. documented as of this encounter (statuses as of 02/21/2022) [facility] History of Past illness Narrative* Problem Noted Date Resolved Date Trichomonal vaginitis during 8 04/08/2018 Overview: 06/06/17 - patient may not have been treated - [place] 06/12/17- Was unable to tolerate dose and did not complete treatment. Treated today and notifying partner for treatment. Dafne Camargo CNM 08/26/17 - Trich negative. Kristin Hobbs, BHUMIKA.[facility] Support system deficit 02/06/2017 8 Overview: 02/06/2017 Patient states FOB is aware she is but does not want to be involved. She plans on keeping the baby. TKRN 02/13/17 FOB planning to be involved at this time. SHYAM ROYAL Quit smoking 02/06/2017 04/08/2018 Overview: 02/06/2017Pt recently quit smoking 02/04/2017. Discussed risks of smoking during and advised pt to continue not smoking. TKRN Chlamydia 11/05/2013 09/16/2017 Unspecified asthma, uncomplicated 04/08/2018 Overview: around age 11 years. Last episode was 2 years ago. documented as of this encounter (statuses as of 02/21/2022) [facility] History of Past illness Narrative* Problem Noted Date Resolved Date Trichomonal vaginitis during 8 04/08/2018 Overview: 06/06/17 - patient may not have been treated - KJ 06/12/17- Was unable to tolerate dose and did not complete treatment. Treated today and notifying partner for treatment. Dafne Camargo CNM 08/26/17 - Trich negative. Kristin Hobbs APRN.[employer] EV[employer] NURSE AIDE Support system deficit 02/06/2017 8 Overview: 02/06/2017 Patient states FOB is aware she is but does not want to be involved. She plans on keeping the baby. TKRN 02/13/17 FOB planning to be involved at this time. SHYAM ROYAL Quit smoking 02/06/2017 04/08/2018 Overview: 02/06/2017Pt recently quit smoking 02/04/2017. Discussed risks of smoking during and advised pt to continue not smoking. TKRN Chlamydia 11/05/2013 09/16/2017 Unspecified asthma, uncomplicated 04/08/2018 Overview: around age 11 years. Last episode was 2 years ago. documented as of this encounter (statuses as of 02/21/2022) [facility] History of Past illness Narrative* Problem Noted Date Resolved Date Trichomonal vaginitis during 8 04/08/2018 Overview: 06/06/17 - patient may not have been treated - KJ 06/12/17- Was unable to tolerate dose and did not complete treatment. Treated today and notifying partner for treatment. Dafne Camargo CNM 08/26/17 - Trich negative. Kristin Hobbs APRN.[employer] EV[employer] NURSE AIDE Support system deficit 02/06/2017 8 Overview: 02/06/2017 Patient states FOB is aware she is but does not want to be involved. She plans on keeping the baby. TKRN 02/13/17 FOB planning to be involved at this time. GENNY, CNM Quit smoking 02/06/2017 04/08/2018 Overview: 02/06/2017Pt recently quit smoking 02/04/2017. Discussed risks of smoking during and advised pt to continue not smoking. TKRN Chlamydia 11/05/2013 09/16/2017 Unspecified asthma, uncomplicated 04/08/2018 Overview: around age 11 years. Last episode was 2 years ago. documented as of this encounter (statuses as of 02/28/2022) [facility] History of Past illness Narrative* Problem Noted Date Resolved Date Trichomonal vaginitis during 8 04/08/2018 Overview: 06/06/17 - patient may not have been treated - 06/12/17- Was unable to tolerate dose and did not complete treatment. Treated today and notifying partner for treatment. Dafne Camargo CNM 08/26/17 - Trich negative. Kristin Hobbs APRN.[employer] EV[employer] NURSE AIDE Support system deficit 02/06/2017 8 Overview: 02/06/2017 Patient states FOB is aware she is but does not want to be involved. She plans on keeping the baby. TKRN 02/13/17 FOB planning to be involved at this time. SHYAM ROYAL Quit smoking 02/06/2017 04/08/2018 Overview: 02/06/2017Pt recently quit smoking 02/04/2017. Discussed risks of smoking during and advised pt to continue not smoking. TKRN Chlamydia 11/05/2013 09/16/2017 Unspecified asthma, uncomplicated 04/08/2018 Overview: around age 11 years. Last episode was 2 years ago. documented as of this encounter (statuses as of 02/28/2022) [facility] History of Past illness Narrative* Problem Noted Date Resolved Date Trichomonal vaginitis during 8 04/08/2018 Overview: 06/06/17 - patient may not have been treated - 06/12/17- Was unable to tolerate dose and did not complete treatment. Treated today and notifying partner for treatment. Dafne Camargo CNM 08/26/17 - Trich negative. Kristin Hobbs APRN.[facility] Support system deficit 02/06/2017 8 Overview: 02/06/2017 Patient states FOB is aware she is but does not want to be involved. She plans on keeping the baby. TKRN 02/13/17 FOB planning to be involved at this time. SHYAM ROYAL Quit smoking 02/06/2017 04/08/2018 Overview: 02/06/2017Pt recently quit smoking 02/04/2017. Discussed risks of smoking during and advised pt to continue not smoking. TKRN Chlamydia 11/05/2013 09/16/2017 Unspecified asthma, uncomplicated 04/08/2018 Overview: around age 11 years. Last episode was 2 years ago. documented as of this encounter (statuses as of 03/01/2022) [facility] History of Past illness Narrative* Problem Noted Date Resolved Date Trichomonal vaginitis during 8 04/08/2018 Overview: 06/06/17 - patient may not have been treated - 06/12/17- Was unable to tolerate dose and did not complete treatment. Treated today and notifying partner for treatment. Dafne Camargo CNM 08/26/17 - Trich negative. Kristin Hobbs APRN.[facility] Support system deficit 02/06/2017 8 Overview: 02/06/2017 Patient states FOB is aware she is but does not want to be involved. She plans on keeping the baby. TKRN 02/13/17 FOB planning to be involved at this time. SHYAM ROYAL Quit smoking 02/06/2017 04/08/2018 Overview: 02/06/2017Pt recently quit smoking 02/04/2017. Discussed risks of smoking during and advised pt to continue not smoking. TKRN Chlamydia 11/05/2013 09/16/2017 Unspecified asthma, uncomplicated 04/08/2018 Overview: around age 11 years. Last episode was 2 years ago. documented as of this encounter (statuses as of 05/30/2022) [facility] of Past illness Narrative* Problem Noted Date Diagnosed Date Resolved Date Trichomonal vaginitis during 06/06/2017 04/08/2018 Overview: 06/06/17 - patient may not have been treated - KJ 06/12/17- Was unable to tolerate dose and did not complete treatment. Treated today and notifying partner for treatment. Dafne Camargo CNM 08/26/17 - Trich negative. Kristin Hobbs APRN.[facility] Support system deficit 02/06/201704/08 Overview: 02/06/2017 Patient states FOB is aware she is but does not want to be involved. She plans on keeping the baby. TKRN 02/13/17 FOB planning to be involved at this time. SHYAM ROYAL Quit smoking 02/06/2017 04/08/2018 Overview: 02/06/2017Pt recently quit smoking 02/04/2017. Discussed risks of smoking during and advised pt to continue not smoking. TKRN Chlamydia 11/05/2013 09/16/2017 Unspecified asthma, uncomplicated 04/08/2018 Overview: around age 11 years. Last episode was 2 years ago. documented as of this encounter (statuses as of 02/05/2023) [facility] of Past illness Narrative* Problem Noted Date Diagnosed Date Resolved Date Trichomonal vaginitis during 06/06/2017 04/08/2018 Overview: 06/06/17 - patient may not have been treated - KJ 06/12/17- Was unable to tolerate dose and did not complete treatment. Treated today and notifying partner for treatment. Dafne Camargo CNM 08/26/17 - Trich negative. Kristin Hobbs APRN.[employer] EV[employer] NURSE AIDE Support system deficit 02/06/201704/08 Overview: 02/06/2017 Patient states FOB is aware she is but does not want to be involved. She plans on keeping the baby. TKRN 02/13/17 FOB planning to be involved at this time. GENNY, CNM Quit smoking 02/06/2017 04/08/2018 Overview: 02/06/2017Pt recently quit smoking 02/04/2017. Discussed risks of smoking during and advised pt to continue not smoking. TKRN Chlamydia 11/05/2013 09/16/2017 Unspecified asthma, uncomplicated 04/08/2018 Overview: around age 11 years. Last episode was 2 years ago. documented as of this encounter (statuses as of 08/02/2023) [facility] No data available for this section [facility] Evaluation noteNo assessment information available [facility] Work Phone: Evaluation note* Diagnosis with uncertain dates in first trimester- Primary [facility] Diagnosis Unsure of LMP (last menstrual period) as reason for ultrasound scan- Primary Encounter for routine screening for malformation using ultrasonics Encounter for supervision of other normal in first trimester Nausea and vomiting in Unspecified vomiting of , unspecified as to episode of care Nausea and vomiting during documented in this encounter [facility] note* Diagnosis 16 weeks gestation of - Primary state, incidental Pelvic pain in female Unspecified symptom associated with female genital organs documented in this encounter [facility]* Diagnosis Encounter for anatomic survey- Primary Known anomaly, antepartum, single or unspecified fetus 19 weeks gestation of state, incidental documented in this encounter [facility]* Diagnosis 19 weeks gestation of - Primary state, incidental Abnormal ultrasound Abnormal findings on screening gastroschisis during , antepartum, single or unspecified fetus documented in this encounter [facility] note* Diagnosis Encounter for ultrasound to check growth- Primary Encounter for routine screening for malformation using ultrasonics 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 , antepartum 23 weeks gestation of state, incidental [facility] Diagnosis gastroschisis during , antepartum, single or unspecified fetus- Primary [facility] Diagnosis 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 , antepartum- Primary 26 weeks gestation of state, incidental IUGR (intrauterine growth restriction) affecting care of mother, third trimester, fetus 1 [facility] Diagnosis Intrauterine growth restriction (IUGR) affecting care of mother, third trimester, single gestation- Primary [facility] Diagnosis gastroschisis during , antepartum, single or unspecified fetus- Primary High-risk in second trimester IUGR (intrauterine growth restriction) affecting care of mother, third trimester, fetus 1 28 weeks gestation of state, incidental [facility] Diagnosis Supervision of high risk in third trimester- Primary Unspecified high-risk 28 weeks gestation of state, incidental Vaginal discharge during in third trimester Antepartum anemia complicating in third trimester Antepartum anemia Anemia, antepartum [facility]* Diagnosis gastroschisis during , antepartum, single or unspecified fetus- Primary High-risk in second trimester with history of section, antepartum care Unspecified high-risk pericardial effusion affecting management of mother Intrauterine growth restriction (IUGR) affecting care of mother, third trimester, single gestation [facility] Diagnosis Abnormal ultrasound- Primary Abnormal findings on screening [facility]* Diagnosis gastroschisis during , antepartum, single or unspecified fetus- Primary High-risk in second trimester 30 weeks gestation of state, incidental [facility] Diagnosis Supervision of high risk in third trimester- Primary Unspecified high-risk 30 weeks gestation of state, incidental [facility] Diagnosis Suspected abnormality affecting management of mother, single or unspecified fetus- Primary [facility]* Diagnosis gastroschisis during , antepartum, single or unspecified fetus- Primary High-risk in second trimester Intrauterine growth restriction (IUGR) affecting care of mother, second trimester, single gestation [facility] Diagnosis 32 weeks gestation of - Primary state, incidental Nonintractable headache, unspecified chronicity pattern, unspecified headache type documented in this encounter [facility] note* Diagnosis Viral URI with cough- Primary Acute upper respiratory infections of unspecified site [facility] Diagnosis gastroschisis during , antepartum, single or unspecified fetus- Primary High-risk in second trimester 33 weeks gestation of state, incidental documented in this encounter [facility]* Diagnosis gastroschisis during , antepartum, single or unspecified fetus- Primary IUGR (intrauterine growth restriction) affecting care of mother, third trimester, not applicable or unspecified fetus 33 weeks gestation of state, incidental documented in this encounter [facility]* Diagnosis gastroschisis during , antepartum, single or unspecified fetus- Primary documented in this encounter [facility]* Diagnosis gastroschisis during , antepartum, single or unspecified fetus- Primary 33 weeks gestation of state, incidental gastroschisis during , antepartum, single or unspecified fetus 33 weeks gestation of state, incidental [facility] Diagnosis 34 weeks gestation of - Primary state, incidental gastroschisis during , antepartum, single or unspecified fetus Supervision of high risk in third trimester Unspecified high-risk gastroschisis during , antepartum, single or unspecified fetus 33 weeks gestation of state, incidental documented in this encounter [facility] Diagnosis Intrauterine growth restriction (IUGR) affecting care of mother, third trimester, single gestation- Primary gastroschisis during , antepartum, single or unspecified fetus 34 weeks gestation of state, incidental gastroschisis during , antepartum, single or unspecified fetus 33 weeks gestation of state, incidental documented in this encounter [facility]* Diagnosis gastroschisis during , antepartum, single or unspecified fetus- Primary gastroschisis during , antepartum, single or unspecified fetus 33 weeks gestation of state, incidental documented in this encounter [facility] note* Diagnosis Viral illness- Primary Unspecified viral infection, in conditions classified elsewhere and of unspecified site Pharyngitis, unspecified etiology documented in this encounter [facility] note* Diagnosis URI, acute- Primary Acute upper respiratory infections of unspecified site Abdominal pain, unspecified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 of Alcohol and Drug Abuse Patient Records regulations: The Federal rules restrict any use of the information to criminally investigate or prosecute any alcohol or drug abuse patient.[facility] CenterIn the event this information is protected by the Federal Confidentiality of Alcohol and Drug Abuse Patient Records regulations: The Federal rules restrict any use of the information to criminally investigate or prosecute any alcohol or drug abuse patient.[facility] CenterIn the event this information is protected by the Federal Confidentiality of Alcohol and Drug Abuse Patient Records regulations: The Federal rules restrict any use of the information to criminally investigate or prosecute any alcohol or drug abuse patient.[facility] CenterIn the event this information is protected by the Federal Confidentiality of Alcohol and Drug Abuse Patient Records regulations: The Federal rules restrict any use of the information to criminally investigate or prosecute any alcohol or drug abuse patient.[facility] CenterIn the event this information is protected by the Federal Confidentiality of Alcohol and Drug Abuse Patient Records regulations: The Federal rules restrict any use of the information to criminally investigate or prosecute any alcohol or drug abuse patient.[facility] CenterIn the event this information is protected by the Federal Confidentiality of Alcohol and Drug Abuse Patient Records regulations: The Federal rules restrict any use of the information to criminally investigate or prosecute any alcohol or drug abuse patient.[facility] CenterIn the event this information is protected by the Federal Confidentiality of Alcohol and Drug Abuse Patient Records regulations: The Federal rules restrict any use of the information to criminally investigate or prosecute any alcohol or drug abuse patient.[facility] CenterIn the event this information is protected by the Federal Confidentiality of Alcohol and Drug Abuse Patient Records regulations: The Federal rules restrict any use of the information to criminally investigate or prosecute any alcohol or drug abuse patient.[facility] CenterIn the event this information is protected by the Federal Confidentiality of Alcohol and Drug Abuse Patient Records regulations: The Federal rules restrict any use of the information to criminally investigate or prosecute any alcohol or drug abuse patient.[facility] Reason for Visit (unrecogniz ed section and content) Reason Comments [employer] 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 Ultrasound Reason Onset Date Comments Care 08/20/2021 Reason Comments ED Follow-up Reason Onset Date Comments Care 10/24/2021 Reason Comments US Specialty Diagnoses / Procedures Referred By Contac t Referred To Contact [facility] Diagnoses 16 weeks gestation of Procedures OBSTETRIC ULTRASOUND WHI US PREG UTERUS AFTER 1ST TRIMEST GESTATION Lynne Jensen APRN.CN [address] [place] [address] [facility] [address] [place] [address] Referral ID Status Reason Start Date Expiration Date V isits Requested Visits Authorized [id number] Closed Auto-Generate d Referral 10/30/2021 05/25/2022 1 1 Reason Onset Date Comments Care 11/14/2021 Reason Comments Consult Reason Comments OB Vomiting Reason Comments US Specialty Diagnoses / Procedures Referred By Contac t Referred To Contact [facility] Diagnoses 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 , antepartum Procedures OBSTETRIC ULTRASOUND WHI US PREG UTERUS AFTER 1ST [place] [address] [place] [address] [facility] [address] [address] Referral ID Status Reason Start Date Expiration Date Visits Requested Visits Authorized [id number] Authorized Auto-Generat ed Referral 12/19/2021 05/25/2022 20 20 Specialty Diagnoses / Procedures Referred By Contac t Referred To Contact [facility] Diagnoses High-risk in second trimester gastroschisis during , antepartum, single or unspecified fetus Encounter for supervision of normal , unspecified, unspecified trimester Procedures BIOPHYSICAL PROFILE US WHI BIOPHYSICAL PROFILE NON-STRESS TESTING BIOPHYSICAL PROFILE W/O NON-STRESS TESTING Fátima Espino MD [address] [place] [address] [address] Referral ID Status Reason Start Date Expiration Date Visits Requested Visits Authorized [id number] Authorized Auto-Generat ed Referral 01/09/2022 05/25/2022 10 10 Reason Onset Date Comments Care 01/18/2022 Reason Onset Date Comments Care 02/15/2022 Headaches Reason Comments Chest Congestion cough, sore throat x 1 day Reason Comments Results Reason Comments Delivery Timing Reason Onset Date Comments Care 02/28/2022 Specialty Diagnoses / Procedures Referred By Contac t Referred To Contact [facility] Diagnoses gastroschisis during , antepartum, single or unspecified fetus 33 weeks gestation of Procedures BIOPHYSICAL PROFILE [facility] BIOPHYSICAL PROFILE NON-STRESS TESTING Krystal Huerta MD [address] [id number] [place] [id number] Referral ID Status Reason Start Date Expiration Date V isits Requested Visits Authorized [id number] Closed Auto-Generate d Referral 02/21/2022 02/21/2023 1 1 Reason Comments Nurse Visit Reason Comments Fever Sore throat, cough x 1 day Reason Comments Cough Congestion, inetrmit tent fevers x2 days Nausea Concerns for pregnan cy, nausea and upset stomach Reason Comments Nausea & Vomiting Diarrhea x 1 day kiera al/chest congestion. Stomachache Reason Comments Nausea Diarrhea, stomach pa in x 2 days Reason Comments Results Orders Reason Comments Nausea & Vomiting Reason Comments New OB intake questions Reason Comments Headache migraine x 3 weeks, 16 weeks Reason Comments PRAF Reason Comments US Specialty Diagnoses / Procedures Referred By Contac t Referred To Contact [facility] Diagnoses with uncertain dates, antepartum (HCC) Procedures OBSTETRIC ULTRASOUND WHI US PREG UTERUS AFTER 1ST TRIMEST GESTATION Dafne Camargo APRN.[facility] [address] [place] [address] Phone: tel: fax: [address] [phone] Referral ID Status Reason Start Date Expiration Date V isits Requested Visits Authorized [id number] Closed Auto-Generate d Referral 11/29/2024 11/29/2025 1 1 Reason Comments Appointment Reason Comments Initial OB Visit Specialty Diagnoses / Procedures Referred By Contac t Referred To Contact [facility] Diagnoses History of anomaly in prior , currently , third trimester (HCC) Procedures OBSTETRIC ULTRASOUND WHI US PREG UTERUS AFTER 1ST TRIMEST GESTATION Wallace Andino, DO [address] [place] [address] Phone: tel: fax: [address] [phone] Referral ID Status Reason Start Date Expiration Date V isits Requested Visits Authorized [id number] Closed Auto-Generate d Referral 12/01/2024 12/01/2025 1 1 Reason Onset Date Comments Care 12/27/2024 Reason Onset Date Comments Care 01/04/2025 Care Teams (unrecognized sec tion and content) [employer] Relationship Specialty Start Date End Date Aldo Aponte III, MD PCP - General Family Practice 04/17/15 [employer] Relationship Specialty Start Date End Date Aldo Aponte III, MD PCP - General Family Practice 04/17/15 [employer] Relationship Specialty Start Date End Date Aldo Aponte III, MD PCP - General Family Practice 04/17/15 [employer] Relationship Specialty Start Date End Date Aldo Aponte III, MD PCP - General Family Practice 04/17/15 [employer] Relationship Specialty Start Date End Date Aldo Aponte III, MD PCP - General Family Practice 04/17/15 [employer] Relationship Specialty Start Date End Date Aldo Aponte III, MD PCP - General Family Practice 04/17/15 [employer] Relationship Specialty Start Date End Date Aldo Aponte III, MD PCP - General Family Practice 04/17/15 [employer] Relationship Specialty Start Date End Date Aldo Aponte III, MD PCP - General Family Practice 04/17/15 [employer] Relationship Specialty Start Date End Date Dilam Nagy RN [employer] Consultant Medicine 01/22/22 04/16/22 [employer] Relationship Specialty Start Date End Date Dilma Nagy RN Real Estate Listing Consultant Medicine 01/22/22 04/16/22 [employer] Relationship Specialty Start Date End Date Aldo Aponte III, MD PCP - General Family Practice 04/17/15 01/07/22 [employer] Relationship Specialty Start Date End Date Dilma Nagy RN Real Estate Listing Consultant Medicine 01/22/22 04/16/22 [employer] Relationship Specialty Start Date End Date Dilma Nagy RN Real Estate Listing Consultant Medicine 01/22/22 04/16/22 [employer] Relationship Specialty Start Date End Date Dilma Nagy RN Real Estate Listing Consultant Medicine 01/22/22 04/16/22 [employer] Relationship Specialty Start Date End Date Dilma Nagy RN Real Estate Listing Consultant Medicine 01/22/22 04/16/22 [employer] Relationship Specialty Start Date End Date Dilma Nagy RN Real Estate Listing Consultant Medicine 01/22/22 04/16/22 [employer] Relationship Specialty Start Date End Date Dilma Nagy RN Real Estate Listing Consultant Medicine 01/22/22 04/16/22 [employer] Relationship Specialty Start Date End Date Dilma Nagy RN Real Estate Listing Consultant Medicine 01/22/22 04/16/22 [employer] Relationship Specialty Start Date End Date Dilma Nagy RN Real Estate Listing Consultant Medicine 01/22/22 04/16/22 [employer]isher Relationship Specialty Start Date End Date Dilma Nagy RN Real Estate Listing Consultant Medicine 01/22/22 04/16/22 [employer] Relationship Specialty Start Date End Date Dilma Nagy RN Real Estate Listing Consultant Medicine 01/22/22 04/16/22 [employer] Relationship Specialty Start Date End Date Aldo Aponte III, MD PCP - General Family Medicine 04/17/15 01/07/22 FOR RECORDS PERTAINING TO PATIENTS WHO ARE OR HAVE BEEN ENROLLED IN A CHEMICAL DEPENDENCY/SUBSTANCEABUSE PROGRAM, SOME INFORMATION MAY BE OMITTED. This clinical summary was aggregated from multiple sources. Caution should be exercised in using it in the provision of clinical care. This summary normalizes information from multiple sources, and as a consequence, information in this document may materially change the coding, format and clinical context of patient data. In addition, data may be omitted in some cases. CLINICAL DECISIONS SHOULD BE BASED ON THE PRIMARY CLINICAL RECORDS. [facility] [employer] [facility]. provides no warranty or guarantee of the accuracy or completeness of information in this document.
[2025-01-06 20:39] VITALS: PULSE 97; O2SAT 99
[2025-01-06 21:07] LABS: Mucous, Urine 0 SEEN /hpf (<or=2+)
[2025-01-06 21:30] LABS: Color, Urine Straw (Yellow); Glucose, Dipstick Normal (Normal); Ketone-Dipstick Negative (Negative); Leukocyte Esterase-Dipstick 25 /ul (Negative); Nitrite-Dipstick Negative (Negative); Occult Blood-Urine 10 /ul (Negative); Protein-Dipstick 30 mg/dl (Negative); Specific Gravity, Urine 1.020 (1.002-1.030); Urine Bilirubin Dipstick Negative (Negative)
[2025-01-06 22:07] LABS: Red Blood Cells-Urine 0-5 SEEN /hpf (0-5); Squamous Epithelial Cells - UA 0-5 SEEN /hpf (5-10)
--- NOTE | 2025-01-07 01:07 | OB.TRI.NOTE ---
HPI - General General Date of Admission: 01/06/25 Date of Service: 01/06/25 Chief Complaint: back pain HPI Narrative ZULLY JOINER, is a 29 F who presents with back pain. No vb, lof. Good FM. Irregular ctx's. PFSH PFS Medical History (Updated 01/07/25 @ 01:[address] Fara Kelly, DO) IBS (irritable bowel syndrome) Home Medications ?Medication ?Instructions ?Recorded ?Last Taken ?Type ferrous sulfate 325 mg (65 mg 325 mg PO DAILY anemia 01/06/25 Unknown History iron) tablet (FeroSul) vit no.95-ferrous 1 tab PO DAILY 01/06/25 Unknown History fumarate 28 mg-folic acid 800 mcg tablet () Allergy/AdvReac Type Severity Reaction Status Date / Time oxycodone (From Percocet) Allergy Rash Verified 01/06/25 20:38 Surgical History (Updated 12/14/23 @ 23:[address] Nura Lewis, ) Hx of section Social History (Updated 12/14/23 @ 23:[address] Nura Lewis, DO) Smoking Status: Never smoker substance use type: marijuana History Elective abortions Hx Para 0 Spontaneous abortions Hx # Term Pregnancies Ectopic pregnancies Hx # Pregnancies Multiple births # of living children NST FHR Rate Baby A Baseline: 120 Variability:: Moderate Accelerations:: 15 x 15 Decelerations:: None NST Reactive:: Yes Uterine Activity:: isolated ctx's Assessment & Plan (1) 37 weeks gestation of : (2) Back pain affecting : PLAN: No evidence of labor. Send urine. No symptoms of pyelo. Suspect MSK and irregular ctx's. Return precautions and follow up in office
== END 2025-01-06 22:27 | disposition home or self-care (01) ==
LOC: WPOUT 20:27 → WP 20:27
PROVIDERS: PCP Pediatrics; Visit Provider Obstetrics & Gynecology
DX: O99.891 Other specified diseases and conditions complicating pregnancy (principal); M54.9 Dorsalgia, unspecified; Z3A.37 37 weeks gestation of pregnancy
CPT/HCPCS: 59025; 59050; 81001; 87086; 87088; 99221; G0378

== ENCOUNTER 2025-01-07 10:24 | Outpatient (CLI) | payer MEDICAID, SELFPAY ==
[2025-01-07] MEDS: 0.9% NaCl IVPB Med Flush (250 mL) 15 ML IV (10:58)
[2025-01-07] MEDS: 0.9% NaCl Peripheral Flush Adult IV (10:58)
[2025-01-07 11:00] VITALS: BP 118/60; PULSE 72; RESP 16; TEMP 36.6; O2SAT 99; BMI 29.1
[2025-01-07] MEDS: Iron Sucrose Complex 200 MG in 0.9% Normal Saline (100mL Bag) 100 ML 220 MG IV (11:01)
[2025-01-07 11:47] VITALS: BP 118/60; PULSE 76; RESP 16; TEMP 36.6; O2SAT 99
== END 2025-01-07 23:59 | disposition home or self-care (01) ==
PROVIDERS: PCP Pediatrics; Referring Provider Obstetrics & Gynecology; Visit Provider Obstetrics & Gynecology
DX: O99.019 Anemia complicating pregnancy, unspecified trimester (principal); Z3A.00 Weeks of gestation of pregnancy not specified
CPT/HCPCS: 96365; J1756; A4216

== ENCOUNTER 2025-01-11 07:13 | Outpatient (CLI) | payer MEDICAID, SELFPAY ==
--- OUTSIDE RECORDS SUMMARY | 2025-01-11 07:36 | XMS RPT_ITS | CCD ---
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 - HYDROcodone-acetami nophen (NORCO) 5-325 mg per tablet Take 1 tablet by mouth every 6 hours as needed. - multivitamin (CLASSIC ) 28 mg iron- 800 mcg tab(s) Take 1 tablet by mouth once daily. - [id number] chapin-epa-fish 27 mg-800 mcg- 250 mg-200 mg cap [...] 01/08/2022 care [O09.93] 01/22/2022 pericardial effusion affecting management*01/23/20 Patient is scheduled for bridges (more content not included)... Normal [facility] Rosalee 06-16-2024 CNPN Telephone (OBGYWM) ---- ZULLY JOINER ([id number]) 1995 F Date Time Provider Department 06/16/24 [...] Reaction DUST 07/21/2006 9 - Itching PERCOCET (OXYCODONE-ACETAMIN OPHEN)10/06/2017 2 - Rash 9 - Itching Comments: Tylenol is fine TREES 07/21/2006 9 - Itching Date Reviewed: 09/19/2023 Reviewed by: Latricia Berman LPN - Fully Assessed Reason for Visit: New OB intake questions [Other] Prescriptions as of 06/16/2024 - ondansetron orally disintegrating (ZOFRAN ODT) 4 mg disintegrating tablet Take 1 tablet by mouth every 6 hours as needed for nausea/vomiting. - HYDROcodone-acetami nophen (NORCO) 5-325 mg per tablet Take 1 tablet by mouth every 6 hours as needed. - multivitamin (CLASSIC ) 28 mg iron- 800 mcg tab(s) Take 1 tablet by mouth once daily. - [id number] chapin-epa-fish 27 mg-800 mcg- 250 mg-200 mg cap [...] 01/08/2022 care [O09.93] 01/22/2022 pericardial effusion affecting management*01/23/20 Patient is scheduled for surgical procedure [Z7*03/05/2022 delivery delivered [O82] 03/06/2022 care following delivery [Z3*03/06/2022 Encounter Status:Closed by CHEL PITTS on 06/16/24 [facility] [place] 05-24-2024 CNPN Telephone (OBGYWM) ---- ZULLY JOINER ([id number]) 1995 F Date Time Provider Department 05/24/24 LYNNE JENSEN OBGYWM During your visit today, we recorded [...] any pain/cramping. Patient requesting medication for nausea. Geron message sent to patient with recommendation along [...] Reaction DUST 07/21/2006 9 - Itching PERCOCET (OXYCODONE-ACETAMIN OPHEN)10/06/2017 2 - Rash 9 - Itching Comments: Tylenol is fine TREES 07/21/2006 9 - Itching Date Reviewed: 09/19/2023 Reviewed by: Latricia Berman LPN - Fully Assessed Reason for Visit: Nausea AND Vomiting [237] Prescriptions as of 05/24/2024 - ondansetron orally disintegrating (ZOFRAN ODT) 4 mg disintegrating tablet Take 1 tablet by mouth every 6 hours as needed for nausea/vomiting. - HYDROcodone-acetami nophen (NORCO) 5-325 mg per tablet Take 1 tablet by mouth every 6 hours as needed. - multivitamin (CLASSIC ) 28 mg iron- 800 mcg tab(s) Take 1 tablet by mouth once daily. - [id number]-dujw-RJ-m8-p chpain-epa-fish 27 mg-800 mcg- 250 mg-200 mg cap [...] 01/08/2022 care [O09.93] 01/22/2022 pericardial effusion affecting management*01/23/20 Patient is scheduled for surgical procedure [Z7*03/05/2022 delivery delivered [O82] 03/06/2022 care following delivery [Z3*03/06/2022 Encounter Status:Closed by LYNNE JENSEN on 05/24/24 Normal [facility] HCG QUAL UR B/Oon 02-05-2023 status Negative neg - pos [facility] Quality Check Yes [facility] UA DIP, URINE (POC)on 2022 BILIRUBIN UA (POCT) Negative Negative [facility] CLARITY UA (POCT) Clear [facility] COLOR UA (POCT) Yellow [facility] GLUCOSE UA (POCT) Negative Negative mg/dL [facility] Hemoglobin Ql (U) Negative Negative [facility] KETONE UA (POCT) 15 mg/dL Abnormal Negative mg/dL [facility] LEUKOCYTES UA (POCT) Negative Negative [facility] NITRITE UA (POCT) Negative Negative [facility] PH UA (POCT) 7.5 4.5 - 8.0 [facility] Protein Ql (U) Negative Negative mg/dL [facility] SPECIFIC GRAVITY UA (POCT) 1.020 1.005 - 1.030 [facility] UROBILINOGEN UA (POCT) 0.2 E.U./dL Normal E.U./ dL [facility] Influenza virus A and B RNA and SARS-CoV-2 (COVID-19) N gene panel SANDY+probe (Resp)on 05-29-2022 FLUAV RNA SANDY+probe Ql (Unsp spec) Negative Negative for Influenza A by RT-PCR [facility] FLUBV RNA SANDY+probe Ql (Unsp spec) Negative Negative for Influenza B by RT-PCR [facility] SARS-CoV-2 (COVID-19) RNA SANDY+probe Ql (Resp) SARS-CoV-2 (Agent of COVID-19) Not Detected by RT-PCR or equivalent method. Not Detected [facility] STREP A MOLECULAR (POC)on Procedural Control Valid [facility] Strep A (POCT) Positive Abnormal Negative [facility] BIOPHYSICAL PROFILE [facility] 02-28-2022 [facility] URINE OB DIP B/Oon 2 Glucose Ql (U) Negative Neg mg/dL [facility] Protein.monoclonal (U) [Mass/Vol] Negative Neg mg/dL [facility] BIOPHYSICAL PROFILE [facility] 02-20-2022 [facility] URINE OB DIP B/Oon 2 Glucose Ql (U) Negative Neg mg/dL [facility] Protein.monoclonal (U) [Mass/Vol] Negative Neg mg/dL [facility] BIOPHYSICAL PROFILE [facility] 02-05-2022 [facility] BIOPHYSICAL PROFILE [facility] 01-29-2022 [facility] BIOPHYSICAL PROFILE [facility] 01-22-2022 [facility] URINE OB DIP B/Oon 2 Glucose Ql (U) Negative Neg mg/dL [facility] Protein.monoclonal (U) [Mass/Vol] Negative Neg mg/dL [facility] BIOPHYSICAL PROFILE [facility] 01-17-2022 [facility] OBSTETRIC ULTRASOUND [facility] 0 01-01-2022 [facility] URINE OB DIP B/Oon 2 Glucose Ql (U) Negative Neg mg/dL [facility] Protein.monoclonal (U) [Mass/Vol] Negative Neg mg/dL [facility] UA DIP, URINE (POC)on 2021 BILIRUBIN UA (POCT) Small Abnormal Negative [facility] CLARITY UA (POCT) Slightly Cloudy Cl [facility] COLOR UA (POCT) [place]in [facility] GLUCOSE UA (POCT) Negative Negative mg/dL [facility] HEMOGLOBIN/BLOOD UA (POCT) Negative Negative [facility] KETONE UA (POCT) >=160 Abnormal Negative mg/dL [facility] LEUKOCYTES UA (POCT) Trace Abnormal Negative [facility] NITRITE UA (POCT) Negative Negative [facility] PH UA (POCT) 7.0 4.5 - 8.0 [facility] Protein Ql (U) 30 mg/dL Abnormal Negative mg/dL [facility] SPECIFIC GRAVITY UA (POCT) 1.025 1.005 - 1.030 [facility] UROBILINOGEN UA (POCT) 1.0 E.U./dL Normal E.U./ dL [facility] Absolute lymphocyte counton 10-14-2021 Lymphocytes Auto (Unsp spec) [#/Vol] 1.69 10*3/uL 0.83-4.51 [facility] Work Phone: Basophil percentageon 2021 Basophils/100 WBC (Bld) 0.4 % 0-1 [facility] Work Phone: Bilirubin [Mass/Vol] 0.40 mg/dL 0.20-1.00 [facility] Work Phone: Comment on above: For patients on eltr ombopag therapy, use of Dimension Uehling TBIL is not recommended. Chloride [Moles/Vol] 107 mmol/L 98-107 [facility] Work Phone: Eosinophils/100 WBC (Bld) 4.0 % 0-5 [facility] Work Phone: Glucose [Mass/Vol] 79 mg/dL 74-106 [facility] Work Phone: Neutrophils (Bld) [#/Vol] 9.3 10*3/uL 2.0-7.7 [facility] Work Phone: Neutrophils/100 WBC (Bld) 75.9 % 47-70 [facility] Work Phone: Potassium [Moles/Vol] 3.8 mmol/L 3.5-5.1 [facility] Work Phone: Protein [Mass/Vol] 7.5 g/dL 6.4-8.2 [facility] Work Phone: Sodium [Moles/Vol] 136 mmol/L 136-145 [facility] Work Phone: WBC (Bld) [#/Vol] 12.2 10*3/uL 4.4-11.0 [facility] Work Phone: Blood erythrocytes count (nu mber/volume)on 10-14-2021 RBC (Bld) [#/Vol] 4.02 10*6/uL 4.2-5.4 [facility] Work [facility]: Blood hemoglobin measurement (mass/volume)on 10-14-2021 Hemoglobin (Bld) [Mass/Vol] 11.9 g/dL 12.0-15.0 [facility] Work Phone: Blood lymphocytes/100 leukoc yteson 10-14-2021 Lymphocytes/100 WBC (Bld) 13.8 % 19-41 [facility] Work Phone: Blood monocytes/100 leukocyt eson 10-14-2021 Monocytes/100 WBC (Bld) 5.2 % 0-10 [facility] Work Phone: Blood platelet mean volumeon 10-14-2021 Platelet mean volume (Bld) [Entitic vol] 10.3 fL 6.2-12.0 [facility] Work Phone: Determination of erythrocyte mean corpuscular volume (MCV)on 10-14-2021 MCV (RBC) [Entitic vol] 87.3 fL 81-99 [facility] Work Phone: Hematocrit Auto (Bld) [Volum e fraction]on 10-14-2021 Hematocrit (Bld) [Volume fraction] 35.1 % 37-47 [facility] Work Phone: Laboratory - Chemistry and C hemistry - challengeon 10-14-2021 ALP [Catalytic activity/Vol] 51 U/L 45-117 [facility] Work Phone: ALT [Catalytic activity/Vol] 17 U/L 13-56 [facility] Work Phone: CO2 [Moles/Vol] 20.0 mmol/L 21.0-32.0 [facility] Work Phone: Globulin (S) [Mass/Vol] 4.3 g/dL 2.2-4.2 [facility] Work Phone: Urea nitrogen/Creatinine [Mass ratio] 13.0 mg/mg 10-20 [facility] Work Phone: Laboratory - Hematology and Cell countson 10-14-2021 Erythrocyte distribution width (RBC) [Entitic vol] 44.5 fL 35.1-43.9 [facility] Work Phone: Erythrocyte distribution width (RBC) [Ratio] 13.8 % 11.6-14.6 [facility] Work Phone: Immature granulocytes/100 WBC (Bld) 0.700 % 0.0-0.9 [facility] Work Phone: Comment on above: IG% - Immature Granu locytes (promyelocytes, myelocytes and metamyelocytes) > 1% indicates that a LEFT SHIFT is Present. MCH (RBC) [Entitic mass] 29.6 pg 27.0-32.0 [facility] Work Phone: Nucleated RBC/100 WBC (Bld) [Ratio] 0 % 0-5 [facility] Work Phone: MCHC Auto (RBC) [Mass/Vol]on 10-14-2021 MCHC (RBC) [Mass/Vol] 33.9 g/dL 32-36 [facility] Work Phone: No Panel Informationon 10-14 SARS-CoV-2 & FLU Antigen (Rapid) [facility] Work Phone: Estimated Creatinine Clearance Calc 112.15 ml/min [facility] Work Phone: Estimated GFR (MDRD) Amer 133 mL/min >60 [facility] Work Phone: Comment on above: GFR Calc Estimated GFR (MDRD) Non-Af Amer 110 mL/min >60 [facility] Work Phone: Comment on above: Non- GFR Calc Platelets bldon 10-14-2021 Platelets (Bld) [#/Vol] 265 10*3/uL 150-450 [facility] Work Phone: Serum or plasma albumin rachele urement (mass/volume)on 10-14-2021 Albumin [Mass/Vol] 3.2 g/dL 3.2-5.0 [facility] Work Phone: Serum or plasma albumin/glob ulin mass ratioon 10-14-2021 Albumin/Globulin [Mass ratio] 0.7 {ratio} 0.9-2.4 [facility] Work Phone: Serum or plasma calcium rachele urement (mass/volume)on 10-14-2021 Calcium [Mass/Vol] 9.2 mg/dL 8.5-10.1 [facility] Work Phone: Serum or plasma creatinine m easurement (mass/volume)on 10-14-2021 Creatinine [Mass/Vol] 0.69 mg/dL 0.55-1.02 [facility] Work Phone: Comment on above: The validity of the calculated GFR & GFRAA in patients over 70 years has not been determined. Clinical correlation is essential. Serum or plasma urea nitroge n measurement (mass/volume)on 10-14-2021 Urea nitrogen [Mass/Vol] 9 mg/dL 7-18 [facility] Work Phone: Thin prep Papanicolaou smear with manual screeningon 10-14-2021 Thin prep Papanicolaou smear with manual screening 13 U/L 15-37 [facility] Work Phone: Thin prep Papanicolaou smear with manual screening 9 5-15 [facility] Work Phone: Absolute lymphocyte counton 08-25-2021 Lymphocytes Auto (Unsp spec) [#/Vol] 2.48 10*3/uL 0.83-4.51 [facility] Work Phone: Basophil percentageon 2021 Basophil percentage 5-10 SEEN /hpf [facility] Work Phone: Basophils/100 WBC (Bld) 0.5 % 0-1 [facility] Work Phone: Bilirubin [Mass/Vol] 0.40 mg/dL 0.20-1.00 [facility] Work Phone: Comment on above: For patients on eltr ombopag therapy, use of Dimension Uehling TBIL is not recommended. Chloride [Moles/Vol] 104 mmol/L 98-107 [facility] Work Phone: Eosinophils/100 WBC (Bld) 0.9 % 0-5 [facility] Work Phone: Glucose [Mass/Vol] 85 mg/dL 74-106 [facility] Work Phone: Neutrophils (Bld) [#/Vol] 9.8 10*3/uL 2.0-7.7 [facility] Work Phone: Neutrophils/100 WBC (Bld) 74.4 % 47-70 [facility] Work Phone: Potassium [Moles/Vol] 3.7 mmol/L 3.5-5.1 [facility] Work Phone: Protein [Mass/Vol] 8.1 g/dL 6.4-8.2 [facility] Work Phone: Sodium [Moles/Vol] 135 mmol/L 136-145 [facility] Work Phone: WBC (Bld) [#/Vol] 13.2 10*3/uL 4.4-11.0 [facility] Work Phone: Bilirubin Test strip Ql (U)o n 08-25-2021 Bilirubin Ql (U) Negative Negative [facility] Work Phone: Blood erythrocytes count (nu mber/volume)on 08-25-2021 RBC (Bld) [#/Vol] 4.50 10*6/uL 4.2-5.4 [facility] Work Phone: Blood hemoglobin measurement (mass/volume)on 08-25-2021 Hemoglobin (Bld) [Mass/Vol] 13.2 g/dL 12.0-15.0 [facility] Work Phone: Blood lymphocytes/100 leukoc yteson 08-25-2021 Lymphocytes/100 WBC (Bld) 18.7 % 19-41 [facility] Work Phone: Blood monocytes/100 leukocyt eson 08-25-2021 Monocytes/100 WBC (Bld) 5.1 % 0-10 [facility] Work Phone: Blood platelet mean volumeon 08-25-2021 Platelet mean volume (Bld) [Entitic vol] 10.5 fL 6.2-12.0 [facility] Work Phone: Determination of erythrocyte mean corpuscular volume (MCV)on 08-25-2021 MCV (RBC) [Entitic vol] 88.2 fL 81-99 [facility] Work Phone: Direct bilirubinon 2 Bilirubin.direct [Mass/Vol] 0.11 mg/dL 0.00-0.30 [facility] Work Phone: Hematocrit Auto (Bld) [Volum e fraction]on 08-25-2021 Hematocrit (Bld) [Volume fraction] 39.7 % 37-47 [facility] Work Phone: Ketones Test strip Ql (U)on 08-25-2021 Ketones Ql (U) 15 mg/dl Negative [facility] Work Phone: Laboratory - Chemistry and C hemistry - challengeon 08-25-2021 ALP [Catalytic activity/Vol] 49 U/L 45-117 [facility] Work Phone: ALT [Catalytic activity/Vol] 19 U/L 13-56 [facility] Work Phone: CO2 [Moles/Vol] 23.0 mmol/L 21.0-32.0 [facility] Work Phone: Globulin (S) [Mass/Vol] 4.1 g/dL 2.2-4.2 [facility] Work Phone: Urea nitrogen/Creatinine [Mass ratio] 17.1 mg/mg 10-20 [facility] Work Phone: Laboratory - Hematology and Cell countson 08-25-2021 Erythrocyte distribution width (RBC) [Entitic vol] 43.1 fL 35.1-43.9 [facility] Work Phone: Erythrocyte distribution width (RBC) [Ratio] 13.2 % 11.6-14.6 [facility] Work Phone: Immature granulocytes/100 WBC (Bld) 0.400 % 0.0-0.9 [facility] Work Phone: Comment on above: IG% - Immature Granu locytes (promyelocytes, myelocytes and metamyelocytes) > 1% indicates that a LEFT SHIFT is Present. MCH (RBC) [Entitic mass] 29.3 pg 27.0-32.0 [facility] Work Phone: Nucleated RBC/100 WBC (Bld) [Ratio] 0 % 0-5 [facility] Work Phone: MCHC Auto (RBC) [Mass/Vol]on 08-25-2021 MCHC (RBC) [Mass/Vol] 33.2 g/dL 32-36 [facility] Work Phone: Mucus LM Ql (Urine sed)on Mucus Ql (Urine sed) 0 SEEN /hpf [facility] Work Phone: Nitrite Test strip Ql (U)on 08-25-2021 Nitrite Ql (U) Negative Negative [facility] Work Phone: No Panel Informationon 08-25 Estimated Creatinine Clearance Calc 88.70 ml/min [facility] Work Phone: Estimated GFR (MDRD) Amer 101 mL/min >60 [facility] Work Phone: Comment on above: GFR Calc Estimated GFR (MDRD) Non-Af Amer 84 mL/min >60 [facility] Work Phone: Comment on above: Non- GFR Calc Platelets bldon 08-25-2021 Platelets (Bld) [#/Vol] 277 10*3/uL 150-450 [facility] Work Phone: Protein Test strip Ql (U)on 08-25-2021 Protein Ql (U) 15 mg/dl Negative [facility] Work Phone: Serum or plasma albumin rachele urement (mass/volume)on 08-25-2021 Albumin [Mass/Vol] 4.0 g/dL 3.2-5.0 [facility] Work Phone: Serum or plasma calcium rachele urement (mass/volume)on 08-25-2021 Calcium [Mass/Vol] 9.5 mg/dL 8.5-10.1 [facility] Work Phone: Serum or plasma creatinine m easurement (mass/volume)on 08-25-2021 Creatinine [Mass/Vol] 0.88 mg/dL 0.55-1.02 [facility] Work Phone: Comment on above: The validity of the calculated GFR & GFRAA in patients over 70 years has not been determined. Clinical correlation is essential. Serum or plasma urea nitroge n measurement (mass/volume)on 08-25-2021 Urea nitrogen [Mass/Vol] 15 mg/dL 7-18 [facility] Work Phone: Squamous epithelial cells de tection in urine sediment by light microscopyon 08-25-2021 Epithelial cells.squamous LM Ql (Urine sed) 0-5 SEEN /hpf [facility] Work Phone: Thin prep Papanicolaou smear with manual screeningon 08-25-2021 Thin prep Papanicolaou smear with manual screening 10 U/L 15-37 [facility] Work Phone: Thin prep Papanicolaou smear with manual screening 8 5-15 [facility] Work Phone: Urine blood detectionon 04-0 RBC Ql (U) Negative Negative [facility] Work Phone: RBC Ql (U) 0 SEEN /hpf [facility] Work Phone: Urine clarityon 08-25-2021 Clarity (U) Clear Clear [facility] Work Phone: Urine color determinationon 08-25-2021 Color (U) Yellow Yellow [facility] Work Phone: Urine glucose detectionon Glucose Ql (U) Normal mg/dl Normal [facility] Work Phone: Urine leukocyte esterase det ection by dipstickon 08-25-2021 Leukocyte esterase Test strip Ql (U) 25 /ul Negative [facility] Work Phone: Urine pHon 08-25-2021 pH (U) 6.0 [pH] [facility] Work Phone: Urine sediment bacteria coun t by microscopy (number/high power field)on 08-25-2021 Bacteria LM.HPF (Urine sed) [#/Area] 1 /[HPF] None Seen [facility] Work Phone: Urine specific gravity measu rementon 08-25-2021 Specific gravity (U) [Rel density] 1.025 [facility] Work Phone: Urobilinogen Auto test strip Ql (U)on 08-25-2021 Urobilinogen Ql (U) Normal mg/dl Normal [facility] Work Phone: TSH BLDon 08-21-2021 TSH Qn 0.707 m[IU]/L 0.270 - 4.200 mIU/L [facility] Comprehensive metabolic 2000 panelon 08-20-2021 Albumin [Mass/Vol] 4.3 g/dL 3.9 - 4.9 g/dL Cl [facility] ALP [Catalytic activity/Vol] 50 U/L 34 - 123 U/L [facility] ALT [Catalytic activity/Vol] 6 U/L Low 7 - 38 U/L [facility] Anion gap [Moles/Vol] 6 mmol/L Low 9 - 18 mmol/L [facility] AST [Catalytic activity/Vol] 11 U/L Low 13 - 35 U/L [facility] Bilirubin [Mass/Vol] mg/dL Low 0.2 - 1 .3 mg/dL [facility] Calcium [Mass/Vol] 9.3 mg/dL 8.5 - 10. 2 mg/dL [facility] Chloride [Moles/Vol] 103 mmol/L 97 - 10 5 mmol/L [facility] CO2 [Moles/Vol] 25 mmol/L 22 - 30 mmol/L [facility] Creatinine [Mass/Vol] 0.64 mg/dL 0.58 - 0.96 mg/dL [facility] Estimated Glomerular Filtration Rate 127 mL/min/1.73m >=60 mL/min/1.73m [facility] Glucose [Mass/Vol] 85 mg/dL 74 - 99 mg/dL [facility] Potassium [Moles/Vol] 4.1 mmol/L 3.7 - 5.1 mmol/L [facility] Protein [Mass/Vol] 6.9 g/dL 6.3 - 8.0 g/dL [facility] Sodium [Moles/Vol] 134 mmol/L Low 136 - 144 mmol/L [facility] Urea nitrogen [Mass/Vol] 10 mg/dL 7 - 21 mg/d L [facility] URINE OB DIP B/Oon 2 Glucose Ql (U) Negative Neg mg/dL [facility] Protein.monoclonal (U) [Mass/Vol] Negative Neg mg/dL [facility] Basophil percentageon 2021 Basophil percentage 0-5 SEEN /hpf [facility] Work Phone: Bilirubin Test strip Ql (U)o n 08-14-2021 Bilirubin Ql (U) Negative Negative [facility] Work Phone: Ketones Test strip Ql (U)on 08-14-2021 Ketones Ql (U) 150 mg/dl Negative [facility] Work Phone: Comment on above: CRITICAL VALUE VERIF IED. CALLED TO MYGNPF27/22/22 Aayush Abrams.RESULTS READ BACK BY SAME . CRITICAL VALUE *H Mucus LM Ql (Urine sed)on Mucus Ql (Urine sed) 0 SEEN /hpf [facility] Work Phone: Nitrite Test strip Ql (U)on 08-14-2021 Nitrite Ql (U) Negative Negative [facility] Work Phone: Protein Test strip Ql (U)on 08-14-2021 Protein Ql (U) 15 mg/dl Negative [facility] Work Phone: Squamous epithelial cells de tection in urine sediment by light microscopyon 08-14-2021 Epithelial cells.squamous LM Ql (Urine sed) 5-10 SEEN /hpf [facility] Work Phone: Urine blood detectionon 07-25 RBC Ql (U) Negative Negative [facility] Work Phone: RBC Ql (U) 0 SEEN /hpf [facility] Work Phone: Urine clarityon 08-14-2021 Clarity (U) Clear Clear [facility] Work Phone: Urine color determinationon 08-14-2021 Color (U) Yellow Yellow [facility] Work Phone: Urine glucose detectionon Glucose Ql (U) Normal mg/dl Normal [facility] Work Phone: Urine leukocyte esterase det ection by dipstickon 08-14-2021 Leukocyte esterase Test strip Ql (U) 100 /ul Negative [facility] Work Phone: Urine pHon 08-14-2021 pH (U) 6.0 [pH] [facility] Work Phone: Urine sediment bacteria coun t by microscopy (number/high power field)on 08-14-2021 Bacteria LM.HPF (Urine sed) [#/Area] 1 /[HPF] None Seen [facility] Work Phone: Urine specific gravity measu rementon 08-14-2021 Specific gravity (U) [Rel density] 1.025 [facility] Work Phone: Urobilinogen Auto test strip Ql (U)on 08-14-2021 Urobilinogen Ql (U) Normal mg/dl Normal [facility] Work Phone: No Panel Informationon 10-06 IMPRESSION: Negative Waste/Materials Exchange Specialist: ISI Transcribe Date/Time: Oct 06 2020 2:27P Dictated by : GREGORY GRIMES MD This examination was interpreted and the report reviewed and electronically signed by: GREGORY GRIMES MD on Oct 06 2020 2:28PM [facility] RAD[facility]OLOG[facility] Radiology Study observation (narrative) [facility] No Panel InformationOrdered By: Ccf Provider on 10-06-2020 [facility] XR Hand - right PA [...] tissues are unremarkable. DIVISION OF RADIOLOGY Provider, [facility] [place] - 10/06/2020 * * *Final Report* * [...] soft tissues are unremarkable. IMPRESSION IMPRESSION: Negative Waste/Materials Exchange Specialist: PSCB Transcribe Date/Time: Oct 06 2020 2:27P Dictated by : GREGORY GRIMES MD This examination was interpreted and the report reviewed and electronically signed by: GREGORY GRIMES MD on Oct 06 2020 2:28PM [facility] XR Radius and Ulna - right A P and Lateralon 10-06-2020 * * *Final Report* * * [...] tissues are unremarkable. DIVISION OF RADIOLOGY Provider, [facility] [place] - 10/06/2020 * * *Final Report* * [...] soft tissues are unremarkable. IMPRESSION IMPRESSION: Negative Waste/Materials Exchange Specialist: PSCB Transcribe Date/Time: Oct 06 2020 2:27P Dictated by : GREGORY GRIMES MD This examination was interpreted and the report reviewed and electronically signed by: GREGORY GRIMES MD on Oct 06 2020 2:28PM [facility] CTPCRon 08-27-2019 C. trachomatis Interp Normal See CT Interp N [facility] ([place] Comment on above: Result Comment: C. t rachomatis DNA not detected. Specimen is presumptive negative for C. trachomatis. A negative result does not preclude C. trachomatis infection because results depend on adequate specimen collection, absence of inhibitors, and sufficient DNA to be detected. See CT Interp N Performed By: #### C BC, ADIFF, ANEU #### [address] [address] #### BMP, GFR, TROP #### [address] [address] C.trachomatis PCR Negative Normal Negative [facility] ([place] Comment on above: Result Comment: Angelo sport tube received with two swabs. Review collection procedure. Inappropriate collection may cause aberrant results. Molecular (PCR) assay performed on the Kristine Lionel 4800 system. Performed By: #### C BC, ADIFF, ANEU #### [address] [address] #### BMP, GFR, TROP #### [address] [address] Chlam Source Genital Female Normal [facility] ([place] Comment on above: Performed By: #### C BC, ADIFF, ANEU #### [address] [address] #### BMP, GFR, TROP #### [address] [address] NGPCRon 08-27-2019 GC PCR Source Genital Female Normal [facility] ([place] Comment on above: Performed By: #### C BC, ADIFF, ANEU #### [address] [address] #### BMP, GFR, TROP #### [address] [address] N. gonorrhoeae (PCR) Negative Normal Negative [facility] ([place]) Comment on above: Result Comment: Angelo sport tube received with two swabs. Review collection procedure. Inappropriate collection may cause aberrant results. Molecular (PCR) assay performed on the Kristine Lionel 4800 System. Performed By: #### C BC, ADIFF, ANEU #### [address] [address] #### BMP, GFR, TROP #### [address] [address] N. gonorrhoeae Interp Normal See NG Interp N [facility] ([place] Comment on above: Result Comment: N. g onorrhoeae DNA not detected. Specimen is presumptive negative for N. gonorrhoeae. A negative result does not preclude Neisseria gonorrhoeae infection because results depend on adequate specimen collection, absence of inhibitors, and sufficient DNA to be detected. See NG Interp N Performed By: #### C BC, ADIFF, ANEU #### [place] [address] #### BMP, GFR, TROP #### [place] [address] .Urinalysis Microscopic (AO) on 08-26-2019 RBC (U) [#/Vol] 0-5 Abnormal None Seen [facility] ([place] Comment on above: Performed By: #### P REGU #### [place] [address] #### UA, UAMICAO #### [place] [address] UA Bacteria 4+ /hpf Abnormal [facility] ([place] Comment on above: Performed By: #### P REGU #### [place] [address] #### UA, UAMICAO #### [place] [address] UA Squam Epithelial 5-10 Abnormal None Seen [facility] ([place] Comment on above: Performed By: #### P REGU #### [place] [address] #### UA, UAMICAO #### [place] [address] UA WBC 10-15 Abnormal None Seen [facility] ([place] Comment on above: Performed By: #### P REGU #### [place] [address] #### UA, UAMICAO #### [place] [address] UAon 08-26-2019 Color (U) Yellow Normal [facility] ([place] Comment on above: Performed By: #### P REGU #### [address] [address] #### UA, UAMICAO #### [facility] [address] [place] [address] Glucose (U) [Mass/Vol] Negative Normal Negative [facility] ([place]) Comment on above: Performed By: #### P REGU #### [place] [address] #### UA, UAMICAO #### [facility] [address] [place] [address] Ketones Ql (U) Negative Normal Negative [facility] ([place] Comment on above: Performed By: #### P REGU #### [place] [address] #### UA, UAMICAO #### [address] [address] UA Appear Slightly Cloudy Abnormal Clear [facility] ([place] Comment on above: Performed By: #### P REGU #### [address] [address] #### UA, UAMICAO #### [address] [address] UA Blood Trace Abnormal Negative [facility] ([place] Comment on above: Performed By: #### P REGU #### [place] [address] #### UA, UAMICAO #### [address] [address] UA Leuk Est Negative Normal Negative [facility] ([place] Comment on above: Performed By: #### P REGU #### [address] [address] #### UA, UAMICAO #### [facility] [address] [place] [address] UA Nitrite Negative Normal Negative [facility] ([place] Comment on above: Performed By: #### P REGU #### [address] [address] #### UA, UAMICAO #### [place] [address] UA pH 5.5 Normal 5.0 - 8.0 [facility] ([place] Comment on above: Performed By: #### P REGU #### [place] [address] #### UA, UAMICAO #### [place] [address] UA Protein Negative Normal Negative [facility] ([place] Comment on above: Performed By: #### P REGU #### [place] [address] #### UA, UAMICAO #### [place] [address] UA Spec Grav 1.020 Normal 1.015-1.025 [facility] ([place] Comment on above: Performed By: #### P REGU #### [place] [address] #### UA, UAMICAO #### [place] [address] UA Specimen Type Clean Catch Normal [facility] ([place] Comment on above: Performed By: #### P REGU #### [place] [address] #### UA, UAMICAO #### [place] [address] UA Urobilinogen 0.2 E.U./dL Normal 0.2-1.0 [facility] ([place] Comment on above: Performed By: #### P REGU #### [place] [address] #### UA, UAMICAO #### [place] [address] Urobilinogen Qn (U) Negative Normal Negative [facility] ([place] Comment on above: Performed By: #### P REGU #### [place] [address] #### UA, UAMICAO #### [address] [address] XR CHEST 1 VIEWon 08-26-2019 XR CHEST [...] Date: 08/25/2019 10:00:31 PM Ordering Provider:Escobar Dunn [facility] ([place] .Auto Diffon 08-25-2019 Ammonia (P) [Mass/Vol] 1.00 10 3/mcL Normal 0.15-1.00 [facility] ([place] Comment on above: Performed By: #### C BCCALOSIFF, ANEU #### [place] [address] #### BMP, GFR, TROP #### [address] [address] Basophils (Bld) [#/Vol] 0.10 10 3/mcL Normal 0.00-0.19 [facility] ([place] Comment on above: Performed By: #### C BCCALOSIFF, ANEU #### [place] [address] #### BMP, GFR, TROP #### [address] [address] Basophils/100 WBC (Bld) 0.6 % Normal 0.0-2.5 [facility] [place] Comment on above: Performed By: #### C BC, ADIFF, ANEU #### [place] [address] #### BMP, GFR, TROP #### [address] [address] Eosinophils (Bld) [#/Vol] 0.80 10 3/mcL High 0.00-0.40 [facility] ([place] Comment on above: Performed By: #### C BC, ADIFF, ANEU #### [address] [address] #### BMP, GFR, TROP #### [address] [address] Eosinophils/100 WBC (Bld) 7.9 % High 0.0-7.0 [facility] ([place]) Comment on above: Performed By: #### C BC, ADIFF, ANEU #### [place] [address] #### BMP, GFR, TROP #### [address] [address] Lymphocytes (Bld) [#/Vol] 2.20 10 3/mcL Normal 0.77-3.85 [facility] ([place] Comment on above: Performed By: #### C BC, ADIFF, ANEU #### [place] [address] #### BMP, GFR, TROP #### [address] [address] Lymphocytes/100 WBC (Bld) 20.8 % Normal 10.0-50.0 [facility] ([place] Comment on above: Performed By: #### C BC, ADIFF, ANEU #### [place] [address] #### BMP, GFR, TROP #### [address] [address] Monocytes/100 WBC (Bld) 9.1 % Normal 1.7-13.0 [facility] [place] Comment on above: Performed By: #### C BC, ADIFF, ANEU #### [place] [address] #### BMP, GFR, TROP #### [address] [address] Neutrophils/100 WBC (Bld) 61.6 % Normal 37.0-80.0 [facility] ([place] Comment on above: Performed By: #### C BC, ADIFF, ANEU #### [place] [address] [place], [place] [address] #### BMP, GFR, TROP #### [address] [address] .GFRon 08-25-2019 GFR 99 ml/min/1.73sqm Normal [facility] ([place] Comment on above: Result Comment: GFR Population [...] #### C BC, ADIFF, ANEU #### [address] [address] #### BMP, GFR, TROP #### [address] [address] GFR Non- 81 ml/min/1.73sqm Normal [facility] ([place] Comment on above: Result Comment: GFR Population [...] By: #### C BC, ADIFF, ANEU #### [address] [address] #### BMP, GFR, TROP #### [address] [address] .NEUABSon 08-25-2019 Neutrophils (Bld) [#/Vol] 6.50 10 3/mcL High 2.85-6.16 [facility] ([place] Comment on above: Performed By: #### C BC, ADIFF, ANEU #### [place] [address] #### BMP, GFR, TROP #### [address] 08-25-2019 Calcium [Mass/Vol] 8.8 mg/dL Normal 8.4-10.2 Pending [facility] to [facility] ([place]) Comment on above: Performed By: #### C BC, ADIFF, ANEU #### [place] [address] #### BMP, GFR, TROP #### [address] [address] Chloride [Moles/Vol] 103 mmol/L Normal 98-107 [facility] ([place] Comment on above: Performed By: #### C BC, ADIFF, ANEU #### [place] [address] #### BMP, GFR, TROP #### [place] [address] CO2 [Moles/Vol] 25 mmol/L Normal 22-29 [facility] ([place] Comment on above: Performed By: #### C BC, ADIFF, ANEU #### [place] [address] #### BMP, GFR, TROP #### [address] [address] Creatinine [Mass/Vol] 0.87 mg/dL Normal 0.55-1.02 [facility] ([place] Comment on above: Performed By: #### C BC, ADIFF, ANEU #### [address] [address] #### BMP, GFR, TROP #### [address] [address] Electrolyte Balance 10.0 mEq/L Normal [facility] ([place] Comment on above: Performed By: #### C BC, ADIFF, ANEU #### [address] [address] #### BMP, GFR, TROP #### [address] [address] Glucose [Mass/Vol] 90 mg/dL Normal 70-105 [facility]ending [facility] to [facility] ([place] Comment on above: Performed By: #### C BC, ADIFF, ANEU #### [address] [address] #### BMP, GFR, TROP #### [address] [address] Potassium [Moles/Vol] 3.9 mmol/L Normal 3.5-5.1 [facility] ([place] Comment on above: Performed By: #### C BC, ADIFF, ANEU #### [address] [address] #### BMP, GFR, TROP #### [address] [address] Sodium [Moles/Vol] 138 mmol/L Normal 136-145 Pending [facility] to [facility] ([place] Comment on above: Performed By: #### C BC, ADIFF, ANEU #### [address] [address] #### BMP, GFR, TROP #### [address] [address] Urea nitrogen [Mass/Vol] 13 mg/dL Normal 7-18 [facility] ([place] Comment on above: Performed By: #### C BC, ADIFF, ANEU #### [address] [address] #### BMP, GFR, TROP #### [address] [address] Urea nitrogen/Creatinine [Mass ratio] 15 ratio Normal 7-27 [facility] ([place] Comment on above: Performed By: #### C CALOS CAMPAIFF, ANEU #### [address] [address] #### BMP, GFR, TROP #### [address] [address] CBCon 08-25-2019 Erythrocyte distribution width (RBC) [Ratio] 14.3 % Normal 11.5-14.5 [facility] ([place] Comment on above: Performed By: #### C LOKESH, CALOSIFF, ANEU #### [address] [address] #### BMP, GFR, TROP #### [address] [address] Hematocrit (Bld) [Volume fraction] 41.7 % Normal 37.0-47.0 [facility] ([place] Comment on above: Performed By: #### C CALOS CAMPAIFF, ANEU #### [address] [address] #### BMP, GFR, TROP #### [place] [address] Hemoglobin (Bld) [Mass/Vol] 13.8 G/dL Normal 12.0-16.0 [facility] ([place] Comment on above: Performed By: #### C CATHERINE CAMPA, ANEU #### [address] [address] #### BMP, GFR, TROP #### [address] [address] MCH (RBC) [Entitic mass] 29.2 pg Normal 27.0-31.2 [facility] ([place] Comment on above: Performed By: #### C LOKESH, ADIFF, ANEU #### [address] [address] #### BMP, GFR, TROP #### [address] [address] MCHC (RBC) [Mass/Vol] 33.1 G/dL Normal 33.0-37.0 [facility] ([place] Comment on above: Performed By: #### C BC, ADIFF, ANEU #### [address] [address] #### BMP, GFR, TROP #### [address] [address] MCV (RBC) [Entitic vol] 88.2 fL Normal 80.0-94.0 [facility] [place] Comment on above: Performed By: #### C BC, ADIFF, ANEU #### [address] [address] #### BMP, GFR, TROP #### [address] [address] Platelet mean volume (Bld) [Entitic vol] 10.4 fL Normal 7.4-10.4 [facility] ([place] Comment on above: Performed By: #### C LOKESH, CALOSIFF, ANEU #### [address] [address] #### BMP, GFR, TROP #### [address] [address] Platelets (Bld) [#/Vol] 174 10 3/mcL Normal 130-400 [facility] ([place] Comment on above: Performed By: #### C BC, ADIFF, ANEU #### [address] [address] #### BMP, GFR, TROP #### [address] [address] RBC (Bld) [#/Vol] 4.73 10 6/mcL Normal 4.20-5.40 [facility] ([place] Comment on above: Performed By: #### C BC, ADIFF, ANEU #### [address] [address] #### BMP, GFR, TROP #### [address] [address] WBC (Bld) [#/Vol] 10.60 10 3/mcL Normal 4.60-10.80 [facility] ([place] Comment on above: Performed By: #### C BC, ADIFF, ANEU #### [place] [address] #### BMP, GFR, TROP #### [place] [address] PREGUon 08-25-2019 HCG ( test) Ql (U) Negative Normal [facility] ([place] Comment on above: Performed By: #### P REGU #### [place] [address] #### UA, UAMICAO #### [place] [address] test (u) int HCG not detected. [facility] ([place] Comment on above: Performed By: #### P REGU #### [place] [address] #### UA, UAMICAO #### [place] [address] TROPon 08-25-2019 Troponin I.cardiac [Mass/Vol] ng/mL Normal 0.000-0.040 [facility] ([place] Comment on above: Result Comment: Trop onin I reference range: 0.00-0.040 ng/mL Negative and non-diagnostic. >0.040 ng/mL Consistent with cardiac damage, increased clinical risk and possibility of myocardial infarction. Serial measurements, a rise & fall in test results, clinical history, appropriate symptoms and/or ECG changes may help assess possibility of LA. *Other non-acute coronary syndrome conditions such as CHF, myocarditis, pulmonary emboli, sepsis and cardiac surgery could result in myocardial damage and increased troponin levels. Performed By: #### C BC, ADIFF, ANEU #### [place] [address] #### BMP, GFR, TROP #### [place] [id number] No Panel Information SARS-CoV-2 & FLU Antigen (Rapid) [facility] Work Phone: Vital Signs Date Time Vital Sign Value Performing Clinician Facility 01-07-2025 11:47-0400 Body temperature 97.9 [degF] Dr. Sarah Dick MD Work Phone: [phone] [place] [address] 01-07-2025 11:47-0400 Diastolic blood pressure 60 mm[Hg] Dr. Sarah Dick MD Work Phone: [phone] [place] [address] 01-07-2025 11:47-0400 Heart rate 76 /min Dr. Sarah Dick MD Work Phone: [phone] [place] [address] 01-07-2025 11:47-0400 Respiratory rate 16 /min Dr. Sarah Dick MD Work Phone: 5(229)846-669034 [place] [address] 01-07-2025 11:47-0400 SaO2% (BldA) [Mass fraction] 99 % Dr. Sarah Dick MD Work Phone: 7(382)873-826334 [place] [address] 01-07-2025 11:47-0400 Systolic blood pressure 118 mm[Hg] Dr. Sarah Dick MD Work Phone: 9(825)270-774234 [place] [address] 01-07-2025 11:00-0400 Body height 165.[address] Sarah Dick MD Work Phone: 0(333)252-218934 [place] [address] 01-07-2025 11:00-0400 Body mass index (BMI) [Ratio] 29.1 kg/m2 Dr. Sarah Dick MD Work Phone: 9(808)751-258334 [place] [address] 01-07-2025 11:00-0400 Body weight 79.[address] Sarah Dick MD Work Phone: 8(821)284-649134 [place] [address] 01-06-2025 20:39-0400 Heart rate 97 /min Dr. Sarah Dick MD Work Phone: 6(235)358-740634 [place] [address] 01-06-2025 20:39-0400 SaO2% (BldA) [Mass fraction] 99 % Dr. Sarah Dick MD Work Phone: 8(587)272-330634 [place] [address] 01-06-2025 20:38-0400 Body temperature 97.1 [degF] Dr. Sarah Dick MD Work Phone: 4(801)221-416034 [place] [address] 01-06-2025 20:38-0400 Diastolic blood pressure 74 mm[Hg] Dr. Sarah Dick MD Work Phone: 2(818)957-349834 [place] [address] 01-06-2025 20:38-0400 Respiratory rate 14 /min Dr. Sarah Dick MD Work Phone: 0(327)010-552634 [place] [address] 01-06-2025 20:38-0400 Systolic blood pressure 139 mm[Hg] Dr. Sarah Dick MD Work Phone: 3(065)339-315534 [place] [address] 01-06-2025 20:31-0400 Body height 165.[address] Sarah Dick MD Work Phone: 6(719)465-590934 [place] [address] 01-06-2025 20:31-0400 Body mass index (BMI) [Ratio] 28.8 kg/m2 Dr. Sarah Dick MD Work Phone: 7(919)231-277934 [place] [address] 01-06-2025 20:31-0400 Body weight 78.[address] Sarah Dick MD Work Phone: 3(333)179-548634 [place] [address] 01-04-2025 15:27-0400 Body mass index (BMI) [Ratio] 28.52 kg/m2 Gregory Jenkins MD Work Phone: 3(813)713-219214 [place] [address] 01-04-2025 15:27-0400 Body weight 77.75 kg Gregory Jenkins MD Work Phone: 4(641)194-457931 [place] [address] 01-04-2025 15:27-0400 Diastolic blood pressure 70 mm[Hg] Gregory Jenkins MD Work Phone: 0(767)820-424731 [place] [address] 01-04-2025 15:27-0400 Systolic blood pressure 110 mm[Hg] Gregory Jenkins MD Work Phone: 1(008)981-888531 [place] [address] 12-27-2024 10:56-0400 Body mass index (BMI) [Ratio] 27.79 kg/m2 Fátima Espino MD Work Phone: 3(806)389-256331 [place] [address] 12-27-2024 10:56-0400 Body weight 75.75 kg Fátima Espino MD Work Phone: [facility] 12-27-2024 10:56-0400 Diastolic blood pressure 68 mm[Hg] Fátima Espino MD Work Phone: [facility] 12-27-2024 10:56-0400 Systolic blood pressure 110 mm[Hg] Fátima Espino MD Work Phone: [facility] 12-17-2024 09:02-0400 Diastolic blood pressure 74 mm[Hg] i Beac Work Phone: [facility] 12-17-2024 09:02-0400 Heart rate 89 /min i Beac Work Phone: [facility] 12-17-2024 09:02-0400 SaO2% (BldA) [Mass fraction] 99 % [facility] Work Phone: [facility] 12-17-2024 09:02-0400 Systolic blood pressure 120 mm[Hg] i Beac Work Phone: [facility] 12-01-2024 13:32-0400 Diastolic blood pressure 64 mm[Hg] [facility] 12-01-2024 13:32-0400 Heart rate 105 /min [facility] 12-01-2024 13:32-0400 SaO2% (BldA) [Mass fraction] 100 % [facility] 12-01-2024 13:32-0400 Systolic blood pressure 104 mm[Hg] [facility] 11-29-2024 08:57-0400 Body height 165.1 cm Dafne Camargo APRN.CNM Work Phone: [facility] 11-29-2024 08:57-0400 Body mass index (BMI) [Ratio] 27.29 kg/m2 Dafne Camargo APRN.CNM Work Phone: [facility] 11-29-2024 08:57-0400 Body weight 74.39 kg Dafne Camargo APRN.CNTania Work Phone: [facility] 11-29-2024 08:57-0400 Diastolic blood pressure 70 mm[Hg] Dafne Camargo TRANSACTIONAL PARALEGAL.CNM Work Phone: [facility] 11-29-2024 08:57-0400 Systolic blood pressure 114 mm[Hg] Dafne Camargo TRANSACTIONAL PARALEGAL.CNM Work Phone: [facility] 08-09-2024 15:34-0400 Body mass index (BMI) [Ratio] 23.84 kg/m2 Adriana Moomaw TRANSACTIONAL PARALEGAL.AUTOMATIC FURNACE OPERATOR Work Phone: [facility] 08-09-2024 15:34-0400 Body temperature 97.9 [degF] Adriana Moomaw TRANSACTIONAL PARALEGAL.AUTOMATIC FURNACE OPERATOR Work Phone: [facility] 08-09-2024 15:34-0400 Body weight 66 kg Adriana Moomaw TRANSACTIONAL PARALEGAL.AUTOMATIC FURNACE OPERATOR Work Phone: [facility] 08-09-2024 15:34-0400 Diastolic blood pressure 60 mm[Hg] Adriana Moomaw TRANSACTIONAL PARALEGAL.AUTOMATIC FURNACE OPERATOR Work Phone: [facility] 08-09-2024 15:34-0400 Heart rate 104 /min Adriana Moomaw TRANSACTIONAL PARALEGAL.AUTOMATIC FURNACE OPERATOR Work Phone: [facility] 08-09-2024 15:34-0400 Respiratory rate 18 /min Adriana Moomaw TRANSACTIONAL PARALEGAL.AUTOMATIC FURNACE OPERATOR Work Phone: [facility] 08-09-2024 15:34-0400 SaO2% (BldA) [Mass fraction] 99 % Adriana Moomaw TRANSACTIONAL PARALEGAL.AUTOMATIC FURNACE OPERATOR Work Phone: [facility] 08-09-2024 15:34-0400 Systolic blood pressure 126 mm[Hg] Adriana Moomaw TRANSACTIONAL PARALEGAL.AUTOMATIC FURNACE OPERATOR Work Phone: [facility] 09-19-2023 09:27-0400 Body mass index (BMI) [Ratio] 23.11 kg/m2 Karen Jenkins TRANSACTIONAL PARALEGAL.AUTOMATIC FURNACE OPERATOR Work Phone: [facility] 09-19-2023 09:27-0400 Body temperature 97.39 [degF] Karen Jenkins TRANSACTIONAL PARALEGAL.AUTOMATIC FURNACE OPERATOR Work Phone: [facility] 09-19-2023 09:27-0400 Body weight 64 kg Karen Gregory TRANSACTIONAL PARALEGAL.AUTOMATIC FURNACE OPERATOR Work Phone: [facility] 09-19-2023 09:27-0400 Diastolic blood pressure 70 mm[Hg] Karenkaren Jenkins TRANSACTIONAL PARALEGAL.AUTOMATIC FURNACE OPERATOR Work Phone: [facility] 09-19-2023 09:27-0400 Heart rate 90 /min Karen Jenkins TRANSACTIONAL PARALEGAL.AUTOMATIC FURNACE OPERATOR Work Phone: [facility] 09-19-2023 09:27-0400 Respiratory rate 20 /min Karen Jenkins TRANSACTIONAL PARALEGAL.AUTOMATIC FURNACE OPERATOR Work Phone: [facility] 09-19-2023 09:27-0400 SaO2% (BldA) [Mass fraction] 100 % Karen Jenkins TRANSACTIONAL PARALEGAL.AUTOMATIC FURNACE OPERATOR Work Phone: [facility] 09-19-2023 09:27-0400 Systolic blood pressure 107 mm[Hg] Karen Jenkins TRANSACTIONAL PARALEGAL.AUTOMATIC FURNACE OPERATOR Work Phone: [facility] 08-02-2023 09:11-0500 Body temperature 97.7 [degF] Amanda Praisler-Wood TRANSACTIONAL PARALEGAL.AUTOMATIC FURNACE OPERATOR Work Phone: [facility] 08-02-2023 09:11-0500 Body weight 71.5 kg Amanda Praisler-Wood TRANSACTIONAL PARALEGAL.AUTOMATIC FURNACE OPERATOR Work Phone: [facility] 08-02-2023 09:11-0500 Diastolic blood pressure 79 mm[Hg] Amanda Praisler-Wood TRANSACTIONAL PARALEGAL.AUTOMATIC FURNACE OPERATOR Work Phone: [facility] 08-02-2023 09:11-0500 Heart rate 80 /min Amanda Praisler-Wood TRANSACTIONAL PARALEGAL.AUTOMATIC FURNACE OPERATOR Work Phone: [facility] 08-02-2023 09:11-0500 Respiratory rate 18 /min Amanda Praisler-Wood TRANSACTIONAL PARALEGAL.AUTOMATIC FURNACE OPERATOR Work Phone: [facility] 08-02-2023 09:11-0500 SaO2% (BldA) [Mass fraction] 98 % Amanda Praisler-Wood TRANSACTIONAL PARALEGAL.AUTOMATIC FURNACE OPERATOR Work Phone: [facility] 08-02-2023 09:11-0500 Systolic blood pressure 135 mm[Hg] Amanda Crain TRANSACTIONAL PARALEGAL.AUTOMATIC FURNACE OPERATOR Work Phone: [facility] 02-05-2023 12:29-0400 Body temperature 99.1 [degF] Dwight Benito MD Work Phone: [facility] 02-05-2023 12:29-0400 Body weight 75.48 kg Dwight Benito MD Work Phone: [facility] 02-05-2023 12:29-0400 Diastolic blood pressure 76 mm[Hg] Dwight Benito MD Work Phone: [facility] 02-05-2023 12:29-0400 Heart rate 121 /min wDight Benito MD Work Phone: [facility] 02-05-2023 12:29-0400 Respiratory rate 18 /min Dwight Benito MD Work Phone: [facility] 02-05-2023 12:29-0400 SaO2% (BldA) [Mass fraction] 100 % Dwight Benito MD Work Phone: [facility] 02-05-2023 12:29-0400 Systolic blood pressure 115 mm[Hg] Dwight Benito MD Work Phone: [facility] 05-29-2022 10:02-0500 Body temperature 101.61 [degF] Kodi Perez TRANSACTIONAL PARALEGAL.AUTOMATIC FURNACE OPERATOR Work Phone: [facility] 05-29-2022 10:02-0500 Body weight 77.02 kg Kodi Perez TRANSACTIONAL PARALEGAL.AUTOMATIC FURNACE OPERATOR Work Phone: [facility] 05-29-2022 10:02-0500 Diastolic blood pressure 54 mm[Hg] Kodi Perez TRANSACTIONAL PARALEGAL.AUTOMATIC FURNACE OPERATOR Work Phone: [facility] 05-29-2022 10:02-0500 Heart rate 114 /min Kodi Perez TRANSACTIONAL PARALEGAL.AUTOMATIC FURNACE OPERATOR Work Phone: [facility] 05-29-2022 10:02-0500 Respiratory rate 21 /min Kodi Ana TRANSACTIONAL PARALEGAL.AUTOMATIC FURNACE OPERATOR Work Phone: [facility] 05-29-2022 10:02-0500 SaO2% (BldA) [Mass fraction] 99 % Kodi Ana TRANSACTIONAL PARALEGAL.AUTOMATIC FURNACE OPERATOR Work Phone: [facility] 05-29-2022 10:02-0500 Systolic blood pressure 112 mm[Hg] Kodi Ana TRANSACTIONAL PARALEGAL.AUTOMATIC FURNACE OPERATOR Work Phone: [facility] 02-28-2022 11:11-0400 Body weight 67.22 kg Fara Kelly MD Work Phone: [facility] 02-28-2022 11:11-0400 Diastolic blood pressure 70 mm[Hg] Fara Kelly MD Work Phone: [facility] 02-28-2022 11:11-0400 Systolic blood pressure 100 mm[Hg] Fara Kelly MD Work Phone: [facility] 02-20-2022 13:28-0400 Body weight 68.13 kg Michelle Montelongo MD Work Phone: [facility] 02-20-2022 13:28-0400 Diastolic blood pressure 63 mm[Hg] Michelle Montelongo MD Work Phone: [facility] 02-20-2022 13:28-0400 Systolic blood pressure 118 mm[Hg] Michelle Montelongo MD Work Phone: [facility] 02-19-2022 07:59-0400 Body temperature 98.1 [degF] Jennie Athy PA-C Work Phone: [facility] 02-19-2022 07:59-0400 Body weight 67.13 kg Jennie Athy PA-C Work Phone: [facility] 02-19-2022 07:59-0400 Diastolic blood pressure 62 mm[Hg] Jennie Athy PA-C Work Phone: [facility] 02-19-2022 07:59-0400 Heart rate 88 /min Jennie Athy PA-C Work Phone: [facility] 02-19-2022 07:59-0400 Respiratory rate 18 /min Jennie Athy PA-C Work Phone: [facility] 02-19-2022 07:59-0400 SaO2% (BldA) [Mass fraction] 98 % Jennie Athy PA-C Work Phone: [facility] 02-19-2022 07:59-0400 Systolic blood pressure 110 mm[Hg] Jennie Athy PA-C Work Phone: [facility] 02-15-2022 13:17-0400 Body weight 67.13 kg Lynne Mcdermottts TRANSACTIONAL PARALEGAL.CNM Work Phone: [facility] 02-15-2022 13:17-0400 Diastolic blood pressure 60 mm[Hg] Lynne Plotts TRANSACTIONAL PARALEGAL.CNM Work Phone: [facility] 02-15-2022 13:17-0400 Systolic blood pressure 104 mm[Hg] Lynne Plotts TRANSACTIONAL PARALEGAL.CNM Work Phone: [facility] 02-05-2022 12:52-0400 Body weight 65.86 kg Cuauhtemoc Natarajan MD Work Phone: [facility] 02-05-2022 12:52-0400 Diastolic blood pressure 54 mm[Hg] Cuauhtemoc Natarajan MD Work Phone: [facility] 02-05-2022 12:52-0400 Systolic blood pressure 100 mm[Hg] Cuauhtemoc Natarajan MD Work Phone: [facility] 01-29-2022 11:41-0400 Diastolic blood pressure 60 mm[Hg] Michelle Montelongo MD Work Phone: [facility] 01-29-2022 11:41-0400 Systolic blood pressure 98 mm[Hg] Michelle Montelongo MD Work Phone: [facility] 01-22-2022 09:22-0400 Body weight 64.59 kg Cuauhtemoc Natarajan MD Work Phone: [facility] 01-22-2022 09:22-0400 Diastolic blood pressure 56 mm[Hg] Cuauhtemoc Natarajan MD Work Phone: [facility] 01-22-2022 09:22-0400 Systolic blood pressure 108 mm[Hg] Cuauhtemoc Natarajan MD Work Phone: [facility] 01-18-2022 16:07-0400 Body weight 63.96 kg Fátima Espino MD Work Phone: [facility] 01-18-2022 16:07-0400 Diastolic blood pressure 60 mm[Hg] Fátima Espino MD Work Phone: [facility] 01-18-2022 16:07-0400 Systolic blood pressure 122 mm[Hg] Fátima Espino MD Work Phone: [facility] 01-17-2022 11:46-0400 Diastolic blood pressure 58 mm[Hg] Michelle Montelongo MD Work Phone: [facility] 01-17-2022 11:46-0400 Systolic blood pressure 102 mm[Hg] Michelle Montelongo MD Work Phone: [facility] 01-08-2022 14:25-0400 Body height 165.1 cm [facility] Work Phone: 01-08-2022 14:25-0400 Body mass index (BMI) [Ratio] 23.6 kg/m2 [facility] Work Phone: 01-08-2022 14:25-0400 Body temperature 98.6 [degF] [facility] Work Phone: 01-08-2022 14:25-0400 Body weight 64.41 kg [facility] Work Phone: 01-08-2022 14:25-0400 Diastolic blood pressure 65 mm[Hg] [facility] Work Phone: 08-16-2022 14:25-0400 Heart rate 91 /min [facility] Work Phone: 01-08-2022 14:25-0400 Respiratory rate 16 /min [facility] Work Phone: 01-08-2022 14:25-0400 SaO2% (BldA) [Mass fraction] 99 % [facility] Work Phone: 01-08-2022 14:25-0400 Systolic blood pressure 118 mm[Hg] [facility] Work Phone: 12-12-2021 14:58-0400 Body weight 63.73 kg Krystal Huerta MD Work Phone: [facility] 12-12-2021 14:58-0400 Diastolic blood pressure 59 mm[Hg] Krystal Huerta MD Work Phone: [facility] 12-12-2021 14:58-0400 Heart rate 92 /min Krystal Huerta MD Work Phone: [facility] 12-12-2021 14:58-0400 Respiratory rate 20 /min Krystal Huerta MD Work Phone: [facility] 12-12-2021 14:58-0400 SaO2% (BldA) [Mass fraction] 98 % Krystal Huerta MD Work Phone: [facility] 12-12-2021 14:58-0400 Systolic blood pressure 103 mm[Hg] Krystal Huerta MD Work Phone: [facility] 11-14-2021 08:50-0400 Body weight 63.05 kg Dafne Camargo APRN.CNM Work Phone: [facility] 11-14-2021 08:50-0400 Diastolic blood pressure 60 mm[Hg] Dafne Camargo APRN.CNM Work Phone: [facility] 11-14-2021 08:50-0400 Systolic blood pressure 102 mm[Hg] Dafne Camargo APRN.CNM Work Phone: [facility] 10-24-2021 10:57-0400 Body weight 59.88 kg Lynne Jensen TRANSACTIONAL PARALEGAL.CNM Work Phone: [facility] 10-24-2021 10:57-0400 Diastolic blood pressure 68 mm[Hg] Lynne Jensen TRANSACTIONAL PARALEGAL.CNM Work Phone: [facility] 10-24-2021 10:57-0400 Systolic blood pressure 112 mm[Hg] Lynne Jensen TRANSACTIONAL PARALEGAL.CNM Work Phone: [facility] 10-14-2021 15:40-0400 Body height 165.1 cm [facility] Work Phone: 10-14-2021 15:40-0400 Body mass index (BMI) [Ratio] 22.1 kg/m2 [facility] Work Phone: 10-14-2021 15:40-0400 Body temperature 97.8 [degF] [facility] Work Phone: 10-14-2021 15:40-0400 Body weight 60.32 kg [facility] Work Phone: 10-14-2021 15:40-0400 Diastolic blood pressure 87 mm[Hg] [facility] Work Phone: 10-14-2021 15:40-0400 Heart rate 124 /min [facility] Work Phone: 10-14-2021 15:40-0400 Respiratory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 (#1) [facility] Start: 2014 Anxiety Screening Anxiety Screening [facility] Start: 2014 Depression Screening Depression Scre ening [facility] Start: 09-15-2011 HPV Vaccine (1 - 3-d ose series) HPV Vaccine (1 - 3-dose series) [facility] Start: 2010 PEDS TO ADULT TRANSITION ANNUAL ASSESSMENT PEDS TO ADULT TRANSITION ANNUAL ASSESSMENT [facility] Start: 2008 PEDS TO ADULT TRANSITION INITIAL DISCUSSION PEDS TO ADULT TRANSITION INITIAL DISCUSSION [facility] Start: 09-15-2007 HPV VACCINE (1 - 2-d ose series) HPV VACCINE (1 - 2-dose series) [facility] Start: 2006 MENINGOCOCCAL B: Consider based on risk (1 of 2 - Risk Bexsero 2-dose series) MENINGOCOCCAL B: Consider based on risk (1 of 2 - Risk Bexsero 2-dose series) [facility] Start: 2005 HPV Vaccine (1 - 2-d ose series) HPV Vaccine (1 - 2-dose series) [facility] Start: 2001 COVID-19 VACCINE (#1) COVID-19 VACCI NE (#1) [facility] Start: 2001 COVID-19 VACCINE (1) COVID-19 VACCIN E (1) [facility] Start: 03-16-1997 COVID-19 VACCINE (#1) COVID-19 VACCI NE (#1) [facility] Bacteria identified in Urine by Culture URINE CULTURE Microbiology Routine 16 weeks gestation of 10/24/2021 11:13 AM EDT [facility] Work Phone: BACTERIAL VAGINOSIS NAAT BACTERIAL VAGINOSIS NAAT Lab Routine Unprotected sex 09/19/2023 10:04 AM EDT [facility] Work Phone: BACTERIAL VAGINOSIS NAAT BACTERIAL VAGINOSIS NAAT Lab Routine Supervision of high risk in third trimester (HCC) 12/27/2024 11:32 AM EDT [facility] BIOPHYSICAL PROFILE US WHI BIOPHYSICAL PROFILE US WHI Anc Imaging Routine gastroschisis during , antepartum, single or unspecified fetus 33 weeks gestation of Ordered: 02/21/2022 [facility] Work Phone: Comment on above: Ordered: 02/21/2022 COLE/TRICHOMONAS NAAT COLE/TRICHOMONAS NAAT Lab Routine Unprotected sex 09/19/2023 10:[address] [facility] COLE/TRICHOMONAS NAAT COLE/TRICHOMONAS NAAT Lab Routine Trichomonas vaginitis Supervision of high risk in third trimester ([facility]) 12/27/2024 11:[address] [facility] Chlamydia trachomatis+Neisseria gonorrhoeae DNA [Presence] in Unspecified specimen by SANDY with probe detection GC/CHLAMYDIA DNA DET Lab Routine Supervision of high risk in third trimester 28 weeks gestation of Vaginal discharge during in third trimester 01/18/2022 4:40 PM [facility] Work Phone: Chlamydia trachomatis+Neisseria gonorrhoeae DNA [Presence] in Unspecified specimen by SANDY with probe detection GONORRHEA/CHLAMYDIA NAAT Lab Routine Unprotected sex 09/19/2023 10:[address] [facility] Chlamydia trachomatis+Neisseria gonorrhoeae DNA [Presence] in Unspecified specimen by SANDY with probe detection GONORRHEA/CHLAMYDIA NAAT Lab Routine Supervision of high risk in third trimester ([facility]) 12/27/2024 11:[address] [facility] OBSTETRIC ULTRASOUND WHI OBSTETRIC ULTRASOUND WHI Anc Imaging Routine 16 weeks gestation of Ordered: 10/24/2021 [facility] Work Phone: Comment on above: Ordered: 10/24/2021 End: 11-14-2022 OBSTETRIC ULTRASOUND WHI OBSTETRIC ULTRASOUND WHI Anc Imaging Routine 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 , antepartum Once per month for 8 Occurrences starting 11/14/2021 until 11/14/2022 [facility] Work Phone: Comment on above: Once per month for 8 Occurrences starting 11/14/2021 until 11/14/2022 Patient Education [facility] Work Phone: Patient referral [facility] Work Phone: ROUTINE, GR OUP B STREP PCR ROUTINE, GROUP B STREP PCR Microbiology Routine gastroschisis during , antepartum, single or unspecified fetus Ordered: 02/20/2022 [facility] Work Phone: Comment on above: Ordered: 02/20/2022 ROUTINE, GR OUP B STREP PCR ROUTINE, GROUP B STREP PCR Microbiology Routine 34 weeks gestation of gastroschisis during , antepartum, single or unspecified fetus Supervision of high risk in third trimester 02/28/2022 11:53 AM EDT [facility] Work Phone: ROUTINE, GR OUP B STREPTOCOCCUS BY PCR ROUTINE, GROUP B STREPTOCOCCUS BY PCR Microbiology Routine 36 weeks gestation of ([facility]) Late care ([facility]) 12/27/2024 11:22 AM EDT [facility] SARS-CoV-2 (COVID-19 ) RNA [Presence] in Respiratory specimen by SANDY with probe detection SELF CHECK COVID Microbiology Routine gastroschisis during , antepartum, single or unspecified fetus 33 weeks gestation of Ordered: 02/21/2022 [facility] Work Phone: Comment on above: Ordered: 02/21/2022 T VAGINALIS AMPLIFICATION T VAGINALIS AMPLIFICATION Lab Routine Supervision of high risk in third trimester 28 weeks gestation of Vaginal discharge during in third trimester 01/18/2022 4:40 PM EDT [facility] Work Phone: URINE OB DIP B/O URINE OB DIP B/ O Lab Routine 16 weeks gestation of Ordered: 10/24/2021 [facility] Work Phone: Comment on above: Ordered: 10/24/[address] [facility] Immunizations Immunization Date Immunization Notes Care Provider Fa [facility] 12-27-2024 tetanus toxoid, redu salma diphtheria toxoid, and acellular pertussis vaccine, adsorbed Fátima Espino MD Work Phone: [facility] 12-15-2023 tetanus toxoid, redu salma diphtheria toxoid, and acellular pertussis vaccine, adsorbed Fátima Espino MD Work Phone: [facility] 08-11-2017 tetanus toxoid, redu salma diphtheria toxoid, and acellular pertussis vaccine, adsorbed Anayeli Shirley MD Work Phone: [facility] Work Phone: 02-24-2016 tetanus toxoid, redu salma diphtheria toxoid, and acellular pertussis vaccine, adsorbed [facility] Work Phone: 01-14-2012 tetanus toxoid, redu salma diphtheria toxoid, and acellular pertussis vaccine, adsorbed Anayeli Shirley MD Work Phone: [facility] Work Phone: 05-03-2009 influenza virus vaccine, live, attenuated, for intranasal use Fátima Espino MD Work Phone: [facility] 05-03-2009 influenza virus vaccine, unspecified formulation Dwight Benito MD Work Phone: [facility] 02-23-2002 varicella virus vaccine Marisol Shirley MD Work Phone: [facility] Work Phone: 01-13-2002 hepatitis A vaccine, pediatric/adolescent dosage, 2 dose schedule Anayeli Shirley MD Work Phone: [facility] Work Phone: 07-22-2001 diphtheria, tetanus toxoids and acellular pertussis vaccine Anayeli Shirley MD Work Phone: [facility] Work Phone: 07-22-2001 diphtheria, tetanus toxoids and acellular pertussis vaccine, unspecified formulation Fátima Espino MD Work Phone: [facility] 07-22-2001 measles, mumps and rubella virus vaccine Anayeli Shirley MD Work Phone: [facility] Work Phone: 07-22-2001 poliovirus vaccine, inactivated Anayeli Shirley MD Work Phone: [facility] Work Phone: 05-17-1998 diphtheria, tetanus toxoids and acellular pertussis vaccine Anayeli Shirley MD Work Phone: [facility] Work Phone: 05-17-1998 diphtheria, tetanus toxoids and acellular pertussis vaccine, unspecified formulation Fátima Espino MD Work Phone: [facility] 05-17-1998 haemophilus influenz ae type b vaccine, HbOC conjugate Anayeli Shirley MD Work Phone: [facility] Work Phone: 09-19-1997 measles, mumps and rubella virus vaccine Anayeli Shirley MD Work Phone: [facility] Work Phone: 09-19-1997 varicella virus vaccine Marisol Shirley MD Work Phone: [facility] Work Phone: 03-29-1997 diphtheria, tetanus toxoids and acellular pertussis vaccine Anayeli Shirley MD Work Phone: [facility] Work Phone: 03-29-1997 diphtheria, tetanus toxoids and acellular pertussis vaccine, unspecified formulation Fátima Espino MD Work Phone: [facility] 03-29-1997 haemophilus influenz ae type b vaccine, HbOC conjugate Anayeli Shirley MD Work Phone: [facility] Work Phone: 03-29-1997 hepatitis B vaccine, pediatric or pediatric/adolescent dosage Anayeli Shirley MD Work Phone: [facility] Work Phone: 03-29-1997 poliovirus vaccine, inactivated Anayeli Shirley MD Work Phone: [facility] Work Phone: 01-13-1997 diphtheria, tetanus toxoids and acellular pertussis vaccine Anayeli Shirley MD Work Phone: [facility] Work Phone: 01-13-1997 diphtheria, tetanus toxoids and pertussis vaccine Fátima Espino MD Work Phone: [facility] 01-13-1997 haemophilus influenz ae type b vaccine, HbOC conjugate Anayeli Shirley MD Work Phone: [facility] Work Phone: 01-13-1997 poliovirus vaccine, inactivated Anayeli Shirley MD Work Phone: [facility] Work Phone: 1996 diphtheria, tetanus toxoids and acellular pertussis vaccine Anayeli Shirley MD Work Phone: [facility] Work Phone: 1996 diphtheria, tetanus toxoids and pertussis vaccine Fátima Espino MD Work Phone: [facility] 1996 haemophilus influenz ae type b vaccine, HbOC conjugate Anayeli Shirley MD Work Phone: [facility] Work Phone: 1996 poliovirus vaccine, inactivated Anayeli Shirley MD Work Phone: [facility] Work Phone: 1996 hepatitis B vaccine, pediatric or pediatric/adolescent dosage Anayeli Shirley MD Work Phone: [facility] Work Phone: 1996 hepatitis B vaccine, pediatric or pediatric/adolescent dosage Anayeli Shirley MD Work Phone: [facility] Work Phone: Payers Date Payer Category Payer Self-pay [id number] 2024 Unknown [id number] 2022 Unknown [id number] 2020 [facility] [id number] 2020-Present [phone] [address] [place] [address] Medicaid [id number] 2020 Medicaid [id number] 2014 Unknown [employer] BLUE CARD PPO OOS [id number] 2014-Present [phone] [address] [place] [address] PPO [id number] 2014 Unknown [id number] 1996 Unknown [id number] 1996 Unknown [id number] 1996 Unknown [id number] Unknown [id number] Unknown [id number] Unknown [id number] Unknown [id number] Unknown [id number] Unknown [id number] Unknown [id number] Social History Date Type Detail Facility [facility] Work Phone: Start: 08-14-2021 End: 10-14-2021 Tobacco smoking status ILIS Unknown if ever smoked [facility] Work Phone: Start: 03-07-2020 Rare [facility] Start: 03-07-2020 - [facility] Start: 03-07-2020 With Family [facility] Start: 01-09-2020 Vapor [facility] Start: 1996 Sex Assigned At Female C [facility] Start: 09-04-2017 End: 11-29-2024 Tobacco smoking status NHIS Ex-smoker [facility] Start: 02-04-2013 End: 02-04-2017 History of tobacco use Current smoker [facility] Start: 09-04-2017 End: 11-29-2024 Tobacco use and exposure Smokeless tobacco non-user [facility] Start: 08-20-2021 End: 01-04-2025 Alcohol intake Current non-drinker of alcohol (finding) [facility] Start: 08-06-2021 Education 13 [facility] Start: 07-17-2021 [facility] Start: 09-06-2020 End: 02-22-2022 Exposure to SARS-CoV-2 (event) Not sure [facility] Work Phone: Start: 02-04-2013 End: 02-04-2017 History of tobacco use Cigarette Smoker [facility] Start: 02-05-2023 End: 04-30-2023 History of Social function [facility] Start: 02-05-2023 End: 04-30-2023 Tobacco use panel [facility] Start: 04-26-2012 Adult Depression Screening Assessment 1 [facility] Start: 08-05-2021 Gender identity Identifies as female gender (finding) [facility] Start: 08-05-2021 Sexual orientation Heterosexual (fin ding) [facility] Start: 07-15-2018 Tobacco smoking status Light t obacco smoker (finding) [facility] Sexual Orientation [facility] Start: 04-05-2018 Sex Female (finding) [facility] Start: 12-14-2023 Tobacco smoking stat us NHIS Never smoked tobacco (finding) [facility] Goals Date Patient Goal Desired Activity /State Personal health goal Personal health goal Functional Status Date Assessment Result Facility 03-09-2022 Are you deaf, or do you have serious difficulty hearing No 03/09/2022 6:00 PM Ama Salas, SARAH No [facility] 03-09-2022 Are you blind, or do you have serious difficulty seeing, even when wearing glasses No 03/09/2022 6:00 PM Ama Salas, SARAH No [facility] 03-09-2022 Do you have serious difficulty walking or climbing stairs No 03/09/2022 6:00 PM Ama Salas, RN No [facility] 03-09-2022 Do you have difficul ty dressing or bathing No 03/09/2022 6:00 PM Ama Salas, RN No [facility] 03-09-2022 Because of a physica l, mental, or emotional condition, do you have difficulty doing errands alone such as visiting a physician's office or shopping No 03/09/2022 6:00 PM Ama Salas, RN No [facility] Mental Status Date Assessment Result Facility 01-07-2025 Cognitive function Awake;Alert;A ppropriate; Follows Commands [facility] Work Phone: 03-09-2022 Because of a physica l, mental, or emotional condition, do you have serious difficulty concentrating, remembering, or making decisions No 03/09/2022 6:00 PM Ama Salas, SARAH No [facility] Clinical Notes 06-06-2017 to 01-06-2025 Note Date & Type Note Facility 01-06-2025 Evaluation note Diagnosis Onset Date Resolution 37 weeks gestation of acute January 06 8:24pm Back pain affecting acute January 06 8:24pm [facility] Work Phone: [phone] 633-769708-14-2025 Telephone encounter Note* Telephone Encounter - Giulia Joshua RN - 01/06/2025 12:08 PM EDT 2nd risk assessment form submitted 01/06/2025. Giulia Joshua RN [facility]08-14-2025 Miscellaneous Notes* Telephone Encounter - Giulia Joshua RN - 01/06/2025 12:08 PM EDT 2nd risk assessment form submitted 01/06/2025. Giulia Joshua RN documented in this encounterLakehealth [facility]08-12-2025 Telephone encounter Note * Telephone Encounter - Chel Pitts RN - 01/04/2025 4:26 PM EDT Order signed by FEDERICO, for Venofer 3 doses faxed to [facility] outpatient infusion center along with most [...] Nurse if any questions. Chel Pitts RN [facility]08-12-2025 Miscellaneous Notes* Telephone Encounter - Chel Pitts RN - 01/04/2025 4:26 PM EDT Order signed by FEDERICO, for Venofer 3 doses faxed to [facility] outpatient infusion center along with most [...] Women's Health Nurse if any questions. Chel Pitts, RN documented in this encounterLakehealth [facility] Center08-12-2025 Progress note* Quick Notes - Gregory Jenkins MD - 01/04/2025 3:57 PM EDT KJ - S: Zully denies LOF, contractions or vaginal bleeding. O: 37w1d, see flow sheet SENSITIVE EXAM: Sensitive exam not performed. A/P: Assessment & Plan Previous section Repeat scheduled. Orders: URINE OB DIP B/O Anemia during in third trimester (HCC) Plan for IV iron at [facility] as unable to reschedule with blood management until after delivery. Orders: URINE OB DIP B/O Drug abuse, amphetamine type ([facility]) Orders: URINE OB DIP B/O Late care ([facility]) Orders: URINE OB DIP B/O Supervision of high risk in third trimester ([facility]) Orders: URINE OB DIP B/O Trichomonas vaginitis Patient & partner currently completing & day treatment. Reviewed labor & FM precautions Gregory Jenkins MD [facility]08-12-2025 Miscellaneous Notes* Quick Notes - Gregory Jenkins MD - 01/04/2025 3:57 PM EDT KJ - S: Zully denies LOF, contractions or vaginal bleeding. O: 37w1d, see flow sheet SENSITIVE EXAM: Sensitive exam not performed. A/P: Assessment & Plan Previous section Repeat scheduled. Orders: URINE OB DIP B/O Anemia during in third trimester (HCC) Plan for IV iron at [facility] as unable to reschedule with blood management until after delivery. Orders: URINE OB DIP B/O Drug abuse, amphetamine type ([facility]) Orders: URINE OB DIP B/O Late care ([facility]) Orders: URINE OB DIP B/O Supervision of high risk in third trimester ([facility]) Orders: URINE OB DIP B/O Trichomonas vaginitis Patient & partner currently completing & day treatment. Reviewed labor & FM precautions Gregory Jenkins MD documented in this encounterLakehealth [facility] Center08-12-2025 Instructions* Patient Instructions* Krystal Gilman MA - 01/04/2025 3:22 PM EDT SEQUENTIAL SCREENINGS The [facility] offers sequential screenings for women who are interested in screenings for chromosomal abnormalities and certain defects during a . The sequential screen combinesultrasound and blood tests to determine the risk [...] this testing. It will require an appointment withour clinical pharmacy technician. This is not an ultrasound performed [...] the above symptoms, contact our office at [phone] and ask to speak with anurse. After hours, you can call doctors registry at [phone] OR call [facility] at [phone] ask to have the doctor television maintenance man paged. If you consider this an emergency, dial 9-1-1 or go to your nearest emergency department. NEED HELP? Are you dealing with a violent or abusive relationship? Are you a victim of rape or sexual assult? Call [facility] ([facility] 24 hour Crisis Hotline: 796.892.6072 or 603-840-9553. MANUAL Your Guide to a Healthy manual is now on-line. Visit [email or web address] to download your free copy documented in this encounterLakehealth [facility]wood Medical Center08-04-2025 Progress note* Quick Notes - Fátima Espino MD - 12/27/2024 1:14 PM EDT RR- VB No. LOF No. CTXS No. Movement: present. Other c/o: No. Medication list reviewed. SENSITIVE EXAM: The sensitive examination was discussed with the Patient or Patient's Authorized Aids Social Worker. As applicable, any other physician, advance practice provider, medical student, or other health professional student that will be observing or involved in the sensitive examination for educational or training purposes was discussed with the Patient or Authorized Aids Social Worker. The Patient or Authorized Aids Social Worker has agreed to proceed with the sensitive examination. (Sensitive examination includes inspection and/or palpation of the breasts, pelvis, prostate and anorectal regions). Physical Exam See Flow Sheet Abd: soft, nontender, gravid : external genitalia: normal Ext: edema: 1+ A/P 36w0d Estimated Date of Delivery: 01/24/25 ASSESSMENT/PLAN: 1. Supervision of high risk in third trimester (HCC) - ICD9: V23.9, ICD10: O09.93 (primary diagnosis) - TOXICOLOGY SCREEN, ROUTINE URINE - GONORRHEA/CHLAMYDIA NAAT - BACTERIAL VAGINOSIS NAAT - COLE/TRICHOMONAS NAAT - GLUCOSE RANDOM BLOOD 2. 36 weeks gestation of (HCC) - ICD9: V22.2, ICD10: Z3A.36 - URINE OB DIP B/O - ROUTINE, GROUP B STREPTOCOCCUS BY PCR - COMPLETE BLOOD COUNT - TOXICOLOGY SCREEN, ROUTINE URINE - GLUCOSE RANDOM BLOOD 3. Late care (HCC) - ICD9: V23.7, ICD10: O09.30 - URINE [...] poor reproductive or obstetric history, third trimester (HCC) - ICD9: [id number], ICD10: O09.293 treat trich and partner to be treated. contraceptive management: declines larc at delivery, might want sydney Espino M.D. [facility]08-04-2025 Miscellaneous Notes* Quick Notes - Fátima Espino MD - 12/27/2024 1:14 PM EDT RR- VB No. LOF No. CTXS No. Movement: present. Other c/o: No. Medication list reviewed. SENSITIVE EXAM: The sensitive examination was discussed with the Patient or Patient's Authorized Aids Social Worker. As applicable, any other physician, advance practice provider, medical student, or other health professional student that will be observing or involved in the sensitive examination for educational or training purposes was discussed with the Patient or Authorized Aids Social Worker. The Patient or Authorized Aids Social Worker has agreed to proceed with the sensitive examination. (Sensitive examination includes inspection and/or palpation of the breasts, pelvis, prostate and anorectal regions). Physical Exam See Flow Sheet Abd: soft, nontender, gravid : external genitalia: normal Ext: edema: 1+ A/P 36w0d Estimated Date of Delivery: 01/24/25 ASSESSMENT/PLAN: 1. Supervision of high risk in third trimester (HCC) - ICD9: V23.9, ICD10: O09.93 (primary diagnosis) - TOXICOLOGY SCREEN, ROUTINE URINE - GONORRHEA/CHLAMYDIA NAAT - BACTERIAL VAGINOSIS NAAT - COLE/TRICHOMONAS NAAT - GLUCOSE RANDOM BLOOD 2. 36 weeks gestation of (HCC) - ICD9: V22.2, ICD10: Z3A.36 - URINE OB DIP B/O - ROUTINE, GROUP B STREPTOCOCCUS BY PCR - COMPLETE BLOOD COUNT - TOXICOLOGY SCREEN, ROUTINE URINE - GLUCOSE RANDOM BLOOD 3. Late care (HCC) - ICD9: V23.7, ICD10: O09.30 - URINE [...] poor reproductive or obstetric history, third trimester (HCC) - ICD9: [id number], ICD10: O09.293 treat trich and partner to be treated. contraceptive management: declines larc at delivery, might want sydney Espino M.D. documented in this encounterLakehealth [facility]wood [facility] Center08-04-2025 NoteHNO ID: [id number] Author: KRYSTAL GILMAN MA Service: ? Author Type: Risk Compliance Analyst Type: Progress Notes Filed: 12/27/2024 13:18 Note [...] severely ill: Yes Patient denies history of Guillain-[place] Syndrome (a severe paralytic illness): Yes Tdap Adacel injection was given without incident. See immunizations for details of immunizations administered today. VIS sheet provided: Yes Provider Fátima Espino MD was present in office at time of injection. [facility] History of Present illness Narrative* Krystal Gilman MA - 12/27/2024 10:55 AM EDT Patient identified by name and date of [...] severely ill: Yes Patient denies history of Guillain-[place] Syndrome (a severe paralytic illness): Yes Tdap Adacel injection was given without incident. See immunizations for details of immunizations administered today. VIS sheet provided: Yes Provider Fátima Espino MD was present in office at time of injection. Krystal Gilman MA documented in this encounterLakehealth [facility] Center08-04-2025 Instructions* Patient Instructions* Krystal Gilman MA - 12/27/2024 10:49 AM EDT SEQUENTIAL SCREENINGS The [facility] offers sequential screenings for women who are interested in screenings for chromosomal abnormalities and certain defects during a . The sequential screen combinesultrasound and blood tests to determine the risk [...] this testing. It will require an appointment withour clinical pharmacy technician. This is not an ultrasound performed [...] the above symptoms, contact our office at [phone] and ask to speak with anurse. After hours, you can call doctors registry at [phone] OR call [facility] at [phone] ask to have the doctor television maintenance man paged. If you consider this an emergency, dial 9-1-9 or go to your nearest emergency department. NEED HELP? Are you dealing with a violent or abusive relationship? Are you a victim of rape or sexual assult? Call [facility] ([facility]) 24 hour Crisis Hotline: 771.539.8502 or 795-000-7194. MANUAL Your Guide to a Healthy manual is now on-line. Visit [email or web address] to download your free copy documented in this encounterLakehealth [facility]wood Medical Center08-02-2025 Hospital Discharge instructions Patient Education 12/25/2024 15:45:15 [facility] Inst[facility] ([facility]) [facility] OUTPATIENT HOME-GOING INSTRUCTIONS _X_ [...] crackers, bananas, Jell-O, cooked carrots, applesauce. ___ [place] diet. Avoid caffeine, chocolate, alcohol, spiced/greasy foods. [...] and relax. Count the movements. You need tohave 10 movements in 2 hours. ___ If [...] the nearest Emergency Room for assistance. Form [id number] D: 05/03 Follow Up Care 12/25/2024 14:27:35 With:DAFNE CAMARGOM Address: [facility] [address] [place] [address]- When:12/27/2024 Comments:Follow-up as scheduled [facility] 07-25-2025 Note Indication Follow-up evaluation to complete anatomic [...] normal RVOT view: normal LVOT view: normal 2-[id number]-iyxykry view: normal Heart / Thorax Diaphragm: normal Stomach: normal Kidneys: normal Bladder: normal Cervical spine: normal Arms: normal Rt upper arm: normal Rt forearm: normal Lt upper arm: normal Lt forearm: normal Lt hand: normal Lt fingers: normal Rt foot: suboptimally visualized Lt foot: suboptimally visualized Wants to know sex: yes Performed By: Kandi Burnett RDMS Read By: Nandini Chavez M.D.MATERNAL [id number] Telephone encounter Note* Telephone Encounter - Misael Negron - 12/13/2024 12:27 PM EDT Contacted [facility] nursing who state that they have not been able to contact patient. Will try to schedule her when she comes in to the office tomorrow for OB appointment. [facility]07-21-2025 Miscellaneous Notes* Telephone Encounter - Misael Negron - 12/13/2024 12:27 PM EDT Contacted [facility] nursing who state that they have not been able to contact patient. Will try to schedule her when she comes in to the office tomorrow for OB appointment. documented in this encounterLakehealth [facility]wood Medical Center07-16-2025 Telephone encounter Note * Telephone Encounter - Jackie Valle RN - 12/08/2024 2:21 PM EDT Attempted to call patient and phone just states the number is unreachable. Was attempting to changeappt time tomorrow. Canceled appt with KJ tomorrow and will await phone call back. Jackie Valle RN [facility]07-16-2025 Miscellaneous Notes* Telephone Encounter - Jackie Valle RN - 12/08/2024 2:21 PM EDT Attempted to call patient and phone just states the number is unreachable. Was attempting to changeappt time tomorrow. Canceled appt with FEDERICO tomorrow and will await phone call back. Jackie Valle RN documented in this encounterLakehealth [facility]wood [facility] Center07-13-2025 Progress note* Quick Notes - Dafne Camargo APRN.CNM - 12/05/2024 6:07 AM EDT EDGARB, see progress note. Late to PN care. 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 Desires repeat C/S. 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 MFM referral placed. Dafne Camargo APRN.CNM [facility]07-13-2025 Miscellaneous Notes* Quick Notes - Dafne Camargo APRN.CNM - 12/05/2024 6:07 AM EDT HUGH, see progress note. Late to PN care. 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 Desires repeat C/S. 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 MFM referral placed. Dafne Camargo APRN.CNM documented in this encounterL[facility] Miscellaneous Notes* Telephone Encounter - Jackie Valle RN - 12/03/2024 10:46 AM EDT Patient viewed both Syncano messages on 12/01/24. Jackie Valle RN * Telephone Encounter - Brina Stanley RN - 12/01/2024 1:37 PM EDT Pt. In office for US, advised to call OB office to go over lab results. Pt. Verbalized understanding and said she will reach out. Brina Stanley RN * Telephone Encounter - Chel Pitts RN - 12/01/2024 8:48 AM EDT VoiceGemhart message sent to Pt from provider re: Trichomonas as well as: Pt tested + for yeast. [facility] recommends treating this after Pt completes the treatment for trichomonas.Rx sent in vaginal cream to be used for 7 nights.--Pt has not read both SportyBird messages from GENNY atthis time. Tried reaching Pt at # listed in chart. Message states You are trying to call is not reachable. Tried reaching emergency contact listed on patients chart; However, personal message was not name listed as listed in Pt's chart; Therefore, did not leave message. Appointment note made for US that Pt has today for US in [place], [place] for contact info to be updated as well as to have Pt check Syncano messages and contact our office. Chel Pitts RN * Telephone Encounter - Chel Pitts RN - 12/01/2024 8:47 AM EDT Images from the original note were not included. Dafne Camargo APRN.CNM to [facility] Ob-Health And Physical Education Teacher Pool 11/30/24 5:33 PM Result Note Positive for trichomonas. Will send prescription for Flagyl 500mg PO BID x 7days. No sex during andfor one week after treatment. Partner treatment and notification. I can send EPT if given information. Thank you, Dafne Camargo APRN.CNM BACTERIAL VAGINOSIS NAAT; COLE/TRICHOMONAS NAAT; GONORRHEA/CHLAMYDIA NAAT documented in this encounterL[facility]07-11-2025 Telephone encounter Note * Telephone Encounter - Jackie Valle RN - 12/03/2024 10:46 AM EDT Patient viewed both mychart messages on 12/01/24. Jackie Valle RN [facility]07-09-2025 Telephone encounter Note* Telephone Encounter - Brina Stanley RN - 12/01/2024 1:37 PM EDT Pt. In office for US, advised to call OB office to go over lab results. Pt. Verbalized understanding and said she will reach out. Brina Stanley RN [facility]07-09-2025 Telephone encounter Note* Telephone Encounter - Chel Pitts RN - 12/01/2024 8:48 AM EDT Mychart message sent to Pt from provider re: Trichomonas as well as: Pt tested + for yeast. [facility] recommends treating this after Pt completes the treatment for trichomonas.Rx sent in vaginal cream to be used for 7 nights.--Pt has not read both Mychart messages from GEN[facility] atthis time. Tried reaching Pt at # listed in chart. Message states You are trying to call is not reachable. Tried reaching emergency contact listed on patients chart; However, personal message was not name listed as listed in Pt's chart; Therefore, did not leave message. Appointment note made for US that Pt has today for US in [place], [place] for contact info to be updated as well as to have Pt check mychart messages and contact our office. hCel Pitts RN [facility]07-09-2025 Telephone encounter Note* Telephone Encounter - Chel Pitts RN - 12/01/2024 8:47 AM EDT Images from the original note were not included. Dafne Camargo APRN.CNM to [facility] Ob-Health And Physical Education Teacher Pool 11/30/24 5:33 PM Result Note Positive for trichomonas. Will send prescription for Flagyl 500mg PO BID x 7days. No sex during andfor one week after treatment. Partner treatment and notification. I can send EPT if given information. Thank you, Dafne Camargo APRN.CNM BACTERIAL VAGINOSIS NAAT; COLE/TRICHOMONAS NAAT; GONORRHEA/CHLAMYDIA NAAT [facility]07-08-2025 Telephone encounter Note* Telephone Encounter - Misael Tellez RN - 11/30/2024 11:24 AM EDT 1st risk assessment form submitted 11/30/2024. Misael Tellez RN [facility]07-08-2025 Miscellaneous Notes* Telephone Encounter - Misael Tellez RN - 11/30/2024 11:24 AM EDT 1st risk assessment form submitted 11/30/2024. Misael Tellez RN documented in this encounterLake[facility]07-07-2025 NoteHNO ID: [id number] Author: DAFNE CAMARGO APRN.CNM Service: ? Author Type: Lecturer In Computer Science Type: Progress Notes Filed: 12/05/2024 06:15 Note [...] age 11 or 12 - diagnosed in [place] Anemia Asthma ([facility]) exercise induced asthma Chlamydia Gonorrhea [...] mg by mouth two times a day. [id number] 27 mg-800 mcg- 250 mg-200 (more content not included)...[facility]07-07-2025 History of Present illness Narrative* Dafne Camargo APRN.[facility] - 11/29/2024 8:40 AM EDT INITIAL OB ASSESSMENT HPI: Zully is a [...] advanced cervical dilation (greater than or equal to4 cm) or effacement? No section due to [...] gestational age, previous adverse outcome, more than 10- year interval) OB Risk Screening: Completed, positive findings include: Patient answered 'Yes' they had a prior west between 20w and 36w6d. 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 [id number] 27 mg-800 mcg- 250 mg-200 mg cap [...] Allergen Noted Reaction DUST 07/21/2006 Itching PERCOCET [OXYCODONE-ACETAMINOPHEN]10/06/2017 Rash and Itching TREES 07/21/2006 Itching Fully [...] at this time and did not follow upwith neurology after son's delivery. States she has blackout spells and sees white and black, pupils go pin point, fuzzy through body, sweaty. Getting this about a few times a week and feels very tired after for several hours. Dafne Camargo APRN.RANDA SENSITIVE EXAM: The sensitive examination was discussed with the Patient or Patient's Authorized Aids Social Worker. As applicable, any other physician, advance practice provider, medical student, or other health professional student that will be observing or involved in the sensitive examination for educational or training purposes was discussed with the Patient or Authorized Aids Social Worker. The Patient or Authorized Aids Social Worker has agreed to proceed with the sensitive [...] aneuploidy screening was provided. The patient chooses toproceed with First trimester early anatomy ultrasound (12-13w6d) [...] prn. Dafne Camargo APRN.CNM documented in this encounterL[facility]07-[facility]25 Instructions* Patient Instructions* Anselmo Hurtado MA - 11/29/2024 8:40 AM EDT Please select the following link to access the [facility] Your Guide to a Healthy . [email or web address] documented in this encounterLakehealth [facility]07-06-2025 Hospital Discharge instructions Patient Education 11/28/2024 21:46:13 [...] or cold beverages. It can also be worsewhen you bite on hard foods. Pain may spread from the tooth to your ear or the area of the jaw on the same side. Home care Follow these tips when caring for yourself at home: Don't have hot and cold foods and drinks. Your tooth may be sensitive to changes in temperature. Use toothpaste made for sensitive teeth. [place] gently up and down instead of sideways. Brushing sideways can wear away root surfaces if they are exposed. If your tooth is chipped or cracked, or if there is a large open cavity, put oil of cloves directlyon the tooth to relieve pain. You can buy oil of cloves at drugstores. Some pharmacies carry an hgkn-vws-ofscmrw toothache kit. This contains a paste that you can put on the exposed tooth to make it less sensitive. Put a cold pack on your jaw over the sore area to help reduce pain. You may use ghmn-sna-ymyonhr medicine to ease pain, unless your doctor prescribed another medicine.If you have chronic liver or kidney disease, [...] healthcare provider Pus drains from the tooth [phone] [employer]. [address] [place] [address]. All rights reserved. This information is not intended as a substitute for professional medical care. Always follow yourhealthcare professional's instructions. Follow Up Care 11/28/2024 21:28:32 With:Go to emergency room if symptoms worsen Address:Unknown When:2-4 days With:Dental Referral List Address: When:2-4 days [facility] 07-06-2025 Note Discharge Instructions Thank you for allowing [facility] to assist you with your healthcare needs. The following is importantdischarge information regarding your hospital visit. Diagnosis from [...] and or supplements as they may interact withyour home medications. Please take this list to [...] or cold beverages. It can also be worsewhen you bite on hard foods. Pain may spread from the tooth to your ear or the area of the jaw on the same side. Home care Follow these tips when caring for yourself at home: Don't have hot and cold foods and drinks. Your tooth may be sensitive to changes in temperature. Use toothpaste made for sensitive teeth. [place] gently up and down instead of sideways. Brushing sideways can wear away root surfaces if they are exposed. If your tooth is chipped or cracked, or if there is a large open cavity, put oil of cloves directlyon the tooth to relieve pain. You can buy oil of cloves at drugstores. Some pharmacies carry an okco-inl-uzfkwjl toothache kit. This contains a paste that you can put on the exposed tooth to make it less sensitive. Put a cold pack on your jaw over the sore area to help reduce pain. You may use cbke-rfj-kgwtyld medicine to ease pain, unless your doctor prescribed another medicine.If you have chronic liver or kidney disease, [...] healthcare provider Pus drains from the tooth [phone] [employer]. [address] [place] [address]. All rights reserved. This information is not intended as a substitute for professional medical care. Always follow yourhealthcare professional's instructions. Additional Information VACCINATE! IT SAVES LIVES! Members of the community who have not yet received the COVID-19 vaccine and would like to receive it can visit one of [facility] vaccine clinics. There are many vaccine clinic locations within the [facility]. For locations and available times, please visit www.[email or web address].[place].gov/. It is important to note that some COVID mobile vaccine clinics are held outdoors and may be canceled in rainy or stormy conditions. To learn more about pediatric vaccinations (ages 5-11), we invite you to visit the [facility] webpage. https://www.[email or web address].org/pages/9312-Kxupj-Tmpukveppyg-Ththdhafok-Ptpxh-Jbs stions.htmlTo learn more about the COVID-19 vaccine, we invite you to visit the CDC website for a list of frequently asked questions. https://www.cdc.gov/coronavirus/2019-ncov/vaccines/faq.html [facility] Patient Portal Access Instructions: Stay connected with your healthcare team and access your personal medical information anytime with the [facility] Patient Portal. If you would like a full copy of your medical records please contact the [facility] Medical Records Department Friday through Friday between 8a.m. and 4:30p.m. Please follow the directions below to access the portal: 1.Access the email account you provided upon registration to the [facility].2.Look for an invitation email from [facility].3.Open the email and access the invitation link: Accept Invitation to [facility]4.Fill in the required castanon to create your account. Sign into www.Privacy Networks with your username and password that you [...] you will allow to register on the [facility] Patient Portal for access to your information. You can also access the [facility] Patient Portal on the SideStep. Simply click on Health Records under ClickN KIDS and then click on the [employer] logo. HOW TO SAFELY DISPOSE OF PRESCRIPTION MEDICATIONS Please use one of the following methods to safely dispose of your unused medications. 1.Use a drug disposal kit: the drug disposal pouch allows you to safely discard your old and unuseddrugs. Ask your nurse to give you one when you are discharged.2.Visit a local take-back location: Many local pharmacies and police departments have programs that collect old and unwanted prescriptiondrugs. Call your local pharmacy or go to http://reKode Education.Schoology/1R7Pk1r to find one close to you.3.Make use of household items: Use cat litter or old coffee grounds to dispose medications if other options arenot available. Mix your drugs with these household products, seal them in an airtight container andthrow it into the garbage. Call [facility]: [phone] to be sure your drugs can be [...] drowsiness, such as benzodiazepines, also known as benzos,including diazepam and alprazolam, muscle relaxants or sleep aids. Never sell or share prescriptionopioids. This is illegal. Store opioids in a [...] aware that I should contact my doctor. Patient/Aids Social Worker Signature: Date/Time: Relationship to Patient: Witness Name/Signature: Date/Time: [facility]07-06-2025 Hospital Discharge instructions Patient Education 11/28/2024 01:52:30 [...] or cold beverages. It can also be worsewhen you bite on hard foods. Pain may spread from the tooth to your ear or the area of the jaw on the same side. Home care Follow these tips when caring for yourself at home: Don't have hot and cold foods and drinks. Your tooth may be sensitive to changes in temperature. Use toothpaste made for sensitive teeth. [place] gently up and down instead of sideways. Brushing sideways can wear away root surfaces if they are exposed. If your tooth is chipped or cracked, or if there is a large open cavity, put oil of cloves directlyon the tooth to relieve pain. You can buy oil of cloves at drugstores. Some pharmacies carry an yxck-pzs-zxjmsmx toothache kit. This contains a paste that you can put on the exposed tooth to make it less sensitive. Put a cold pack on your jaw over the sore area to help reduce pain. You may use ijwi-zza-ekmobnb medicine to ease pain, unless your doctor prescribed another medicine.If you have chronic liver or kidney disease, [...] healthcare provider Pus drains from the tooth [phone] [employer]. [address] [place] [address]. All rights reserved. This information is not intended as a substitute for professional medical care. Always follow yourhealthcare professional's instructions. Follow Up Care 11/28/2024 01:30:23 With:Go to emergency room if symptoms worsen Address:Unknown When:2-4 days With:Dental Referral List Address: When:2-4 days [facility] 07-06-2025 Note Discharge Instructions Thank you for allowing [facility] to assist you with your healthcare needs. The following is importantdischarge information regarding your hospital visit. Diagnosis from [...] and or supplements as they may interact withyour home medications. What How Much When Why Instructions Last Dose New acetaminophen-hydrocodone ([place] 325- 5 mg oral tablet) 1 tab(s) [...] or cold beverages. It can also be worsewhen you bite on hard foods. Pain may spread from the tooth to your ear or the area of the jaw on the same side. Home care Follow these tips when caring for yourself at home: Don't have hot and cold foods and drinks. Your tooth may be sensitive to changes in temperature. Use toothpaste made for sensitive teeth. [place] gently up and down instead of sideways. Brushing sideways can wear away root surfaces if they are exposed. If your tooth is chipped or cracked, or if there is a large open cavity, put oil of cloves directlyon the tooth to relieve pain. You can buy oil of cloves at drugstores. Some pharmacies carry an cosu-qun-zfbkowh toothache kit. This contains a paste that you can put on the exposed tooth to make it less sensitive. Put a cold pack on your jaw over the sore area to help reduce pain. You may use zswa-mkd-vdqbcvj medicine to ease pain, unless your doctor prescribed another medicine.If you have chronic liver or kidney disease, [...] healthcare provider Pus drains from the tooth [phone] [employer]. [address] [place] [address]. All rights reserved. This information is not intended as a substitute for professional medical care. Always follow yourhealthcare professional's instructions. Additional Information VACCINATE! IT SAVES LIVES! Members of the community who have not yet received the COVID-19 vaccine and would like to receive it can visit one of [facility] vaccine clinics. There are many vaccine clinic locations within the [facility]. For locations and available times, please visit www.[email or web address].[place].gov/. It is important to note that some COVID mobile vaccine clinics are held outdoors and may be canceled in rainy or stormy conditions. To learn more about pediatric vaccinations (ages 5-11), we invite you to visit the [facility] webpage. https://www.[facility].org/pages/8195-Fbugu-Zuothxrdggs-Crrtmoigpm-Hrypr-Vps stions.htmlTo learn more about the COVID-19 vaccine, we invite you to visit the CDC website for a list of frequently asked questions. https://www.cdc.gov/coronavirus/2019-ncov/vaccines/faq.html [facility] Patient Portal Access Instructions: Stay connected with your healthcare team and access your personal medical information anytime with the [facility] Patient Portal. If you would like a full copy of your medical records please contact the [facility] Medical Records Department Friday through Friday between 8a.m. and 4:30p.m. Please follow the directions below to access the portal: 1.Access the email account you provided upon registration to the [facility].2.Look for an invitation email from [facility].3.Open the email and access the invitation link: Accept Invitation to [facility]4.Fill in the required castanon to create your account. Sign into www.Privacy Networks with your username and password that you [...] you will allow to register on the [facility] Patient Portal for access to your information. You can also access the [facility] Patient Portal on the SideStep. Simply click on Health Records under HealthData and then click on the [employer] logo. HOW TO SAFELY DISPOSE OF PRESCRIPTION MEDICATIONS Please use one of the following methods to safely dispose of your unused medications. 1.Use a drug disposal kit: the drug disposal pouch allows you to safely discard your old and unuseddrugs. Ask your nurse to give you one when you are discharged.2.Visit a local take-back location: Many local pharmacies and police departments have programs that collect old and unwanted prescriptiondrugs. Call your local pharmacy or go to http://bit.ly/9Q9Il1l to find one close to you.3.Make use of household items: Use cat litter or old coffee grounds to dispose medications if other options arenot available. Mix your drugs with these household products, seal them in an airtight container andthrow it into the garbage. Call [facility]: [phone] to be sure your drugs can be [...] drowsiness, such as benzodiazepines, also known as benzos,including diazepam and alprazolam, muscle relaxants or sleep aids. Never sell or share prescriptionopioids. This is illegal. Store opioids in a [...] aware that I should contact my doctor. Patient/Aids Social Worker Signature: Date/Time: Relationship to Patient: Witness Name/Signature: Date/Time: [id number] Telephone encounter Note* Telephone Encounter - Anya Pinedo LPN - 11/09/2024 4:37 PM EDT Phone call placed, no answer unable to leave a message. My Chart message sent 11/04/2024 message not read. Anya Pinedo LPN [facility]06-17-2025 Miscellaneous Notes* Telephone Encounter - Anya Pinedo LPN - 11/09/2024 4:37 PM EDT Phone call placed, no answer unable to leave a message. My Chart message sent 11/04/2024 message not read. Anya Pinedo LPN * Telephone Encounter - Janis Herrera LPN - 11/04/2024 11:22 AM EDT Attempted to call patient. Could not leave a message. Voicemail is not set up. Patient is scheduledfor an appointment on 11/10/2024. Notes mentioned . Patient has not had an initial prenatalappointment with a provider. Is patient approx. 28w 3d . LMP 04/19/24 per previous appointment notes. Patient will need a 45 min appointment with a second floor operator. VoiceGemhart message sent to patient. documented in this encounterLake[facility]06-12-2025 Telephone encounter Note * Telephone Encounter - Janis Herrera LPN - 11/04/2024 11:22 AM EDT Attempted to call patient. Could not leave a message. Voicemail is not set up. Patient is scheduledfor an appointment on 11/10/2024. Notes mentioned . Patient has not had an initial prenatalappointment with a provider. Is patient approx. 28w 3d . LMP 04/19/24 per previous appointment notes. Patient will need a 45 min appointment with a second floor operator. SportyBird message sent to patient. [facility]03-17-2025 NoteHNO ID: [id number] Author: ADRIANA DICKENS APRN.AUTOMATIC FURNACE OPERATOR Service: ? Author Type: Nurse Practitioner Type: Progress Notes Filed: 08/09/2024 15:47 Note Text: This note was created using StackSafe. Subjective Zully Joiner is a 28 year [...] acute distress at this time. Adriana Dickens APRN.[facility] History of Present illness Narrative* Adriana Dickens APRN.LINDSEY - 08/09/2024 3:43 PM EDT This note was created using Preferred Commerceriter. Subjective Zully Joiner is a 28 year [...] is possible that symptoms are more consistent witha migraine with aura as she does have a 3-year history of these however based on her risk factors Ifelt patient would be better served with a evaluation at the emergency department where they would have the ability to do higher level testing if deemed appropriate. I did review this with patient and family who understands and are agreeable. They will self transport to the nearest emergency department. Patient in no acute distress at this time. Adriana Dickens APRN.CNP documented in this encounterLakehealth [facility]01-22-2025 Telephone encounter Note * Telephone Encounter - Chel Pitts RN - 06/16/2024 11:51 AM EST Attempted calling Pt at listed # in [...] appointment time on Friday. Chel Pitts RN [facility]01-22-2025 Miscellaneous Notes* Telephone Encounter - Chel Pitts RN - 06/16/2024 11:51 AM EST Attempted calling Pt at listed # in [...] Friday. Chel Pitts RN documented in this encounterLakehealth [facility] Center12-30-2024 Telephone encounter Note * Telephone Encounter - Yajaira Meade RN - 05/24/2024 10:37 AM EST Patient notified and voiced understanding. Yajaira Meade RN [facility]12-30-2024 Miscellaneous Notes* Telephone Encounter - Yajaira Meade RN - 05/24/2024 10:37 AM EST Patient notified and voiced understanding. Yajaira Meade RN * Telephone Encounter - Chel Pitts RN - 05/24/2024 9:38 AM EST Call did not go through on main # listed. Called Pt's grandmother, Princess, and she states Pt is not with her right now and she will have Pt call the office. Chel Pitts RN * Telephone Encounter - Lynne Jensen APRN.CNM - 05/24/2024 9:33 AM EST Patient can try Vitamin B6/ Unisom at this time. Will discuss further at NOB> Lynne Jensen APRN.CNM * Telephone Encounter - Yajaira Meade RN - 05/24/2024 9:05 AM EST Patient calling with complaints of nausea and vomiting in early . Patient is approximately5 weeks , New OB appointment is scheduled for 06/21/24. Patient states she is throwing up 1-2 times per day, she is able to keep foods and fluid down. Denies any pain/cramping. Patient requesting medication for nausea. Geron message sent to patient withrecommendation along with Vitamin B6/Unisom regimen. Do you want to prescribed patient any medication? Yajaira Meade RN documented in this encounterL[facility]12-30-[facility] Telephone encounter Note * Telephone Encounter - Chel Pitts RN - 05/24/2024 9:38 AM EST Call did not go through on main # listed. Called Pt's grandmother, Princess, and she states Pt is not with her right now and she will have Pt call the office. Chel iPtts RN [facility]12-30-2024 Telephone encounter Note* Telephone Encounter - Lynne Jensen APRN.CNM - 05/24/2024 9:33 AM EST Patient can try Vitamin B6/ Unisom at this time. Will discuss further at NOB> Lynne Jensen APRN.CNM [facility] Work Phone: [phone] Telephone encounter Note* Telephone Encounter - Yajaira Meade RN - 05/24/2024 9:05 AM EST Patient calling with complaints of nausea and vomiting in early . Patient is approximately5 weeks , New OB appointment is scheduled for 06/21/24. Patient states she is throwing up 1-2 times per day, she is able to keep foods and fluid down. Denies any pain/cramping. Patient requesting medication for nausea. Operaxt message sent to patient withrecommendation along with Vitamin B6/Unisom regimen. Do you want to prescribed patient any medication? Yajaira Meade RN [facility]04-28-2024 Telephone encounter Note* Telephone Encounter - Sarah Prieto MA - 09/21/2023 9:14 AM EDT Patient given results and verbalized understanding of instructions given. Sarah Prieto MA [facility]04-28-2024 Miscellaneous Notes* Telephone Encounter - Sarah Prieto MA - 09/21/2023 9:14 AM EDT Patient given results and verbalized understanding of instructions given. Sarah Prieto MA * Telephone Encounter - Natalie Bailey - 09/20/2023 9:49 AM EDT Left patient a message for patient to call back and ask for a triage nurse for results. Natalie Bailey * Telephone Encounter - Karen Jenkins APRN.CNP - 09/20/2023 9:39 AM EDT These call patient let her know she is positive for bacterial vaginosis and yeast. Cream was calledin for yeast to use for 3 days and Flagyl twice a day for 7 days was called in for bacterial vaginosis. Patient should not drink alcohol on the medication. Patient's trichomonas, gonorrhea, chlamydia, were all negative. documented in this encounterLake[facility]04-27-2024 Telephone encounter Note * Telephone Encounter - Natalie Bailey - 09/20/2023 9:49 AM EDT Left patient a message for patient to call back and ask for a triage nurse for results. Natalie Bailey [facility]04-27-2024 Telephone encounter Note* Telephone Encounter - Karen Jenkins APRN.CNP - 09/20/2023 9:39 AM EDT These call patient let her know she is positive for bacterial vaginosis and yeast. Cream was calledin for yeast to use for 3 days and Flagyl twice a day for 7 days was called in for bacterial vaginosis. Patient should not drink alcohol on the medication. Patient's trichomonas, gonorrhea, chlamydia, were all negative. [facility]04-26-[facility] History of Present illness Narrative* Karen Jenkins APRN.LINDSEY - 09/19/2023 10:05 AM EDT This note was created using StackSafe. Subjective Zully Joiner is a 28 year old female. Patient reports she bought [employer] for her family on Friday. Patient reports multiple family members woke up with diarrhea and vomiting. Patient states I made myself throw up because Idont usually throw up when I get sick but I felt like I needed to. Patient reports 4-5 episodes ofdiarrhea yesterday. Patient denies any vaginal or urinary [...] age 11 or 12 - diagnosed in [place] Anemia Asthma exercise induced asthma Chlamydia Gonorrhea [...] Take 1 tablet by mouth once daily. [id number] 27 mg-800 mcg- 250 mg-200 mg cap [...] Known Problems Maternal Grandfather Heart Paternal Grandmother [place] Stent <50 Asthma Paternal Grandmother mom, dad, [...] patient. Reviewed appropriate action plan to take ifred flag symptoms occur. Patient agreeable to treatment plan. Sarah Nuñez Supervising provider was present and guided the care of the patient for the entire session on this date. All documentation was reviewed and agreed upon. Karen Jenkins APRN.LINDSEY documented in this encounterLake[facility]03-09-2024 History of Present illness Narrative* Amanda Crain APRN.CNP - 08/02/2023 9:35 AM EST Subjective HPI Zully Joiner is a 27 year old female who presents with vomiting and diarrhea. [place] She was the only one who [...] age 11 or 12 - diagnosed in [place] Anemia Asthma exercise induced asthma Chlamydia Gonorrhea [...] Take 1 tablet by mouth once daily. [id number] 27 mg-800 mcg- 250 mg-200 mg cap [...] Known Problems Maternal Grandfather Heart Paternal Grandmother [place] Stent <50 Asthma Paternal Grandmother mom, dad, [...] illness Amanda Crain APRN.CNP documented in this encounterLake[facility]03-09-2024 Instructions* Patient Instructions* Amanda Crain APRN.CNP - 08/02/2023 9:35 AM [...] of the following as tolerated) Bananas Applesauce [place] Saltine Crackers Animal Crackers Pretzels Oatmeal Unsweetened Dry Cereal (Rice Krispies, Cheerios) Plain Baked or Boiled Potato Plain White Rice Plain Noodles All clear liquid listed below CLEAR LIQUID DIET (need to drink 2 ounces total every half hour) Broth Jello Popsicles Pedialyte Gatorade NO Juices NO Milk NO Dairy Products Call if urine output is decreased or she develops dry mucous membranes, or lethargy. documented in this encounterLake[facility]09-13-2023 History of Present illness Narrative* Dwight Benito MD - 02/05/2023 12:34 PM EDT Patient presents with: Cough: Congestion, inetrmittent fevers [...] week. MEDICATIONS: Current Outpatient Medications Medication Sig [id number] 27 mg-800 mcg- 250 mg-200 mg cap [...] pain, shortness of breath, and lethargy; in theER if severe. 2. Abdominal pain, unspecified abdominal location - ICD9: 789.00, ICD10: R10.9 - UA DIP, URINE (POC) - negative. - HCG QUAL UR B/O - trace ketone only Dwight Benito MD documented in this encounterLake[facility]01-04-2023 Instructions* Patient Instructions* Kodi Perez APRN.AUTOMATIC FURNACE OPERATOR - 05/29/2022 10:08 AM EST How to Manage Common Symptoms Associated with COVID for Adults Fever- Fever is a temperature over 100.4 F and can occur when the body is fighting an infection. Tohelp treat a fever: Drink plenty of fluids [...] your chest such as Vicks, which can helpreduce cough. Try cough drops. Avoid smoking and other strong odors or perfumes. Try breathing exercises to keep your lungs open and clear. Take a big deep breath through your noseand hold for 5 seconds before slowly releasing. [...] of water every 10-15 minutes and increase astolerated. You can try sucking an ice cube [...] or concerning to you. documented in this encounterLake[facility]01-04-2023 History of Present illness Narrative* Kodi Perez APRN.CNP - 05/29/2022 10:07 AM EST Subjective HPI Nontoxic-appearing female presents to urgent care with a chief complaint of sore throat. Duration of symptoms 1 day. Associated symptoms sore throat, fever, nausea, and headache. Patient states history of strep throat in the past with similar signs of symptoms. Patient states positive sick contacts. Patient denies any trismus, difficulty swallowing, difficulty handling secretions, decreased rangeof motion of neck, vomiting, abdominal pain, visual changes, acute headache, cough, pleuritic pain,or change in bowel or bladder habits. Denies chance of . Is breast-feeding. Past medical history prescription medication use allergies reviewed. .Patient presents with: Fever: Sore throat, cough x 1 day PAST MEDICAL HISTORY Diagnosis Date ADHD (attention deficit hyperactivity disorder) age 11 or 12 - diagnosed in [place] Anemia Asthma exercise induced asthma Chlamydia Gonorrhea 2017 IBS (irritable bowel syndrome) 11/02/2013 depression Seizure (HCC) 2018, seen in [facility]none since 2018 Trichomoniasis PAST SURGICAL HISTORY Procedure Laterality Date DELIVERY ONLY 09/30/2017 NEXPLANON INSERTION 01/20/2015 removed PAST SURGICAL HISTORY OF pencil lead removed from eardrum ALLERGIES Animals [Other], Dust, Molds [Other], Percocet [Oxycodone- Acetaminophen], and Trees MEDICATIONS multivitamin (CLASSIC ) 28 mg iron- 800 mcg tab(s) Take 1 tablet by mouth once daily. [id number] 27 mg-800 mcg- 250 mg-200 mg cap [...] Known Problems Maternal Grandfather Heart Paternal Grandmother [place] Stent <50 Asthma Paternal Grandmother mom, dad, [...] swelling or pain on movement. Mouth/Throat: Lips: [place]. Mouth: Mucous membranes are moist. Pharynx: Oropharynx [...] of care. This note was generated using Womply software. It may contain errors in wording, punctuation, or spelling. Kodi Perez APRN.LINDSEY documented in this encounterLakehealth [facility]10-07-2022 History of Present illness Narrative* Giulia Angeles RN - 03/01/2022 11:01 AM EDT The patient is here for second injection of Betamethasone. Dose: 12mg/2ml Amount wasted: none. Route: Intramuscular Site: left upper quadrant gluteus Estimator Project Manager: [employer]. Lot #: [id number] Expiration Date: 12/2022 Medication verified by SARAH Waterman RN documented in this encounterLakehealth [facility] Center10-06-2022 Miscellaneous Notes* Quick Notes - Fara Kelly MD - 02/28/2022 11:21 AM EDT SW- Pt doing well. No ctx, vb, lof. Good FM. PE: Gen- NAD, well appearing Abd- Soft, gravid, NT Ext- No edema See flowsheet A/p 34 wk gestation - BMZ today and tomorrow. BPP today. Scheduled C/S next week - GBS today Fara Kelly DO documented in this encounterLakehealth [facility] Center10-06-2022 Instructions* Patient Instructions* Reilly Pino MA Student - 02/28/2022 10:50 AM EDT SEQUENTIAL SCREENINGS The [facility] offers sequential screenings for women who are interested in screenings for chromosomal abnormalities and certain defects during a . The sequential screen combinesultrasound and blood tests to determine the risk [...] this testing. It will require an appointment withour clinical pharmacy technician. This is not an ultrasound performed [...] the above symptoms, contact our office at [phone] and ask to speak with anurse. After hours, you can call doctors registry at [phone] OR call [facility] at [phone] ask to have the doctor television maintenance man paged. If you consider this an emergency, dial 5 or go to your nearest emergency department. NEED HELP? Are you dealing with a violent or abusive relationship? Are you a victim of rape or sexual assult? Call [facility] ([place]) 24 hour Crisis Hotline: 145.591.5083 or 194-842-8836. MANUAL Your Guide to a Healthy manual is now on-line. Visit [email or web address] to download your free copy documented in this encounterLakehealth [facility] Center09-29-2022 Miscellaneous Notes* Telephone Encounter - Dilma Nagy RN - 02/21/2022 11:52 AM EDT Call to Zully who is familiar with myself and the Care Center. We discussed she will have aBPP ultrasound next week at our [place] location. She will also received 2 doses of Betamethasone at the [place] office on 02/28 and 03/01. The will be reaching out to her with confirmation of timing. Delivery will be on 03/05 RCS in the SDU at 8am. We discussed having Zully come to [facility] on 03/[facility] for labwork and self Covid [...] and has my contact information to reach outto me if needed. Dilma Nagy RN documented in this encounterLakehealth [facility] Center09-28-2022 History of Present illness Narrative* Edel Hernandez APRN.CNP - 02/20/2022 4:10 PM EDT NEONATOLOGY CONSULT SERVICE DATE: 02/20/2022 Admission Date: (Not on file) SERVICE TIME: 2:30pm Date of : 1995 Age: [age] year old Sex: female Primary Care Physician: No primary care provider on file. Consulting Pet Groomer: Edel Hernandez APRN.CNP Subjective Consultation for this evaluation was requested [...] 1 tablet by mouth every other day. [id number] 27 mg-800 mcg- 250 mg-200 mg cap [...] (per verbal report from OSH, results not inEpic) 1-hr glucose screen WNL Imagin08/20/21 viability US [...] restriction with AG < 5% but appropriate intervalfetal growth; prominent bowel without dilation; and same [...] odds/morbidity & mortality: Yes. We specifically discussed buttermaker helper morbidities as being impacted by the size [...] ventilator. We would opt for intubation in orderto decrease the amount of air delivered to his GI system as well as to maintain a stable airway if he were to be on pain/sedation medications while his bowel is reduced in the silo. We also discussedthat even if comfortable in RA after delivery, baby boy will be intubated for surgery and will return to the NICU intubated afterwards. We will then wean to extubate depending on his progress in terms of pain control/sedation and comfort of breathing (sometimes the increased abdominal pressure after surgery can cause respiratory distress). Even after repair, we will be cautious in using a mode ofrespiratory support that may introduce excess air into baby boy's gastrointestinal tract (such as CP AP). We also discussed the use of betamethasone [...] the increased abdominal pressure from repair can causechanges in BP, fluid status/UO, and electrolytes as [...] but that if there is concern for anyother issues, a genetic assessment may be warranted. [...] Verbal consent obtained: Yes MISC. Name if Litigation Paralegal, if known: Zully could not remember her name today - is part of the [facility] group Possible need for transfer to outside hospital: No Possible need for subspecialty evaluation: Yes, joe bhatia will be followed by Peds Surgery, others [...] reach-out with further questions or concerns Physician fvch-ou-mjtp total time, including discussion: 60 minutes, more than 50 % of time devotedto coordination of care and/or counseling. SIGNATURE: Edel Hernandez APRN.CNP PATIENT NAME: Zully Joiner DATE: February 20, 2022 TIME: 4:10 PM documented in this encounterLakehealth [facility] Center09-28-2022 History of Present illness Narrative* Maximiliano Castillo MD - 02/20/2022 1:01 PM EDT PEDIATRIC/ SURGERY CONSULT SERVICE DATE: 02/20/2022 SERVICE [...] general anesthesia with an SHANNON of 04/09/2022, byUltrasound dating method. LMP: Patient's last menstrual period [...] 1 tablet by mouth every other day. [id number] 27 mg-800 mcg- 250 mg-200 mg cap [...] at OGT, iv access, prophylactic abx Physician cdce-ij-jwwe total time, including discussion: 40 minutes, more than 50 % of time devotedto coordination of care and/or counseling. SIGNATURE: Maximiliano Castillo MD PATIENT NAME: Zully Joiner DATE: February 20, 2022 TIME: 1:01 PM documented in this encounterLakehealth [facility] Center09-28-2022 Miscellaneous Notes* Telephone Encounter - Isidra Tracey MA - 02/20/2022 8:41 AM EDT Pt was notified of the results. Pt verbalized understanding. Isidra Tracey MA * Telephone Encounter - Karen Jenkins APRN.CNP - 02/20/2022 8:04 AM EDT Negative for flu and COVID please notify thank you documented in this encounterLakehealth Beachwood [facility] Center09-27-2022 History of Present illness Narrative* Jennie Go PA-C - 02/19/2022 10:04 AM EDT This note was created using Preferred Commerceriter. Subjective Zully Joiner is a 26 year old female. HPI Patient presents with cough, sore throat chest congestion for 1 day. She denies fever. No vomiting.She is 33 weeks . No abdominal pain or vaginal drainage or leaking. No bleeding. She did not take any fjdj-jni-knrimvz medications. Denies history of asthma. Review of [...] age 11 or 12 - diagnosed in [place] Anemia Asthma exercise induced asthma Chlamydia Gonorrhea 2017 IBS (irritable bowel syndrome) 11/02/2013 depression Seizure (HCC) 2018, seen in [facility]none since 2018 Trichomoniasis Current Outpatient Medications Medication Sig Dispense Refill ferrous sulfate 325 mg (65 mg iron) tablet Take 1 tablet by mouth every other day. 15 tablet 1 [id number] 27 mg-800 mcg- 250 mg-200 mg cap [...] Known Problems Maternal Grandfather Heart Paternal Grandmother [place] Stent <50 Asthma Paternal Grandmother mom, dad, [...] ROUTINE Jennie Go PA-C documented in this encounterLakehealth [facility] Center09-23-2022 Miscellaneous Notes* Quick Notes - Lynne Jensen APRN.CNM - 02/15/2022 1:35 PM EDT Zully Joiner is a 26 year old female who presents as an add on visit for headache. She stated headache was worse yesterday and felt like a migraine. She took Tylenol and got minimal relief. Ableto sleep last night and still having dull [...] changes Lynne Jensen APRN.CNM documented in this encounterLakehealth [facility] Center09-23-2022 Instructions* Patient Instructions* Lynne Jensen APRN.CNM - 02/15/2022 1:16 PM EDT Zyrtec 10 mg PO daily Benadryl 25 mg PO every 6-8 hours Tylenol Extra Strength 1000 mg PO every 6 hours as needed SEQUENTIAL SCREENINGS The [facility] offers sequential screenings for women who are interested in screenings for chromosomal abnormalities and certain defects during a . The sequential screen combinesultrasound and blood tests to determine the risk [...] this testing. It will require an appointment withour clinical pharmacy technician. This is not an ultrasound performed [...] the above symptoms, contact our office at [phone] and ask to speak with anurse. After hours, you can call doctors registry at [phone] OR call [facility] at [phone] ask to have the doctor television maintenance man paged. If you consider this an emergency, dial [phone]--1 or go to your nearest emergency department. NEED HELP? Are you dealing with a violent or abusive relationship? Are you a victim of rape or sexual assult? Call [facility] ([place]) 24 hour Crisis Hotline: 560.739.3699 or 359-531-7165. MANUAL Your Guide to a Healthy manual is now on-line. Visit [email or web address] to download your free copy documented in this encounterLakehealth [facility]wood [facility] Center09-08-2022 History of Present illness Narrative* Lanette Nuñez MD - 01/31/2022 12:04 PM EDT No primary care provider on file. Referring Provider: Cuauhtemoc Natarajan MD NAME: Zully Scales Rhys CLINIC Number.: [id number] Date of : 1995 Date of Visit: [...] normal in size and shortening. No ventricular hypertrophy.The ventricular septum appeared intact. Normal mitral and tricuspid valves without significant mitral regurgitation. There was mild tricuspid regurgitation. The left and right ventricular outflow tracts were widely patent. The aortic and ductal arches were widely patent. heart rate and rhythmwere regular. There was a trivial anterior pericardial effusion. Normal Doppler of umbilical artery, hepatic vein, ductus venosus. In summary, the echocardiogram today showed normal intracardiac anatomy with normal ventricular function and normal heart rate and rhythm. There was mild tricuspid regurgitation with normal appearing tricuspid valve. There was a trivial anterior pericardial effusion. We discussed these findings with Sarkis Zully Joiner. In addition, the limitations of the echocardiogram and echocardiography in general, including the inability to exclude ASDs, some VSDs, minor valvar abnormalities,partial anomalous pulmonary venous return, persistent patent ductus arteriosus, and coarctation of the aorta, were explained. Based on these data we did not recommend any specific further cardiac follow up. I do recommend a non urgent fetalechocardiogram to evaluate the tricuspid regurgitation. We would be happy to see her back should new concerns arise. Thank you for allowing me to participate in the care of your patient and please do not hesitate to contact me if I can be any further assistance. During this patient visit I have reviewed prior notes and imaging including from referring maternalfetal medicine specialists, devoted time to counseling/coordination of [...] Sincerely, Lanette Nuñez MD documented in this encounterLakehealth [facility] Center09-06-2022 History of Present illness Narrative* Lynne Jensen APRN.CNM - 01/29/2022 12:10 PM EDT NST SUMMARY PROVIDER ASSESSMENT AND INTERPRETATION Zully [...] SIGNATURE: Lynne Jensen APRN.CNM documented in this encounterLakehealth [facility] Center08-30-2022 Miscellaneous Notes* Quick Notes - Cuauhtemoc Natarajan MD - 01/22/2022 11:00 AM EDT Feeling well today, no subjective sx. Reports normal FM and denies VB, LOF, contractions, abdominalpain or any sx Pre-E. ROS otherwise negative. [...] Patient established with our interdisciplinary Care Center teamand has follow-up in [place] in January. Delivery timing to be addressed with advancing gestational age and she may be a candidate for the NAFTNet GOOD study. Pre-E sx and precautions were reviewed. with history of section, antepartum Patient planning repeat CD with delivery in SDU. care Recent midtrimester labs/GTT normal (including repeat syphilis testing). Recommend TDAP and COVID vaccination - maternal/ benefits of vaccination and risks of non-vaccination reviewed. Continue co-management with [place] [employer] provider team. Third trimester counseling provided. pericardial [...] reviewed. Continue weekly surveillance and comanagement with [facility] - RTC for office visit in ~4 weeks. All questions answered. Ms. Joiner expressed understanding and agreement with the plan of care. Cuauhtemoc Natarajan MD I spent a total of 30 minutes on the date of the service which included preparing to see the patient, ujah-ok-idux patient care, completing clinical documentation, obtaining and/or reviewing separately obtained history, performing a medically appropriate examination, counseling and educating the pat ient/family/caregiver, ordering medications, tests, or procedures, and communicating results to thepatient/family/caregiver. documented in this encounterLakehealth [facility] Center08-30-2022 Miscellaneous Notes* Telephone Encounter - Shanelle Ernandez RN - 01/22/2022 9:21 AM EDT Pt seen today by [facility]. requesting refill of Zofran. States she doesn't use it often, just likes to have it on hand. States she takes it once or twice a week. COIP documented in this encounterLakehealth [facility] Center08-26-2022 Miscellaneous Notes* Quick Notes - Fátima Espino MD - 01/18/2022 4:39 PM EDT RR- VB No. LOF No. CTXS No. [...] anemia. Fátima Espino M.D. documented in this encounterLakehealth Beachwood [facility] Center08-26-2022 Instructions* Patient Instructions* Anna Chisholm Tanisha - 01/18/2022 4:08 PM EDT SEQUENTIAL SCREENINGS [facility] offers sequential screenings for women who are interested in screenings for chromosomal abnormalities and certain defects during a . The sequential screen combinesultrasound and blood tests to determine the risk [...] this testing. It will require an appointment withour clinical pharmacy technician. This is not an ultrasound performed [...] the above symptoms, contact our office at [phone] and ask to speak with anurse. After hours, you can call doctors registry at [phone] OR call [facility] at [phone] ask to have the doctor television maintenance man paged. If you consider this an emergency, dial [phone] or go to your nearest emergency department. NEED HELP? Are you dealing with a violent or abusive relationship? Are you a victim of rape or sexual assult? Call [facility] ([place]) 24 hour Crisis Hotline: 805.372.9498 or 114-128-0682. MANUAL Your Guide to a Healthy manual is now on-line. Visit [email or web address] to download your free copy documented in this encounterLakehealth [facility] Center08-01-2022 Miscellaneous Notes* Telephone Encounter - Giulia Angeles RN - 12/24/2021 10:40 AM EDT Patient notified. Voiced understanding. Will call if symptoms worsen. Giulia Angeles RN * Telephone Encounter - Anayeli Shirley MD - 12/24/2021 10:24 AM EDT Would recommend small frequent sips of gatorade and water. Can try sprite or tammi karon too. With only 4 episodes of Vomiting I think she can wait to get fluids- if it persists throughout the day then that may be necessary. Will order zofran. * Telephone Encounter - Giulia Angeles RN - 12/24/2021 10:12 AM EDT 24w6d Patient calling with c/o vomiting that [...] with her nausea. Asking for antiemetic RX. Wo uld you prefer patient go to ER or Outpatient Infusion Center at [facility] for IV hydration? Giulia Angeles RN documented in this encounterLakehealth [facility]wood [facility] Center07-20-2022 History of Present illness Narrative* Krystal Huerta MD - 12/12/2021 11:04 PM EDT MATERNAL MEDICINE CONSULTATION Dear Dr. Espino, I [...] >50% of the time in consultation and coordinationof care as outlined in the assessment and plan above. Krystal Huerta MD documented in this encounterLakehealth Beachwood [facility] Center07-20-2022 History of Present illness Narrative* Maximiliano Castillo MD - 12/12/2021 5:49 PM EDT PEDIATRIC/ SURGERY CONSULT SERVICE DATE: 12/12/2021 SERVICE [...] of defects. She was getting care in [place]. Objective MATERNAL HISTORY: Mother is a 26 year old female, , who is at general anesthesia with an SHANNON of 04/09/2022, byUltrasound dating method. LMP: Patient's last menstrual period [...] on File Prior to Visit Medication Sig [id number] ( PLUS DHA) 18 mg iron-800 mcg-290 [...] EFW (oz) 1 oz EFW by: Hadlock ([id number]) Extended Alum Mixer 4.6 mm CM 4.0 mm 6% Nicolaides [...] normal LVOT view: normal 3-vessel view: normal 7-livolt-ycixwpi view: normal Heart / Thorax Situs: situs [...] with admission to NICU following . Physician mqqa-dn-ohub total time, including discussion: 60 minutes, more than 50 % of time devotedto coordination of care and/or counseling. Maximiliano Castillo MD Pediatric General and Thoracic Surgeon Director of Surgery; Director, Care Center SIGNATURE: Maximiliano Castillo MD PATIENT NAME: Zully Joiner DATE: December 12, 2021 TIME: 5:49 PM documented in this encounterLakehealth Beachwood [facility] Center07-20-2022 History of Present illness Narrative* Gladis San LG - 12/12/2021 2:00 PM EDT REPRODUCTIVE GENETIC COUNSELING INITIAL VISIT Zully Joiner : 1995 Above identifiers confirmed by Gladis San [place], [facility] Consultation requested by: Dr. Krystal Huerta Date of clinic visit: December 12, 2021 Manager Machine offered/present: No, Portuguese in demographics Zully Joiner is a 26 year old, female referred by Dr. Krystal Huerta for genetic counselingto discuss her abnormal ultrasound. PRESENTING PROBLEM: Zully [...] Current Parental Screens: CF: No Hemoglobinopathies: No Orthodoxy Diseases: No Spinal Muscular Atrophy: No Other: No exposures: - vitamins or other folate supplementation: Yes - Prescription medicines: No - OTC medicines, herbal medicines, other supplements: No - Tobacco, alcohol, or illicit drugs: No - Maternal infections or fevers: No - Other known/suspected human teratogens: No Aneuploidy screening: [id number]: Negative CVS: No Amniocentesis: No SIGNIFICANT PAST MEDICAL/SURGICAL HISTORIES: Negative FOB, currently age 33: Negative FAMILY HISTORY: A 3-generation pedigree was obtained for the patient and her partner and will be scanned into patient's EMR. Of note: - Genetic and/or Inherited Disease: No - Common Disorders: Yes / Ms. Joiner's father and materna grandmother both have DM. - Defects: No - Seizures: No - Recurrent Loss/Infertility: No - MR/DD/Autism: No - : No - Other:No - Patient's ethnicity: Not asked - Partner's ethnicity: Not asked - Patient and/or partner did not report -Turkish, , Mediterranean, Ashkenazi Orthodoxy and/or Armenian-German/Cajun ancestries unless noted above. - Patient and partner are NOT consanguineous The remainder of the known family history is negative for infertility, recurrent loss, stillbirth, unexplained , defects, malformation syndromes, chromosomal abnormalities, metabolic disorders, developmental delay, mental retardation, known or suspected genetic diseases,and consanguinity except as noted above and on [...] genetic etiology in setting of gastroschisis is low.After review of risks, benefits, limitations, etc., of amniocentsis, patient declines. Finally we reviewed carrier screening options based on standard of care and ethnicity. Reviewed Cystic Fibrosis (CF), hemoglobinopathies and Spinal Muscular Atrophy (SMA). Reviewed the clinical features of each and inheritance pattern. Offered these carrier screens; encouraged patient to check withher health insurance for coverage. SUGGESTIONS/PLAN: Zully Joiner [...] greater than 50% of which was spent bzmt-ya-jcwz counseling. This plan is being carried out under the oversight of Dr. Soraya Barry. This note will also be sent to the referring provider via the electronic medical record. Gladis San MS, [facility] Licensed, Certified Genetic Counselor documented in this encounterLakehealth Beachwood Medical Center06-22-2022 Miscellaneous Notes* Quick Notes - Dafne Camargo APRN.CNM - 11/14/2021 9:01 AM EDT GENNY-S: Zully Joiner is a 26 year old female who presents at 19w1d with SHANNON:04/09/2022, by Ultrasound for a routine visit. Good FM. Had headache for 6hrs, resolved after eating, hydration, tylenoland rest. Denies visual changes, chest pain, shortness of breath, vaginal bleeding, leakage of fluid, or dysuria. Improved diet, trying to increase hydration. Attempted to make neurology appointment but was having difficulty. Called and left message and got return call while at appointment. She hasthe number and calling today for appointment. O: [...] official results. Discussed will consult MFM and visitonce plan discussed. Emotional support provided. Dafne Camargo APRN.CNM documented in this encounterLakehealth Beachwood Medical Center06-22-2022 Instructions* Patient Instructions* Haylie Max MA - 11/14/2021 8:46 AM EDT Neurology Appointment: [phone] SIGNS AND SYMPTOMS OF LABOR 1. Contractions every 10 minutes or more often 2. Clear, pink, or brownish fluid (water) leaking from vagina 3. Feeling that baby is pushing down, pressure 4. Low, dull backache 5. Cramps that feel like a period 6. Cramps with or without diarrhea If you notice any of the above symptoms, contact our office at [phone] and ask to speak with anurse. After hours, you can call doctors registry at [phone] OR call [facility] at [phone] ask to have the doctor television maintenance man paged. If you consider this an emergency, dial 9-5-9 or go to your nearest emergency department. NEED HELP? Are you dealing with a violent or abusive relationship? Are you a victim of rape or sexual assult? Call [facility] ([place]) 24 hour Crisis Hotline: 781.902.4826 or 247-545-4885. MANUAL Your Guide to a Healthy manual is now on-line. Visit [email or web address] to download your free copy documented in this encounterLakehealth [facility] Center06-01-2022 Miscellaneous Notes* Quick Notes - Lynne Jensen APRN.CNM - 10/24/2021 11:15 AM EDT Zully Joiner is a 26 year old female who presents at 16w1d as an add on visit for lower pelvicpressure and cramping. Patient reports feeling constant crampiness for the past couple of days. She recently completed oral antibiotic for bronchitis. She denies any loss of fluid, vaginal bleeding, vaginal discharge, itching or odor. Recent intercourse last night. Positive movement. Reports urine is very dark and she is not eating or drinking much due to loss of appetite. Hx of nauseabut reports resolved completely and no longer taking [...] needed Lynne Jensen APRN.CNM documented in this encounterLakehealth Beachwood Medical Center06-01-2022 Instructions* Patient Instructions* Haylie Max MA - 10/24/2021 10:56 AM EDT SEQUENTIAL SCREENINGS [facility] offers sequential screenings for women who are interested in screenings for chromosomal abnormalities and certain defects during a . The sequential screen combinesultrasound and blood tests to determine the risk [...] this testing. It will require an appointment withour clinical pharmacy technician. This is not an ultrasound performed [...] the above symptoms, contact our office at [phone] and ask to speak with anurse. After hours, you can call doctors registry at [phone] OR call [facility] at [phone] ask to have the doctor television maintenance man paged. If you consider this an emergency, dial 9--1 or go to your nearest emergency department. NEED HELP? Are you dealing with a violent or abusive relationship? Are you a victim of rape or sexual assult? Call [facility] ([place]) 24 hour Crisis Hotline: 616.552.1313 or 119-626-7722. MANUAL Your Guide to a Healthy manual is now on-line. Visit [email or web address] to download your free copy documented in this encounterLakehealth [facility]wood [facility] Center04-04-2022 Miscellaneous Notes* Telephone Encounter - Jackie Valle RN - 08/27/2021 9:34 AM EDT 7w6d Patient did go to ER 08/25/21 and got rx for promethazine. She stated that it has been helping her more and she is feeling better now. She is going to maintain bland diet and will notify office if she is unable to keep anything down again. Jackie Valle RN * Telephone Encounter - Dafne Camargo APRN.CNM - 08/26/2021 7:57 AM EDT Patient called over the weekend with complaint [...] you, Dafne Camargo APRN.CNM documented in this encounterLakehealth Beachwood Medical Center03-28-2022 Miscellaneous Notes* Quick Notes - Dafne Camargo APRN.CNM - 08/20/2021 1:23 PM EDT ALEXIS: Zully Joiner is a 25 year old female who presents for dating US and follow up. Dating USwas not scheduled. Denies headache, visual changes, chest pain, shortness of breath, vaginal bleeding, leakage of fluid, or dysuria. Emesis every 1-2 hr for 1.5 weeks. Feeling good today though. Ableto eat smoothie. Was taking reglan and not [...] not effective. Reviewed risks and benefits and usin first trimester, handout given. 4) Will get TSH and CMP for N/V 5) Reviewed labs. Treat Yeast infection after 12 weeks. 6) RPR positive, TP negative, False positive result 7) Did not make neurology appt, she will get consult with neurology. Declines assistance with scheduling at this time. Dafne Camargo APRN.CNM documented in this encounterLakehealth [facility]wood [facility] Center03-28-2022 Instructions* Patient Instructions* Haylie Max MA - 08/20/2021 1:13 PM [...] to help control my nausea and vomiting? [employer] has a helpful fact sheet on nausea in with recommendations. You can review it here: https://[employer].org/fact-sheets/sqeuhq-iwhnsejv-fomkrneuv-nvp/pdf/. Also, eating small meals often, drinking plenty [...] did not find that miscarriage happened more oftenfor those who reported that they used ondansetron in the first trimester of . Does taking ondansetron increase the chance of defects? Every starts out with a 3-5% chance of having a defect. This is called the background risk. Most studies have found no increased chance for defects among thousands of people whoused ondansetron in the first trimester of . [...] taking ondansetron. In severe cases, this could becomean abnormal heart rhythm known as Torsades de [...] but the effects of ondansetron on a are not known. If ondansetron use is necessary, it is not usually a reason to stop . A different drug may be considered, especially while a or preterminfant. Be sure to talk to your healthcare [...] the MotherToBaby fact sheet Paternal Exposures at https://mothertobaby.org/fact-sheets/wlgprwax-qijynbtoi-badzxhfrm/pdf/. SIGNS AND SYMPTOMS OF LABOR 1. Contractions every 10 minutes or more often 2. Clear, pink, or brownish fluid (water) leaking from vagina 3. Feeling that baby is pushing down, pressure 4. Low, dull backache 5. Cramps that feel like a period 6. Cramps with or without diarrhea If you notice any of the above symptoms, contact our office at [phone] and ask to speak with anurse. After hours, you can call doctors registry at [phone] OR call [facility] at [phone] ask to have the doctor television maintenance man paged. If you consider this an emergency, dial 9--1 or go to your nearest emergency department. NEED HELP? Are you dealing with a violent or abusive relationship? Are you a victim of rape or sexual assult? Call [facility] ([place]) 24 hour Crisis Hotline: 391.336.6371 or 654-609-2822. MANUAL Your Guide to a Healthy manual is now on-line. Visit [email or web address] to download your free copy documented in this encounterLakehealth [facility]wood [facility] Center05-14-2021 History of Present illness Narrative* Shanelle Rayo RT(R) - 10/06/2020 11:50 AM EDT Radiology Service Progress Note PATIENT NAME: Zully Joiner DATE OF SERVICE: October 06, 2020 TIME: 12:03 PM PATIENT IDENTITY VERIFICATION COMPLETED USING TWO (2) IDENTIFIERS: Name and Date of confirmedby patient verbally. FALL SCREENING: Has the patient had 2 falls in the last year or 1 fall with injury or currently using an Ambulatory Assistive Device (Walker, Cane, Wheelchair, Crutches, etc.)? No PATIENT GENDER DATA: Female. status: : No status: NO. PATIENT RELEVANT IMPLANT DATA REVIEWED: Not Applicable RADIOLOGY DEPARTMENT: General X-ray: Exam(s) Completed: Upper Extremity X- Ray(s): Forearm, right and Hand, right PERIPHERAL IV DATA: Not applicable SIGNED BY: RT Adebayo(R) October 06, 2020 12:03 PM documented in this encounterCleveland [id number] History of Past illness Narrative* Problem Noted Date Resolved Date Trichomonal vaginitis during 8 04/08/2018 Overview: 06/06/17 - patient may not have been treated - KJ 06/12/17- Was unable to tolerate dose and did not complete treatment. Treated today and notifying partner for treatment. Dafne Camargo CNM 08/26/17 - Trich negative. Kristin Hobbs APRN.AUTOMATIC FURNACE OPERATOR Support system deficit 02/06/2017 8 Overview: 02/06/2017 [...] of this encounter (statuses as of 08/20/2021) [facility]01[facility] History of Past illness Narrative* Problem Noted Date Resolved Date Trichomonal vaginitis during 8 04/08/2018 Overview: 06/06/17 - patient may not have been treated - KJ 06/12/17- Was unable to tolerate dose and did not complete treatment. Treated today and notifying partner for treatment. Dafne Camargo CNM 08/26/17 - Trich negative. Kristin Hobbs APRN.AUTOMATIC FURNACE OPERATOR Support system deficit 02/06/2017 8 Overview: 02/06/2017 [...] of this encounter (statuses as of 08/26/2021) [facility] History of Past illness Narrative* Problem Noted Date Resolved Date Trichomonal vaginitis during 8 04/08/2018 Overview: 06/06/17 - patient may not have been treated - KJ 06/12/17- Was unable to tolerate dose and did not complete treatment. Treated today and notifying partner for treatment. Dafne Camargo CNM 08/26/17 - Trich negative. Kristin Hobbs APRN.AUTOMATIC FURNACE OPERATOR Support system deficit 02/06/2017 8 Overview: 02/06/2017 [...] of this encounter (statuses as of 08/27/2021) [facility] History of Past illness Narrative* Problem Noted Date Resolved Date Trichomonal vaginitis during 8 04/08/2018 Overview: 06/06/17 - patient may not have been treated - KJ 06/12/17- Was unable to tolerate dose and did not complete treatment. Treated today and notifying partner for treatment. Dafne Camargo CNM 08/26/17 - Trich negative. Kristin Hobbs APRN.AUTOMATIC FURNACE OPERATOR Support system deficit 02/06/2017 8 Overview: 02/06/2017 [...] of this encounter (statuses as of 10/24/2021) [facility] History of Past illness Narrative* Problem Noted Date Resolved Date Trichomonal vaginitis during 8 04/08/2018 Overview: 06/06/17 - patient may not have been treated - KJ 06/12/17- Was unable to tolerate dose and did not complete treatment. Treated today and notifying partner for treatment. Dafne Camargo CNM 08/26/17 - Trich negative. Kristin Hobbs APRN.AUTOMATIC FURNACE OPERATOR Support system deficit 02/06/2017 8 Overview: 02/06/2017 [...] of this encounter (statuses as of 11/14/2021) [facility] of Past illness Narrative* Problem Noted Date Resolved Date Trichomonal vaginitis during 8 04/08/2018 Overview: 06/06/17 - patient may not have been treated - KJ 06/12/17- Was unable to tolerate dose and did not complete treatment. Treated today and notifying partner for treatment. Dafne Camargo CNM 08/26/17 - Trich negative. Kristin Hobbs APRN.AUTOMATIC FURNACE OPERATOR Support system deficit 02/06/2017 8 Overview: 02/06/2017 [...] of this encounter (statuses as of 11/14/2021) [facility] of Past illness Narrative* Problem Noted Date Resolved Date Trichomonal vaginitis during 8 04/08/2018 Overview: 06/06/17 - patient may not have been treated - KJ 06/12/17- Was unable to tolerate dose and did not complete treatment. Treated today and notifying partner for treatment. Dafne Camargo CNM 08/26/17 - Trich negative. Kristin Hobbs APRN.[facility] Support system deficit 02/06/2017 8 Overview: 02/06/2017 [...] of this encounter (statuses as of 11/15/2021) [facility] of Past illness Narrative* Problem Noted Date Resolved Date Trichomonal vaginitis during 8 04/08/2018 Overview: 06/06/17 - patient may not have been treated - KJ 06/12/17- Was unable to tolerate dose and did not complete treatment. Treated today and notifying partner for treatment. Dafne Camargo CNM 08/26/17 - Trich negative. Kristin Hobbs APRN.[facility] Support system deficit 02/06/2017 8 Overview: 02/06/2017 [...] of this encounter (statuses as of 12/13/2021) [facility] of Past illness Narrative* Problem Noted Date Resolved Date Trichomonal vaginitis during 8 04/08/2018 Overview: 06/06/17 - patient may not have been treated - KJ 06/12/17- Was unable to tolerate dose and did not complete treatment. Treated today and notifying partner for treatment. Danfe Camargo CNM 08/26/17 - Trich negative. Kristin Hobbs APRN.AUTOMATIC FURNACE OPERATOR Support system deficit 02/06/2017 8 Overview: 02/06/2017 [...] of this encounter (statuses as of 12/20/2021) [facility] of Past illness Narrative* Problem Noted Date Resolved Date Trichomonal vaginitis during 8 04/08/2018 Overview: 06/06/17 - patient may not have been treated - KJ 06/12/17- Was unable to tolerate dose and did not complete treatment. Treated today and notifying partner for treatment. Dafne Camargo CNM 08/26/17 - Trich negative. Kristin Hobbs APRN.AUTOMATIC FURNACE OPERATOR Support system deficit 02/06/2017 8 Overview: 02/06/2017 [...] of this encounter (statuses as of 12/24/2021) [facility] of Past illness Narrative* Problem Noted Date Resolved Date Trichomonal vaginitis during 8 04/08/2018 Overview: 06/06/17 - patient may not have been treated - KJ 06/12/17- Was unable to tolerate dose and did not complete treatment. Treated today and notifying partner for treatment. Dafne Camargo CNM 08/26/17 - Trich negative. Kristin Hobbs APRN.[facility] Support system deficit 02/06/2017 8 Overview: 02/06/2017 [...] of this encounter (statuses as of 01/01/2022) [facility] of Past illness Narrative* Problem Noted Date Resolved Date Trichomonal vaginitis during 8 04/08/2018 Overview: 06/06/17 - patient may not have been treated - KJ 06/12/17- Was unable to tolerate dose and did not complete treatment. Treated today and notifying partner for treatment. Dafne Camargo CNM 08/26/17 - Trich negative. Kristin Hobbs APRN.AUTOMATIC FURNACE OPERATOR Support system deficit 02/06/2017 8 Overview: 02/06/2017 [...] of this encounter (statuses as of 01/01/2022) [facility] of Past illness Narrative* Problem Noted Date Resolved Date Trichomonal vaginitis during 8 04/08/2018 Overview: 06/06/17 - patient may not have been treated - KJ 06/12/17- Was unable to tolerate dose and did not complete treatment. Treated today and notifying partner for treatment. Dafne Camargo CNM 08/26/17 - Trich negative. Kristin Hobbs APRN.AUTOMATIC FURNACE OPERATOR Support system deficit 02/06/2017 8 Overview: 02/06/2017 [...] of this encounter (statuses as of 01/11/2022) [facility] of [facility] illness Narrative* Problem Noted Date Resolved Date Trichomonal vaginitis during 8 04/08/2018 Overview: 06/06/17 - patient may not have been treated - KJ 06/12/17- Was unable to tolerate dose and did not complete treatment. Treated today and notifying partner for treatment. Dafne Camargo CNM 08/26/17 - Trich negative. Kristin Hobbs, BHUMIKA.AUTOMATIC FURNACE OPERATOR Support system deficit 02/06/2017 8 Overview: 02/06/2017 [...] of this encounter (statuses as of 01/14/2022) [facility] of [facility] illness Narrative* Problem Noted Date Resolved Date Trichomonal vaginitis during 8 04/08/2018 Overview: 06/06/17 - patient may not have been treated - KJ 06/12/17- Was unable to tolerate dose and did not complete treatment. Treated today and notifying partner for treatment. Dafne Camargo CNM 08/26/17 - Trich negative. Kristin Hobbs APRN.AUTOMATIC FURNACE OPERATOR Support system deficit 02/06/2017 8 Overview: 02/06/2017 [...] of this encounter (statuses as of 01/17/2022) [facility] of [facility] illness Narrative* Problem Noted Date Resolved Date Trichomonal vaginitis during 8 04/08/2018 Overview: 06/06/17 - patient may not have been treated - KJ 06/12/17- Was unable to tolerate dose and did not complete treatment. Treated today and notifying partner for treatment. Dafne Camargo CNM 08/26/17 - Trich negative. Kristin Hobbs APRN.AUTOMATIC FURNACE OPERATOR Support system deficit 02/06/2017 8 Overview: 02/06/2017 [...] of this encounter (statuses as of 01/18/2022) [facility] of [facility] illness Narrative* Problem Noted Date Resolved Date Trichomonal vaginitis during 8 04/08/2018 Overview: 06/06/17 - patient may not have been treated - KJ 06/12/17- Was unable to tolerate dose and did not complete treatment. Treated today and notifying partner for treatment. Dafne Camargo CNM 08/26/17 - Trich negative. Kristin Hobbs APRN.AUTOMATIC FURNACE OPERATOR Support system deficit 02/06/2017 8 Overview: 02/06/2017 [...] of this encounter (statuses as of 01/22/2022) [facility] of [facility] illness Narrative* Problem Noted Date Resolved Date Trichomonal vaginitis during 8 04/08/2018 Overview: 06/06/17 - patient may not have been treated - KJ 06/12/17- Was unable to tolerate dose and did not complete treatment. Treated today and notifying partner for treatment. Dafne Camargo CNM 08/26/17 - Trich negative. Kristin Hobbs APRN.AUTOMATIC FURNACE OPERATOR Support system deficit 02/06/2017 8 Overview: 02/06/2017 [...] of this encounter (statuses as of 01/22/2022) [facility] of [facility] illness Narrative* Problem Noted Date Resolved Date Trichomonal vaginitis during 8 04/08/2018 Overview: 06/06/17 - patient may not have been treated - KJ 06/12/17- Was unable to tolerate dose and did not complete treatment. Treated today and notifying partner for treatment. Dafne Camargo CNM 08/26/17 - Trich negative. Kristin Hobbs APRN.[facility] Support system deficit 02/06/2017 8 Overview: 02/06/2017 [...] of this encounter (statuses as of 01/24/2022) [facility]01-12-2018 History of Past illness Narrative* Problem Noted Date Resolved Date Trichomonal vaginitis during 8 04/08/2018 Overview: 06/06/17 - patient may not have been treated - KJ 06/12/17- Was unable to tolerate dose and did not complete treatment. Treated today and notifying partner for treatment. Dafne Camargo CNM 08/26/17 - Trich negative. Kristin Hobbs APRN.[employer] Support system deficit 02/06/2017 8 Overview: 02/06/2017 [...] of this encounter (statuses as of 01/29/2022) [facility]01-12-2018 History of Past illness Narrative* Problem Noted Date Resolved Date Trichomonal vaginitis during 8 04/08/2018 Overview: 06/06/17 - patient may not have been treated - KJ 06/12/17- Was unable to tolerate dose and did not complete treatment. Treated today and notifying partner for treatment. Dafne Camargo CNM 08/26/17 - Trich negative. Kristin Hobbs APRN.[employer]PER[employer] Support system deficit 02/06/2017 8 Overview: 02/06/2017 [...] of this encounter (statuses as of 01/29/2022) [facility]01-12[facility]2018 History of Past illness Narrative* Problem Noted Date Resolved Date Trichomonal vaginitis during 8 04/08/2018 Overview: 06/06/17 - patient may not have been treated - KJ 06/12/17- Was unable to tolerate dose and did not complete treatment. Treated today and notifying partner for treatment. Dafne Camargo CNM 08/26/17 - Trich negative. Kristin Hobbs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 Procedures CONSULT TO MATERNAL MEDI OFFICE/[facility] 60-74 MINUTES Dafne Camargo APRN.SHYAM [address] [address] Referral ID Status Reason Start Date Expiration Date Visits Requested Visits Authorized [id number] Authorized PCP Requested Referral Auto-Generate d Referral [...] 12 mg, INTRAMUSCULAR, ONCE, 1 dose, On Fri03/01/22 at 0000, Protect From Light. Given 03/01/2022 11:06 AM EDT 12 mg Buttocks, Left Health Concerns Problem Noted Date Occup Therapist 03/09/2022 Infection Onset Date Last Indicated Resolved Time COVID-19 Rule-Out 05/29/2022 05/29/2022 05/29/2022 10:46 PM EST Problem Noted Date Diagnosed Date Occup Therapist 03/09/2022 Additional Source Comments INFORMATION SOURCE (unrecogn ized section and content) DATE CREATED AUTHOR 08/27/2019 [facility] DATE CREATED AUTHOR AUTHOR'S ORGANIZ ATION 12/30/2024 [facility] DATE CREATED AUTHOR AUTHOR'S ORGANIZ ATION 01/08/2025 [facility] DATE CREATED AUTHOR AUTHOR'S ORGANIZ ATION 01/10/2025 [facility] Goals (unrecognized section and content) Goals may be documented in a n alternate sectionGoals may be documented in an alternate sectionGoals may be documented in an alternate section No data available for this section No data available for this section No data available for this sectionGoals may be documented in an alternate sectionGoals may be documented in an alternate sectionGoals may be documented in an alternate section Source Comments (unrecognize d section and content) In the event this informatio n is protected by the Federal Confidentiality of Alcohol and Drug Abuse Patient Records regulations: The Federal rules restrict any use of the information to criminally investigate or prosecute any alcohol or drug abuse patient.[facility] the event this information is protected by the Federal Confidentiality of Alcohol and Drug Abuse Patient Records regulations: The Federal rules restrict any use of the information to criminally investigate or prosecute any alcohol or drug abuse patient.[facility] CenterIn the event this information is protected by the Federal Confidentiality of Alcohol and Drug Abuse Patient Records regulations: The Federal rules restrict any use of the information to criminally investigate or prosecute any alcohol or drug abuse patient.[facility] CenterIn the event this information is protected by the Federal Confidentiality of Alcohol and Drug Abuse Patient Records regulations: The Federal rules restrict any use of the information to criminally investigate or prosecute any alcohol or drug abuse patient.[facility] CenterIn the event this information is protected by the Federal Confidentiality of Alcohol and Drug Abuse Patient Records regulations: The Federal rules restrict any use of the information to criminally investigate or prosecute any alcohol or drug abuse patient.[facility] CenterIn the event this information is protected by the Federal Confidentiality of Alcohol and Drug Abuse Patient Records regulations: The Federal rules restrict any use of the information to criminally investigate or prosecute any alcohol or drug abuse patient.[facility] CenterIn the event this information is protected by the Federal Confidentiality of Alcohol and Drug Abuse Patient Records regulations: The Federal rules restrict any use of the information to criminally investigate or prosecute any alcohol or drug abuse patient.[facility] CenterIn the event this information is protected by the Federal Confidentiality of Alcohol and Drug Abuse Patient Records regulations: The Federal rules restrict any use of the information to criminally investigate or prosecute any alcohol or drug abuse patient.[facility] CenterIn the event this information is protected by the Federal Confidentiality of Alcohol and Drug Abuse Patient Records regulations: The Federal rules restrict any use of the information to criminally investigate or prosecute any alcohol or drug abuse patient.[facility] CenterIn the event this information is protected by the Federal Confidentiality of Alcohol and Drug Abuse Patient Records regulations: The Federal rules restrict any use of the information to criminally investigate or prosecute any alcohol or drug abuse patient.[facility] CenterIn the event this information is protected by the Federal Confidentiality of Alcohol and Drug Abuse Patient Records regulations: The Federal rules restrict any use of the information to criminally investigate or prosecute any alcohol or drug abuse patient.[facility] CenterIn the event this information is protected by the Federal Confidentiality of Alcohol and Drug Abuse Patient Records regulations: The Federal rules restrict any use of the information to criminally investigate or prosecute any alcohol or drug abuse patient.[facility] CenterIn the event this information is protected by the Federal Confidentiality of Alcohol and Drug Abuse Patient Records regulations: The Federal rules restrict any use of the information to criminally investigate or prosecute any alcohol or drug abuse patient.[facility] CenterIn the event this information is protected by the Federal Confidentiality of Alcohol and Drug Abuse Patient Records regulations: The Federal rules restrict any use of the information to criminally investigate or prosecute any alcohol or drug abuse patient.[facility] CenterIn the event this information is protected by the Federal Confidentiality of Alcohol and Drug Abuse Patient Records regulations: The Federal rules restrict any use of the information to criminally investigate or prosecute any alcohol or drug abuse patient.[facility] CenterIn the event this information is protected by the Federal Confidentiality of Alcohol and Drug Abuse Patient Records regulations: The Federal rules restrict any use of the information to criminally investigate or prosecute any alcohol or drug abuse patient.[facility] CenterIn the event this information is protected by the Federal Confidentiality of Alcohol and Drug Abuse Patient Records regulations: The Federal rules restrict any use of the information to criminally investigate or prosecute any alcohol or drug abuse patient.[facility] CenterIn the event this information is protected by the Federal Confidentiality of Alcohol and Drug Abuse Patient Records regulations: The Federal rules restrict any use of the information to criminally investigate or prosecute any alcohol or drug abuse patient.[facility] CenterIn the event this information is protected by the Federal Confidentiality of Alcohol and Drug Abuse Patient Records regulations: The Federal rules restrict any use of the information to criminally investigate or prosecute any alcohol or drug abuse patient.[facility] CenterIn the event this information is protected by the Federal Confidentiality of Alcohol and Drug Abuse Patient Records regulations: The Federal rules restrict any use of the information to criminally investigate or prosecute any alcohol or drug abuse patient.[facility] CenterIn the event this information is protected by the Federal Confidentiality of Alcohol and Drug Abuse Patient Records regulations: The Federal rules restrict any use of the information to criminally investigate or prosecute any alcohol or drug abuse patient.[facility] CenterIn the event this information is protected by the Federal Confidentiality of Alcohol and Drug Abuse Patient Records regulations: The Federal rules restrict any use of the information to criminally investigate or prosecute any alcohol or drug abuse patient.[facility] CenterIn the event this information is protected by the Federal Confidentiality of Alcohol and Drug Abuse Patient Records regulations: The Federal rules restrict any use of the information to criminally investigate or prosecute any alcohol or drug abuse patient.[facility] CenterIn the event this information is protected by the Federal Confidentiality of Alcohol and Drug Abuse Patient Records regulations: The Federal rules restrict any use of the information to criminally investigate or prosecute any alcohol or drug abuse patient.[facility] CenterIn the event this information is protected by the Federal Confidentiality of Alcohol and Drug Abuse Patient Records regulations: The Federal rules restrict any use of the information to criminally investigate or prosecute any alcohol or drug abuse patient.[facility] CenterIn the event this information is protected by the Federal Confidentiality of Alcohol and Drug Abuse Patient Records regulations: The Federal rules restrict any use of the information to criminally investigate or prosecute any alcohol or drug abuse patient.[facility] CenterIn the event this information is protected by the Federal Confidentiality of Alcohol and Drug Abuse Patient Records regulations: The Federal rules restrict any use of the information to criminally investigate or prosecute any alcohol or drug abuse patient.[facility] CenterIn the event this information is protected by the Federal Confidentiality of Alcohol and Drug Abuse Patient Records regulations: The Federal rules restrict any use of the information to criminally investigate or prosecute any alcohol or drug abuse patient.[facility] CenterIn the event this information is protected by the Federal Confidentiality of Alcohol and Drug Abuse Patient Records regulations: The Federal rules restrict any use of the information to criminally investigate or prosecute any alcohol or drug abuse patient.[facility] CenterIn the event this information is protected by the Federal Confidentiality of Alcohol and Drug Abuse Patient Records regulations: The Federal rules restrict any use of the information to criminally investigate or prosecute any alcohol or drug abuse patient.[facility] CenterIn the event this information is protected by the Federal Confidentiality of Alcohol and Drug Abuse Patient Records regulations: The Federal rules restrict any use of the information to criminally investigate or prosecute any alcohol or drug abuse patient.[facility] CenterIn the event this information is protected by the Federal Confidentiality of Alcohol and Drug Abuse Patient Records regulations: The Federal rules restrict any use of the information to criminally investigate or prosecute any alcohol or drug abuse patient.[facility] CenterIn the event this information is protected by the Federal Confidentiality of Alcohol and Drug Abuse Patient Records regulations: The Federal rules restrict any use of the information to criminally investigate or prosecute any alcohol or drug abuse patient.[facility] CenterIn the event this information is protected by the Federal Confidentiality of Alcohol and Drug Abuse Patient Records regulations: The Federal rules restrict any use of the information to criminally investigate or prosecute any alcohol or drug abuse patient.[facility] CenterIn the event this information is protected by the Federal Confidentiality of Alcohol and Drug Abuse Patient Records regulations: The Federal rules restrict any use of the information to criminally investigate or prosecute any alcohol or drug abuse patient.[facility] CenterIn the event this information is protected by the Federal Confidentiality of Alcohol and Drug Abuse Patient Records regulations: The Federal rules restrict any use of the information to criminally investigate or prosecute any alcohol or drug abuse patient.[facility] CenterIn the event this information is protected by the Federal Confidentiality of Alcohol and Drug Abuse Patient Records regulations: The Federal rules restrict any use of the information to criminally investigate or prosecute any alcohol or drug abuse patient.[facility] CenterIn the event this information is protected by the Federal Confidentiality of Alcohol and Drug Abuse Patient Records regulations: The Federal rules restrict any use of the information to criminally investigate or prosecute any alcohol or drug abuse patient.[facility] CenterIn the event this information is protected by the Federal Confidentiality of Alcohol and Drug Abuse Patient Records regulations: The Federal rules restrict any use of the information to criminally investigate or prosecute any alcohol or drug abuse patient.[facility] CenterIn the event this information is protected by the Federal Confidentiality of Alcohol and Drug Abuse Patient Records regulations: The Federal rules restrict any use of the information to criminally investigate or prosecute any alcohol or drug abuse patient.[facility] CenterIn the event this information is protected by the Federal Confidentiality of Alcohol and Drug Abuse Patient Records regulations: The Federal rules restrict any use of the information to criminally investigate or prosecute any alcohol or drug abuse patient.[facility] CenterIn the event this information is protected by the Federal Confidentiality of Alcohol and Drug Abuse Patient Records regulations: The Federal rules restrict any use of the information to criminally investigate or prosecute any alcohol or drug abuse patient.[facility] CenterIn the event this information is protected by the Federal Confidentiality of Alcohol and Drug Abuse Patient Records regulations: The Federal rules restrict any use of the information to criminally investigate or prosecute any alcohol or drug abuse patient.[facility] CenterIn the event this information is protected by the Federal Confidentiality of Alcohol and Drug Abuse Patient Records regulations: The Federal rules restrict any use of the information to criminally investigate or prosecute any alcohol or drug abuse patient.[facility] CenterIn the event this information is protected by the Federal Confidentiality of Alcohol and Drug Abuse Patient Records regulations: The Federal rules restrict any use of the information to criminally investigate or prosecute any alcohol or drug abuse patient.[facility] CenterIn the event this information is protected by the Federal Confidentiality of Alcohol and Drug Abuse Patient Records regulations: The Federal rules restrict any use of the information to criminally investigate or prosecute any alcohol or drug abuse patient.[facility] CenterIn the event this information is protected by the Federal Confidentiality of Alcohol and Drug Abuse Patient Records regulations: The Federal rules restrict any use of the information to criminally investigate or prosecute any alcohol or drug abuse patient.[facility] CenterIn the event this information is protected by the Federal Confidentiality of Alcohol and Drug Abuse Patient Records regulations: The Federal rules restrict any use of the information to criminally investigate or prosecute any alcohol or drug abuse patient.[facility] CenterIn the event this information is protected by the Federal Confidentiality of Alcohol and Drug Abuse Patient Records regulations: The Federal rules restrict any use of the information to criminally investigate or prosecute any alcohol or drug abuse patient.[facility] CenterIn the event this information is protected by the Federal Confidentiality of Alcohol and Drug Abuse Patient Records regulations: The Federal rules restrict any use of the information to criminally investigate or prosecute any alcohol or drug abuse patient.[facility] CenterIn the event this information is protected by the Federal Confidentiality of Alcohol and Drug Abuse Patient Records regulations: The Federal rules restrict any use of the information to criminally investigate or prosecute any alcohol or drug abuse patient.[facility] CenterIn the event this information is protected by the Federal Confidentiality of Alcohol and Drug Abuse Patient Records regulations: The Federal rules restrict any use of the information to criminally investigate or prosecute any alcohol or drug abuse patient.[facility] CenterIn the event this information is protected by the Federal Confidentiality of Alcohol and Drug Abuse Patient Records regulations: The Federal rules restrict any use of the information to criminally investigate or prosecute any alcohol or drug abuse patient.[facility] CenterIn the event this information is protected by the Federal Confidentiality of Alcohol and Drug Abuse Patient Records regulations: The Federal rules restrict any use of the information to criminally investigate or prosecute any alcohol or drug abuse patient.[facility] CenterIn the event this information is protected by the Federal Confidentiality of Alcohol and Drug Abuse Patient Records regulations: The Federal rules restrict any use of the information to criminally investigate or prosecute any alcohol or drug abuse patient.[facility] Reason for Visit (unrecogniz ed section and content) 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 Reason Onset Date Comments Care 08/20/2021 Reason Comments ED Follow-up Reason Onset Date Comments Care 10/24/2021 Reason Comments US Specialty Diagnoses / Procedures Referred By Contac t Referred To Contact [facility] Diagnoses 16 weeks gestation of Procedures OBSTETRIC ULTRASOUND WHI US PREG UTERUS AFTER 1ST TRIMEST GESTATION Lynne Jensen TRANSACTIONAL PARALEGAL.[facility] [address] [place] [address] [place] [phone] Referral ID Status Reason Start Date Expiration Date V isits Requested Visits Authorized [id number] Closed Auto-Generate d Referral 10/30/2021 05/25/2022 1 1 Reason Onset Date Comments Care 11/14/2021 Reason Comments Consult Reason Comments OB Vomiting Reason Comments US Specialty Diagnoses / Procedures Referred By Contac t Referred To Contact [facility] Diagnoses 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 , antepartum Procedures OBSTETRIC ULTRASOUND WHI US PREG UTERUS AFTER 1ST [place] [address] [address] [place] [id number] [place] [phone] Referral ID Status Reason Start Date Expiration Date Visits Requested Visits Authorized [id number] Authorized Auto-Generat ed Referral 12/19/2021 05/25/2022 20 20 Specialty Diagnoses / Procedures Referred By Contac t Referred To Contact [facility] Diagnoses High-risk in second trimester gastroschisis during , antepartum, single or unspecified fetus Encounter for supervision of normal , unspecified, unspecified trimester Procedures BIOPHYSICAL PROFILE US WHI BIOPHYSICAL PROFILE NON-STRESS TESTING BIOPHYSICAL PROFILE W/O NON-STRESS TESTING Fátima Espino MD [address] [place] [address] [facility] [employer] [place] [address] Referral ID Status Reason Start Date Expiration Date Visits Requested Visits Authorized [id number] Authorized Auto-Generat ed Referral 01/09/2022 05/25/2022 10 10 Reason Onset Date Comments Care 01/18/2022 Reason Onset Date Comments Care 02/15/2022 Headaches Reason Comments Chest Congestion cough, sore throat x 1 day Reason Comments Results Reason Comments Delivery Timing Reason Onset Date Comments Care 02/28/2022 Specialty Diagnoses / Procedures Referred By Contac t Referred To Contact [facility] Diagnoses gastroschisis during , antepartum, single or unspecified fetus 33 weeks gestation of Procedures BIOPHYSICAL PROFILE US I BIOPHYSICAL PROFILE NON-STRESS TESTING Krystal Huerta MD [address] [address] [facility] [address] [place] [address] Referral ID Status Reason Start Date Expiration Date V isits Requested Visits Authorized [id number] Closed Auto-Generate d Referral 02/21/2022 02/21/2023 1 [...] Referred By Contac t Referred To Contact [facility] Diagnoses with uncertain dates, antepartum (HCC) Procedures OBSTETRIC ULTRASOUND WHI US PREG UTERUS AFTER 1ST TRIMEST GESTATION Dafne Camargo APRN.[address] [place] [address] Phone: tel: fax: [facility] [place] [facility] [place] [address] [place] [address] Referral ID Status Reason Start Date Expiration Date V isits Requested Visits Authorized [id number] Closed Auto-Generate d Referral 11/29/2024 11/29/2025 1 1 Reason Comments Appointment Reason Comments Initial OB Visit Specialty Diagnoses / Procedures Referred By Contac t Referred To Contact [facility] Diagnoses History of anomaly in prior , currently , third trimester (HCC) Procedures OBSTETRIC ULTRASOUND WHI US PREG UTERUS AFTER 1ST TRIMEST GESTATION Wallace Andino, DO [address] [place] [address] Phone: tel: fax: [facility] [place] [facility] [place] [address] [place] [address] Referral ID Status Reason Start Date Expiration Date V isits Requested Visits Authorized [id number] Closed Auto-Generate d Referral 12/01/2024 12/01/2025 1 1 Reason Onset Date Comments Care 12/27/2024 Reason Onset Date Comments Care 01/04/2025 Reason Comments Consumer Relations Complaint Clerk - Other [facility] Care Teams (unrecognized sec tion and content) Clinical Educator Relationship Specialty Start Date End Date Aldo Aponte III, MD PCP - General Family Practice 04/17/15 Clinical Educator Relationship Specialty Start Date End Date Aldo Aponte III, MD PCP - General Family Practice 04/17/15 Clinical Educator Relationship Specialty Start Date End Date Aldo Aponte III, MD PCP - General Family Practice 04/17/15 Clinical Educator Relationship Specialty Start Date End Date Aldo Aponte III, MD PCP - General Family Practice 04/17/15 Clinical Educator Relationship Specialty Start Date End Date Aldo Aponte III, MD PCP - General Family Practice 04/17/15 Clinical Educator Relationship Specialty Start Date End Date Aldo Aponte III, MD PCP - General Family Practice 04/17/15 Clinical Educator Relationship Specialty Start Date End Date Aldo Aponte III, MD PCP - General Family Practice 04/17/15 Clinical Educator Relationship Specialty Start Date End Date Aldo Aponte III, MD PCP - General Family Practice 04/17/15 Clinical Educator Relationship Specialty Start Date End Date Dilma Nagy RN Talent Development Consultant Medicine 01/22/22 04/16/22 Clinical Educator Relationship Specialty Start Date End Date Dilma Nagy RN Talent Development Consultant Medicine 01/22/22 04/16/22 Clinical Educator Relationship Specialty Start Date End Date Aldo Aponte III, MD PCP - General Family Practice 04/17/15 01/07/22 Clinical Educator Relationship Specialty Start Date End Date Dilma Nagy RN Talent Development Consultant Medicine 01/22/22 04/16/22 Clinical Educator Relationship Specialty Start Date End Date Dilma Nagy RN Talent Development Consultant Medicine 01/22/22 04/16/22 Clinical Educator Relationship Specialty Start Date End Date Dilma Nagy RN Talent Development Consultant Medicine 01/22/22 04/16/22 Clinical Educator Relationship Specialty Start Date End Date Dilma Nagy RN Talent Development Consultant Medicine 01/22/22 04/16/22 Clinical Educator Relationship Specialty Start Date End Date Dilma Nagy RN Talent Development Consultant Medicine 01/22/22 04/16/22 Clinical Educator Relationship Specialty Start Date End Date Dilma Nagy RN Talent Development Consultant Medicine 01/22/22 04/16/22 Clinical Educator Relationship Specialty Start Date End Date Dilma Nagy RN Talent Development Consultant Medicine 01/22/22 04/16/22 Clinical Educator Relationship Specialty Start Date End Date Dilma Nagy RN Talent Development Consultant Medicine 01/22/22 04/16/22 Clinical Educator Relationship Specialty Start Date End Date Dilma Nagy RN Talent Development Consultant Medicine 01/22/22 04/16/22 Clinical Educator Relationship Specialty Start Date End Date Dilma Nagy RN Talent Development Consultant Medicine 01/22/22 04/16/22 Clinical Educator Relationship Specialty Start Date End Date Aldo Aponte III, MD PCP - General Family Medicine 04/17/15 01/07/22 Team Status: Active Member Role/Relationship Status Dates Dr. Sarah Dick MD Primary Care Provider Active Team Status: Inactive Member Role/Relationship Status Dates Dr. Sarah Dick MD Primary Care Provider Active Start: January 06, 2025 End: January 06, 2025 Dr. Fara Kelly DO Attending Provider Active Start: January 06, 2025 End: January 06, 2025 Team Status: Inactive Member Role/Relationship Status Dates Dr. Sarah Dick MD Primary Care Provider Active Start: January 07, 2025 End: January 07, 2025 Dr. Gregory Jenkins MD Attending Provider Active Start: January 07, 2025 End: January 07, 2025 Dr. Gregory Jenkins MD Referring Provider Active Start: January 07, 2025 End: January 07, 2025 Team Status: Inactive Member Role/Relationship Status Dates Dr. Sarah Dick MD Primary Care Provider Active Start: January 10, 2025 End: January 10, 2025 Dr. Gregory Jenkins MD Attending Provider Active Start: January 10, 2025 End: January 10, 2025 Dr. Gregory Jenkins MD Referring Provider Active Start: January 10, 2025 End: January 10, 2025 FOR RECORDS PERTAINING TO PATIENTS WHO ARE [...] BE BASED ON THE PRIMARY CLINICAL RECORDS. [employer] provides no warranty or guarantee of the accuracy or completeness of information in this document.
== END 2025-01-11 23:59 | disposition home or self-care (01) ==
LOC: MEDOUTP 07:13
PROVIDERS: PCP Pediatrics; Referring Provider Obstetrics & Gynecology; Visit Provider Obstetrics & Gynecology
DX: Z00.00 Encounter for general adult medical examination without abnormal findings (principal)

== ENCOUNTER 2025-01-17 09:20 | Inpatient (IN) | payer MEDICAID, SELFPAY ==
--- NOTE | 2025-01-11 13:10 | HP.PCM_ITS ---
History and Physical Date of Admission: 01/17/25 HPI: The patient is a 29 year old female presenting for pre-operative visit. She is scheduled for repeat c/s, for previous c/s on 01/17/25. Procedure discussed along with risks, benefits and complications. Other alternatives discussed for management. Consent form signed? Yes. ? ? PAST MEDICAL HISTORY PAST MEDICAL HISTORYDiagnosisDate?ADHD (attention deficit hyperactivity disorder)??age 11 or 12 - diagnosed in [place]?Anemia??Asthma (HCC)??exercise induced asthma?Chlamydia??Gonorrhea??2018?IBS (irritable bowel syndrome)11/02/2013? depression??Seizure (HCC)??2018, seen [place] none since 2018?Trichomoniasis? ? ? PAST SURGICAL HISTORY PAST SURGICAL HISTORYProcedureLateralityDate? DELIVERY ONLY?09/30/2017 ?NEXPLANON INSERTION?01/20/2015?removed?PAST SURGICAL HISTORY OF???pencil lead removed from eardrum ? ? ? CURRENT MEDICATIONS Current Outpatient MedicationsMedicationSigDispenseRefill?acetaminophen (TYLENOL) 325 mg capTake by mouth.???[id number] 27 mg-800 mcg- 250 mg-200 mg capTake 1 capsule by mouth once daily. vitamin as available and covered on her plan w/ [employer] with or separate [id number]?albuterol HFA (PROAIR HFA) 90 mcg/actuation inhalerInhale 2 Puffs as instructed every 4 hours as needed for wheezing/shortness of breath.2 Inhaler2? No current facility-administered medications for this visit. ? ? ALLERGIES: Dust, Percocet [Oxycodone-Acetaminophen], and Trees ? PERSONAL HISTORY: [SOCIAL HISTORY] [SOCIAL HISTORY] Social History Tobacco Use ? Smoking status: Former ? ? Current packs/day: 0.00 ? ? Types: Cigarettes ? ? Start date: 02/04/2013 ? ? Quit date: 02/04/2017 ? ? Years since quittin.9 ? Smokeless tobacco: Never Vaping Use ? Vaping status: Former ? Quit date: 07/27/2021 Substance Use Topics ? Alcohol use: No ? Drug use: Not Currently ? ? Types: Marijuana ? FAMILY HISTORY: FAMILY HISTORY FAMILY HISTORY ProblemRelationAge of Onset?ArthritisMother??other (neuropathy)Mother??SchizophreniaMother??DiabetesFather??other (Diverticulitis)Father??Obstructive Sleep Apnea Father??No Known ProblemsSister??No Known ProblemsSister??No Known ProblemsBrother??SeizuresBrother??No Known ProblemsBrother??No Known Problem sBrother??DiabetesMaternal Grandmother??other (breast cyst)Maternal Grandmother??No Known ProblemsMaternal Grandfather??HeartPaternal Grandmother?? [place] Stent <50?AsthmaPaternal Grandmother?? mom, dad, siblings?other ()Paternal Grandfather?? < 50 (thinks wa cancer, but now sure)?No Known ProblemsDaughter? ? ? REVIEW OF SYMPTOMS: GENERAL: denies fevers or chills ENDOCRINOLOGY: has not been on steroids Cardiology : denies palpitations or chest pain Respiratory: denies SOB or cough Hematology: denies history of prolonged bleeding or easy bruising or VTE Allergy: Denies history of personal or family history of allergy to anesthesia ? PHYSICAL EXAMINATION: ? VITALS: Blood pressure 114/74, pulse 109, resp. rate 16, height 167.6 cm (5' 6), weight 78 kg (172 lb), last menstrual period 04/19/2024, SpO2 98%. ? GENERAL: The patient is well nourished, well hydrated in no acute distress. , The patient is oriented to time, place, and person. NECK: Supple. No lynphadenopathy, normal thyroid, no thyromegaly. LUNGS: Clear to auscultation bilaterally. no wheezes, rhonchi or rales HEART: Regular rate and rhythm, Normal heart sounds, and No murmurs or gallops abd- soft, nontender, gravid ? IMPRESSION: Estimated Date of Delivery: 01/24/25 ? PLAN: The risks/benefits/alternatives and personal involved for the planned c- section were reviewed with the patient. Her questions were answered to her satisfaction and she desires to proceed. Consent was signed. I reviewed with her postop instructions and expectations. ? ? I have reviewed and updated past medical and surgical history, medications and allergies Assessment & Plan Assessment/Plan (1) High risk multigravida in third trimester: (2) History of drug use:
[2025-01-17] VITALS (17 sets, daily range): BP systolic 99–125; BP diastolic 41–82; PULSE 64–98; RESP 14–16; TEMP 35.9–36.4; O2SAT 97–100; BMI 28.8
[2025-01-17] MEDS: Lactated Ringers 1,000 ML 999 ML IV (09:50)
[2025-01-17 10:08] LABS: Hematocrit 27.8 % (37-47); Hemoglobin 9.3 g/dL (12.0-15.0); Immature Granulocytes Count 0.080 X10^3/uL (0.0-0.0); Mean Corp Hgb Conc 33.5 g/dL (32-36); Mean Corpuscular Volume 88.5 fL (81-99); Mean Platelet Vol. 11.2 fl (6.2-12.0); NRBC Flagged by Analyzer 0 % (0-5); Platelet Count 203 K/mm3 (150-450); RBC Distribution Width CV 14.6 % (11.6-14.6); RBC Distribution Width SD 46.6 fl (35.1-43.9); Red Blood Count 3.14 M/mm3 (4.2-5.4); White Blood Count 8.2 K/mm3 (4.4-11.0)
[2025-01-17] MEDS: Lactated Ringers 1,000 ML 150 ML IV (10:47)
[2025-01-17 11:10] LABS: Barbiturate Urine NEGATIVE (< 200 ng/mL); Benzodiazepine Urine NEGATIVE (< 200 ng/mL); PCP Urine NEGATIVE (< 25 ng/mL); THC Urine NEGATIVE (< 50 ng/mL)
[2025-01-17 11:34] LABS: Syphilis Antibodies Nonreactive (Nonreactive)
[2025-01-17] MEDS: morphine PF (epidural) 5 MG/10 ML Vial INTRATH (11:50)
[2025-01-17] MEDS: Cefazolin 1 GM/5 ML Vial 2 GM IV (11:52)
--- NOTE | 2025-01-17 12:30 | OP.PCM_ITS ---
Assessment & Plan (1) High risk multigravida in third trimester: (2) Hx of section: (3) 39 weeks gestation of : (4) Single live : Maternal Data Information Final SHANNON: 01/24/25 Gestational age: 39 0/7 Operative Report (OB) Details Procedure Type: low transverse Date of Procedure: 01/17/25 Procedure Start Time: 12:01 Procedure Stop Time: 12:05 Time of Delivery: 12:28 Pre-Operative Diagnosis: Repeat Elective Post-Operative Diagnosis: Same as Pre-operative diagnosis Classification: Scheduled Type of Anesthesia: Spinal Special Medications: duramoprh Antibiotic Given: Ancef 2 grams IV x1 Drain: Nunez to straight drain Estimated Blood Loss: 600 Fluids Replaced: 800 Findings Description of surgery: The patient was taken to the operating room. She was prepped and draped in the dorsal supine position with a leftward tilt. A Pfannenstiel skin incision was made approximately 2 cm above the symphysis pubis and carried through to underlying layer fascia with the scalpel. The fascia was incised incised in the midline and extended laterally with the Munoz scissors. The fascia was dissected off the rectus muscles with blunt and sharp dissection. The rectus muscles were in the midline and the peritoneum was entered bluntly. The peritoneal incision was stretched and the bladder blade was placed. The uterine incision was made in a low transverse fashion with the scalpel and extended superiorly and inferiorly with blunt dissection. The amniotic membranes were ruptured bluntly and clear amniotic fluid returned. The infant's head was brought to the incision in the flexed position and delivered without difficulty. The remainder of the was delivered with gentle traction and fundal pressure in the standard fashion. The mouth and nares were bulb suctioned. The cord was clamped and cut as the infant was stimulated. Cord clamping was delayed. The was handed off to the waiting nursing staff. The placenta was delivered with fundal massage and gentle traction in the standard fashion. The uterus was exteriorized and cleared of all clots and debris. The cervix was dilated with a ring forcep. The uterine incision was closed with #1 Vicryl in a running locked fashion. A second layer of the same suture was used in an imbricating fashion. The incision was examined and was found to be hemostatic. The uterus was placed back into the peritoneal cavity and hemostasis was again confirmed. The rectus muscles were examined and any bleeding was Bovie cauterized. The parietal peritoneum and rectus muscles were closed en bloc with an 0 Vicryl running suture. The rectus fascia was examined and any bleeding was Bovie cauterized and the rectus fascia was closed with 1 Vicryl suture in a running standard fashion. The subcutaneous tissue was examining and any bleeding was Bovie cauterized. The subcutaneous tissue was reapproximated with 3-0 Vicryl suture. The skin was closed in a subcuticular fashion by the FIELD ARTILLERY OFFICER with me present in the labor and delivery suite. I performed the remainder of the procedure with assistance. All sponge, lap, and needle counts were correct. The patient was taken to her room for recovery in a stable condition. Surgical findings: Normal tubes and ovaries, normal placenta with three-vessel cord Presentation: Vertex Amniotic Membrane Rupture Type: Artificial Amniotic Fluid Description: Clear Placental Delivery Description: Expressed Placenta Disposition: [facility] Specimen collected: No Cord Vessel Description: 3 Vessels Cord Entanglement: Around neck x 1, loose Nuchal Cord Compression: Without compression Infant A gender: Female (Journii) (1 minute): 8 (5 minute): 9 Delayed Cord Clamping: Yes Psychology Fellow bindery chief: Yes Customs And Border Protection Officer: Lucila Vega Tasks completed by assistant auditor: Closing and Retracting Additional early childhood teacher assistant?: No Complications Complications: No
--- NOTE | 2025-01-17 12:30 | PCM.POST.ANE ---
Anesthesia: Postop Eval I Current Vital Signs Temperature: 97 F Pulse Rate: 81 Blood Pressure: 109/49 Respiratory Rate: 16 Pulse Ox: 98 Oxygen Delivery Method: Room Air Assessment Airway patent: Yes Spontaneous unlabored respirations: Yes Mental status: Awake and Calm nausea: No Vomiting: No Anesthesia Complication: No Fluid Hydration Crystalloid volume administer (ml): 800 Total IV fluid infused: 800 Progress Note Anesthesia document: Postop Eval 1 completed: Yes
--- NOTE | 2025-01-17 12:33 | POSTOPAN2_ITS ---
Anesthesia Postop Eval I Sum Postop Eval Completion status Anesthesia document: Postop Eval 1 completed: Yes Anesthesia Postop Eval I Summary Anesthesia Postop Eval I Summary: Anesthesia Postop Eval I: Assessment Summary Airway patent Yes 01/17/25 12:31 CONSULTANT IN ERGONOMICS AND SAFETY.MDOT Spontaneous unlabored Yes 01/17/25 12:31 CONSULTANT IN ERGONOMICS AND SAFETY.MDOT respirations Mental status Awake,Calm 01/17/25 12:31 CONSULTANT IN ERGONOMICS AND SAFETY.MDOT nausea No 01/17/25 12:31 CONSULTANT IN ERGONOMICS AND SAFETY.MDOT Vomiting No 01/17/25 12:31 CONSULTANT IN ERGONOMICS AND SAFETY.MDOT Anesthesia Postop Eval I: Fluid Summary Crystalloid volume administer 800 01/17/25 12:31 CONSULTANT IN ERGONOMICS AND SAFETY.MDOT (ml) Colloids volume administered ( ml) Blood Product volume administered (ml) Total IV fluid infused 800 01/17/25 12:31 CONSULTANT IN ERGONOMICS AND SAFETY.MDOT Anesthesia Postop Eval I: Summary Notes Anesthesia Complication No 01/17/25 12:31 CONSULTANT IN ERGONOMICS AND SAFETY.MDOT Anesthesia Complication Comment: Post-operative progress note Anesthesia: Postop Eval II Evaluation Mental status: Awake and Calm Pain Level: 0 nausea: No Vomiting: No Complications Anesthesia Complication: No
--- NOTE | 2025-01-17 12:33 | PCM.POSTANE2 ---
Anesthesia Postop Eval I Sum Postop Eval Completion status Anesthesia document: Postop Eval 1 completed: Yes Anesthesia Postop Eval I Summary Anesthesia Postop Eval I Summary: Anesthesia Postop Eval I: Assessment Summary Airway patent Yes 01/17/25 12:31 REAL ESTATE LISTING CONSULTANT.MDOT Spontaneous unlabored Yes 01/17/25 12:31 REAL ESTATE LISTING CONSULTANT.MDOT respirations Mental status Awake,Calm 01/17/25 12:31 REAL ESTATE LISTING CONSULTANT.MDOT nausea No 01/17/25 12:31 REAL ESTATE LISTING CONSULTANT.MDOT Vomiting No 01/17/25 12:31 REAL ESTATE LISTING CONSULTANT.MDOT Anesthesia Postop Eval I: Fluid Summary Crystalloid volume administer 800 01/17/25 12:31 REAL ESTATE LISTING CONSULTANT.MDOT (ml) Colloids volume administered ( ml) Blood Product volume administered (ml) Total IV fluid infused 800 01/17/25 12:31 REAL ESTATE LISTING CONSULTANT.MDOT Anesthesia Postop Eval I: Summary Notes Anesthesia Complication No 01/17/25 12:31 REAL ESTATE LISTING CONSULTANT.MDOT Anesthesia Complication Comment: Post-operative progress note Anesthesia: Postop Eval II Evaluation Mental status: Awake and Calm Pain Level: 0 nausea: No Vomiting: No Complications Anesthesia Complication: No
[2025-01-17] MEDS: Oxytocin 15 Units/NS 250ml 15 UNITS/250 ML IV.SOLN 83 UNITS IV (12:45)
[2025-01-17] MEDS: Ketorolac 30 MG/ML Syringe IV ×2 (13:26→18:03)
[2025-01-17] MEDS: 0.9% Saline Lock 10 ML Syringe IV ×2 (15:56→18:03)
[2025-01-18] MEDS: Ketorolac 30 MG/ML Syringe IV ×2 (00:15→08:02)
[2025-01-18 00:16] VITALS: BP 114/58; PULSE 66; RESP 14; TEMP 36.1; O2SAT 98
[2025-01-18] MEDS: 0.9% Saline Lock 10 ML Syringe IV ×3 (00:16→10:54)
--- NOTE | 2025-01-18 01:17 | NURSING ---
hot metal chargerSARAH pemberton informed of pt low output. PO fluids given to pt. will reattempt void within the next few hours. straight cath at bedside, if needed.
[2025-01-18 05:11] VITALS: BP 116/62; PULSE 75; RESP 16; TEMP 36.1; O2SAT 100
[2025-01-18] MEDS: MEASLES,MUMPS,RUBELLA VACC/PF 0.5 ML SC (05:15)
[2025-01-18 05:31] LABS: Hematocrit 24.5 % (37-47); Hemoglobin 8.1 g/dL (12.0-15.0); Mean Corp Hgb Conc 33.1 g/dL (32-36); Mean Corpuscular Volume 90.4 fL (81-99); Mean Platelet Vol. 10.8 fl (6.2-12.0); Platelet Count 167 K/mm3 (150-450); RBC Distribution Width CV 14.7 % (11.6-14.6); RBC Distribution Width SD 47.9 fl (35.1-43.9); Red Blood Count 2.71 M/mm3 (4.2-5.4); White Blood Count 9.8 K/mm3 (4.4-11.0)
[2025-01-18 07:58] VITALS: BP 113/72; PULSE 72; RESP 16; TEMP 36.1; O2SAT 99
--- NOTE | 2025-01-18 08:55 | PCM.PN.OB ---
Subjective Subjective Denies complaints Objective Data Objective Data Vital Signs: Vital Signs Temp Pulse Resp BP Pulse Ox O2 Del Method 97.0 F L 72 16 113/72 99 Room Air 01/18/25 07:58 01/18/25 07:58 01/18/25 07:58 01/18/25 07:58 01/18/25 07:58 01/18/25 07:58 Oxygen Delivery Method Room Air Weight: 173 lb Body Mass Index (BMI) 28.8 Intake & Output: Intake and Output for Last 24 Hours 01/16/25 01/17/25 01/18/25 23:59 23:59 23:59 Intake Total 1626.55 / 1626.55 700 / 700 Output Total 1200 / 1200 1200 / 1200 Balance 426.55 / 426.55 -500 / -500 Lab / Micro Data 01/18/25 05:20 Labs: Laboratory Results - last 24 hr 01/17/25 09:40: WBC 8.2, RBC 3.14 L, Hgb 9.3 L, Hct 27.8 L, MCV 88.5, MCH 29.6, MCHC 33.5, RDW Std Deviation 46.6 H, RDW Coeff of Ever 14.6, Plt Count 203, MPV 11.2, Immature Gran % (Auto) 1.000 H, Neut % (Auto) 64.7, Lymph % (Auto) 24.0, [place] % (Auto) 6.8, Eos % (Auto) 2.9, Baso % (Auto) 0.6, Absolute Neuts (auto) 5.3, Absolute Lymphs (auto) 1.97, Nucleated RBC % 0, Urine Opiates Screen NEGATIVE, U Buprenorphine Qual NEGATIVE, Ur Oxycodone Screen NEGATIVE, Urine Methadone Screen NEGATIVE, Urine Fentanyl Screen NEGATIVE, Ur Barbiturates Screen NEGATIVE, Ur Phencyclidine Scrn NEGATIVE, Ur Amphetamines Screen NEGATIVE, U Benzodiazepines Scrn NEGATIVE, Urine Cocaine Screen NEGATIVE, U Cannabinoids Screen NEGATIVE, Ur Drug Screen Comment , Syphilis Total Ab Nonreactive, Blood Type A POSITIVE, Antibody Screen NEGATIVE 01/18/25 05:20: WBC 9.8, RBC 2.71 L, Hgb 8.1 L, Hct 24.5 L, MCV 90.4, MCH 29.9, MCHC 33.1, RDW Std Deviation 47.9 H, RDW Coeff of Ever 14.7 H, Plt Count 167, MPV 10.8 Physical Exam Const alert, oriented x3 and no apparent distress HEENT normocephalic GI soft to palpation, non-tender and non-distended GI Narrative: fundus firm, mid & below umbilicus Incision - bandage c/d/i Extremity normal to inspection and no calf tenderness Assessment & Plan (1) Hx of section: COMMENT: POD#1 PLAN: Plan Heme - HDS, CBC shows anemia and IV iron x1 ordered ID - AF, no signs infection GI/ - no issues Routine care
[2025-01-18] MEDS: Iron Sucrose Complex (Venofer) 200 MG in 0.9% NaCl 100 ML 220 MG IV (10:52)
[2025-01-18] MEDS: Senna/Docusate Sodium 1 Tablet PO (10:52)
--- NOTE | 2025-01-18 13:11 | PCM.DC.SUM ---
Providers Date of Admission: 01/17/25 Primary Care Physician: Dr. Sarah Dick MD Reason For Visit: REPEAT C SECTION Diagnosis Discharge Diagnosis (1) Hx of section: Status: Acute Code(s): Z98.891 - History of uterine scar from previous surgery Plan Heme - HDS, CBC shows anemia and IV iron x1 ordered ID - AF, no signs infection GI/ - no issues Routine care Medications at Discharge Home Medications ferrous sulfate 325 mg (65 mg iron) tablet (FeroSul) 325 mg PO DAILY anemia 01/06/25 vit no.95-ferrous fumarate 28 mg-folic acid 800 mcg tablet () 1 tab PO DAILY 01/06/25 acetaminophen 500 mg tablet 1,000 mg (2 x 500 mg) PO Q6H #0 tabs 01/18/25 ibuprofen 600 mg tablet 600 mg PO Q6H #0 tabs 01/18/25 Hospital Course Operations section Procedures None Summary of Care Provided Minutes Spent on Discharge: 20 Weight / BMI Weight Weight: 173 lb Body Mass Index (BMI) 28.8 ABG / Lab / Microbiology Data 01/18/25 05:20 Laboratory: Laboratory Results - last 24 hr 01/18/25 05:20: WBC 9.8, RBC 2.71 L, Hgb 8.1 L, Hct 24.5 L, MCV 90.4, MCH 29.9, MCHC 33.1, RDW Std Deviation 47.9 H, RDW Coeff of Ever 14.7 H, Plt Count 167, MPV 10.8 D/C Instructions Discharge Activity: May Shower May resume sexual activity in: 6 weeks Weight Bearing Status: Weight bearing as tolerated Call your doctor if your incision/area has: Continuous Slow Oozing, Sudden Increased Bleeding, Increased Pain/ Swelling, Increased Redness, Foul Smelling Discharge and Swelling at the incision site Call your doctor if you observe: Fever of 101 or Higher, Coldness, Increased Pain, Change in Color, Inability to urinate, Inability to have a bowel movement, Using more than 1 pad per hour, Shortness of breath, Dizziness, Fainting spells, Chest pain, Increased palpitations (irregular heartbeat), Calf discomfort and Uncontrolled pain Suture Line Care: Avoid Pulling/Pushing and Avoid Pinching/Bending Remove Dressing in: 1 week Cleanse incision/area with: Soap & Water DC O2, CPAP, BIPAP Needs Home O2 Discharge instructions: No Please Follow Up With: Niesha Agustin MD When: Follow up in 2 and 6 weeks for visits. Meaningful Use Info Meaningful Use Meaningful Use Diagnoses (Choose all that apply): None applicable Discharge Plan Admission Admit Date/Time: 01/17/25 09:20 Primary Reason for Your Visit: section Attending Provider: Niesha Agustin Primary Care Provider: Sarah Dick Discharge Orders/Prescriptions Prescriptions: New acetaminophen 500 mg Tablet 1,000 mg PO Q6H Qty: 0 0RF ibuprofen 600 mg Tablet 600 mg PO Q6H Qty: 0 0RF Continued ferrous sulfate [FeroSul] 325 mg (65 mg iron) tablet 325 mg PO DAILY PNV cmb#95-ferrous fumarate-FA [] 28 mg iron- 800 mcg tablet 1 tab PO DAILY Referrals / Follow Up: Sarah Dick MD [Primary Care Provider] - Disposition Disposition (needs filled in before D/C Order can be placed): Home, Self Care
[2025-01-18 13:28] VITALS: BP 124/65; PULSE 79; RESP 16; TEMP 36.6; O2SAT 98
--- NOTE | 2025-01-25 12:49 | CASEMGMT ---
Social Work Assessment Labor and Delivery Unit Patient Address: [address] [place] [address] Phone number: [phone] Date of Referral: 01/17/25 Time of Referral:? [phone] Referred By: Dr. Agustin Date of Intervention: 01/18/25?? Time of Intervention:? 1500 Reason for Referral:? 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 Sw presented to bedside and introduced self to mother of baby (AMOS- Polly). Sw explained reason for sw involvement and completed psychosocial assessment. History obtained from: medical records, AMOS, also present was father of baby (FOB- Dell Prado). Household composition: AMOS states that she is currently residing with FOB and his mother. Dawson baby to be included in residence when ready for discharge. AMOS denies any problems or concerns with housing, stating that it is safe and secure. Patient's parent/guardian status:? AMOS states that she and FOB started dating in March of last year (2023) and unexpectedly got soon after they got together. FOB states that this is his first baby. No concerns reported of domestic violence or intimate partner violence. ? Medical History: ?AMOS is 29 year old female who is 3, para 2- now 3 following labor and delivery of . AMOS has started to receive some care during beginning in July. AMOS presented to hospital and delivered baby via scheduled on 01/17/25 at 39 weeks gestation. Baby girl, named Saturnino Nunez, was born weighing 7lb 9oz with apgars of 8 and 9 at one and five minutes of life, respectfully. AMOS is bottle feeding and states that baby will be followed by Dr. Hickman for pediatrics. Educational Status:? AMOS states that she graduated from high school, same as FOB. No problems with reading, learning or comprehension. Financial Status: AMOS states that she is not employed at this time. FOB reports that he currently works as a vendor at [employer]. Supplies:?? All necessary baby supplies obtained, including: car seat, safe sleep space, clothes, diapers and wipes. Childcare/Caregiver(s):? AMOS reports that she will be the primary caregiver to baby, along with FOB when he is not working. Transportation:??MOB and FOB both have their drivers license, but only have one working vehicle at this time. Programs/Agencies Involved: ?AMOS states that she is connected to [employer] and [employer] housing benefits, [place] and counseling services and treatment services at [facility]. Children Services/Legal Issues:??? AMOS reports that she is currently involved with an [place] [facility] sort line worker is Jhony. MOB states that they got involved last year due to child endangerment allegations. AMOS states that her older children (Scottarri and Mjii) are currently placed with her cousin. AMOS states that she is hopeful that with continued involvement with substance use treatment she will be able to regain placement of her children. Lesia informed AMOS that this sw'er is mandated to call Children Services and make them aware that she did give to . AMOS states that she understands. AMOS states that she has already spoken to her field nurse case manager, who went to her home to ensure that she has all necessary baby items, and believes that it is okay for baby to go home with her at time of discharge. - Lesia called [facility] and informed Jhony (AMOS's sort line worker) that AMOS did delivery baby. Lesai provided stats and urine tox screens. Jhony stated that it is okay for baby to be discharged with mom and they will continue to follow with her when she is home. Behavioral Health Issues: ??Mental Health History: SEDRICK denies mental health history. AMOS reports that she has been diagnosed with ADHD and BiPolar. AMOS denies being prescribed any medications to help her manage her mental health symptoms. ??? 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 AMOS reports that substance use treatment was court ordered as part of her safety plan through [facility] in order for her to get custody of her children back. AMOS states at that time she started to receive substance use treatment at [facility]. ?? Family History:???AMOS states that both of her parents have history with addiction. ?? Drug Screens: ??MOB and baby have negative urine drug screens. Family/Social Stressors:? AMOS reports that ongoing stressors are the ongoing involvement of Children Services, her struggles with addiction and ongoing involvement with substance use treatment, and adjusting to having another baby. MOB states that she is happy to have another baby, and is thankful to have a partner who is supportive of her mental health and sobriety. MOB states that this period will be different than the other two because she has a partner that will be engaged and involved with the baby. MOB states that because of that she will also have the ability to continue to engage in the mandated treatment with [facility]. Support Systems: AMOS reports that FOB and FOB's mom are her biggest supports at this time. Depression/Shaken Baby/Safe Sleeping:? Sw and MOB discussed baby blues and depression and anxiety at length. MOB states that following her other two deliveries she did not have the mental health support that she needed as a new mom. MOB states that due to her lack of support and genetic history that is what led her to start to use methamphetamines. MOB states that she regrets going down that path, but feels that she grew from it. MOB states that she feels more understanding of what signs and symptoms to be on the lookout for at this time, and more comfortable to talk to FOB if she were to struggle with her mental health. FOB states that if MOB were to struggle with her mental health, he feels like he would be able to recognize it, and would know how to help and support her. Sw educated parents on shaken baby prevention and ABCs of safe sleep, parents express understanding. ASSESSMENT:? MOB and baby admitted following labor and delivery of . MOB with mental health history positive for ADHD and BiPolar. MOB states that she has also experienced depression/ anxiety due to lack of support. AMOS also has use of methamphetamine during this and has a current case open [place] [facility] [place] to a child endangerment allegations from December of 2023. MOB and FOB have been together since March 2024, and baby is first baby for FOB. MOB and FOB were observed to be supports to one another. FOB was observed to hold baby lovingly and with appropriate hands on care. MOB was sitting comfortably on bed and was talkative and open with sw. MOB answered questions openly and honestly. MOB talked about her mental health and substance use history. MOB states that she has already talked to her sort line worker at [facility], Jhony. MOB states that she met with Jhony at the home where she will be staying with , and Jhony has given her the green light to take baby home there. (sw did confirm this with field nurse case manager). MOB is connected to [facility] for mental health and substance use treatment as mandated by children services. MOB made and maintained eye contact with sw, and conversation flowed naturally. Parents have obtained all necessary baby items and have natural supports in place. PLAN:? No other services requested or indicated. MOB and baby to be discharged when medically ready. Parents were provided literature regarding: signs and symptoms of baby blues and mood and anxiety disorders, Help Me Grow, shaken baby prevention, ABCs of safe sleep and a list of [facility] resources that are available for them should any needs present themselves. Bishop Akins, TEXT TRANSCRIBER, PEDIATRIC CRITICAL CARE NURSE
== END 2025-01-18 16:55 | disposition home or self-care (01) | DRG 540 ==
PROVIDERS: Admitting Provider Obstetrics & Gynecology; PCP Pediatrics; Referring Provider Obstetrics & Gynecology; Visit Provider Obstetrics & Gynecology
PROC: 10D00Z1 Extraction of Products of Conception, Low, Open Approach (ICD-10-PCS; CPT 59514; principal; 2025-01-17 11:45)
DX: O99.02 Anemia complicating childbirth (principal); J45.990 Exercise induced bronchospasm; O99.52 Diseases of the respiratory system complicating childbirth; O34.211 Maternal care for low transverse scar from previous cesarean delivery; O69.81X0 Labor and delivery complicated by cord around neck, without compression, not applicable or unspecified; Z86.59 Personal history of other mental and behavioral disorders; Z87.891 Personal history of nicotine dependence; Z3A.39 39 weeks gestation of pregnancy; Z37.0 Single live birth
CPT/HCPCS: 59050; 80307; 85025; 85027; 86780; 86850; 86900; 86901; 99221; J1756; A4216; G0378; J2405